=== PATIENT | female | born 2000 | race Caucasian/White ===

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

== ENCOUNTER → 2020-01-31 18:42 | Outpatient (CLI) | payer OTHER, SELFPAY ==
[2020-01-31 19:35] LABS: Basophils % 0.6 % (0.1-2.0); Eosinophils # 0.2 K/mm3 (0.0-0.4); Eosinophils % 2.5 % (0.1-12.0); Hematocrit 41.9 % (37.0-47.0); Hemoglobin 14.1 g/dL (12.2-16.2); Lymphocytes # 1.7 K/mm3 (0.7-4.5); Lymphocytes % 22.4 % (10-50); Mean Corpuscular HGB Conc 33.6 g/dL (31.8-35.4); Mean Corpuscular Hemoglobin 28.8 pg (27.0-31.2); Mean Corpuscular Volume 85.9 fl (81-99); Mean Platelet Volume 7.4 fl (7.4-10.4); Monocytes # 0.3 K/mm3 (0.1-1.0); Monocytes % 3.8 % (1.7-9.3); Neutrophils # 5.2 K/mm3 (1.8-7.8); Neutrophils % 70.7 % (37.0-80.0); Platelet Count 310 K/mm3 (142-424); Red Blood Count 4.88 M/mm3 (4.20-5.40); Red Cell Distribution Width 14.4 % (11.5-17.5); White Blood Count 7.3 K/mm3 (4.5-13.0)
[2020-01-31 19:42] LABS: Alanine Aminotransferase 10 U/L (12-78); Albumin Level 4.8 g/dl (3.5-5.0); Albumin/Globulin Ratio 1.6 (1.1-1.8); Alkaline Phosphatase 86 U/L (38-126); Anion Gap 16.8 mEq/L (5-15); Aspartate Amino Transferase 23 U/L (14-36); Bilirubin,Total 0.6 mg/dl (0.2-1.3); Blood Urea Nitrogen 9 mg/dl (7-17); Calcium 10.4 mg/dl (8.4-10.2); Carbon Dioxide 28 mmol/L (22.0-30.0); Chloride 102 mmol/L (98-107); Estimated Glomerular Filt Rate 81 ml/min (>60); GFR (African American) 98 ML/MIN (>60); Glucose 96 mg/dl (74-100); Potassium 3.8 mmoL/L (3.5-5.1); Sodium 143 mmol/L (136-145); Total Protein,Serum 7.8 g/dl (6.3-8.2)
[2020-01-31 20:13] LABS: Thyroid Stimulating Hormone 0.27 uIU/mL (0.465-4.68)
[2020-01-31 22:02] LABS: Free T4 (Free Thyroxine) 1.39 ng/dl (0.78-2.19)
== END ==
PROVIDERS: Visit Provider Nurse Practitioner Family
DX: R63.4 Abnormal weight loss (principal)
CPT/HCPCS: 80053; 84439; 84443; 85025

== ENCOUNTER 2020-02-06 19:29 | Emergency (ER) | payer OTHER, SELFPAY ==
[2020-02-06 19:36] VITALS: BP 106/69; PULSE 73; RESP 16; TEMP 36.9; O2SAT 99; BMI 17.4
[2020-02-06 20:04] LABS: Strep Scrn Group A (Rapid) Negative (Negative)
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
[2020-02-06 20:34] VITALS: BP 104/66; PULSE 69; RESP 18; TEMP 36.8; O2SAT 99
== END 2020-02-06 20:34 | disposition home or self-care (01) ==
PROVIDERS: Emergency Medicine; Emergency Provider Emergency Medicine; PCP Nurse Practitioner Family
DX: J02.9 Acute pharyngitis, unspecified (principal)
CPT/HCPCS: 87430; 99282

== ENCOUNTER 2020-03-19 15:09 | Emergency (ER) | payer OTHER, SELFPAY ==
[2020-03-19 15:18] VITALS: BP 103/71; PULSE 109; RESP 18; TEMP 36.6; O2SAT 98; BMI 17.6
[2020-03-19 15:24] LABS: Apearance,Urine Turbid (Clear); Color,Urine Dark Yellow (Yellow); PH,Urine 5.5 (5.0-8.5)
[2020-03-19 15:25] LABS: Bilirubin,Urine Negative (Negative); Blood, Urine 3+ (Negative); Glucose,Urine (UA) Negative (Negative); Ketones,Urine Negative (Negative); Protein,Urine 3+ (Negative); Specific Gravity, Urine >= 1.030 (1.005-1.030); Urobilinogen,Urine 0.2 EU/dl (0.2)
[2020-03-19 15:26] LABS: UTC Leukocyte Esterase,Urine 1+ (Negative); UTC Nitrate,Urine Positive (Negative)
--- NOTE | 2020-03-19 15:41 | HMH.EDUTC ---
[facility] [place] Clinical Impression: UTI (urinary tract infection) Qualifiers: Urinary tract infection type: site unspecified Hematuria presence: with hematuria Qualified Code(s): N39.0 - Urinary tract infection, site not specified; R31.9 - Hematuria, unspecified Disposition: Home, Self-Care Condition on Discharge: Good Instructions: DI for Urinary Tract Infection (UTI), Ciprofloxacin Additional Instructions: *Increase fluids. Water not Soda or Tea *Start antibiotic immediately and be sure to take as ordered for the FULL length of time although you should start to see improvement over the next 48 hours *Pyridium as needed Remember this medication will turn your urine Bryan. This is normal but it will stain what ever it gets on *You should not use Pyridium for more than 48 hours. If so , follow up with your primary physician to review urine culture and ensure that antibiotic is adequate for infection *Be SURE to follow up anytime for new or worsening symptoms with your family doctor. AND in 48 hours for urine culture results with your family doctor, if you do not have a doctor then you may call back to the [facility] for urine culture results and further treatment. We do recommend that you choose and establish care with a Primary Care Physician. AND follow up with them in 10-14 days to repeat UA to ensure infection is resolved and blood no longer present *Be sure to let your PCP know that we sent urine cultures from the [facility] so they can follow up to ensure that you area the on the correct antibiotic Call your doctor office and make appointment for 48 hours (2 days from today) to follow up and get the results of your urine culture and further treatment Make sure to follow up for your urine culture results to make sure that you are on the right antibiotic Follow up with Family Doctor of Dr Sommer for further treatment and evaluation Straight to ER if any life threatening symptoms Prescriptions: Ciprofloxacin HCl [Cipro 500mg Tab] 500 mg PO BID 10 Days #20 tab Transmission Status: Pending to [id number] Phenazopyridine HCl [Pyridium 200mg Tablet] 200 pow PO TID #6 tab Transmission Status: Pending to [id number] Referrals: Kalyan Marquez APRN [Primary Care Provider] - As needed Time of Disposition: 16:46 Medical Decision Making - Uli Inquiry Pt receiving controlled substance: No Uli was queried for this patient: No Vital Signs: 03/19/20 15:18 Temperature 97.9 F Temperature Source Oral Pulse Rate [Radial] 109 H Respiratory Rate 18 Blood Pressure [Right Arm] 103/71 L Blood Pressure Mean [Right Arm] 81 Blood Pressure Source [Right Arm] Automatic Cuff Blood Pressure Position [Right Arm] Sitting 02 Sat by Pulse Oximetry 98 Oxygen Delivery Method Room Air - Lab Data Lab results reviewed: Yes: I reviewed the patient's lab results. Lab Results 03/19/20 15:23: Urine Color Dark yellow, Urine Appearance Turbid, Urine pH 5.5, Ur Specific [place] >= 1.030, Urine Protein 3+, Urine Glucose (UA) Negative, Urine Ketones Negative, Urine Blood 3+, Urine Nitrate Positive A, Urine Bilirubin Negative, Urine Urobilinogen 0.2, Ur Leukocyte Esterase 1+ A 03/19/20 16:00: Serum HCG, Qual Negative Orders (Tests/Meds): ORDERS Category Date Time Status Urine Culture Routine Micro 03/19/20 15:20 Received Medical Decision Narrative: Patient states that she will not take any medications until she has a blood test to see if she is that she does not trust the urine test 1631 still awaiting Beta HCG from lab results [facility] [place] - General Stated complaint: Possible UTI Time Seen by Provider: 03/19/20 15:41 Mode of Arrival: Ambulatory Source of Information: Patient Limitations: No Limitations Description of Symptoms (Recalled from Triage Doc. by RN): POSSIBLE UTI, BURNING WITH URINATIO, FOUL ODOR X 1 WEEK. HEENT Symptoms (Recalled from RN notes): No Resp Symptoms (Recalled from RN notes): No S
[2020-03-19 16:36] LABS: HCG Qualitative, Serum Negative (Negative)
[2020-03-19 17:04] VITALS: BP 103/71; PULSE 109; RESP 18; TEMP 36.6; O2SAT 98
== END 2020-03-19 17:05 | disposition home or self-care (01) ==
PROVIDERS: Emergency Provider Nurse Practitioner; PCP Nurse Practitioner Family
DX: N30.01 Acute cystitis with hematuria (principal); B96.20 Unspecified Escherichia coli [E. coli] as the cause of diseases classified elsewhere
CPT/HCPCS: 81003; 84703; 87086; 87088; 87186; 96372; 99202

== ENCOUNTER 2020-04-25 20:41 | Emergency (ER) | payer OTHER, SELFPAY ==
--- NOTE | 2020-04-25 20:37 | ECG_ITS ---
APPROVED REPORT Exam: Resting ECG HR:66 bpm ECG Measurements Heart Rate 66 AXES HI 128 P 40 QRSd 82 QRS 82 QT 378 T 32 QTc 396 Conclusion Normal sinus rhythm with sinus arrhythmia Normal ECG Electronically signed by : John Del Angel, 04/26/2020 10:15:59
[2020-04-25 20:41] VITALS: BP 116/70; PULSE 86; RESP 17; TEMP 36.9; O2SAT 97; BMI 19.1
[2020-04-25 21:15] LABS: Basophils # 0.1 K/mm3 (0-0.2); Basophils % 1.1 % (0.1-2.0); Eosinophils # 0.1 K/mm3 (0.0-0.4); Eosinophils % 2.8 % (0.1-12.0); Hematocrit 44.5 % (37.0-47.0); Hemoglobin 14.4 g/dL (12.2-16.2); Lymphocytes # 1.3 K/mm3 (0.7-4.5); Lymphocytes % 28.6 % (10-50); Mean Corpuscular HGB Conc 32.4 g/dL (31.8-35.4); Mean Corpuscular Hemoglobin 28.2 pg (27.0-31.2); Mean Platelet Volume 7.9 fl (7.4-10.4); Monocytes # 0.2 K/mm3 (0.1-1.0); Monocytes % 5.3 % (1.7-9.3); Neutrophils # 2.8 K/mm3 (1.8-7.8); Neutrophils % 62.2 % (37.0-80.0); Platelet Count 301 K/mm3 (142-424); Red Blood Count 5.11 M/mm3 (4.20-5.40); Red Cell Distribution Width 13.8 % (11.5-17.5); White Blood Count 4.5 K/mm3 (4.5-13.0)
[2020-04-25 21:22] LABS: Chloride 102 mmol/L (98-107)
[2020-04-25 21:23] LABS: Potassium 3.8 mmoL/L (3.5-5.1); Sodium 140 mmol/L (136-145)
[2020-04-25 21:25] LABS: Alanine Aminotransferase 10 U/L (12-78); Alkaline Phosphatase 101 U/L (38-126); Anion Gap 10.8 mEq/L (5-15); Aspartate Amino Transferase 30 U/L (14-36); Bilirubin,Direct 0.1 mg/dl (0.0-0.4); Bilirubin,Indirect 0.5 mg/dL (0.0-0.9); Bilirubin,Total 0.6 mg/dl (0.2-1.3); Bilirubin,Unconjugated 0.5 mg/dL (0.0-1.1); Blood Urea Nitrogen 12 mg/dl (7-17); Carbon Dioxide 31 mmol/L (22.0-30.0); Creatinine Clearance Estimated 75 mL/min (50-200); Estimated Glomerular Filt Rate 71 ml/min (>60); GFR (African American) 86 ML/MIN (>60); HCG Qualitative, Serum Negative (Negative)
[2020-04-25 21:26] LABS: Albumin Level 4.9 g/dl (3.5-5.0); Calcium 10.1 mg/dl (8.4-10.2); Glucose 89 mg/dl (74-100); Total Protein,Serum 8.4 g/dl (6.3-8.2)
[2020-04-25 21:44] VITALS: BP 120/70; PULSE 89; RESP 16; TEMP 36.8; O2SAT 98
[2020-04-25 21:49] LABS: Troponin I < 0.01 ng/ml (0.00-0.034)
== END 2020-04-25 21:49 | disposition left against medical advice (07) ==
PROVIDERS: Emergency Provider Emergency Medicine; PCP Nurse Practitioner Family
DX: Z53.21 Procedure and treatment not carried out due to patient leaving prior to being seen by health care provider (principal); R07.9 Chest pain, unspecified
CPT/HCPCS: 80048; 80076; 84484; 84703; 85025; 93005; 96365; 99282

== ENCOUNTER → 2020-06-07 15:29 | Outpatient (CLI) | payer OTHER, SELFPAY | PROVIDERS: PCP Nurse Practitioner Family; Visit Provider Nurse Practitioner Family | DX: Z11.52 Encounter for screening for COVID-19 (principal); J02.9 Acute pharyngitis, unspecified | CPT/HCPCS: U0003 ==

== ENCOUNTER → 2020-08-01 17:49 | Outpatient (CLI) | payer OTHER, SELFPAY | PROVIDERS: Visit Provider Nurse Practitioner Family | DX: N39.0 Urinary tract infection, site not specified (principal) | CPT/HCPCS: 87086; 87088; 87186 ==

== ENCOUNTER → 2020-10-14 13:43 | Outpatient (CLI) | payer OTHER, SELFPAY | PROVIDERS: Visit Provider Family Medicine | DX: N39.0 Urinary tract infection, site not specified (principal) | CPT/HCPCS: 87086; 87088; 87186 ==

== ENCOUNTER → 2020-11-20 18:04 | Outpatient (CLI) | payer OTHER, SELFPAY ==
[2020-11-20 19:15] LABS: Basophils % 0.8 % (0.1-2.0); Eosinophils # 0.2 K/mm3 (0.0-0.4); Hematocrit 41.2 % (37.0-47.0); Hemoglobin 13.6 g/dL (12.2-16.2); Lymphocytes # 1.3 K/mm3 (0.7-4.5); Mean Corpuscular Hemoglobin 29.6 pg (27.0-31.2); Mean Corpuscular Volume 89.7 fl (81-99); Mean Platelet Volume 8.3 fl (7.4-10.4); Monocytes # 0.2 K/mm3 (0.1-1.0); Monocytes % 4.5 % (1.7-9.3); Neutrophils # 3.2 K/mm3 (1.8-7.8); Neutrophils % 64.7 % (37.0-80.0); Platelet Count 321 K/mm3 (142-424); Red Cell Distribution Width 13.8 % (11.5-17.5)
[2020-11-20 21:41] LABS: Alanine Aminotransferase 11 U/L (12-78); Albumin Level 4.6 g/dl (3.5-5.0); Albumin/Globulin Ratio 1.6 (1.1-1.8); Alkaline Phosphatase 73 U/L (38-126); Anion Gap 14.9 mEq/L (5-15); Aspartate Amino Transferase 23 U/L (14-36); Bilirubin,Total 0.7 mg/dl (0.2-1.3); Blood Urea Nitrogen 10 mg/dl (7-17); Calcium 9.7 mg/dl (8.4-10.2); Carbon Dioxide 26 mmol/L (22.0-30.0); Chloride 105 mmol/L (98-107); Chol/HDL Ratio 2.2 (1-3.5); Cholesterol 157 mg/dl (140-200); Estimated Glomerular Filt Rate 71 ml/min (>60); GFR (African American) 86 ML/MIN (>60); Globulin 2.8 g/dL (1.3-3.2); Glucose 79 mg/dl (74-100); HDL Cholesterol 72 mg/dl (40-60); Potassium 3.9 mmoL/L (3.5-5.1); Sodium 142 mmol/L (136-145); Total Protein,Serum 7.4 g/dl (6.3-8.2); Triglycerides 62 mg/dl (30-150); VLDL Cholesterol 12 mg/dL (0-40)
[2020-11-20 21:56] LABS: Direct LDL Cholesterol 55.05 mg/dL (100-129)
[2020-11-20 22:01] LABS: T4 (Thyroxine) 9.2 ug/dl (5.53-11.0)
[2020-11-20 22:02] LABS: 25-OH Vitamin D, Total 42.4 ng/mL (30-100)
[2020-11-20 22:04] LABS: HCG,Quantitative < 2 mIU/ml (0-5.42)
[2020-11-20 22:15] LABS: Thyroid Stimulating Hormone 0.32 uIU/mL (0.465-4.68)
== END ==
PROVIDERS: Visit Provider Nurse Practitioner Family
DX: R63.4 Abnormal weight loss (principal); R68.89 Other general symptoms and signs; Z68.1 Body mass index [BMI] 19.9 or less, adult
CPT/HCPCS: 80053; 80061; 82306; 83036; 84436; 84443; 84702; 85025

== ENCOUNTER 2020-12-01 15:43 | Emergency (ER) | payer OTHER, SELFPAY ==
--- NOTE | 2020-12-01 17:03 | CT_ITS ---
PROCEDURE INFORMATION: Exam: CT Neck With Contrast Exam date and time: 12/01/2020 5:03 PM Age: 20 years old Clinical indication: Other: Swelling; Additional info: Peritonsillar abscess TECHNIQUE: Imaging protocol: Computed tomography images of the neck with contrast. Radiation optimization: All CT scans at this facility use at least one of these dose optimization techniques: automated exposure control; mA and/or kV adjustment per patient size (includes targeted exams where dose is matched to clinical indication); or iterative reconstruction. Contrast material: ISOVUE; Contrast volume: 75 ml; Contrast route: IV; COMPARISON: CT CERVICAL SPINE WO CON 10/09/2019 8:50 PM FINDINGS: Nasopharynx: Unremarkable. Oropharynx: Enlarged, heterogeneous palatine tonsils, with the right palatine tonsil demonstrating areas of hypodensity, possibly phlegmon/developing abscess. No peritonsillar abscess. Hypopharynx: Unremarkable. Larynx: Unremarkable. Normal epiglottis. Retropharyngeal space: Unremarkable. Submandibular/Parotid glands: Normal. Glands are normal in size. Thyroid: Normal. No enlarged or calcified nodules. Lymph nodes: Mild enlargement of the jugulodigastric lymph nodes, likely reactive. Trachea: Visualized trachea is unremarkable. Lungs: Unremarkable as visualized. Bones/joints: Unremarkable. No acute fracture. Soft tissues: Unremarkable. No significant soft tissue swelling. IMPRESSION: Enlarged, heterogeneous palatine tonsils, with the right palatine tonsil demonstrating areas of hypodensity, possibly phlegmon/developing abscess. No peritonsillar abscess.
[2020-12-01 17:17] VITALS: BP 99/66; PULSE 110; RESP 18; TEMP 37; O2SAT 98; BMI 14.1
[2020-12-01 17:32] LABS: Urine Pregnancy, HCG Qual. Negative (Negative)
--- NOTE | 2020-12-01 17:35 | PC.NURSE ---
PT REFUSED VITALS MONITORRIBG AT THIS TIME
[2020-12-01 17:45] LABS: Basophils # 0.1 K/mm3 (0-0.2); Basophils % 0.4 % (0.1-2.0); Eosinophils # 0.1 K/mm3 (0.0-0.4); Eosinophils % 1.1 % (0.1-12.0); Hematocrit 36.6 % (37.0-47.0); Hemoglobin 12.8 g/dL (12.2-16.2); Lymphocytes # 1.1 K/mm3 (0.7-4.5); Lymphocytes % 10.1 % (10-50); Mean Corpuscular Hemoglobin 29.7 pg (27.0-31.2); Mean Corpuscular Volume 84.7 fl (81-99); Mean Platelet Volume 7.2 fl (7.4-10.4); Monocytes # 0.3 K/mm3 (0.1-1.0); Monocytes % 2.8 % (1.7-9.3); Neutrophils % 85.5 % (37.0-80.0); Platelet Count 225 K/mm3 (142-424); Red Blood Count 4.32 M/mm3 (4.20-5.40); White Blood Count 10.5 K/mm3 (4.5-13.0)
[2020-12-01 17:51] LABS: Blood Urea Nitrogen 11 mg/dl (7-17); Calcium 9.1 mg/dl (8.4-10.2); Carbon Dioxide 25 mmol/L (22.0-30.0); Chloride 102 mmol/L (98-107); Creatinine Clearance Estimated 71 mL/min (50-200); Estimated Glomerular Filt Rate 91 ml/min (>60); GFR (African American) 111 ML/MIN (>60); Glucose 94 mg/dl (74-100); MANUAL DIFFERENTIAL MANUAL DIFFERENTIAL (MANUAL DIFF); Potassium 3.9 mmoL/L (3.5-5.1)
[2020-12-01 17:56] LABS: C-Reactive Protein 76.1 mg/L (0-4)
[2020-12-01 17:59] LABS: Anion Gap 13.9 mEq/L (5-15); Sodium 137 mmol/L (136-145)
--- NOTE | 2020-12-01 17:59 | HMH.EDGENADL ---
ED Disposition Clinical Impression: Peritonsillar cellulitis Disposition: Home, Self-Care Condition on Discharge: Fair Additional Instructions: Please take medication as prescribed Please drink warm liquids with honey as needed for comfort May take Tylenol and ibuprofen as needed for pain relief If you are unable to tolerate eating or drinking, please return to the ED for further evaluation Prescriptions: Amoxicillin/Potassium Clav [Augmentin 875-125 Tablet] 1 tab PO Q12H 14 Days #28 tab Prescription Printed Referrals: Kalyan Marquez APRN [Primary Care Provider] - - Critical Care Critical Care Time: No Attestation: On 12/01/20, the high probability of a clinically significant, sudden or life threatening deterioration of the following system(s) required my full and direct attention, intervention and personal management. The time I documented below is in addition to time spent performing reported procedures but includes the following listed in this critical care notation. Medical Decision Making - Medical Records Medical records reviewed: Yes: I reviewed the patient's medical records. - Uli Inquiry Pt receiving controlled substance: No Uli was queried for this patient: No Vital Signs: 12/01/20 17:17 Temperature 98.6 F Temperature Source Oral Pulse Rate [Right] 110 H Respiratory Rate 18 Blood Pressure [Right Arm] 99/66 L Blood Pressure Mean [Right Arm] 77 02 Sat by Pulse Oximetry 98 Oxygen Delivery Method Room Air - Lab Data Lab Results 12/01/20 17:15: Urine HCG, Qual Negative 12/01/20 17:33: WBC 10.5, RBC 4.32, Hgb 12.8, Hct 36.6 L, MCV 84.7, MCH 29.7, MCHC 35.0, RDW 14.0, Plt Count 225, MPV 7.2 L, Neut % (Auto) 85.5 H, Lymph % (Auto) 10.1, [place] % (Auto) 2.8, Eos % (Auto) 1.1, Baso % (Auto) 0.4, Neut # (Auto) 9.0 H, Lymph # (Auto) 1.1, [place] # (Auto) 0.3, Eos # (Auto) 0.1, Baso # (Auto) 0.1, Total Counted 100, Neutrophils % (Manual) 81 H, Lymphocytes % (Manual) 17, Monocytes % (Manual) 2, Platelet Estimate Normal, RBC Morphology Normal 12/01/20 17:33: Sodium 137, Potassium 3.9, Chloride 102, Carbon Dioxide 25, Anion Gap 13.9, BUN 11, Creatinine 0.80, Estimated Creat Clear 71, Estimated GFR 91, Est GFR ( Amer) 111, Glucose 94, Calcium 9.1, C-Reactive Protein 76.1 H Result diagrams: 12/01/20 17:33 12/01/20 17:33 Orders (Tests/Meds): ED MEDICATIONS Discontinued Medications Generic Name Dose Route Start Last Admin Trade Name [place]ilo PRN Reason Stop Dose Admin Iopamidol 75 ml 12/01/20 17:53 12/01/20 17:54 Iopamidol-370 (76%);100ml Bottle IV 12/01/20 17:54 75 ml ONCE ONE Administration Ketorolac Tromethamine 30 mg 12/01/20 17:03 12/01/20 17:37 Ketorolac 30mg/Ml Vial IV 12/01/20 17:04 30 mg ONCE ONE Administration Sodium Chloride 10 ml 12/01/20 17:53 12/01/20 17:54 Sodium Chloride 0.9% 10ml Syr (Rad Only) IV 12/01/20 17:54 10 ml ONCE ONE Administration - CT Data CT Scan: Other (Neck soft tissue) Time Received: 17:[address] Reviewed: Yes: I have reviewed the patient's CT results, I have viewed the radiologist's interpretation Findings Narrative: Right tonsillar phlegmon with possible developing abscess, no peritonsillar abscess identified Medical Decision Narrative: On presentation, patient is hemodynamically stable and nontoxic-appearing. Patient presents with sore throat and difficulty swallowing with possibly muffled voice. Differential diagnosis include but not limited to peritonsillar abscess, strep infection, epiglottitis. However, given that patient symptoms have lasted for several days, alone could be epiglottitis. Patient does not have bilateral large tonsil purulent exudates, unlikely to be strep pharyngitis. Patient was given 4 mg IV morphine for pain relief. Labs include CBC, CMP, CRP were obtained along with a CT of the soft tissue of the neck for further evaluation of possible peritonsillar abscess. I reviewed patient's labs d
[2020-12-01 18:00] VITALS: BP 110/71; PULSE 97; RESP 20; TEMP 37; O2SAT 98
[2020-12-01 18:07] LABS: Lymphocytes % 17 % (10-50); Monocytes % 2 % (2-9); Neutrophils % 81 % (42-76); Platelet Estimate Normal; RBC Morphology Normal; Total Cells Counted 100
== END 2020-12-01 18:54 | disposition home or self-care (01) ==
LOC: UTC 16:00 → ER 16:26
PROVIDERS: Emergency Provider Emergency Medicine; PCP Nurse Practitioner Family
DX: J36 Peritonsillar abscess (principal)
CPT/HCPCS: 70491; 80048; 81025; 85007; 85025; 86140; 96374; 99281; 99282; Q9967

== ENCOUNTER → 2021-02-10 11:34 | Outpatient (CLI) | payer OTHER, SELFPAY | PROVIDERS: PCP Nurse Practitioner Family; Visit Provider Nurse Practitioner | DX: Z20.822 Contact with and (suspected) exposure to COVID-19 (principal); U07.1 COVID-19 | CPT/HCPCS: C9803; U0003; U0005 ==

== ENCOUNTER 2021-02-15 22:30 | Emergency (ER) | payer OTHER, SELFPAY ==
[2021-02-15 22:30] VITALS: BP 102/61; PULSE 75; RESP 16; TEMP 36.8; O2SAT 99; BMI 14.3
--- NOTE | 2021-02-15 22:58 | ECG_ITS ---
APPROVED REPORT Exam: Resting ECG HR:73 bpm ECG Measurements Heart Rate 73 AXES TN 146 P 63 QRSd 82 QRS 84 QT 366 T 53 QTc 403 Conclusion Normal sinus rhythm with sinus arrhythmia RSR' or QR pattern in V1 suggests right ventricular conduction delay Borderline ECG Electronically signed by : John Del Angel MD 02/16/2021 20:52:23
[2021-02-15 23:03] LABS: Basophils # 0.1 K/mm3 (0-0.2); Basophils % 2.1 % (0.1-2.0); Eosinophils # 0.1 K/mm3 (0.0-0.4); Eosinophils % 1.9 % (0.1-12.0); Hematocrit 44.3 % (37.0-47.0); Hemoglobin 14.4 g/dL (12.2-16.2); Lymphocytes # 1.8 K/mm3 (0.7-4.5); Lymphocytes % 48.9 % (10-50); Mean Corpuscular HGB Conc 32.5 g/dL (31.8-35.4); Mean Corpuscular Hemoglobin 29.1 pg (27.0-31.2); Mean Corpuscular Volume 89.6 fl (81-99); Mean Platelet Volume 8.1 fl (7.4-10.4); Monocytes # 0.2 K/mm3 (0.1-1.0); Monocytes % 4.6 % (1.7-9.3); Neutrophils # 1.6 K/mm3 (1.8-7.8); Neutrophils % 42.5 % (37.0-80.0); Platelet Count 218 K/mm3 (142-424); Red Blood Count 4.95 M/mm3 (4.20-5.40); Red Cell Distribution Width 13.6 % (11.5-17.5); White Blood Count 3.7 K/mm3 (4.5-13.0)
[2021-02-15 23:05] LABS: Chloride 106 mmol/L (98-107); Potassium 3.7 mmoL/L (3.5-5.1); Sodium 144 mmol/L (136-145); Urine Pregnancy, HCG Qual. Negative (Negative)
[2021-02-15 23:07] LABS: Alanine Aminotransferase 8 U/L (12-78); Aspartate Amino Transferase 25 U/L (14-36); Blood Urea Nitrogen 7 mg/dl (7-17); Creatinine Clearance Estimated 69 mL/min (50-200); Estimated Glomerular Filt Rate 91 ml/min (>60); GFR (African American) 111 ML/MIN (>60)
[2021-02-15 23:08] LABS: Albumin Level 4.2 g/dl (3.5-5.0); Albumin/Globulin Ratio 1.2 (1.1-1.8); Alkaline Phosphatase 73 U/L (38-126); Anion Gap 12.7 mEq/L (5-15); Bilirubin,Total 0.2 mg/dl (0.2-1.3); Carbon Dioxide 29 mmol/L (22.0-30.0); Globulin 3.4 g/dL (1.3-3.2); Glucose 101 mg/dl (74-100); Total Protein,Serum 7.6 g/dl (6.3-8.2)
[2021-02-15 23:13] LABS: C-Reactive Protein 1.4 mg/L (0-4)
[2021-02-15 23:26] LABS: Erythrocyte Sedimentation Rate 13 mm/hr (0-20)
[2021-02-15 23:31] LABS: Procalcitonin 0.056 ng/mL (0.0-2.0)
[2021-02-15 23:32] LABS: Troponin I < 0.01 ng/ml (0.00-0.034)
--- NOTE | 2021-02-15 23:59 | HMH.EDSOB ---
ED Disposition Clinical Impression: COVID-19 Disposition: Home, Self-Care Condition on Discharge: Good Instructions: DI for COVID-19 (Suspected or Confirmed ) Additional Instructions: use meds and see pcp for follow up Prescriptions: predniSONE [Prednisone 20mg Tab] 20 mg PO BID #10 tab Transmission Status: Pending to [id number] Referrals: Kalyan Marquez APRN [Primary Care Provider] - - Critical Care Critical Care Time: No Attestation: On 02/15/21, the high probability of a clinically significant, sudden or life threatening deterioration of the following system(s) required my full and direct attention, intervention and personal management. The time I documented below is in addition to time spent performing reported procedures but includes the following listed in this critical care notation. Medical Decision Making - Medical Records Medical records reviewed: Yes: I reviewed the patient's medical records. - Uli Inquiry Pt receiving controlled substance: No Vital Signs: 02/15/21 22:30 Temperature 98.2 F Temperature Source Oral Pulse Rate [Right] 75 Respiratory Rate 16 Blood Pressure [Right Arm] 102/61 L Blood Pressure Mean [Right Arm] 74 02 Sat by Pulse Oximetry 99 Oxygen Delivery Method Room Air - Lab Data Lab results reviewed: Yes: I reviewed the patient's lab results. Lab Results 02/15/21 22:52: Urine HCG, Qual Negative 02/15/21 22:52: WBC 3.7 L, RBC 4.95, Hgb 14.4, Hct 44.3, MCV 89.6, MCH 29.1, MCHC 32.5, RDW 13.6, Plt Count 218, MPV 8.1, Neut % (Auto) 42.5, Lymph % (Auto) 48.9, [place] % (Auto) 4.6, Eos % (Auto) 1.9, Baso % (Auto) 2.1 H, Neut # (Auto) 1.6 L, Lymph # (Auto) 1.8, [place] # (Auto) 0.2, Eos # (Auto) 0.1, Baso # (Auto) 0.1, ESR 13 02/15/21 22:52: Sodium 144, Potassium 3.7, Chloride 106, Carbon Dioxide 29, Anion Gap 12.7, BUN 7, Creatinine 0.80, Estimated Creat Clear 69, Estimated GFR 91, Est GFR ( Amer) 111, Glucose 101 H, Calcium 9.0, Total Bilirubin 0.2, AST 25, ALT 8 L, Alkaline Phosphatase 73, Troponin I < 0.01, C-Reactive Protein 1.4, Total Protein 7.6, Albumin 4.2, Globulin 3.4 H, Albumin/Globulin Ratio 1.2, Procalcitonin 0.056 02/15/21 22:52: Urine Color Yellow, Urine Appearance Clear, Urine pH 6.0, Ur Specific [place] >= 1.030, Urine Protein Negative, Urine Glucose (UA) Negative, Urine Ketones Negative, Urine Blood Negative, Urine Nitrate Negative, Urine Bilirubin Negative, Urine Urobilinogen 1.0, Ur Leukocyte Esterase Negative, Urine WBC Occasional, Ur Squamous Epith Cells 5-10, Amorphous Sediment Trace, Urine Bacteria Trace, Urine Mucus 4+ 02/15/21 22:52: Urine Opiates Screen Negative, Urine Methadone Screen Negative, Ur Barbituates Screen Negative, Ur Phencyclidine Scrn Negative, Ur Amphetamines Screen Negative, U Benzodiazepines Scrn Negative, Urine Cocaine Screen Negative, U Marijuana (THC) Screen Negative Result diagrams: 02/15/21 22:52 02/15/21 22:52 Orders (Tests/Meds): ED MEDICATIONS Generic Name Dose Route Start Last Admin Trade Name Freq PRN Reason Stop Dose Admin Sodium Chloride 1,000 mls @ 999 mls/hr 02/15/21 23:00 02/15/21 23:32 Sod Chlor 0.9% 1000ml Bag IV 02/16/21 00:00 999 mls/hr .Q1H1M KELLI Administration Discontinued Medications Generic Name Dose Route Start Last Admin Trade Name Freq PRN Reason Stop Dose Admin Dexamethasone Sodium Phosphate 10 mg 02/15/21 22:59 02/15/21 23:32 Dexamethasone 4mg/Ml 5ml Mdv IV 02/15/21 23:00 10 mg ONCE ONE Administration Iopamidol 70 ml 02/16/21 00:45 02/16/21 00:47 Iopamidol-250 (51%) 100ml Bot IV 02/16/21 00:46 70 ml ONCE ONE Administration Ketorolac Tromethamine 30 mg 02/15/21 22:59 02/15/21 23:32 Ketorolac 30mg/Ml Vial IV 02/15/21 23:00 30 mg ONCE ONE Administration Ondansetron HCl 4 mg 02/15/21 22:59 02/15/21 23:32 Ondansetron 4mg/2ml Vial IV 02/15/21 23:00 4 mg ONCE ONE Administration Sodium Chloride 40 ml 02/16/21 00:45 02/16/21
--- NOTE | 2021-02-16 00:20 | CT_ITS ---
PROCEDURE INFORMATION: Exam: CTA Chest With Contrast Exam date and time: 02/16/2021 12:20 AM Age: 20 years old Clinical indication: Shortness of breath; Additional info: SOA covid positive TECHNIQUE: Imaging protocol: Computed tomographic angiography of the chest with contrast. 3D rendering (Not supervised by radiologist): MIP and/or 3D reconstructed images were created by the technologist. Radiation optimization: All CT scans at this facility use at least one of these dose optimization techniques: automated exposure control; mA and/or kV adjustment per patient size (includes targeted exams where dose is matched to clinical indication); or iterative reconstruction. Contrast material: ISOVUE 370; Contrast volume: 70 ml; Contrast route: INTRAVENOUS (IV); COMPARISON: CT ANGIO CHEST 05/12/2019 11:14 PM FINDINGS: Pulmonary arteries: The pulmonary trunk, main, and branch pulmonary arteries contain no filling defects. Aorta: Unremarkable. No aortic aneurysm. No aortic dissection. Lungs: Unremarkable. No consolidation. No masses. Pleural spaces: Unremarkable. No pneumothorax. No pleural effusion. Heart: No cardiomegaly. No pericardial effusion. Heart RV/LV ratio: Within normal limits. Coronary arteries: There is no evidence of significant coronary artery calcifications. Mediastinal space: No evidence of mediastinal or hilar mass. Lymph nodes: Unremarkable. No enlarged lymph nodes. Bones/joints: Unremarkable. No acute fracture. Soft tissues: Unremarkable. IMPRESSION: No acute findings.
--- NOTE | 2021-02-16 00:21 | XR_ITS ---
PROCEDURE INFORMATION: Exam: XR Chest Exam date and time: 02/16/2021 12:21 AM Age: 20 years old Clinical indication: Shortness of breath; Additional info: SOA covid positive TECHNIQUE: Imaging protocol: XR of the chest. Views: 2 views. COMPARISON: CR XR CHEST AP 10/09/2019 9:04 PM FINDINGS: Lungs: Unremarkable. No consolidation. Pleural spaces: Unremarkable. No pleural effusion. No pneumothorax. Heart/Mediastinum: Unremarkable. No cardiomegaly. Bones/joints: Unremarkable. Organs: There are clips identified within the right upper quadrant, compatible with prior cholecystectomy. IMPRESSION: No acute findings.
[2021-02-16 00:31] LABS: Appearance,Urine CLEAR (Clear); Bilirubin,Urine Negative (Negative); Blood, Urine Negative (Negative); Color,Urine YELLOW (Yellow); Glucose,Urine (UA) Negative (Negative); Ketones,Urine Negative (Negative); Leukocyte Esterase,Urine Negative (Negative); Microscopic, Urine URINE MICROSCOPIC (MICROSCOPIC); Nitrate,Urine Negative (Negative); Protein,Urine Negative (Negative); Specific Gravity, Urine >= 1.030 (1.005-1.030)
[2021-02-16 00:41] LABS: Barbiturates Screen,Urine Negative ng/ml (<200)
[2021-02-16 00:42] LABS: Benzodiazepines Screen,Urine Negative ng/ml (<200)
[2021-02-16 00:43] LABS: Amphetamine/Metha Screen,Urine Negative ng/ml (<1000); Cannabinoid Screen,Urine Negative ng/ml (<50)
[2021-02-16 00:44] LABS: Cocaine Screen,Urine Negative ng/ml (<300)
[2021-02-16 00:45] LABS: Amorphous Sediment,Urine Trace /lpf; Bacteria,Urine Trace /lpf; Methadone Screen,Urine Negative ng/ml (<300); Mucus,Urine 4+ /lpf; Opiate Screen,Urine Negative ng/ml (<300); WBC,Urine Occasional #/hpf (0-3)
[2021-02-16 00:46] LABS: Phencyclidine Screen,Urine Negative ng/ml (<25)
[2021-02-16 01:36] VITALS: BP 118/71; PULSE 70; RESP 21; TEMP 36.8; O2SAT 95
== END 2021-02-16 01:45 | disposition home or self-care (01) ==
PROVIDERS: Emergency Provider Emergency Medicine; PCP Nurse Practitioner Family
DX: U07.1 COVID-19 (principal); R06.02 Shortness of breath; F17.210 Nicotine dependence, cigarettes, uncomplicated
CPT/HCPCS: 71046; 71275; 80053; 80305; 81001; 81025; 84145; 84484; 85025; 85651; 86140; 93005; 96365; 96375; 99283; J2405; Q9966

== ENCOUNTER → 2021-03-26 12:19 | Outpatient (CLI) | payer OTHER, SELFPAY ==
[2021-03-26 16:09] LABS: HCG,Quantitative 43014 mIU/ml (0-5.42)
== END ==
PROVIDERS: Visit Provider Obstetrics & Gynecology
DX: Z34.90 Encounter for supervision of normal pregnancy, unspecified, unspecified trimester (principal)
CPT/HCPCS: 36415; 84702

== ENCOUNTER 2021-03-30 20:11 | Emergency (ER) | payer OTHER, SELFPAY ==
[2021-03-30 20:11] VITALS: BP 113/64; PULSE 91; RESP 16; TEMP 36.9; O2SAT 100; BMI 16.5
[2021-03-30 20:38] LABS: Microscopic, Urine URINE MICROSCOPIC (MICROSCOPIC)
--- NOTE | 2021-03-30 20:47 | HMH.EDPREG ---
ED Disposition Clinical Impression: Qualifiers: Weeks of gestation: less than 8 weeks Qualified Code(s): Z3A.01 - Less than 8 weeks gestation of Disposition: Home, Self-Care Condition on Discharge: Good Instructions: DI for -- Discomforts and Remedies Additional Instructions: call ob in am for follow up Referrals: Kalyan Marquez APRN [Primary Care Provider] - Merlyn Mar MD [Staff Physician] - - Critical Care Critical Care Time: No Attestation: On 03/30/21, the high probability of a clinically significant, sudden or life threatening deterioration of the following system(s) required my full and direct attention, intervention and personal management. The time I documented below is in addition to time spent performing reported procedures but includes the following listed in this critical care notation. Medical Decision Making - Medical Records Medical records reviewed: Yes: I reviewed the patient's medical records. - Uli Inquiry Pt receiving controlled substance: No Vital Signs: 03/30/21 20:11 03/30/21 21:00 Temperature 98.5 F Temperature Source Oral Pulse Rate 88 Pulse Rate [Right Radial] 91 H Respiratory Rate 16 16 Blood Pressure 111/62 Blood Pressure [Right Arm] 113/64 Blood Pressure Mean [Right Arm] 80 Blood Pressure Source Automatic Cuff Blood Pressure Source [Right Arm] Automatic Cuff Blood Pressure Position Supine Blood Pressure Position [Right Arm] Sitting 02 Sat by Pulse Oximetry 100 98 Oxygen Delivery Method Room Air Room Air - Lab Data Lab results reviewed: Yes: I reviewed the patient's lab results. Lab Results 03/30/21 20:18: Urine Color Yellow, Urine Appearance Sl cloudy, Urine pH 6.0, Ur Specific [place] >= 1.030, Urine Protein Negative, Urine Glucose (UA) Negative, Urine Ketones Trace, Urine Blood Negative, Urine Nitrate Negative, Urine Bilirubin Negative, Urine Urobilinogen 0.2, Ur Leukocyte Esterase Negative, Ur Squamous Epith Cells 10-20, Urine Bacteria Trace, Urine Mucus Trace 03/30/21 20:18: Urine HCG, Qual Positive 03/30/21 20:38: WBC 6.9, RBC 4.16 L, Hgb 12.1 L, Hct 37.8, MCV 90.8, MCH 29.1, MCHC 32.0, RDW 14.3, Plt Count 290, MPV 7.8, Neut % (Auto) 66.8, Lymph % (Auto) 26.4, [place] % (Auto) 4.3, Eos % (Auto) 1.6, Baso % (Auto) 1.0, Neut # (Auto) 4.6, Lymph # (Auto) 1.8, Dale # (Auto) 0.3, Eos # (Auto) 0.1, Baso # (Auto) 0.1, ESR 24 H 03/30/21 20:38: Sodium 140, Potassium 3.5, Chloride 104, Carbon Dioxide 29, Anion Gap 10.5, BUN 9, Creatinine 0.60, Estimated Creat Clear 106, Estimated GFR 127, Est GFR ( Amer) 154, Glucose 91, Calcium 9.4, Total Bilirubin 0.3, AST 28, ALT 12, Alkaline Phosphatase 53, C-Reactive Protein 1.3, Total Protein 7.2, Albumin 4.2, Globulin 3.0, Albumin/Globulin Ratio 1.4 Result diagrams: 03/30/21 20:38 03/30/21 20:38 Orders (Tests/Meds): ED MEDICATIONS Generic Name Dose Route Start Last Admin Trade Name Freq PRN Reason Stop Dose Admin Lactated Ringer's 1,000 mls @ 999 mls/hr 03/30/21 20:45 Lactated Ringer's 1000 Ml Bag IV 03/30/21 21:45 .Q1H1M [facility] ORDERS Category Date Time Status C-Reactive Protein Stat Lab 03/30/21 20:38 Results Comprehensive Metabolic Panel Stat Lab 03/30/21 20:38 Results HCG,Quantitative Stat Lab 03/30/21 20:38 Results Procalcitonin Stat Lab 03/30/21 20:38 Results US OB transvaginal Stat Ultrasound 03/30/21 20:55 Taken - US Data US Images: Pelvis ED US Reviewed: Yes: I discussed the US results w/the radiologist Findings Narrative: iup Medical Decision Narrative: iup and will ask pt to call ob in am HPI - General Chief complaint: Abdominal Pain Stated complaint: 5 wk preg, stomach pain Time Seen by Provider: 03/30/21 20:48 Mode of Arrival: Ambulatory Source of Information: Patient, Medical Record Limitations: No Limitations Description of Symptoms (Recalled from ER Triage Doc. by RN): Pt reports mid lower abdominal pain
[2021-03-30 20:48] LABS: Appearance,Urine SL CLOUDY (Clear); Bilirubin,Urine Negative (Negative); Blood, Urine Negative (Negative); Color,Urine YELLOW (Yellow); Glucose,Urine (UA) Negative (Negative); Ketones,Urine TRACE (Negative); Leukocyte Esterase,Urine Negative (Negative); Nitrate,Urine Negative (Negative); Protein,Urine Negative (Negative); Specific Gravity, Urine >= 1.030 (1.005-1.030); Urobilinogen,Urine 0.2 EU/dl (0.2)
[2021-03-30 20:50] LABS: Basophils # 0.1 K/mm3 (0-0.2); Eosinophils # 0.1 K/mm3 (0.0-0.4); Eosinophils % 1.6 % (0.1-12.0); Hematocrit 37.8 % (37.0-47.0); Hemoglobin 12.1 g/dL (12.2-16.2); Lymphocytes # 1.8 K/mm3 (0.7-4.5); Lymphocytes % 26.4 % (10-50); Mean Corpuscular Hemoglobin 29.1 pg (27.0-31.2); Mean Corpuscular Volume 90.8 fl (81-99); Mean Platelet Volume 7.8 fl (7.4-10.4); Monocytes # 0.3 K/mm3 (0.1-1.0); Monocytes % 4.3 % (1.7-9.3); Neutrophils # 4.6 K/mm3 (1.8-7.8); Neutrophils % 66.8 % (37.0-80.0); Platelet Count 290 K/mm3 (142-424); Red Blood Count 4.16 M/mm3 (4.20-5.40); Red Cell Distribution Width 14.3 % (11.5-17.5); White Blood Count 6.9 K/mm3 (4.5-13.0)
[2021-03-30 20:52] LABS: Urine Pregnancy, HCG Qual. Positive (Negative)
[2021-03-30 20:53] LABS: Bacteria,Urine Trace /lpf; Mucus,Urine Trace /lpf
--- NOTE | 2021-03-30 20:55 | US_ITS ---
PROCEDURE INFORMATION: Exam: US , Transvaginal Exam date and time: 03/30/2021 8:55 PM Age: 20 years old Clinical indication: complicated by abdominal or pelvic pain; Other: Pelvis pain mid line; Gestational age or lmp: 6 weeks; ; Additional info: Abd pain low pelvis 5-6 weeks TECHNIQUE: Imaging protocol: Real-time transvaginal obstetrical ultrasound of the maternal pelvis with image documentation. Transvaginal imaging was used for better evaluation of the fetus, adnexa, and/or cervix. COMPARISON: CT ABDOMEN PELVIS W CON 06/21/2019 6:11 PM FINDINGS: Gestation: Single live intrauterine gestation. heart rate: heart rate of 146 beats per minute. BIOMETRY: Gestational age (AUA): [place]-rump length of 0.52 cm, correlating with gestational age of 6 weeks 2 days. MATERNAL: Uterus: No subchorionic hemorrhage. Cervix: Closed cervix. Right ovary: Probable 0.9 x 1.4 x 0.9 cm corpus luteal cyst. No adnexal mass. Left ovary: Normal. No adnexal mass. Intraperitoneal space: No significant free fluid. IMPRESSION: Single live intrauterine gestation.
[2021-03-30 21:00] VITALS: BP 111/62; PULSE 88; RESP 16; O2SAT 98
[2021-03-30 21:03] LABS: Alanine Aminotransferase 12 U/L (12-78); Albumin Level 4.2 g/dl (3.5-5.0); Albumin/Globulin Ratio 1.4 (1.1-1.8); Alkaline Phosphatase 53 U/L (38-126); Anion Gap 10.5 mEq/L (5-15); Aspartate Amino Transferase 28 U/L (14-36); Bilirubin,Total 0.3 mg/dl (0.2-1.3); Blood Urea Nitrogen 9 mg/dl (7-17); Calcium 9.4 mg/dl (8.4-10.2); Carbon Dioxide 29 mmol/L (22.0-30.0); Chloride 104 mmol/L (98-107); Creatinine Clearance Estimated 106 mL/min (50-200); Estimated Glomerular Filt Rate 127 ml/min (>60); GFR (African American) 154 ML/MIN (>60); Glucose 91 mg/dl (74-100); Potassium 3.5 mmoL/L (3.5-5.1); Sodium 140 mmol/L (136-145); Total Protein,Serum 7.2 g/dl (6.3-8.2)
[2021-03-30 21:08] LABS: C-Reactive Protein 1.3 mg/L (0-4)
[2021-03-30 21:22] LABS: Erythrocyte Sedimentation Rate 24 mm/hr (0-20); Procalcitonin 0.051 ng/mL (0.0-2.0)
[2021-03-30 21:49] LABS: HCG,Quantitative 100980 mIU/ml (0-5.42)
[2021-03-30 22:04] VITALS: BP 109/54; PULSE 79; RESP 16; TEMP 36.9; O2SAT 99
== END 2021-03-30 22:04 | disposition home or self-care (01) ==
PROVIDERS: Emergency Provider Emergency Medicine; PCP Nurse Practitioner Family
DX: R10.30 Lower abdominal pain, unspecified (principal); Z3A.01 Less than 8 weeks gestation of pregnancy; F17.290 Nicotine dependence, other tobacco product, uncomplicated
CPT/HCPCS: 76817; 80053; 81001; 81025; 84145; 84702; 85025; 85651; 86140; 96365; 99283

== ENCOUNTER 2021-04-01 19:32 | Emergency (ER) | payer OTHER, SELFPAY ==
[2021-04-01 19:33] VITALS: BP 108/55; PULSE 83; RESP 16; TEMP 36.8; O2SAT 100; BMI 16.5
--- NOTE | 2021-04-01 20:08 | HMH.EDNVD ---
ED Disposition Clinical Impression: Qualifiers: Weeks of gestation: less than 8 weeks Qualified Code(s): Z3A.01 - Less than 8 weeks gestation of Disposition: Home, Self-Care Condition on Discharge: Good Instructions: DI for -- Discomforts and Remedies Additional Instructions: see ob for follow up Referrals: Kalyan Marquez APRN [Primary Care Provider] - - Critical Care Critical Care Time: No Attestation: On 04/01/21, the high probability of a clinically significant, sudden or life threatening deterioration of the following system(s) required my full and direct attention, intervention and personal management. The time I documented below is in addition to time spent performing reported procedures but includes the following listed in this critical care notation. Medical Decision Making - Medical Records Medical records reviewed: Yes: I reviewed the patient's medical records. - Uli Inquiry Pt receiving controlled substance: No Vital Signs: 04/01/21 19:33 Temperature 98.3 F Temperature Source Oral Pulse Rate [Right] 83 Respiratory Rate 16 Blood Pressure [Right Arm] 108/55 L Blood Pressure Mean [Right Arm] 72 Blood Pressure Source [Right Arm] Automatic Cuff 02 Sat by Pulse Oximetry 100 Oxygen Delivery Method Room Air - Lab Data Lab results reviewed: Yes: I reviewed the patient's lab results. Lab Results 04/01/21 20:12: WBC 5.1 D, RBC 4.21, Hgb 12.3, Hct 38.3, MCV 91.0, MCH 29.3, MCHC 32.2, RDW 14.4, Plt Count 299, MPV 8.1, Neut % (Auto) 62.2, Lymph % (Auto) 29.3, [place] % (Auto) 5.2, Eos % (Auto) 2.3, Baso % (Auto) 0.9, Neut # (Auto) 3.2, Lymph # (Auto) 1.5, [place] # (Auto) 0.3, Eos # (Auto) 0.1, Baso # (Auto) 0.1, ESR 20 04/01/21 20:12: Sodium 141, Potassium 3.7, Chloride 105, Carbon Dioxide 29, Anion Gap 10.7, BUN 7, Creatinine 0.60, Estimated Creat Clear 106, Estimated GFR 127, Est GFR ( Amer) 154, Glucose 85, Calcium 9.5, Total Bilirubin 0.2, AST 27, ALT 13, Alkaline Phosphatase 50, C-Reactive Protein 1.2, Total Protein 7.1, Albumin 4.3, Globulin 2.8, Albumin/Globulin Ratio 1.5, Amylase 65, Lipase 151, Procalcitonin 0.046, HCG, Quant [id number] Result diagrams: 04/01/21 20:12 04/01/21 20:12 Orders (Tests/Meds): ED MEDICATIONS Generic Name Dose Route Start Last Admin Trade Name Chilo PRN Reason Stop Dose Admin Sodium Chloride 1,000 mls @ 999 mls/hr 04/01/21 20:30 04/01/21 20:25 Sod Chlor 0.9% 1000ml Bag IV 04/01/21 21:30 999 mls/hr .Q1H1M KELLI Administration ORDERS Category Date Time Status US transvaginal Stat Exams 04/01/21 20:26 Ordered Occult Blood,Gastric Fluid Stat Lab 04/01/21 20:04 Ordered UA [Urinalysis and Microscopic] Stat Lab 04/01/21 20:04 Ordered - US Data US Images: Pelvis ED US Reviewed: Yes: I discussed the US results w/the radiologist Preliminary Findings: Normal/NAD (iup) Medical Decision Narrative: stable exam and has appt with ob this week Nausea/Vomiting/Diarrhea HPI - General Chief complaint: Abdominal Pain Stated complaint: abd pain, 6 wks Time Seen by Provider: 04/01/21 20:00 Mode of Arrival: Family Vehicle Source of Information: Patient, Medical Record Limitations: No Limitations Description of Symptoms (Recalled from ER Triage Doc. by RN): Pt c/o R lower abd pain that radiates to her R lower back. Pt is 6 wk preg. She was seen here on 03/30/21 for the same issue and u/s revealed viable pregnacy with a luteal cyst to R ovary. Pt s/w Dr. Aguilera last night d/t the pain and he told her to take tylenol. Pt states the tylenol is not helping. Pt is to see Dr. Mar on 04/04. Pt states she has also been vomting pink stuff . She denies eating or drinking anything red or or similar color in the last 2 days. She denies any vaginal bleeding. - History of Present Illness HPI Narrative: has ongoing lower abd pain and has episode of vomiting but no vag bleeding MD complaint: vomiting Associated Abdo
--- NOTE | 2021-04-01 20:26 | US_ITS ---
PROCEDURE INFORMATION: Exam: US , Transvaginal Exam date and time: 04/01/2021 8:26 PM Age: 20 years old Clinical indication: complicated by abdominal or pelvic pain; Right lower quadrant; First trimester (<14 weeks 0 days); Gestational age or lmp: 6w2d; ; Patient HX: Rlq pain x 2 days; Additional info: 6wk preg, abd pain, known R cyst TECHNIQUE: Imaging protocol: Real-time transvaginal obstetrical ultrasound of the maternal pelvis with image documentation. Transvaginal imaging was used for better evaluation of the fetus, adnexa, and/or cervix. COMPARISON: US OB TRANSVAGINAL 03/30/2021 8:58 PM FINDINGS: Gestation: Single living Intrauterine gestation. heart rate: 114 BPM BIOMETRY: Gestational age (AUA): 6 weeks 2 days +/-1 week. Estimated due date (AUA): 11/23/2021 IMPRESSION: Single living intrauterine gestation 6 weeks 2 days +/-1 week with positive cardiac activity.
[2021-04-01 20:29] LABS: Basophils # 0.1 K/mm3 (0-0.2); Basophils % 0.9 % (0.1-2.0); Eosinophils # 0.1 K/mm3 (0.0-0.4); Eosinophils % 2.3 % (0.1-12.0); Hematocrit 38.3 % (37.0-47.0); Hemoglobin 12.3 g/dL (12.2-16.2); Lymphocytes # 1.5 K/mm3 (0.7-4.5); Lymphocytes % 29.3 % (10-50); Mean Corpuscular HGB Conc 32.2 g/dL (31.8-35.4); Mean Corpuscular Hemoglobin 29.3 pg (27.0-31.2); Mean Platelet Volume 8.1 fl (7.4-10.4); Monocytes # 0.3 K/mm3 (0.1-1.0); Monocytes % 5.2 % (1.7-9.3); Neutrophils # 3.2 K/mm3 (1.8-7.8); Neutrophils % 62.2 % (37.0-80.0); Platelet Count 299 K/mm3 (142-424); Red Blood Count 4.21 M/mm3 (4.20-5.40); Red Cell Distribution Width 14.4 % (11.5-17.5); White Blood Count 5.1 K/mm3 (4.5-13.0)
[2021-04-01 20:35] LABS: Alanine Aminotransferase 13 U/L (12-78); Albumin Level 4.3 g/dl (3.5-5.0); Albumin/Globulin Ratio 1.5 (1.1-1.8); Alkaline Phosphatase 50 U/L (38-126); Amylase 65 U/L (30-110); Anion Gap 10.7 mEq/L (5-15); Aspartate Amino Transferase 27 U/L (14-36); Bilirubin,Total 0.2 mg/dl (0.2-1.3); Blood Urea Nitrogen 7 mg/dl (7-17); Calcium 9.5 mg/dl (8.4-10.2); Carbon Dioxide 29 mmol/L (22.0-30.0); Chloride 105 mmol/L (98-107); Creatinine Clearance Estimated 106 mL/min (50-200); Estimated Glomerular Filt Rate 127 ml/min (>60); GFR (African American) 154 ML/MIN (>60); Globulin 2.8 g/dL (1.3-3.2); Glucose 85 mg/dl (74-100); Lipase 151 U/L (23-300); Potassium 3.7 mmoL/L (3.5-5.1); Sodium 141 mmol/L (136-145); Total Protein,Serum 7.1 g/dl (6.3-8.2)
--- NOTE | 2021-04-01 20:39 | PC.NURSE ---
NOTIFIED RADIOLOGY REGARDING TRANSVAGINAL U/S
[2021-04-01 20:41] LABS: C-Reactive Protein 1.2 mg/L (0-4)
[2021-04-01 20:55] LABS: Procalcitonin 0.046 ng/mL (0.0-2.0)
[2021-04-01 21:23] LABS: Erythrocyte Sedimentation Rate 20 mm/hr (0-20)
[2021-04-01 21:44] VITALS: BP 102/66; PULSE 88; RESP 16; TEMP 36.8; O2SAT 99
== END 2021-04-01 21:45 | disposition home or self-care (01) ==
PROVIDERS: Emergency Provider Emergency Medicine; PCP Nurse Practitioner Family
DX: R10.31 Right lower quadrant pain (principal); Z3A.01 Less than 8 weeks gestation of pregnancy; F17.290 Nicotine dependence, other tobacco product, uncomplicated
CPT/HCPCS: 76817; 80053; 82150; 83690; 84145; 84702; 85025; 85651; 86140; 96365; 99282

== ENCOUNTER → 2021-04-14 16:57 | Outpatient (CLI) | payer OTHER, SELFPAY ==
[2021-04-17 07:01] LABS: Neisseria gonorrhoeae, NAA Negative (Negative)
== END ==
PROVIDERS: Visit Provider Obstetrics & Gynecology
DX: Z34.90 Encounter for supervision of normal pregnancy, unspecified, unspecified trimester (principal)
CPT/HCPCS: 87491; 87591

== ENCOUNTER 2021-04-25 14:16 | Emergency (ER) | payer OTHER, SELFPAY ==
[2021-04-25 14:17] VITALS: BP 108/67; PULSE 112; RESP 16; TEMP 36.9; O2SAT 99; BMI 17.4
[2021-04-25 14:28] VITALS: BP 108/67; RESP 18; O2SAT 100
[2021-04-25 14:53] LABS: Microscopic, Urine URINE MICROSCOPIC (MICROSCOPIC)
[2021-04-25 14:57] LABS: Appearance,Urine SL CLOUDY (Clear); Bilirubin,Urine Negative (Negative); Blood, Urine Negative (Negative); Color,Urine YELLOW (Yellow); Glucose,Urine (UA) Negative (Negative); Ketones,Urine TRACE (Negative); Leukocyte Esterase,Urine TRACE (Negative); Nitrate,Urine Negative (Negative); PH,Urine 7.5 (5.0-8.5); Protein,Urine TRACE (Negative); Specific Gravity, Urine >= 1.030 (1.005-1.030)
--- NOTE | 2021-04-25 15:02 | HMH.EDGENADL ---
ED Disposition Clinical Impression: Vaginal bleeding, Threatened Disposition: Home, Self-Care Condition on Discharge: Good Instructions: DI for Vaginal Bleeding Referrals: Kalyan Marquez APRN [Primary Care Provider] - - Critical Care Critical Care Time: No Attestation: On 04/25/21, the high probability of a clinically significant, sudden or life threatening deterioration of the following system(s) required my full and direct attention, intervention and personal management. The time I documented below is in addition to time spent performing reported procedures but includes the following listed in this critical care notation. Medical Decision Making - Medical Records Medical records reviewed: Yes: I reviewed the patient's medical records. - Uli Inquiry Pt receiving controlled substance: No Vital Signs: 04/25/21 14:17 Temperature 98.4 F Temperature Source Oral Pulse Rate [Right Radial] 112 H Respiratory Rate 16 Blood Pressure [Right Arm] 108/67 L Blood Pressure Mean [Right Arm] 80 Blood Pressure Source [Right Arm] Automatic Cuff Blood Pressure Position [Right Arm] Sitting 02 Sat by Pulse Oximetry 99 Oxygen Delivery Method Room Air - Lab Data Lab Results 04/25/21 14:49: Urine Color Yellow, Urine Appearance Sl cloudy, Urine pH 7.5, Ur Specific [place] >= 1.030, Urine Protein Trace, Urine Glucose (UA) Negative, Urine Ketones Trace, Urine Blood Negative, Urine Nitrate Negative, Urine Bilirubin Negative, Urine Urobilinogen 1.0, Ur Leukocyte Esterase Trace, Urine RBC Occasional, Urine WBC 5-10, Ur Squamous Epith Cells 10-20, Urine Bacteria 1+ 04/25/21 14:49: Urine HCG, Qual Negative 04/25/21 15:00: WBC 5.8, RBC 4.04 L, Hgb 11.9 L, Hct 35.2 L, MCV 87.1, MCH 29.5, MCHC 33.9, RDW 14.4, Plt Count 314, MPV 7.7, Neut % (Auto) 72.0, Lymph % (Auto) 21.4, [place] % (Auto) 4.7, Eos % (Auto) 1.3, Baso % (Auto) 0.5, Neut # (Auto) 4.2, Lymph # (Auto) 1.2, [place] # (Auto) 0.3, Eos # (Auto) 0.1, Baso # (Auto) 0.0 04/25/21 15:00: HCG, Quant [id number] H 04/25/21 15:00: Sodium 138, Potassium 3.6, Chloride 103, Carbon Dioxide 26, Anion Gap 12.6, BUN 15, Creatinine 0.70, Estimated Creat Clear 96, Estimated GFR 107, Est GFR ( Amer) 129, Glucose 81, Calcium 9.7, Total Bilirubin 0.3, AST 31, ALT 10 L, Alkaline Phosphatase 55, Total Protein 7.2, Albumin 4.3, Globulin 2.9, Albumin/Globulin Ratio 1.5 Result diagrams: 04/25/21 15:00 04/25/21 15:00 Orders (Tests/Meds): ED MEDICATIONS Discontinued Medications Generic Name Dose Route Start Last Admin Trade Name Freq PRN Reason Stop Dose Admin Sodium Chloride 1,000 mls @ 999 mls/hr 04/25/21 15:15 04/25/21 15:50 Sod Chlor 0.9% 1000ml Bag IV 04/25/21 16:15 999 mls/hr .Q1H1M KELLI Administration ORDERS Category Date Time Status US OB transvaginal Stat Ultrasound 04/25/21 16:37 Ordered - US Data US Images: Other (pelvis/OB) ED US Reviewed: Yes: I have reviewed the patient's US results, I discussed the US results w/the radiologist Findings Narrative: Normal intrauterine of 10 weeks. Normal heart rate. - Reevaluation(s) Time: 17:14 Reevaluation #1: On reevaluation, patient is feeling much better. She is not having any further pain or bleeding. Ultrasound appears appropriate. Patient's urine hCG was negative for some reason, however her serum quantification is appropriate. The patient has follow-up next week with her ANVILSMITH. She will maintain this appointment. Given strict return precautions. Verbalized understanding. Medical Decision Narrative: 20-year-old female presented to the emergency department with some vaginal bleeding. The patient is currently . I do believe symptoms are consistent with normal bleeding . There is also concern for threatened . Work-up initiated. 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
[2021-04-25 15:12] LABS: Urine Pregnancy, HCG Qual. Negative (Negative)
[2021-04-25 15:14] LABS: Basophils % 0.5 % (0.1-2.0); Eosinophils # 0.1 K/mm3 (0.0-0.4); Eosinophils % 1.3 % (0.1-12.0); Hematocrit 35.2 % (37.0-47.0); Hemoglobin 11.9 g/dL (12.2-16.2); Lymphocytes # 1.2 K/mm3 (0.7-4.5); Lymphocytes % 21.4 % (10-50); Mean Corpuscular HGB Conc 33.9 g/dL (31.8-35.4); Mean Corpuscular Hemoglobin 29.5 pg (27.0-31.2); Mean Corpuscular Volume 87.1 fl (81-99); Mean Platelet Volume 7.7 fl (7.4-10.4); Monocytes # 0.3 K/mm3 (0.1-1.0); Monocytes % 4.7 % (1.7-9.3); Neutrophils # 4.2 K/mm3 (1.8-7.8); Platelet Count 314 K/mm3 (142-424); Red Blood Count 4.04 M/mm3 (4.20-5.40); Red Cell Distribution Width 14.4 % (11.5-17.5); White Blood Count 5.8 K/mm3 (4.5-13.0)
[2021-04-25 15:30] VITALS: BP 104/62; PULSE 92; RESP 16; O2SAT 100
[2021-04-25 15:31] LABS: Chloride 103 mmol/L (98-107); Potassium 3.6 mmoL/L (3.5-5.1); Sodium 138 mmol/L (136-145)
[2021-04-25 15:33] LABS: Blood Urea Nitrogen 15 mg/dl (7-17); Creatinine Clearance Estimated 96 mL/min (50-200); Estimated Glomerular Filt Rate 107 ml/min (>60); GFR (African American) 129 ML/MIN (>60)
[2021-04-25 15:34] LABS: Alanine Aminotransferase 10 U/L (12-78); Albumin Level 4.3 g/dl (3.5-5.0); Albumin/Globulin Ratio 1.5 (1.1-1.8); Alkaline Phosphatase 55 U/L (38-126); Anion Gap 12.6 mEq/L (5-15); Aspartate Amino Transferase 31 U/L (14-36); Bilirubin,Total 0.3 mg/dl (0.2-1.3); Calcium 9.7 mg/dl (8.4-10.2); Carbon Dioxide 26 mmol/L (22.0-30.0); Globulin 2.9 g/dL (1.3-3.2); Glucose 81 mg/dl (74-100); Total Protein,Serum 7.2 g/dl (6.3-8.2)
[2021-04-25 15:35] LABS: Bacteria,Urine 1+ /lpf; RBC,Urine Occasional #/hpf (0-3)
[2021-04-25 16:00] VITALS: BP 102/58; PULSE 82; RESP 16; O2SAT 100
[2021-04-25 16:30] VITALS: BP 109/65; PULSE 82; RESP 16; O2SAT 100
[2021-04-25 16:30] LABS: HCG,Quantitative 212300 mIU/ml (0-5.42)
--- NOTE | 2021-04-25 16:37 | US_ITS ---
PROCEDURE INFORMATION: Exam: US , Transvaginal Exam date and time: 04/25/2021 4:37 PM Age: 20 years old Clinical indication: Lmp or gestational age (in weeks): 9 w 4 d; Antepartum complications; Bleeding; ; Additional info: , bleeding TECHNIQUE: Imaging protocol: Real-time transvaginal obstetrical ultrasound of the maternal pelvis with image documentation. Transvaginal imaging was used for better evaluation of the fetus, adnexa, and/or cervix. COMPARISON: US OB TRANSVAGINAL 04/01/2021 9:01 PM FINDINGS: Gestation: Yolk sac measures 5.9 mm. heart rate: Heart rate is 155 bpm. BIOMETRY: Gestational age (AUA): pole has crown-rump length of 2.93 cm compatible with ultrasound estimated gestational age of 9 weeks and 6 days. MATERNAL: Cervix: Cervix is long and closed. Right ovary measures 3.2 x 2.1 by 0.0 cm having normal color Doppler echoes. Left ovary measures 2.7 x 1.6 x 1.6 cm having normal color Doppler echoes. IMPRESSION: Single live intrauterine with ultrasound estimated age of 9 weeks and 6 days. heart rate is 155 bpm. Cervix is long and closed. Ovaries have a normal ultrasound appearance.
[2021-04-25 17:37] VITALS: BP 114/52; PULSE 82; RESP 16; TEMP 36.9; O2SAT 98
== END 2021-04-25 17:37 | disposition home or self-care (01) ==
PROVIDERS: Emergency Provider Emergency Medicine; PCP Nurse Practitioner Family
DX: O20.0 Threatened abortion (principal); F17.290 Nicotine dependence, other tobacco product, uncomplicated
CPT/HCPCS: 76817; 80053; 81001; 81025; 84702; 85025; 99283

== ENCOUNTER → 2021-05-06 11:38 | Outpatient (CLI) | payer OTHER, SELFPAY ==
[2021-05-06 12:42] LABS: Basophils % 0.2 % (0.1-2.0); Eosinophils # 0.1 K/mm3 (0.0-0.4); Eosinophils % 2.1 % (0.1-12.0); Hematocrit 34.1 % (37.0-47.0); Hemoglobin 11.4 g/dL (12.2-16.2); Lymphocytes # 1.3 K/mm3 (0.7-4.5); Mean Corpuscular HGB Conc 33.5 g/dL (31.8-35.4); Mean Corpuscular Hemoglobin 29.1 pg (27.0-31.2); Mean Corpuscular Volume 86.9 fl (81-99); Mean Platelet Volume 6.7 fl (7.4-10.4); Monocytes # 0.3 K/mm3 (0.1-1.0); Monocytes % 4.1 % (1.7-9.3); Neutrophils # 4.5 K/mm3 (1.8-7.8); Neutrophils % 72.5 % (37.0-80.0); Platelet Count 337 K/mm3 (142-424); Red Blood Count 3.93 M/mm3 (4.20-5.40); Red Cell Distribution Width 13.9 % (11.5-17.5); White Blood Count 6.1 K/mm3 (4.5-13.0)
[2021-05-07 08:16] LABS: Hepatitis B Surface Antigen Negative (Negative); Hepatitis C Antibody 0.1 s/co ratio (0.0-0.9); Rubella Antibodies, IgG 1.42 index (Immune >0.99)
[2021-05-07 10:44] LABS: HIV Screen 4th Generation wRfx Non Reactive (Non Reactive); Rapid Plasma Reagin Ab Titer Non Reactive (NonRea<1:1)
== END ==
PROVIDERS: Visit Provider Obstetrics & Gynecology
DX: Z34.90 Encounter for supervision of normal pregnancy, unspecified, unspecified trimester (principal)
CPT/HCPCS: 36415; 85025; 86592; 86703; 86762; 86850; 87340; 87380; G0432

== ENCOUNTER → 2021-07-07 13:19 | Outpatient (CLI) | payer OTHER, SELFPAY ==
--- NOTE | 2021-07-07 13:45 | US_ITS ---
FINAL REPORT CLINICAL HISTORY: anatomy scan FINDINGS: There is a single live intrauterine gestation. Presentation is cephalic. The cervix is not imaged. Placenta is anterior, high. movement is noted. Heart rate measured at 140 beats per minute. Three-vessel cord with satisfactory umbilical cord insertion. Four-chamber heart is noted. brain and ventricles are unremarkable. Chest and diaphragm are unremarkable. ABDOMEN: Both kidneys are unremarkable. Stomach is unremarkable. SPINE: No anomalies identified. Both arms and legs noted. AMNIOTIC FLUID: Appropriate amount. MEASUREMENTS: ULTRASOUND AGE: 19 weeks 6 days. GESTATION AGE: 20 weeks 2 days. ESTIMATED WEIGHT: 306 g GROWTH PERCENTILE: 16% BPD: 4.7 cm consistent with 20 weeks 2 days. OFD: 6 cm consistent with 20 weeks 3 days. HC: 16.8 cm consistent with 19 weeks 4 days. AC: 14.3 cm consistent with 19 weeks 5 days. FL: 3.1 cm consistent with 19 weeks 5 days. CEREBELLUM: 2 cm consistent with 20 weeks 2 days. HUMERUS: 3.1 cm consistent with 20 weeks 2 days. HC/AC: 1.18 CI: 79% FL/BPD: 66% FL/AC: 22% IMPRESSION: Single living IUP with an ultrasound age of 19 weeks 6 days. No anomalies noted. Reviewed, Interpreted and Dictated by Thomas Witt III, MD Transcribed by Rose Ballard Authenticated by Thomas Witt III, MD on 07/07/2021 04:36:53 PM [facility]
== END ==
PROVIDERS: Visit Provider Obstetrics & Gynecology
DX: Z34.90 Encounter for supervision of normal pregnancy, unspecified, unspecified trimester (principal)
CPT/HCPCS: 76805

== ENCOUNTER 2021-07-25 13:55 | Outpatient (CLI) | payer OTHER, SELFPAY ==
[2021-07-25 14:05] VITALS: BMI 18.4
[2021-07-25 14:09] VITALS: BMI 18.4
[2021-07-25 14:13] LABS: Microscopic, Urine URINE MICROSCOPIC (MICROSCOPIC)
[2021-07-25 14:15] VITALS: BP 111/70; PULSE 91; RESP 18; TEMP 36.7; O2SAT 100
[2021-07-25 14:16] LABS: Appearance,Urine CLEAR (Clear); Bilirubin,Urine Negative (Negative); Blood, Urine Negative (Negative); Color,Urine YELLOW (Yellow); Glucose,Urine (UA) Negative (Negative); Ketones,Urine Negative (Negative); Leukocyte Esterase,Urine 1+ (Negative); Nitrate,Urine Negative (Negative); PH,Urine 7.5 (5.0-8.5); Protein,Urine Negative (Negative); Specific Gravity, Urine 1.015 (1.005-1.030); Urobilinogen,Urine 0.2 EU/dl (0.2)
[2021-07-25 14:26] LABS: RBC,Urine Occasional #/hpf (0-3); Squamous Epithelial Cell,Urine Occasional #/hpf (0-5)
[2021-07-25 14:27] LABS: Bacteria,Urine Trace /lpf
[2021-07-25 14:28] LABS: Barbiturates Screen,Urine Negative ng/ml (<200); Benzodiazepines Screen,Urine Negative ng/ml (<200)
[2021-07-25 14:29] LABS: Amphetamine/Metha Screen,Urine Negative ng/ml (<1000)
[2021-07-25 14:30] LABS: Cannabinoid Screen,Urine Negative ng/ml (<50); Cocaine Screen,Urine Negative ng/ml (<300)
[2021-07-25 14:31] LABS: Methadone Screen,Urine Negative ng/ml (<300); Opiate Screen,Urine Negative ng/ml (<300)
[2021-07-25 14:32] LABS: Phencyclidine Screen,Urine Negative ng/ml (<25)
== END 2021-07-25 15:32 | disposition home or self-care (01) ==
LOC: OBOUT 13:57 → OB 14:00
PROVIDERS: PCP Emergency Medicine; Visit Provider Obstetrics & Gynecology
DX: O26.892 Other specified pregnancy related conditions, second trimester (principal); Z3A.22 22 weeks gestation of pregnancy
CPT/HCPCS: 80305; 81001; 87086; G0463

== ENCOUNTER 2021-09-12 08:04 | Outpatient (CLI) | payer OTHER, SELFPAY ==
[2021-09-12 09:12] LABS: Glucose,Fasting 88 mg/dl (74-100)
[2021-09-12 10:58] LABS: Glucose 1 Hour 105 mg/dL (74-100)
[2021-09-12 11:27] LABS: Basophils # 0.1 K/mm3 (0-0.2); Basophils % 1.5 % (0.1-2.0); Eosinophils # 0.2 K/mm3 (0.0-0.4); Eosinophils % 2.2 % (0.1-12.0); Hematocrit 27.6 % (37.0-47.0); Hemoglobin 8.9 g/dL (12.2-16.2); Lymphocytes # 1.6 K/mm3 (0.7-4.5); Mean Corpuscular HGB Conc 32.1 g/dL (31.8-35.4); Mean Corpuscular Hemoglobin 26.6 pg (27.0-31.2); Mean Corpuscular Volume 82.7 fl (81-99); Mean Platelet Volume 8.4 fl (7.4-10.4); Monocytes # 0.3 K/mm3 (0.1-1.0); Monocytes % 4.5 % (1.7-9.3); Neutrophils % 69.9 % (37.0-80.0); Platelet Count 411 K/mm3 (142-424); Red Blood Count 3.33 M/mm3 (4.20-5.40); Red Cell Distribution Width 14.4 % (11.5-17.5); White Blood Count 7.2 K/mm3 (4.5-13.0)
== END 2021-09-12 10:50 | disposition home or self-care (01) ==
LOC: LAB 08:04 → INF 10:33
PROVIDERS: Visit Provider Obstetrics & Gynecology
DX: Z34.90 Encounter for supervision of normal pregnancy, unspecified, unspecified trimester (principal)
CPT/HCPCS: 36415; 82951; 85025; 96372; J2790

== ENCOUNTER 2021-09-19 12:51 | Outpatient (CLI) | payer OTHER, SELFPAY ==
[2021-09-19 13:30] VITALS: BP 100/63; PULSE 102; RESP 20
[2021-09-19 14:00] VITALS: BP 98/70; PULSE 98; RESP 20; TEMP 36.9; O2SAT 95
== END 2021-09-19 14:00 | disposition home or self-care (01) ==
LOC: INF 12:52
PROVIDERS: Visit Provider Obstetrics & Gynecology
DX: D64.9 Anemia, unspecified (principal)
CPT/HCPCS: 96365; J1439

== ENCOUNTER 2021-09-24 18:49 | Outpatient (CLI) | payer OTHER, SELFPAY ==
[2021-09-24 19:05] VITALS: BMI 21.8
[2021-09-24 19:33] VITALS: BP 128/75; PULSE 103; RESP 18; TEMP 36.8; O2SAT 98; BMI 21.8
[2021-09-24 19:42] LABS: Microscopic, Urine URINE MICROSCOPIC (MICROSCOPIC)
[2021-09-24 19:49] LABS: Appearance,Urine SL CLOUDY (Clear); Bilirubin,Urine Negative (Negative); Blood, Urine Negative (Negative); Color,Urine YELLOW (Yellow); Glucose,Urine (UA) Negative (Negative); Ketones,Urine Negative (Negative); Leukocyte Esterase,Urine TRACE (Negative); Nitrate,Urine Negative (Negative); PH,Urine 6.5 (5.0-8.5); Protein,Urine TRACE (Negative); Specific Gravity, Urine 1.025 (1.005-1.030); Urobilinogen,Urine 0.2 EU/dl (0.2)
[2021-09-24 19:57] LABS: Fetal Membrane Rupture (Rapid) Negative (Negative)
[2021-09-24 20:00] LABS: Barbiturates Screen,Urine Negative ng/ml (<200); Benzodiazepines Screen,Urine Negative ng/ml (<200)
[2021-09-24 20:01] LABS: Amphetamine/Metha Screen,Urine Negative ng/ml (<1000)
[2021-09-24 20:02] LABS: Cannabinoid Screen,Urine Negative ng/ml (<50); Cocaine Screen,Urine Negative ng/ml (<300)
[2021-09-24 20:03] LABS: Methadone Screen,Urine Negative ng/ml (<300); Opiate Screen,Urine Negative ng/ml (<300)
[2021-09-24 20:04] LABS: Phencyclidine Screen,Urine Negative ng/ml (<25)
[2021-09-24 20:10] LABS: Bacteria,Urine 1+ /lpf
== END 2021-09-24 20:15 | disposition home or self-care (01) ==
LOC: OBOUT 18:53 → OB 18:54
PROVIDERS: PCP Obstetrics & Gynecology; Visit Provider Obstetrics & Gynecology
DX: O26.893 Other specified pregnancy related conditions, third trimester (principal); Z3A.31 31 weeks gestation of pregnancy
CPT/HCPCS: 59025; 80305; 81001; 84112; G0463

== ENCOUNTER 2021-09-26 14:15 | Outpatient (CLI) | payer OTHER, SELFPAY ==
[2021-09-26 14:48] VITALS: BP 108/64; PULSE 94; RESP 16; O2SAT 99
[2021-09-26 15:23] VITALS: BP 111/65; PULSE 86; O2SAT 99
== END 2021-09-26 15:23 | disposition home or self-care (01) ==
LOC: INF 14:16
PROVIDERS: Visit Provider Obstetrics & Gynecology
DX: D64.9 Anemia, unspecified (principal)
CPT/HCPCS: 96365; J1439

== ENCOUNTER 2021-10-10 12:51 | Outpatient (CLI) | payer OTHER, SELFPAY ==
--- NOTE | 2021-10-10 12:57 | US_ITS ---
FINAL REPORT CLINICAL HISTORY: Growth AND BRANDON; abdomen circumference is 30 w 1 d, pt is 33 w 5 d, intrauterine growth restriction; brandon is 5 cm; pt returning to OB Dr. Mar today FINDINGS: There is a single live intrauterine gestation. Presentation is cephalic. Placenta is anterior and grade 2. Cardiac activity is confirmed at 153 bpm. AMNIOTIC FLUID: Relatively low at 5 cm. MEASUREMENTS: ULTRASOUND AGE: 32 weeks 0 days. GESTATION AGE: 33 weeks 5 days. ESTIMATED WEIGHT: 1733 g GROWTH PERCENTILE: 3% BPD: 8.2 cm consistent with 32 weeks 6 days. OFD: 10.4 cm consistent with 32 weeks 3 days. HC: 29.3 cm consistent with 32 weeks 3 days. AC: 25.8 cm consistent with 30 weeks 0 days. FL: 6.3 cm consistent with 32 weeks 5 days. HC/AC: 1.14 CI: 79% FL/BPD: 77% FL/AC: 24% IMPRESSION: Single living IUP with an ultrasound age of 32 weeks 0 days. Abdominal circumference is low relative to the ultrasound age worrisome for intrauterine growth restriction. Low BRANDON of 5 cm. Reviewed, Interpreted and Dictated by Thomas Witt III, MD Transcribed by Rahat Brown Authenticated by Thomas Witt III, MD on 10/10/2021 01:47:55 PM [facility]
[2021-10-10 14:20] VITALS: BMI 23.2
[2021-10-10 14:55] VITALS: BP 112/73; PULSE 80; RESP 18; TEMP 36.7; O2SAT 99; BMI 23.2
[2021-10-10 14:57] LABS: Microscopic, Urine URINE MICROSCOPIC (MICROSCOPIC)
[2021-10-10 15:04] LABS: Appearance,Urine CLEAR (Clear); Bilirubin,Urine Negative (Negative); Blood, Urine Negative (Negative); Color,Urine YELLOW (Yellow); Glucose,Urine (UA) Negative (Negative); Ketones,Urine Negative (Negative); Leukocyte Esterase,Urine 1+ (Negative); Nitrate,Urine Negative (Negative); PH,Urine 5.5 (5.0-8.5); Protein,Urine Negative (Negative); Urobilinogen,Urine 0.2 EU/dl (0.2)
[2021-10-10 15:09] LABS: Fetal Membrane Rupture (Rapid) Positive (Negative)
[2021-10-10 15:14] LABS: Basophils # 0.1 K/mm3 (0-0.2); Eosinophils # 0.1 K/mm3 (0.0-0.4); Eosinophils % 1.2 % (0.1-12.0); Hematocrit 34.8 % (37.0-47.0); Hemoglobin 11.2 g/dL (12.2-16.2); Lymphocytes # 1.2 K/mm3 (0.7-4.5); Lymphocytes % 15.1 % (10-50); Mean Corpuscular HGB Conc 32.1 g/dL (31.8-35.4); Mean Corpuscular Hemoglobin 29.2 pg (27.0-31.2); Monocytes # 0.3 K/mm3 (0.1-1.0); Monocytes % 3.7 % (1.7-9.3); Neutrophils # 6.2 K/mm3 (1.8-7.8); Neutrophils % 79.1 % (37.0-80.0); Platelet Count 348 K/mm3 (142-424); Red Blood Count 3.82 M/mm3 (4.20-5.40); Red Cell Distribution Width 24.4 % (11.5-17.5); White Blood Count 7.8 K/mm3 (4.5-13.0)
[2021-10-10 15:17] LABS: Amphetamine/Metha Screen,Urine Negative ng/ml (<1000)
[2021-10-10 15:18] LABS: Barbiturates Screen,Urine Negative ng/ml (<200); Benzodiazepines Screen,Urine Negative ng/ml (<200); RBC,Urine Occasional #/hpf (0-3); WBC,Urine 20-50 #/hpf (0-3)
[2021-10-10 15:19] LABS: Bacteria,Urine 3+ /lpf; Cannabinoid Screen,Urine Negative ng/ml (<50); Squamous Epithelial Cell,Urine 20-50 #/hpf (0-5)
[2021-10-10 15:20] LABS: Cocaine Screen,Urine Negative ng/ml (<300); Methadone Screen,Urine Negative ng/ml (<300)
[2021-10-10 15:21] LABS: Opiate Screen,Urine Negative ng/ml (<300); Phencyclidine Screen,Urine Negative ng/ml (<25)
--- NOTE | 2021-10-10 15:27 | HMH.HPDC ---
General - General Admission date:: 10/10/21 Discharge date: 10/10/21 *Admission Date: 10/10/21 *Chief complaint: IUGR, oligohydramnios *History of present illness: 20 yo @ 33 5/7 weeks Outpatient ultrasound scheduled today because measuring small for dates EFW measurement 1733gm (3%) AC measuring 30 1/7 Grade 2 placenta BRANDON 5cm She was sent over to office from radiology to be informed of results During outpatient appointment, she noted leakage of fluid 2 nights ago Previous assessment for possible LOF was negative 2 weeks ago, so she did not call physician with LOF on 10/08/21 With this information, she was sent from office to L&D for monitoring and evaluation Amnisure positive NST category 1 TOCO negative care [facility] A negative, Antibody negative, Rubella immune, HCV negative, RPR NR, HIV NR, HBsAg negative, GC/CT negative, UDS negative No anomalies noted on 20 week ultrasound, 3VC, anterior placenta CF carrier screen positive, but she declined to have FOB tested Aneuploidy screen could not exclude XO or XXX and consultation with MFM was scheduled, but she did not show up for appointment Rhogam administration 09/12/21 Hgb 8.9 at 28 weeks and she was treated with IV Injectafer Hgb today 11.2 + tobacco abuse 1 PPD [facility] History I have reviewed the patient's past medical history: Yes Medical History: Denies:: Cancer, Diabetes Mellitus Type 1, Diabetes Mellitus Type 2, MRSA *Have you ever received a pneumonia vaccine?: No *Have you received a flu vaccine this season?: No Other Medical History: Reports: Anemia Other Surgeries: Yes: Cholecystectomy, Other. No: Amputation: No Fractures: No - *Social History Smoking Status: Current every day smoker Tobacco Type: e-cigarettes # Packs/Day (cigarettes): 1 Alcohol Intake: never Alcohol Intake Frequency:: other Substance Use Type: marijuana, former substance user *Occupational Status:: unemployed Housing: house Household Members: family *Travel in the last 8 weeks: None Family Hx:: Thyroid Disorder, Cancer Para: 0 Review of Systems - Review of Systems Review of systems:: pertinent systems reviewed and negative unless documented below - Constitutional Denies chills, Denies fever(s) - *Gastrointestinal Denies abdominal pain - *Genitourinary Reports other (+LOF), Denies abnormal vaginal bleeding Exam Vital signs and Labs for Last 24 Hours: Temp Pulse Resp BP Pulse Ox 98.0 F 80 18 112/73 99 10/10/21 14:55 10/10/21 14:55 10/10/21 14:55 10/10/21 14:55 10/10/21 14:55 Laboratory Results - last 24 hr 10/10/21 14:22: Urine Color Yellow, Urine Appearance Clear, Urine pH 5.5, Ur Specific [place] 1.020, Urine Protein Negative, Urine Glucose (UA) Negative, Urine Ketones Negative, Urine Blood Negative, Urine Nitrate Negative, Urine Bilirubin Negative, Urine Urobilinogen 0.2, Ur Leukocyte Esterase 1+ A, Urine RBC Occasional, Urine WBC 20-50, Ur Squamous Epith Cells 20-50, Urine Bacteria 3+ 10/10/21 14:22: Ur Barbituates Screen Negative, Ur Amphetamines Screen Negative, U Benzodiazepines Scrn Negative, U Marijuana (THC) Screen Negative 10/10/21 14:41: WBC 7.8, RBC 3.82 L, Hgb 11.2 L, Hct 34.8 L, MCV 91.0, MCH 29.2, MCHC 32.1, RDW 24.4 H, Plt Count 348, MPV 8.0, Neut % (Auto) 79.1, Lymph % (Auto) 15.1, [place]ner % (Auto) 3.7, Eos % (Auto) 1.2, Baso % (Auto) 1.0, Neut # (Auto) 6.2, Lymph # (Auto) 1.2, Bonner # (Auto) 0.3, Eos # (Auto) 0.1, Baso # (Auto) 0.1 10/10/21 14:50: Membrane Rupture Positive A I & O for Last 24 hours: Intake & Output 10/08/21 10/09/21 10/10/21 10/11/21 11:59 11:59 11:59 11:59 Weight 144 lb - Constitutional no acute distress - *Routine HEENT Exam Head: Present: normocephalic Eye: Present: PERRL. Absent: conjunctival icterus ENT: Present: mucous membranes moist - *Routine Neck Exam Present: supple. Absent: lymphadenopathy - *Routine Respiratory Exam Present: CTA bilaterally - *Routine
== END 2021-10-10 17:24 | disposition short-term general hospital (02) ==
LOC: RAD 14:09 → OB 14:10
PROVIDERS: Visit Provider Obstetrics & Gynecology
DX: O36.5990 Maternal care for other known or suspected poor fetal growth, unspecified trimester, not applicable or unspecified (principal)
CPT/HCPCS: 59025; 76816; 80305; 81001; 84112; 85025; 87086; 96365; 96372; G0463

== ENCOUNTER 2021-10-17 13:29 | Emergency (ER) | payer OTHER, SELFPAY ==
[2021-10-17 13:40] VITALS: BP 110/71; PULSE 91; RESP 21; TEMP 36.9; O2SAT 97; BMI 20.7
[2021-10-17 13:56] LABS: UTC Influenza A Antigen Negative (Negative); UTC Influenza B Antigen Negative (Negative)
--- NOTE | 2021-10-17 14:08 | HMH.EDUTC ---
[facility] [place] Disposition Clinical Impression: Sore throat (viral) Disposition: Home, Self-Care Condition on Discharge: Good Instructions: Sore Throat, DI for Fever (Symptom) -- Adult Additional Instructions: *Monitor Temp, Over the counter Motrin or Tylenol as directed/as needed Tylenol every 4 hours and Motrin every 6 hours (as long as your family doctor has told you that you can take it) for fever or pain. and straight to ER if unable to lower temp less than 101.0 after medication given *Warm salt water gargles may help to soothe the throat *Throat Lozenges *Warm fluids like tea with honey may help to soothe the throat *Sleep elevated *Humidifier/Vaporizer Your throat swab was sent for culture. Those results are typically sent to your primary care. Be sure to follow up in 2-3 days with your family doctor/primary care physician if no improvement so they can review those result and treat if necessary. If you don?t have a primary care doctor, I recommend you get one but in the mean time, you will have to return to a walk in clinic Follow up IMMEDIATELY for new or worsening symptoms or no Noticeable improvement over the next 48-72 hours. 911 for difficulty breathing or swallowing You were tested for today for Upper Respiratory Panel with COVID19 your test result should be back in the next 24-48 hours, you results should be available on the [facility] My Health Portal Referrals: Provider,Referral, [Primary Care Provider] - As needed Time of Disposition: 14:30 Medical Decision Making - Uli Inquiry Pt receiving controlled substance: No Uli was queried for this patient: No Vital Signs: 10/17/21 13:40 Temperature 98.5 F Temperature Source Oral Pulse Rate [Right Brachial] 91 H Respiratory Rate 21 Blood Pressure [Right Arm] 110/71 Blood Pressure Mean [Right Arm] 84 Blood Pressure Source [Right Arm] Automatic Cuff Blood Pressure Position [Right Arm] Sitting 02 Sat by Pulse Oximetry 97 Oxygen Delivery Method Room Air - Lab Data Lab results reviewed: Yes: I reviewed the patient's lab results. Lab Results 10/17/21 13:39: Influenza Type A Ag Negative, Influenza Type B Ag Negative 10/17/21 13:40: Group A Strep Rapid Negative Orders (Tests/Meds): ORDERS Category Date Time Status Strep Screen Confirmation Stat Micro 10/17/21 13:40 Received [facility] [place] HPI - General Stated complaint: sore/swollen throat Time Seen by Provider: 10/17/21 14:09 Mode of Arrival: Ambulatory Source of Information: Patient Limitations: No Limitations Description of Symptoms (Recalled from Triage Doc. by RN): PATIENT C/O SORE THROAT AND FEVER X 2 DAYS HEENT Symptoms (Recalled from RN notes): Yes Resp Symptoms (Recalled from RN notes): No Skin Symptoms (Recalled from RN notes): No MS Symptoms (Recalled from RN notes): No Functional Status (Recalled from RN notes): WNL - History of Present Illness Provider Complaint: Patient states that she has been having sore throat with fever for several days States that she was tested earlier today for COVID and it was negative States that today her throat was still hurting and she was not feeling well so she wanted to come get checked before seeing her in the NICU - Related Data Allergies Allergy/AdvReac Type Severity Reaction Status Date / Time ketchup Allergy Unknown Verified 10/10/21 13:53 - Worker's Comp Is this a Worker's Comp case?: No [facility] History - Hepatitis A Screen Attestation statement:: This patient has been screened for Hepatitis A risk factors. I have reviewed the patient's past medical history: Yes Medical History: Denies:: Cancer, Diabetes Mellitus Type 1, Diabetes Mellitus Type 2, MRSA Other Medical History: Reports: Anemia Other Surgeries: Yes: No Previous Surgery, Cholecystectomy, Other. No: Amputation: No Fractures: No Comment: BONNY FARAH---2018. wisdom teeth - Social History Smoking Status: Current every day smoker Tobacco Type: e-ciga
[2021-10-17 14:27] LABS: Strep Scrn Group A (Rapid) Negative (Negative)
[2021-10-17 14:36] VITALS: BP 110/71; PULSE 91; RESP 21; TEMP 36.9; O2SAT 97
[2021-10-17 14:46] LABS: Adenovirus,PCR Not Detected (NotDetected); Bordetella Pertussis Not Detected (NotDetected); Chlamydophila Pneumoniae, PCR Not Detected (NotDetected); Coronavirus 229E Not Detected (NotDetected); Coronavirus NL63 Not Detected (NotDetected); Coronavirus OC43 Not Detected (NotDetected); Coronovirus HKU1,PCR Not Detected (NotDetected); Human Metapneumovirus Not Detected (NotDetected); Influenza A, PCR Not Detected (NotDetected); Influenza AH1, 2009 Not Detected (NotDetected); Influenza AH1, PCR Not Detected (NotDetected); Influenza AH3,PCR Not Detected (NotDetected); Influenza B, PCR Not Detected (NotDetected); Mycoplasma Pneumoniae, PCR Not Detected (NotDetected); Parainfluenza 1, PCR Not Detected (NotDetected); Parainfluenza 2, PCR Not Detected (NotDetected); Parainfluenza 3, PCR Not Detected (NotDetected); Parainfluenza 4, PCR Not Detected (NotDetected); Respiratory Syncytial Virus Not Detected (NotDetected); Rhinovirus/Enterovirus Not Detected (NotDetected)
== END 2021-10-17 14:39 | disposition home or self-care (01) ==
PROVIDERS: Emergency Provider Nurse Practitioner
DX: J02.9 Acute pharyngitis, unspecified (principal); R50.9 Fever, unspecified; B34.9 Viral infection, unspecified
CPT/HCPCS: 87430; 87486; 87581; 87632; 87798; 87804; 99212; C9803; G0463; U0003; U0005

== ENCOUNTER 2022-05-25 00:41 | Emergency (ER) | payer SELFPAY ==
[2022-05-25 00:43] VITALS: BP 106/78; PULSE 72; RESP 16; TEMP 36.6; O2SAT 96; BMI 16.4
--- NOTE | 2022-05-25 01:13 | HMH.EDEYEP ---
Discharge Plan Disposition Patient Disposition: Home, Self-Care Chief Complaint: Eye Problems Prescriptions Prescriptions: No Action ibuprofen 600 mg tablet 600 mg PO Q8H PRN acetaminophen [Tylenol] 325 mg tablet 325 mg PO QID PRN omeprazole 20 mg capsule,delayed release(DR/EC) 20 mg PO Label Comments: TAKE 1 CAPSULE BY MOUTH DAILY sertraline 50 mg tablet 50 mg PO DAILY Qty: 30 2RF Clinical Impressions Clinical Impression: Bacterial conjunctivitis Instructions Patient Instructions: DI for Conjunctivitis Discharge ED Provider: Milad Marion Eye Problem HPI General Chief complaint: Eye Problems Stated complaint: Eyes burning,itching and lost vision on left eye Time Seen by Provider: 05/25/22 01:13 Mode of Arrival: Ambulatory Source of Information: Patient and Medical Record Limitations: No Limitations Description of Symptoms (Recalled from ER Triage Doc. by RN): pt states she woke up yesterday morning and both eyes was draining and painful pt c/o lt eye vision is blurryq History of Present Illness HPI Narrative: awoke with both eyes itchy and had eye d/c and has progressed today with blurry vision lt eye - no eye drops and no contacts - wears glasses chief complaint: eye redness and vision change Onset (ago): day(s) Onset description: gradual Duration: intermittent Location: left eye Eye Symptoms: itching, discharge, blurry vision and photophobia Place: home Severity: moderate Treatments Prior to Arrival: none Related Data Home Medications Medication Instructions Recorded Confirmed acetaminophen 325 mg tablet 325 mg PO QID PRN 10/24/21 01/06/22 (Tylenol) ibuprofen 600 mg tablet 600 mg PO Q8H PRN 10/24/21 01/06/22 omeprazole 20 mg capsule,delayed 20 mg PO 12/01/21 01/06/22 release Previous Rx's Medication Instructions Recorded sertraline 50 mg tablet 50 mg PO DAILY #30 tabs 12/01/21 Allergies Allergy/AdvReac Type Severity Reaction Status Date / Time ketchup Allergy Unknown Verified 01/06/22 14:59 [facility] Disclaimer: The information contained in this section may have been updated after the patient was seen, as this information can be updated by other users. Social History Smoking Status: Unknown if ever smoked alcohol intake: never substance use type: former substance user and marijuana current occupational status: other Travel in the last 8 weeks: None household members: family housing: house current occupational exposures/hazards: Yes ROS Obtained: Yes All systems reviewed & no additional complaints except as documented Physical Exam General General appearance: alert Head Head exam: normocephalic Eye Eye exam: Present PERRL, EOMI, conjunctival redness and other (fundi- grossly clear ); Absent scleral icterus or discharge ENT ENT exam: Present normal oropharynx Neck Neck exam: Present trachea midline Respiratory Respiratory exam: Absent respiratory distress Cardiovascular Cardiovascular exam: Present regular rate Abdominal Exam Abdominal exam: Present soft Extremities Exam Extremities exam: Present full ROM Neurological Exam Neurological exam: Present alert, oriented X3 and CN II-XII intact Psychiatric Psychiatric exam: Present normal affect Skin Skin exam: Absent rash Medical Decision Making Medical Records Medical records reviewed: Yes I reviewed the patient's medical records. Uli Inquiry Pt receiving controlled substance: No Vital Signs: 05/25/22 00:43 Temperature 97.9 F Temperature Source Oral Pulse Rate [Right] 72 Respiratory Rate 16 Blood Pressure [Right Arm] 106/78 L Blood Pressure Mean [Right Arm] 87 02 Sat by Pulse Oximetry 96 Lab Data Lab results reviewed: Yes I reviewed the patient's lab results. Medical Decision Narrative: has conjunctivitis and will treat with gent and see pcp and opth Procedures Eye Exam/FB Removal Location: eye (L) Fluorescein Stick(s) used:
[2022-05-25 01:44] VITALS: BP 103/78; PULSE 75; RESP 16; TEMP 36.6; O2SAT 96
== END 2022-05-25 01:46 | disposition home or self-care (01) ==
PROVIDERS: Emergency Provider Emergency Medicine
DX: H57.89 Other specified disorders of eye and adnexa (principal); H10.33 Unspecified acute conjunctivitis, bilateral
CPT/HCPCS: 99283; 99284

== ENCOUNTER 2022-05-28 00:06 | Emergency (ER) | payer SELFPAY ==
--- NOTE | 2022-05-28 00:35 | PC.NURSE ---
Dr. Marion at
[2022-05-28 00:47] VITALS: BP 115/76; PULSE 109; RESP 18; TEMP 36.6; O2SAT 96; BMI 18.1
--- NOTE | 2022-05-28 00:52 | XR_ITS ---
PROCEDURE INFORMATION: Exam: XR Left Foot Exam date and time: 05/28/2022 12:12 AM Age: 21 years old Clinical indication: Patient HX: PT states she stubbed her left toes 2 days ago. C/O 3rd left digit pain TECHNIQUE: Imaging protocol: Radiologic exam of the Left foot. Views: 3 or more views. COMPARISON: No relevant prior studies available. FINDINGS: Bones/joints: No acute fracture or malalignment. Lisfranc joint appears normal in these non-weightbearing radiographs. Soft tissues: Unremarkable. IMPRESSION: No evidence of acute osseous abnormality in the left foot. Left 3rd toe is normal.
[2022-05-28 01:56] VITALS: BP 112/72; PULSE 88; RESP 18; TEMP 36.6; O2SAT 99
--- NOTE | 2022-05-28 01:58 | HMH.EDLOEX ---
Discharge Plan Disposition Patient Disposition: Home, Self-Care Condition: Good Chief Complaint: Extremity Injury, Lower Prescriptions Prescriptions: No Action ibuprofen 600 mg tablet 600 mg PO Q8H PRN acetaminophen [Tylenol] 325 mg tablet 325 mg PO QID PRN omeprazole 20 mg capsule,delayed release(DR/EC) 20 mg PO Label Comments: TAKE 1 CAPSULE BY MOUTH DAILY sertraline 50 mg tablet 50 mg PO DAILY Qty: 30 2RF Referrals Follow up/Referrals: Provider,Referral, MD [Primary Care Provider] - See instructions Clinical Impressions Clinical Impression: Injury of toe on left foot Instructions Patient Instructions: DI for Toe Sprain Discharge ED Provider: Milad Marion Lower Extremity Injury HPI General Chief Complaint: Extremity Injury, Lower Stated Complaint: AO 05/27/22 2300 Injury 3-4 toes left foot Time Seen by Provider: 05/28/22 01:58 Mode of Arrival: Ambulatory Source of Information: Patient and Medical Record Limitations: No Limitations Description of Symptoms (Recalled from ER Triage Doc. by RN): Pt states that two nights ago (Wednesday) she was throwing a stray cat outside when she stubbed her 3rd and 4th toe on her left foot. Patient has bruising and pain. History of Present Illness HPI Narrative: acute injury to lt foot a couple of nights ago complaint: foot injury Onset (ago): day(s) Injury: Left: toes Type of Injury: blunt Place: home Severity: moderate Context: direct blow Associated symptoms: swelling and ambulatory Other symptoms: none Related Data Home Medications Medication Instructions Recorded Confirmed acetaminophen 325 mg tablet 325 mg PO QID PRN 10/24/21 01/06/22 (Tylenol) ibuprofen 600 mg tablet 600 mg PO Q8H PRN 10/24/21 01/06/22 omeprazole 20 mg capsule,delayed 20 mg PO 12/01/21 01/06/22 release Previous Rx's Medication Instructions Recorded sertraline 50 mg tablet 50 mg PO DAILY #30 tabs 12/01/21 Allergies Allergy/AdvReac Type Severity Reaction Status Date / Time ketchup Allergy Unknown Verified 01/06/22 14:59 [facility] Disclaimer: The information contained in this section may have been updated after the patient was seen, as this information can be updated by other users. Social History Smoking Status: Never smoker alcohol intake: never substance use type: former substance user and marijuana current occupational status: other Travel in the last 8 weeks: None household members: family housing: house current occupational exposures/hazards: Yes ROS Obtained: Yes All systems reviewed & no additional complaints except as documented Physical Exam General General appearance: alert Head Head exam: normocephalic Eye Eye exam: Present PERRL and EOMI ENT ENT exam: Present mucous membranes moist Neck Neck exam: Present trachea midline Respiratory Respiratory exam: Absent respiratory distress Cardiovascular Cardiovascular exam: Present regular rate Extremities Exam Extremities exam: Present joint swelling and other (tenderness lt 3/4 th toe with ecchymosis) Neurological Exam Neurological exam: Present alert, oriented X3 and CN II-XII intact Psychiatric Psychiatric exam: Present normal affect Skin Skin exam: Absent rash Medical Decision Making Medical Records Medical records reviewed: Yes I reviewed the patient's medical records. Uli Inquiry Pt receiving controlled substance: No Vital Signs: 05/28/22 00:47 05/28/22 01:56 Temperature 98 F 98 F Temperature Source Oral Oral Pulse Rate 88 Pulse Rate [Apical] 109 H Respiratory Rate 18 18 Blood Pressure 112/72 Blood Pressure [Right Arm] 115/76 Blood Pressure Mean [Right Arm] 89 Blood Pressure Source Automatic Cuff Blood Pressure Source [Right Arm] Automatic Cuff Blood Pressure Position Sitting Blood Pressure Position [Right Arm] Sitting 02 Sat by Pulse Oximetry 96 Oxygen Delivery Method Room Air Room Air Lab Jj
== END 2022-05-28 02:04 | disposition home or self-care (01) ==
PROVIDERS: Emergency Provider Emergency Medicine
DX: S99.922A Unspecified injury of left foot, initial encounter (principal); W22.8XXA Striking against or struck by other objects, initial encounter
CPT/HCPCS: 73630; 99283; 99284

== ENCOUNTER 2022-06-02 20:39 | Emergency (ER) | payer SELFPAY ==
[2022-06-02 20:49] VITALS: BP 140/70; PULSE 90; RESP 18; TEMP 37.2; O2SAT 98; BMI 17.1
[2022-06-02 21:00] VITALS: BP 112/72; PULSE 88; RESP 16; O2SAT 97
--- NOTE | 2022-06-02 21:49 | HMH.EDDENT ---
Discharge Plan Disposition Patient Disposition: Home, Self-Care Prescriptions Prescriptions: New clindamycin HCl 300 mg capsule 300 mg PO Q8H Qty: 30 0RF No Action ibuprofen 600 mg tablet 600 mg PO Q8H PRN acetaminophen [Tylenol] 325 mg tablet 325 mg PO QID PRN omeprazole 20 mg capsule,delayed release(DR/EC) 20 mg PO Label Comments: TAKE 1 CAPSULE BY MOUTH DAILY sertraline 50 mg tablet 50 mg PO DAILY Qty: 30 2RF Referrals Follow up/Referrals: Provider,Referral, [Primary Care Provider] - See instructions Clinical Impressions Clinical Impression: Gingivitis Instructions Patient Instructions: DI for Gingivitis Discharge ED Provider: Milad Marion Dental HPI General Chief complaint: Dental/Oral Stated complaint: BOTTOM LIP SWOLLEN NO ACCIDENT Time Seen by Provider: 06/02/22 21:49 Mode of Arrival: Ambulatory Source of Information: Patient and Medical Record Limitations: No Limitations Description of Symptoms (Recalled from ER Triage Doc. by RN): Patient states she woke up yesterday and her bottom lip was swollen and red. Claims there is a hole in her bottom lip and it is draining. C/O gum swelling since yesterday morning. Denies any injury. History of Present Illness HPI Narrative: over the last few days has swollen lower lip and gingival swelling Onset (ago): day(s) Duration: intermittent Severity: moderate Associated symptoms: gum swelling Treatment prior to arrival: none Related Data Home Medications Medication Instructions Recorded Confirmed acetaminophen 325 mg tablet 325 mg PO QID PRN 10/24/21 01/06/22 (Tylenol) ibuprofen 600 mg tablet 600 mg PO Q8H PRN 10/24/21 01/06/22 omeprazole 20 mg capsule,delayed 20 mg PO 12/01/21 01/06/22 release Previous Rx's Medication Instructions Recorded sertraline 50 mg tablet 50 mg PO DAILY #30 tabs 12/01/21 clindamycin HCl 300 mg capsule 300 mg PO Q8H #30 caps 06/02/22 Allergies Allergy/AdvReac Type Severity Reaction Status Date / Time ketchup Allergy Unknown Verified 01/06/22 14:59 [facility] Disclaimer: The information contained in this section may have been updated after the patient was seen, as this information can be updated by other users. Social History Smoking Status: Current every day smoker tobacco type: e-cigarettes alcohol intake: never substance use type: former substance user and marijuana current occupational status: other Travel in the last 8 weeks: None household members: family housing: house current occupational exposures/hazards: Yes ROS Obtained: Yes All systems reviewed & no additional complaints except as documented Physical Exam General General appearance: alert Head Head exam: normocephalic Eye Eye exam: Present PERRL and EOMI Expanded ENT Exam Mouth exam: Present lip swelling Teeth exam: Present gingival swelling Throat exam: Absent tonsillar erythema or muffled voice Neck Neck exam: Present full ROM Respiratory Respiratory exam: Absent respiratory distress Cardiovascular Cardiovascular exam: Present regular rate Abdominal Exam Abdominal exam: Present soft Extremities Exam Extremities exam: Present full ROM Neurological Exam Neurological exam: Present alert, oriented X3 and CN II-XII intact; Absent motor sensory deficit Psychiatric Psychiatric exam: Present normal affect Skin Skin exam: Absent rash Medical Decision Making Medical Records Medical records reviewed: Yes I reviewed the patient's medical records. Uli Inquiry Pt receiving controlled substance: No Vital Signs: 06/02/22 20:49 06/02/22 21:00 Temperature 98.9 F Temperature Source Oral Pulse Rate 88 Pulse Rate [Apical] 90 Respiratory Rate 18 16 Blood Pressure 112/72 Blood Pressure [Right Arm] 140/70 Blood Pressure Mean 81 Blood Pressure Mean [Right Arm] 93 Blood Pressure Source [Right Arm] Automatic Cuff Blood Pressure Position [Right Arm] Sitting
[2022-06-02 21:51] VITALS: BP 98/68; PULSE 78; RESP 16; TEMP 36.8; O2SAT 98
== END 2022-06-02 22:00 | disposition home or self-care (01) ==
PROVIDERS: Emergency Provider Emergency Medicine
DX: K05.01 Acute gingivitis, non-plaque induced (principal); F17.210 Nicotine dependence, cigarettes, uncomplicated
CPT/HCPCS: 99283; 99284

== ENCOUNTER 2022-07-02 19:51 | Emergency (ER) | payer SELFPAY ==
[2022-07-02 19:52] VITALS: BP 119/73; PULSE 110; RESP 16; TEMP 36.9; O2SAT 99; BMI 17.9
--- NOTE | 2022-07-02 20:03 | CT_ITS ---
PROCEDURE INFORMATION: Exam: CT Abdomen And Pelvis With Contrast Exam date and time: 07/02/2022 8:52 PM Age: 21 years old Clinical indication: Abdominal pain; Localized; Right lower quadrant (rlq); Prior surgery; Surgery date: 6+ months; Surgery type: Choleycystectomy 2017; Additional info: Rlq pain TECHNIQUE: Imaging protocol: Computed tomography of the abdomen and pelvis with contrast. Radiation optimization: All CT scans at this facility use at least one of these dose optimization techniques: automated exposure control; mA and/or kV adjustment per patient size (includes targeted exams where dose is matched to clinical indication); or iterative reconstruction. Contrast material: ISOVUE; Contrast volume: 75 ml; Contrast route: IV; Other protocol: This patient has received 0 known CTs and 0 known cardiac nuclear medicine studies in the 12 months prior to the current study. COMPARISON: CT ABDOMEN PELVIS W CON 06/21/2019 6:11 PM FINDINGS: Liver: Normal. No mass. Gallbladder and bile ducts: Cholecystectomy. Pancreas: Normal. No ductal dilation. Spleen: Normal. No splenomegaly. Adrenal glands: Normal. No mass. Kidneys and ureters: Normal. No hydronephrosis. Stomach and bowel: Considerable volume of stool seen within the colon. Appendix: No evidence of appendicitis. Intraperitoneal space: Unremarkable. No free air. No significant fluid collection. Vasculature: Unremarkable. No abdominal aortic aneurysm. Lymph nodes: Unremarkable. No enlarged lymph nodes. Urinary bladder: Unremarkable as visualized. Reproductive: Unremarkable as visualized. Bones/joints: Unremarkable. No acute fracture. Soft tissues: Unremarkable. IMPRESSION: Constipation.
[2022-07-02 20:07] LABS: Microscopic, Urine URINE MICROSCOPIC (MICROSCOPIC)
[2022-07-02 20:10] LABS: Appearance,Urine CLEAR (Clear); Blood, Urine Negative (Negative); Color,Urine YELLOW (Yellow); Glucose,Urine (UA) Negative (Negative); Ketones,Urine TRACE (Negative); Leukocyte Esterase,Urine Negative (Negative); Nitrate,Urine Negative (Negative); Protein,Urine TRACE (Negative); Specific Gravity, Urine >= 1.030 (1.005-1.030)
[2022-07-02 20:11] LABS: Bilirubin,Urine 1+ (Negative)
[2022-07-02 20:16] LABS: Basophils # 0.1 K/mm3 (0-0.2); Basophils % 1.2 % (0.1-2.0); Eosinophils # 0.1 K/mm3 (0.0-0.4); Eosinophils % 1.9 % (0.1-12.0); Hematocrit 42.9 % (37.0-47.0); Hemoglobin 14.1 g/dL (12.2-16.2); Lymphocytes % 15.4 % (10-50); Mean Corpuscular Hemoglobin 29.7 pg (27.0-31.2); Mean Platelet Volume 7.3 fl (7.4-10.4); Monocytes # 0.3 K/mm3 (0.1-1.0); Monocytes % 4.3 % (1.7-9.3); Neutrophils # 4.9 K/mm3 (1.8-7.8); Neutrophils % 77.1 % (37.0-80.0); Platelet Count 310 K/mm3 (142-424); Red Blood Count 4.77 M/mm3 (4.20-5.40); Red Cell Distribution Width 13.3 % (11.5-17.5); White Blood Count 6.3 K/mm3 (4.8-10.8)
[2022-07-02 20:19] LABS: Urine Pregnancy, HCG Qual. Negative (Negative)
[2022-07-02 20:22] LABS: Alanine Aminotransferase 13 U/L (12-78); Albumin Level 4.9 g/dl (3.5-5.0); Albumin/Globulin Ratio 1.5 (1.1-1.8); Alkaline Phosphatase 73 U/L (38-126); Amylase 61 U/L (30-110); Anion Gap 8.4 mEq/L (5-15); Aspartate Amino Transferase 22 U/L (14-36); Bilirubin,Total 0.5 mg/dl (0.2-1.3); Blood Urea Nitrogen 12 mg/dl (7-17); Calcium 9.2 mg/dl (8.4-10.2); Carbon Dioxide 33 mmol/L (22.0-30.0); Chloride 105 mmol/L (98-107); Creatinine Clearance Estimated 63 mL/min (50-200); Estimated Glomerular Filt Rate 63 ml/min (>60); GFR (African American) 76 ML/MIN (>60); Globulin 3.2 g/dL (1.3-3.2); Glucose 92 mg/dl (74-100); Lipase 128 U/L (23-300); Potassium 3.4 mmoL/L (3.5-5.1); Sodium 143 mmol/L (136-145); Total Protein,Serum 8.1 g/dl (6.3-8.2)
[2022-07-02 20:31] VITALS: BP 108/83; PULSE 104; RESP 20; O2SAT 99
[2022-07-02 22:35] LABS: Bacteria,Urine 1+ /lpf
--- NOTE | 2022-07-02 22:49 | PC.NURSE ---
Dr. Marion at to speak with pt
--- NOTE | 2022-07-02 22:53 | HMH.EDABDPAI ---
Discharge Plan Disposition Patient Disposition: Home, Self-Care Chief Complaint: Abdominal Pain Prescriptions Prescriptions: No Action ibuprofen 600 mg tablet 600 mg PO Q8H PRN acetaminophen [Tylenol] 325 mg tablet 325 mg PO QID PRN omeprazole 20 mg capsule,delayed release(DR/EC) 20 mg PO Label Comments: TAKE 1 CAPSULE BY MOUTH DAILY sertraline 50 mg tablet 50 mg PO DAILY Qty: 30 2RF clindamycin HCl 300 mg capsule 300 mg PO Q8H Qty: 30 0RF Referrals Follow up/Referrals: Provider,Referral, MD [Primary Care Provider] - See instructions Clinical Impressions Clinical Impression: Abdominal pain Instructions Patient Instructions: DI for Acute Abdominal Pain Discharge ED Provider: Sanam (ED)Milad Abdominal Pain HPI General Chief Complaint: Abdominal Pain Stated Complaint: right side pain Time Seen by Provider: 07/02/22 22:53 Mode of Arrival: Ambulatory Source of Information: Patient and Medical Record Limitations: No Limitations Description of Symptoms (Recalled from ER Triage Doc. by RN): pt c/o RLQ pain x 1 week. pt denies n/v/d History of Present Illness HPI narrative: progressive lower abd pain with worse today - no hematuria, no vag d/c - no urinary sx - last menses about 10 days ago complaint: abdominal pain Onset (ago): day(s) Consistency: intermittent Location: RLQ Severity: moderate Quality: sharp Associated symptoms: denies other symptoms Related Data Home Medications Medication Instructions Recorded Confirmed acetaminophen 325 mg tablet 325 mg PO QID PRN 10/24/21 01/06/22 (Tylenol) ibuprofen 600 mg tablet 600 mg PO Q8H PRN 10/24/21 01/06/22 omeprazole 20 mg capsule,delayed 20 mg PO 12/01/21 01/06/22 release Previous Rx's Medication Instructions Recorded sertraline 50 mg tablet 50 mg PO DAILY #30 tabs 12/01/21 clindamycin HCl 300 mg capsule 300 mg PO Q8H #30 caps 06/02/22 Allergies Allergy/AdvReac Type Severity Reaction Status Date / Time ketchup Allergy Unknown Verified 01/06/22 14:59 [facility] Disclaimer: The information contained in this section may have been updated after the patient was seen, as this information can be updated by other users. Social History Smoking Status: Current every day smoker tobacco type: e-cigarettes alcohol intake: never substance use type: former substance user and marijuana current occupational status: other Travel in the last 8 weeks: None household members: family housing: house current occupational exposures/hazards: Yes ROS Obtained: Yes All systems reviewed & no additional complaints except as documented Physical Exam General General appearance: alert Head Head exam: normocephalic Eye Eye exam: Present PERRL and EOMI ENT ENT exam: Present mucous membranes moist Neck Neck exam: Present trachea midline Respiratory Respiratory exam: Absent respiratory distress Cardiovascular Cardiovascular exam: Present regular rate Abdominal Exam Abdominal exam: Present soft and tenderness; Absent guarding Abdominal tenderness: Present RLQ and mild Extremities Exam Extremities exam: Present full ROM Neurological Exam Neurological exam: Present alert, oriented X3 and CN II-XII intact Psychiatric Psychiatric exam: Present normal affect Skin Skin exam: Absent rash Medical Decision Making Medical Records Medical records reviewed: Yes I reviewed the patient's medical records. Uli Inquiry Pt receiving controlled substance: No Vital Signs: 07/02/22 19:52 07/02/22 20:31 Temperature 98.4 F Temperature Source Oral Pulse Rate 104 H Pulse Rate [Right] 110 H Respiratory Rate 16 20 Blood Pressure 108/83 L Blood Pressure [Right Arm] 119/73 Blood Pressure Mean 85 Blood Pressure Mean [Right Arm] 88 02 Sat by Pulse Oximetry 99 99 Lab Data Lab results reviewed: Yes I reviewed the patient's lab results. Lab Results 07/02/22 19:58: Urine Color Yellow,
[2022-07-02 23:07] VITALS: BP 121/64; PULSE 90; RESP 20; TEMP 36.9; O2SAT 99
== END 2022-07-02 23:16 | disposition home or self-care (01) ==
PROVIDERS: Emergency Provider Emergency Medicine
DX: R10.31 Right lower quadrant pain (principal); F17.210 Nicotine dependence, cigarettes, uncomplicated
CPT/HCPCS: 74177; 80053; 81001; 81025; 82150; 83690; 85025; 96361; 96374; 99285; Q9967

== ENCOUNTER 2022-08-03 21:19 | Emergency (ER) | payer SELFPAY ==
[2022-08-03 21:20] VITALS: BP 110/72; PULSE 78; RESP 16; TEMP 36.8; O2SAT 99; BMI 17.9
--- NOTE | 2022-08-03 21:46 | PC.NURSE ---
Rounded on patient, no needs voiced at this time.
--- NOTE | 2022-08-03 21:50 | HMH.EDEAR ---
Discharge Plan Disposition Patient Disposition: Home, Self-Care Prescriptions Prescriptions: New prednisone [prednisone] 20 mg tablet 20 mg PO DAILY Qty: 7 0RF Referrals Follow up/Referrals: Provider,Referral, MD [Primary Care Provider] - See instructions Clinical Impressions Clinical Impression: Acute serous otitis media Instructions Patient Instructions: DI for Ear Pain-Adult Discharge ED Provider: Sanam REYNOLDS)Miald Ear HPI General Chief complaint: Ear Stated complaint: Ear popping/earache Time Seen by Provider: 08/03/22 21:50 Mode of Arrival: Ambulatory Source of Information: Patient and Medical Record Limitations: No Limitations Description of Symptoms (Recalled from ER Triage Doc. by RN): 21 F presents with bilateral ear pain and popping since . Denies fever, chills, or loss of hearing. History of Present Illness HPI Narrative: bilat ear pain and popping over the last few days Complaint: ear pain Location: bilateral Duration: intermittent Severity: moderate Discharge from ear: no Treatment prior to arrival: none Related Data Previous Rx's Medication Instructions Recorded prednisone 20 mg tablet 20 mg PO DAILY #7 tabs 08/03/22 Allergies Allergy/AdvReac Type Severity Reaction Status Date / Time ketchup Allergy Unknown Verified 01/06/22 14:59 [facility] Disclaimer: The information contained in this section may have been updated after the patient was seen, as this information can be updated by other users. Social History Smoking Status: Current every day smoker tobacco type: e-cigarettes alcohol intake: never substance use type: former substance user and marijuana current occupational status: other Travel in the last 8 weeks: None household members: family housing: house current occupational exposures/hazards: Yes ROS Obtained: Yes All systems reviewed & no additional complaints except as documented Physical Exam General General appearance: alert Head Head exam: normocephalic Eye Eye exam: Present PERRL and EOMI ENT ENT exam: Present mucous membranes moist Expanded ENT Exam TM/Canal exam: Bilateral TM: effusion Throat exam: Present normal inspection Neck Neck exam: Present trachea midline; Absent lymphadenopathy Respiratory Respiratory exam: Absent respiratory distress Cardiovascular Cardiovascular exam: Present regular rate Abdominal Exam Abdominal exam: Present soft Extremities Exam Extremities exam: Present full ROM Neurological Exam Neurological exam: Present alert, oriented X3 and CN II-XII intact; Absent motor sensory deficit Psychiatric Psychiatric exam: Present normal affect Skin Skin exam: Absent rash Medical Decision Making Medical Records Medical records reviewed: Yes I reviewed the patient's medical records. Uli Inquiry Pt receiving controlled substance: No Vital Signs: 08/03/22 21:20 Temperature 98.2 F Temperature Source Oral Pulse Rate [Left] 78 Respiratory Rate 16 Blood Pressure [Right Arm] 110/72 Blood Pressure Mean [Right Arm] 84 Blood Pressure Source [Right Arm] Automatic Cuff Blood Pressure Position [Right Arm] Sitting 02 Sat by Pulse Oximetry 99 Oxygen Delivery Method Room Air Lab Data Lab results reviewed: Yes I reviewed the patient's lab results. Critical Care Time Critical Care Time Critical Care Time: No Attestation: On 08/03/22, the high probability of a clinically significant, sudden or life threatening deterioration of the following system(s) required my full and direct attention, intervention and personal management. The time I documented below is in addition to time spent performing reported procedures but includes the following listed in this critical care notation.
[2022-08-03 22:24] VITALS: BP 111/72; PULSE 79; RESP 17; TEMP 36.8; O2SAT 97
== END 2022-08-03 22:26 | disposition home or self-care (01) ==
PROVIDERS: Emergency Provider Emergency Medicine
DX: H65.03 Acute serous otitis media, bilateral (principal)
CPT/HCPCS: 99283; 99284

== ENCOUNTER 2022-08-04 16:00 | Emergency (ER) | payer SELFPAY ==
[2022-08-04 16:03] VITALS: BP 111/68; PULSE 79; RESP 17; TEMP 36.8; O2SAT 98; BMI 19.1
--- NOTE | 2022-08-04 16:41 | PC.NURSE ---
BISI GALVAN at
--- NOTE | 2022-08-04 16:57 | HMH.EDGENADL ---
Discharge Plan Disposition Patient Disposition: Home, Self-Care Condition: Good Prescriptions Prescriptions: New ondansetron HCl 4 mg tablet 4 mg PO Q8H 4 Days Qty: 12 0RF Referrals Follow up/Referrals: Provider,Referral, MD [Primary Care Provider] - See instructions Activity Restrictions/Add. Instructions Additional Instructions/Restrictions: Be sure to stay hydrated. Zofran as prescribed for nausea and vomiting every 6-8 hours. Take Tylenol 1000 mg every 6 hours (4 times daily) and ibuprofen 400 mg every 6 hours (4 times daily) as needed with food and water to prevent GI upset and kidney damage. Clinical Impressions Clinical Impression: Nausea vomiting and diarrhea Discharge ED Provider: Demond Acosta General Adult HPI General Chief complaint: Ear Stated complaint: Vomiting body ache Time Seen by Provider: 08/04/22 16:19 Mode of Arrival: Ambulatory Source of Information: Patient Limitations: No Limitations Description of Symptoms (Recalled from ER Triage Doc. by RN): 21 F presents back to the ED after being seen here last PM for bilateral ear pain. She was prescribed oral steroids and given a Tylenol #[address] Marion. Patient states she has nausea and vomiting r/t to taking the Tylenol #3. She reports continued ear pain with this new n/v. Denies fever, chills, loss of hearing. History of Present Illness HPI narrative: This is a 21-year-old female with no relevant medical history presenting with vomiting, diarrhea, abdominal pain. Patient states that her symptoms started the evening of 08/03. Since that time, she has been unable to tolerate almost any p.o. intake. Vomiting is nonbloody nonbilious, diarrhea is nonbloody. Patient states there is no chance she is at this time. Denies dysuria, hematuria, flank pain, fevers, chills, chest pain, shortness of breath. She has multiple sick contacts in the house and just about everybody she knows has similar symptoms. Related Data Previous Rx's Medication Instructions Recorded ondansetron HCl 4 mg tablet 4 mg PO Q8H 4 days #12 tabs 08/04/22 Allergies Allergy/AdvReac Type Severity Reaction Status Date / Time ketchup Allergy Unknown Verified 01/06/22 14:59 [facility] Disclaimer: The information contained in this section may have been updated after the patient was seen, as this information can be updated by other users. Social History Smoking Status: Current every day smoker tobacco type: e-cigarettes alcohol intake: never substance use type: former substance user and marijuana current occupational status: other Travel in the last 8 weeks: None household members: family housing: house current occupational exposures/hazards: Yes ROS Obtained: Yes All systems reviewed & no additional complaints except as documented Physical Exam General General appearance: alert and in no apparent distress Head Head exam: atraumatic, normocephalic and normal inspection Eye Eye exam: Present normal appearance, PERRL and EOMI ENT ENT exam: Present normal exam, normal oropharynx, mucous membranes moist, TM's normal bilaterally and normal external ear exam Neck Neck exam: Present normal inspection, full ROM and trachea midline; Absent meningismus or lymphadenopathy Chest Chest inspection: Present normal inspection and symmetric chest wall rise; Absent tenderness Respiratory Respiratory exam: Present normal lung sounds bilaterally; Absent respiratory distress Cardiovascular Cardiovascular exam: Present regular rate and normal rhythm; Absent JVD Abdominal Exam Abdominal exam: Present soft and normal bowel sounds; Absent distention, tenderness or guarding Extremities Exam Extremities exam: Present normal inspection, full ROM and normal capillary refill; Absent calf tenderness Back Exam Back exam: Present normal inspection; Absent tenderness Neurological Exam Neurological exam: Present alert and oriented X3 Psychiatric Psychiatr
--- NOTE | 2022-08-04 17:08 | PC.NURSE ---
pt to restroom without complications
[2022-08-04 17:19] LABS: Chloride 99 mmol/L (98-107)
[2022-08-04 17:20] LABS: Potassium 3.4 mmoL/L (3.5-5.1); Sodium 140 mmol/L (136-145)
[2022-08-04 17:20] LABS: Appearance,Urine SL CLOUDY (Clear); Blood, Urine Negative (Negative); Color,Urine YELLOW (Yellow); Glucose,Urine (UA) Negative (Negative); Ketones,Urine 1+ (Negative); Leukocyte Esterase,Urine TRACE (Negative); Microscopic, Urine URINE MICROSCOPIC (MICROSCOPIC); Nitrate,Urine Negative (Negative); Protein,Urine 1+ (Negative); Specific Gravity, Urine >= 1.030 (1.005-1.030); Urobilinogen,Urine 0.2 EU/dl (0.2)
[2022-08-04 17:23] LABS: Anion Gap 13.4 mEq/L (5-15); Blood Urea Nitrogen 17 mg/dl (7-17); Calcium 9.2 mg/dl (8.4-10.2); Carbon Dioxide 31 mmol/L (22.0-30.0); Creatinine Clearance Estimated 69 mL/min (50-200); Estimated Glomerular Filt Rate 70 ml/min (>60); GFR (African American) 85 ML/MIN (>60); Glucose 81 mg/dl (74-100)
[2022-08-04 17:23] LABS: Urine Pregnancy, HCG Qual. Negative (Negative)
[2022-08-04 17:33] LABS: Bilirubin,Urine 2+ (Negative)
[2022-08-04 17:37] LABS: Bacteria,Urine Trace /lpf; WBC,Urine Occasional #/hpf (0-3)
[2022-08-04 17:48] VITALS: BP 119/73; PULSE 81; RESP 17; TEMP 36.8; O2SAT 97
== END 2022-08-04 17:49 | disposition home or self-care (01) ==
PROVIDERS: Emergency Provider Emergency Medicine
DX: R11.2 Nausea with vomiting, unspecified (principal); R19.7 Diarrhea, unspecified; F17.290 Nicotine dependence, other tobacco product, uncomplicated
CPT/HCPCS: 80048; 81001; 81025; 96361; 96374; 99284; J2405

== ENCOUNTER 2022-09-09 20:49 | Emergency (ER) | payer SELFPAY ==
[2022-09-09 21:05] VITALS: BP 119/69; PULSE 90; RESP 16; TEMP 37.2; O2SAT 100; BMI 18.2
[2022-09-09 21:22] VITALS: BMI 17.1
[2022-09-09 21:28] LABS: Microscopic, Urine URINE MICROSCOPIC (MICROSCOPIC)
[2022-09-09 21:45] LABS: Appearance,Urine CLOUDY (Clear); Bilirubin,Urine Negative (Negative); Blood, Urine 3+ (Negative); Color,Urine RED (Yellow); Glucose,Urine (UA) Negative (Negative); Ketones,Urine TRACE (Negative); Leukocyte Esterase,Urine TRACE (Negative); Nitrate,Urine POSITIVE (Negative); PH,Urine 7.5 (5.0-8.5); Protein,Urine 2+ (Negative)
[2022-09-09 21:51] LABS: Urine Pregnancy, HCG Qual. Negative (Negative)
[2022-09-09 22:03] LABS: Bacteria,Urine 2+ /lpf; RBC,Urine TNTC #/hpf (0-3)
--- NOTE | 2022-09-09 22:42 | HMH.EDUROGF ---
Discharge Plan Disposition Patient Disposition: Home, Self-Care Chief Complaint: Vaginal Bleeding Prescriptions Prescriptions: No Action ondansetron HCl 4 mg tablet 4 mg PO Q8H 4 Days Qty: 12 0RF Referrals Follow up/Referrals: Provider,Referral, MD [Primary Care Provider] - See instructions Clinical Impressions Clinical Impression: Vaginal bleeding Instructions Patient Instructions: DI for Vaginal Bleeding Discharge ED Provider: Sanam (ED)Milad Female Urogenital HPI General Chief complaint: Vaginal Bleeding Stated complaint: Possible Miscarrage Time Seen by Provider: 09/09/22 22:46 Mode of Arrival: Family Vehicle Source of Information: Patient, Parent(s) and Medical Record Limitations: No Limitations Description of Symptoms (Recalled from ER Triage Doc. by RN): Pt reports vaginal bleeding and passing large clots and she believes she is having a miscarriage. States she took an at home test 3 days ago and had a faint positive line. Pt does not use control d/t I don't have insurance and am waiting to get it . Pt is Rh negative. LMP 08/17 - 08/21. History of Present Illness HPI Narrative: pt with heavy vag bleeding which started tonight and pt concerned about miscarriage - MD Complaint: vaginal bleeding Onset (ago): hour(s) Severity: moderate Vaginal discharge: blood clots Sexual activity: yes : Unknown Associated symptoms: denies other symptoms Related Data Previous Rx's Medication Instructions Recorded ondansetron HCl 4 mg tablet 4 mg PO Q8H 4 days #12 tabs 08/04/22 Allergies Allergy/AdvReac Type Severity Reaction Status Date / Time ketchup Allergy Unknown Verified 01/06/22 14:59 [facility] Disclaimer: The information contained in this section may have been updated after the patient was seen, as this information can be updated by other users. Social History Smoking Status: Never smoker alcohol intake: never substance use type: former substance user and marijuana current occupational status: other Travel in the last 8 weeks: None household members: family housing: house current occupational exposures/hazards: Yes ROS Obtained: Yes All systems reviewed & no additional complaints except as documented Physical Exam General General appearance: alert Head Head exam: normocephalic Eye Eye exam: Present PERRL and EOMI ENT ENT exam: Present mucous membranes moist Neck Neck exam: Present trachea midline Respiratory Respiratory exam: Absent respiratory distress Cardiovascular Cardiovascular exam: Present regular rate Abdominal Exam Abdominal exam: Present soft Extremities Exam Extremities exam: Present full ROM Neurological Exam Neurological exam: Present alert, oriented X3 and CN II-XII intact; Absent motor sensory deficit Psychiatric Psychiatric exam: Present normal affect Skin Skin exam: Absent rash Medical Decision Making Medical Records Medical records reviewed: Yes I reviewed the patient's medical records. Uli Inquiry Pt receiving controlled substance: No Vital Signs: 09/09/22 21:05 Temperature 98.9 F Temperature Source Oral Pulse Rate [Right] 90 Respiratory Rate 16 Blood Pressure [Right Arm] 119/69 Blood Pressure Mean [Right Arm] 85 Blood Pressure Source [Right Arm] Automatic Cuff 02 Sat by Pulse Oximetry 100 Oxygen Delivery Method Room Air Lab Data Lab results reviewed: Yes I reviewed the patient's lab results. Lab Results 09/09/22 21:10: Urine Color Red, Urine Appearance Cloudy, Urine pH 7.5, Ur Specific Anton 1.020, Urine Protein 2+, Urine Glucose (UA) Negative, Urine Ketones Trace, Urine Blood 3+, Urine Nitrate Positive, Urine Bilirubin Negative, Urine Urobilinogen 1.0, Ur Leukocyte Esterase Trace, Urine RBC Tntc, Urine WBC 3-5, Urine Bacteria 2+ 09/09/22 21:10: Urine HCG, Qual Negative Orders (Tests/Meds): ORDERS Category Date Time Status Urinalysis and Microscopic Stat Lab
[2022-09-09 22:47] VITALS: BP 120/78; PULSE 78; RESP 17; TEMP 36.7; O2SAT 97
== END 2022-09-09 22:58 | disposition home or self-care (01) ==
PROVIDERS: Emergency Provider Emergency Medicine
DX: N93.9 Abnormal uterine and vaginal bleeding, unspecified (principal)
CPT/HCPCS: 81001; 81025; 87086; 99283; 99284

== ENCOUNTER 2022-10-01 09:35 | Emergency (ER) | payer SELFPAY ==
[2022-10-01 09:43] VITALS: BP 99/59; PULSE 85; RESP 14; TEMP 37.2; O2SAT 100; BMI 17.1
--- NOTE | 2022-10-01 09:47 | EXP.UTC ---
Discharge Plan Disposition Patient Disposition: Home, Self-Care Condition: Good Prescriptions Prescriptions: New ondansetron 4 mg Tablet,Disintegrating 4 mg PO Q8H PRN (Reason: Nausea) Qty: 12 0RF No Action ondansetron HCl 4 mg tablet 4 mg PO Q8H 4 Days Qty: 12 0RF Referrals Follow up/Referrals: Provider,Referral, MD [Primary Care Provider] - See instructions Activity Restrictions/Add. Instructions Additional Instructions/Restrictions: Drink plenty of fluids. Take tylenol or ibuprofen for pain or fever. Take the medications as directed. Follow up with your regular doctor. GO TO THE ER FOR ANY WORSENING SYMPTOMS Clinical Impressions Clinical Impression: Gastroenteritis Stand Alone Forms Stand Alone Forms: Work/School Release Instructions Patient Instructions: DI for Viral Gastroenteritis -- Adult Discharge ED Provider: Neel Hernandez [facility] General Stated complaint: Vomiting diarrhea Time Seen by Provider: 10/01/22 09:47 History of Present Illness Provider Complaint: She states that since yesterday she has had n/v/d. She denies abdominal pain. Related Data Previous Rx's Medication Instructions Recorded ondansetron HCl 4 mg tablet 4 mg PO Q8H 4 days #12 tabs 08/04/22 ondansetron 4 mg disintegrating 4 mg PO Q8H PRN Nausea #12 tabs 10/01/22 tablet Allergies Allergy/AdvReac Type Severity Reaction Status Date / Time ketchup Allergy Unknown Verified 01/06/22 14:59 [facility] Disclaimer: The information contained in this section may have been updated after the patient was seen, as this information can be updated by other users. Social History Smoking Status: Never smoker alcohol intake: never substance use type: former substance user and marijuana current occupational status: other Travel in the last 8 weeks: None household members: family housing: house current occupational exposures/hazards: Yes ROS Obtained: Yes All systems reviewed & no additional complaints except as documented Constitutional Constitutional: Denies chills, Denies fever(s) and Reports poor appetite ENT Ears, Nose, Mouth, and Throat: Denies dizziness and Denies sore throat Cardiovascular Cardiovascular: Denies dyspnea Respiratory Respiratory: Denies chest congestion, Denies cough and Denies dyspnea Genitourinary Female Genitourinary: Denies difficulty voiding, Denies dysuria, Denies hematuria, Denies urinary frequency, Denies urinary incontinence, Denies urinary hesitancy and Denies urinary urgency Musculoskeletal Musculoskeletal: Denies arthralgias Integumentary/Breasts Skin/Breast: Denies rash Neurologic Neurologic: Denies dizziness Physical Exam General General appearance: alert and in no apparent distress Head Head exam: atraumatic and normocephalic Eye Eye exam: Present normal appearance, PERRL and EOMI ENT ENT exam: Present normal exam, normal oropharynx, mucous membranes moist, TM's normal bilaterally and normal external ear exam Neck Neck exam: Present normal inspection, full ROM and trachea midline; Absent tenderness, meningismus or lymphadenopathy Chest Chest inspection: Present normal inspection and symmetric chest wall rise; Absent tenderness, rash or abscess Respiratory Respiratory exam: Present normal lung sounds bilaterally; Absent respiratory distress, wheezes or stridor Cardiovascular Cardiovascular exam: Present regular rate and normal rhythm; Absent irregular rhythm, systolic murmur, diastolic murmur or JVD Abdominal Exam Abdominal exam: Present soft and hyperactive bowel sounds; Absent distention, tenderness, guarding, rebound, rigidity, psoas sign, obturator sign, heel tap sign, Luong's sign, Rovsing's sign or tenderness at McBurney's Point Extremities Exam Extremities exam: Present normal inspection and full ROM; Absent tenderness Back Exam Back exam: Present normal inspection and full ROM; Absent te
[2022-10-01 10:22] VITALS: BP 99/59; PULSE 85; RESP 14; TEMP 37.2
== END 2022-10-01 10:24 | disposition home or self-care (01) ==
PROVIDERS: Emergency Provider Nurse Practitioner Family
DX: K52.9 Noninfective gastroenteritis and colitis, unspecified (principal); R11.2 Nausea with vomiting, unspecified
CPT/HCPCS: 99212; 99214; G0463

== ENCOUNTER 2022-10-30 16:49 | Emergency (ER) | payer SELFPAY ==
--- NOTE | 2022-10-30 16:49 | ECG_ITS ---
APPROVED REPORT Exam: Resting ECG HR:87 bpm ECG Measurements Heart Rate 87 AXES NM 137 P 68 QRSd 84 QRS 91 QT 342 T 5 QTc 386 Conclusion SINUS RHYTHM WITH SINUS ARRHYTHMIA BORDERLINE RIGHT AXIS DEVIATION [QRS AXIS > 90] NONSPECIFIC T-WAVE ABNORMALITY BORDERLINE ECG UNCONFIRMED REPORT Electronically signed by : John Del Angel MD 10/31/2022 10:38:57
[2022-10-30 16:51] VITALS: BP 122/59; PULSE 84; RESP 16; TEMP 36.9; O2SAT 100; BMI 18.3
--- NOTE | 2022-10-30 17:10 | HMH.EDCP ---
Discharge Plan Disposition Patient Disposition: Home, Self-Care Chief Complaint: Chest Pain Prescriptions Prescriptions: No Action ondansetron HCl 4 mg tablet 4 mg PO Q8H 4 Days Qty: 12 0RF ondansetron 4 mg Tablet,Disintegrating 4 mg PO Q8H PRN (Reason: Nausea) Qty: 12 0RF Referrals Follow up/Referrals: Provider,Referral, MD [Primary Care Provider] - See instructions Activity Restrictions/Add. Instructions Additional Instructions/Restrictions: Please follow-up with your primary care doctor in about 3 to 4 days if you do not feel any better. I think your chest pain may have to do with gastroesophageal reflux disease. You may want to try some Tums for that. Your work-up today in the emergency department did not reveal any life-threatening or dangerous conditions. Return to the emergency department immediately if you feel worse in any way. Clinical Impressions Clinical Impression: Atypical chest pain Instructions Patient Instructions: DI for Atypical Chest Pain Discharge ED Provider: Yvan Barragan Chest Pain HPI General Chief Complaint: Chest Pain Stated Complaint: chest pain Time Seen by Provider: 10/30/22 17:08 Mode of Arrival: Ambulatory Source of Information: Patient Limitations: No Limitations Description of Symptoms (Recalled from ER Triage Doc. by RN): pt to the ED with sore throat, cough and congestion x 2 days and chest pain on inhalation History of Present Illness HPI narrative: The patient presents to the emergency department complaining of sore throat and hemoptysis. She then took an [id number] migraine medication and developed chest pain. She denies taking any prescription medications. She is allergic to catch up. She denies having had a fever. She denies nausea vomiting or diarrhea. She does not smoke but she vapes. Related Data Previous Rx's Medication Instructions Recorded ondansetron HCl 4 mg tablet 4 mg PO Q8H 4 days #12 tabs 08/04/22 ondansetron 4 mg disintegrating 4 mg PO Q8H PRN Nausea #12 tabs 10/01/22 tablet Allergies Allergy/AdvReac Type Severity Reaction Status Date / Time ketchup Allergy Unknown Verified 01/06/22 14:59 [facility] Disclaimer: The information contained in this section may have been updated after the patient was seen, as this information can be updated by other users. Social History Smoking Status: Never smoker alcohol intake: never substance use type: former substance user and marijuana current occupational status: other Travel in the last 8 weeks: None household members: family housing: house current occupational exposures/hazards: Yes ROS Obtained: Yes All systems reviewed & no additional complaints except as documented Physical Exam General General appearance: alert and in no apparent distress Head Head exam: atraumatic Eye Eye exam: Present normal appearance ENT ENT exam: Present normal exam and normal oropharynx (No erythema. no exudates.) Neck Neck exam: Present normal inspection and full ROM; Absent tenderness or meningismus Chest Chest inspection: Present normal inspection and symmetric chest wall rise; Absent tenderness Respiratory Respiratory exam: Present normal lung sounds bilaterally; Absent respiratory distress or accessory muscle use Cardiovascular Cardiovascular exam: Present regular rate, normal rhythm and normal heart sounds Abdominal Exam Abdominal exam: Present soft and normal bowel sounds; Absent distention, tenderness, heel tap sign, Luong's sign, Rovsing's sign, tenderness at McBurney's Point or mass Extremities Exam Extremities exam: Present normal inspection and full ROM; Absent calf tenderness Back Exam Back exam: Present normal inspection; Absent CVA tenderness (R) or CVA tenderness (L) Neurological Exam Neurological exam: Present alert and oriented X3 Psychiatric Psychiatric exam: Present normal affect and normal mood Skin Skin
[2022-10-30 17:15] LABS: Basophils % 0.2 % (0.1-2.0); Eosinophils # 0.3 K/mm3 (0.0-0.4); Eosinophils % 4.9 % (0.1-12.0); Hematocrit 38.5 % (37.0-47.0); Hemoglobin 12.6 g/dL (12.2-16.2); Lymphocytes # 1.6 K/mm3 (0.7-4.5); Lymphocytes % 22.7 % (10-50); Mean Corpuscular HGB Conc 32.8 g/dL (31.8-35.4); Mean Corpuscular Hemoglobin 29.2 pg (27.0-31.2); Mean Corpuscular Volume 89.2 fl (81-99); Mean Platelet Volume 7.5 fl (7.4-10.4); Monocytes # 0.3 K/mm3 (0.1-1.0); Monocytes % 4.1 % (1.7-9.3); Neutrophils # 4.8 K/mm3 (1.8-7.8); Neutrophils % 68.1 % (37.0-80.0); Platelet Count 299 K/mm3 (142-424); Red Blood Count 4.31 M/mm3 (4.20-5.40); Red Cell Distribution Width 13.5 % (11.5-17.5); White Blood Count 7.1 K/mm3 (4.8-10.8)
[2022-10-30 17:18] LABS: Chloride 103 mmol/L (98-107); Potassium 3.4 mmoL/L (3.5-5.1); Sodium 140 mmol/L (136-145)
[2022-10-30 17:20] LABS: Alanine Aminotransferase 14 U/L (12-78); Aspartate Amino Transferase 22 U/L (14-36); Blood Urea Nitrogen 9 mg/dl (7-17); Creatinine Clearance Estimated 87 mL/min (50-200); Estimated Glomerular Filt Rate 90 ml/min (>60); GFR (African American) 109 ML/MIN (>60); Lipase 149 U/L (23-300)
[2022-10-30 17:21] LABS: Albumin Level 4.1 g/dl (3.5-5.0); Albumin/Globulin Ratio 1.4 (1.1-1.8); Alkaline Phosphatase 68 U/L (38-126); Anion Gap 9.4 mEq/L (5-15); Bilirubin,Total 0.3 mg/dl (0.2-1.3); Calcium 9.3 mg/dl (8.4-10.2); Carbon Dioxide 31 mmol/L (22.0-30.0); Globulin 2.9 g/dL (1.3-3.2); Glucose 76 mg/dl (74-100)
[2022-10-30 17:25] LABS: HCG Qualitative, Serum Negative (Negative)
[2022-10-30 17:30] VITALS: BP 99/56; PULSE 78; O2SAT 100
[2022-10-30 17:30] LABS: Coronavirus 19, PCR Not Detected (NotDetected); Influenza A, PCR Not Detected (NotDetected); Influenza B, PCR Not Detected (NotDetected)
[2022-10-30 17:40] LABS: Strep Scrn Group A (Rapid) Negative (Negative)
[2022-10-30 18:00] VITALS: BP 101/57; PULSE 72; O2SAT 100
--- NOTE | 2022-10-30 18:27 | PC.NURSE ---
er at bedside
[2022-10-30 18:31] VITALS: BP 93/59; PULSE 85; RESP 16; TEMP 37; O2SAT 99
== END 2022-10-30 18:36 | disposition home or self-care (01) ==
PROVIDERS: Emergency Provider Emergency Medicine
DX: R07.1 Chest pain on breathing (principal); J02.9 Acute pharyngitis, unspecified; R05.9 Cough, unspecified
CPT/HCPCS: 80053; 83690; 84703; 85025; 87430; 87636; 93005; 99285; C9803; U0003; U0005

== ENCOUNTER 2022-11-11 12:37 | Emergency (ER) | payer SELFPAY ==
[2022-11-11 12:37] VITALS: BP 101/68; PULSE 90; RESP 18; TEMP 36.4; O2SAT 98; BMI 16.1
--- NOTE | 2022-11-11 12:52 | EXP.UTC ---
Discharge Plan Disposition Patient Disposition: Home, Self-Care Condition: Good Prescriptions Prescriptions: New methylprednisolone 4 mg Tablets,Dose Pack 4 mg PO DIRECTED Qty: 21 0RF No Action ondansetron HCl 4 mg tablet 4 mg PO Q8H 4 Days Qty: 12 0RF ondansetron 4 mg Tablet,Disintegrating 4 mg PO Q8H PRN (Reason: Nausea) Qty: 12 0RF Referrals Follow up/Referrals: Provider,Referral, MD [Primary Care Provider] - See instructions Activity Restrictions/Add. Instructions Additional Instructions/Restrictions: Take tylenol or ibuprofen for pain or fever. Take the medications as directed. Follow up with your regular doctor. GO TO THE ER FOR ANY WORSENING SYMPTOMS Clinical Impressions Clinical Impression: Contact dermatitis Instructions Patient Instructions: DI for Contact Dermatitis, Methylprednisolone Discharge ED Provider: Neel Hernandez [facility] General Stated complaint: Possible poison ambreen rash genital area Mode of Arrival: Ambulatory Source of Information: Patient Limitations: No Limitations Time Seen by Provider: 11/11/22 12:52 HEENT Symptoms (Recalled from RN notes): No Resp Symptoms (Recalled from RN notes): No Skin Symptoms (Recalled from RN notes): No MS Symptoms (Recalled from RN notes): No Functional Status (Recalled from RN notes): wnl History of Present Illness Provider Complaint: Patient reports itching in her genital area to her rectum. States it itches and then albarran. Denies any painful urination. Related Data Previous Rx's Medication Instructions Recorded ondansetron HCl 4 mg tablet 4 mg PO Q8H 4 days #12 tabs 08/04/22 ondansetron 4 mg disintegrating 4 mg PO Q8H PRN Nausea #12 tabs 10/01/22 tablet methylprednisolone 4 mg tablets in 4 mg PO DIRECTED #21 tabs 11/11/22 a dose pack Allergies Allergy/AdvReac Type Severity Reaction Status Date / Time ketchup Allergy Unknown Verified 01/06/22 14:59 Worker's Comp Is this a Worker's Comp case?: No [facility] Disclaimer: The information contained in this section may have been updated after the patient was seen, as this information can be updated by other users. Social History Smoking Status: Never smoker alcohol intake: never substance use type: former substance user and marijuana current occupational status: other Travel in the last 8 weeks: None household members: family housing: house current occupational exposures/hazards: Yes ROS Obtained: Yes All systems reviewed & no additional complaints except as documented Constitutional Constitutional: Denies chills and Denies fever(s) Eyes Eyes: Denies eye discharge ENT Ears, Nose, Mouth, and Throat: Denies dizziness, Denies otalgia and Denies sore throat Cardiovascular Cardiovascular: Denies chest pain Respiratory Respiratory: Denies shortness of breath, Denies chest congestion, Denies cough, Denies stridor and Denies wheezing Gastrointestinal Gastrointestingal: Denies nausea or vomiting Musculoskeletal Musculoskeletal: Reports system reviewed and no additional complaints, except as documented and Denies arthralgias Integumentary/Breasts Skin/Breast: Reports as per HPI and Reports rash Neurologic Neurologic: Denies dizziness and Denies paresthesias Allergic/Immunologic Allergic/Immunologic: Denies wheezing Physical Exam General General appearance: alert and in no apparent distress Head Head exam: atraumatic, normocephalic and normal inspection Eye Eye exam: Present normal appearance, PERRL and EOMI ENT ENT exam: Present normal exam, normal oropharynx, mucous membranes moist, TM's normal bilaterally and normal external ear exam Neck Neck exam: Present normal inspection, full ROM and trachea midline; Absent meningismus or lymphadenopathy Chest Chest inspection: Present normal inspection and symmetric chest wall rise; Absent tenderness Respiratory Respiratory exam: Present
[2022-11-11 13:08] LABS: Apearance,Urine Cloudy (Clear); Bilirubin,Urine Negative (Negative); Blood, Urine 2+ (Negative); Color,Urine Amber (Yellow); Glucose,Urine (UA) Negative (Negative); Ketones,Urine Negative (Negative); Protein,Urine 3+ (Negative); Urobilinogen,Urine 0.2 EU/dl (0.2)
[2022-11-11 13:09] LABS: UTC Leukocyte Esterase,Urine Trace (Negative); UTC Nitrate,Urine Negative (Negative)
[2022-11-11 13:29] VITALS: BP 101/68; PULSE 90; RESP 18; TEMP 36.4; O2SAT 98
[2022-11-13 20:04] LABS: Neisseria gonorrhoeae, NAA Negative (Negative)
== END 2022-11-11 13:30 | disposition home or self-care (01) ==
PROVIDERS: Emergency Provider Nurse Practitioner Family
DX: L25.9 Unspecified contact dermatitis, unspecified cause (principal)
CPT/HCPCS: 81003; 87086; 87491; 87591; 99212; 99214; G0463

== ENCOUNTER → 2022-11-27 14:38 | Outpatient (CLI) | payer OTHER, SELFPAY ==
[2022-11-27 16:08] LABS: HCG,Quantitative 13 mIU/ml (0-5.42)
== END ==
PROVIDERS: Visit Provider Obstetrics & Gynecology
DX: Z32.01 Encounter for pregnancy test, result positive (principal)
CPT/HCPCS: 36415; 84702

== ENCOUNTER → 2022-12-04 14:31 | Outpatient (CLI) | payer OTHER, SELFPAY ==
[2022-12-04 15:13] LABS: Basophils % 0.4 % (0.1-2.0); Eosinophils # 0.2 K/mm3 (0.0-0.4); Eosinophils % 3.3 % (0.1-12.0); Hematocrit 39.2 % (37.0-47.0); Hemoglobin 12.9 g/dL (12.2-16.2); Lymphocytes # 1.6 K/mm3 (0.7-4.5); Lymphocytes % 24.9 % (10-50); Mean Corpuscular Hemoglobin 29.4 pg (27.0-31.2); Mean Corpuscular Volume 89.1 fl (81-99); Mean Platelet Volume 7.4 fl (7.4-10.4); Monocytes # 0.3 K/mm3 (0.1-1.0); Monocytes % 4.1 % (1.7-9.3); Neutrophils # 4.3 K/mm3 (1.8-7.8); Neutrophils % 67.3 % (37.0-80.0); Platelet Count 281 K/mm3 (142-424); Red Cell Distribution Width 13.5 % (11.5-17.5); White Blood Count 6.4 K/mm3 (4.8-10.8)
[2022-12-04 16:48] LABS: HCG,Quantitative 868 mIU/ml (0-5.42)
== END ==
PROVIDERS: Visit Provider Obstetrics & Gynecology
DX: Z34.91 Encounter for supervision of normal pregnancy, unspecified, first trimester (principal); Z3A.08 8 weeks gestation of pregnancy
CPT/HCPCS: 36415; 84702; 85025

== ENCOUNTER 2022-12-08 15:08 | Emergency (ER) | payer OTHER, SELFPAY ==
[2022-12-08 15:09] VITALS: BP 102/65; PULSE 84; RESP 16; TEMP 36.7; O2SAT 99; BMI 16.2
[2022-12-08 16:00] VITALS: BP 99/64; PULSE 64; RESP 18; O2SAT 100
--- NOTE | 2022-12-08 16:13 | PC.NURSE ---
PT REPORTS SHE IS CURRENTLY GETTING TREATED FOR UTI DIAGNOSED ON THE 7TH OF THIS MONTH AND A STD. STATES SHE IS ON DAY 4 OF TREATMENT FOR STD. ER AWARE.
--- NOTE | 2022-12-08 16:16 | PC.NURSE ---
Dr. Ching at [facility] for pt eval
[2022-12-08 16:23] VITALS: PULSE 86; O2SAT 100
--- NOTE | 2022-12-08 16:26 | US_ITS ---
PROCEDURE INFORMATION: Exam: US , Transvaginal and US Duplex Artery and Vein, Ovaries, Complete Exam date and time: 12/08/2022 4:52 PM Age: 22 years old Clinical indication: Pain; Gestational age or lmp: 3 weeks 5 days; ; Additional info: location, current sti. Pending hcg LABS AND CLINICAL REPORTS: Last menstrual period start date: 11/12/2022 Gestational age (Established): 3 w 5 d Estimated due date (Established): 08/19/2023 TECHNIQUE: Imaging protocol: Real-time transvaginal obstetrical ultrasound of the maternal pelvis and a first trimester with image documentation. Transvaginal imaging was used for better evaluation of the fetus, adnexa, and/or cervix. Real-time duplex ultrasound scan of the arterial and venous flow of the ovaries with B-mode, color Doppler flow and spectral waveform analysis, Complete Duplex. Duplex exam was performed to evaluate for torsion and other vascular conditions. Total images: 170 COMPARISON: US OB FOLLOW UP 10/10/2021 1:08 PM FINDINGS: GESTATION: Gestation: Gestational sac is noted within the uterus without definite pole at this time. BIOMETRY: Gestational age (AUA): 5 w 1 d Estimated due date (AUA): 08/09/2023 Mean sac diameter: 0.8 cm. MATERNAL: Right ovary/adnexa: Right ovary measures 3.9 cm x 2.1 cm x 1.3 cm. Right ovarian volume is 5.8 mL. Left ovary/adnexa: Left ovary measures 2.5 cm x 2.2 cm x 2 cm. Left ovarian volume is 5.7 mL. Intraperitoneal space: Free fluid is noted within the cul-de-sac. IMPRESSION: 1. Gestational sac is noted within the uterus without definite pole at this time. Differential considerations would include early , however other etiologies cannot be excluded. Short-term follow-up is recommended. 2. Average gestational age (AUA) 5 weeks 1 day. 3. Free fluid is noted within the cul-de-sac.
--- NOTE | 2022-12-08 16:27 | PC.NURSE ---
RADIOLOGY AWARE OF ULTRASOUND. STATED THEY WILL CALL THEM IN. ER MD AWARE.
--- NOTE | 2022-12-08 16:28 | HMH.EDGENADL ---
Discharge Plan Disposition Patient Disposition: Admitted Condition: Good Clinical Impressions Clinical Impression: Pelvic pain, Discharge ED Provider: Arsh Ching General Adult HPI General Chief complaint: Abdominal Pain Stated complaint: abd pain, Time Seen by Provider: 12/08/22 16:04 Mode of Arrival: Ambulatory Source of Information: Patient Limitations: No Limitations Description of Symptoms (Recalled from ER Triage Doc. by RN): 22 F, , unknown gestation comes in after speaking to her TECHNICAL SOLUTIONS ENGINEER- Dr. Mar for c/o lower abdominal cramping that started this AM. Patient reports intermittent spotting, otherwise no complaints. Denies dysuria, fever, chills.. History of Present Illness HPI narrative: Patient is a 22-year-old female with past medical history of recent , no established location, recent reported urinary tract infection and STI treated with Macrobid and metronidazole who presents to the emergency department for evaluation of vaginal pain. History is obtained by patient at bedside. She states her last menstrual period was November 10. She reportedly followed up on November 27 where quantitative hCG was positive. No ultrasound was performed and she was diagnosed with a urinary tract infection that turned into an STD and was treated with the above medications. Patient's been compliant with her medications however over the last 24 to 48 hours she has had worsening pelvic cramping, intermittent spotting. She has had persistent white discharge throughout the course. Denies dysuria. Denies high abdominal pain. Patient has had vomiting since prior to the symptoms. Denies cough, fever. No other acute complaints at this time. Per chart review vaginal culture was obtained but exam was consistent with trichomonas on the seventh and she was discharged with metronidazole. Culture remarkable for trichomonas vaginalis, atopobium vaginalis, Gardnerella vaginalis, megasphaera type one greater than 100,000 units. Related Data Home Medications Medication Instructions Recorded Confirmed nitrofurantoin 100 mg PO BID uti 12/08/22 12/08/22 monohydrate/macrocrystals 100 mg capsule (Macrobid) Allergies Allergy/AdvReac Type Severity Reaction Status Date / Time ketchup Allergy Unknown Verified 11/27/22 13:44 [facility] Disclaimer: The information contained in this section may have been updated after the patient was seen, as this information can be updated by other users. Medical History History of anemia Surgical History S/P cholecystectomy Family History Thyroid disorder Mother Social History Smoking Status: Current every day smoker tobacco type: e-cigarettes alcohol intake: never substance use type: former substance user and marijuana current occupational status: other Travel in the last 8 weeks: None household members: family housing: house current occupational exposures/hazards: Yes ROS Obtained: Yes Systems reviewed as appropriate & no additional complaints except as documented Physical Exam General General appearance: alert and in no apparent distress Head Head exam: atraumatic and normocephalic Eye Eye exam: Present PERRL and EOMI ENT ENT exam: Present mucous membranes moist Neck Neck exam: Present normal inspection Chest Chest inspection: Present normal inspection and symmetric chest wall rise Respiratory Respiratory exam: Present normal lung sounds bilaterally; Absent respiratory distress Cardiovascular Cardiovascular exam: Present regular rate and normal rhythm Abdominal Exam Abdominal exam: Present soft; Absent tenderness Extremities Exam Extremities exam: Present normal inspection Neurological Exam Neurological exam: Present alert and oriented X3
[2022-12-08 16:30] VITALS: BP 102/58; PULSE 62; RESP 18; O2SAT 100
[2022-12-08 16:55] LABS: Microscopic, Urine URINE MICROSCOPIC (MICROSCOPIC)
[2022-12-08 16:59] LABS: Basophils % 0.7 % (0.1-2.0); Eosinophils # 0.2 K/mm3 (0.0-0.4); Eosinophils % 2.8 % (0.1-12.0); Hematocrit 41.6 % (37.0-47.0); Hemoglobin 13.6 g/dL (12.2-16.2); Lymphocytes # 1.8 K/mm3 (0.7-4.5); Lymphocytes % 33.9 % (10-50); Mean Corpuscular HGB Conc 32.8 g/dL (31.8-35.4); Mean Corpuscular Hemoglobin 29.4 pg (27.0-31.2); Mean Corpuscular Volume 89.7 fl (81-99); Mean Platelet Volume 7.5 fl (7.4-10.4); Monocytes # 0.3 K/mm3 (0.1-1.0); Monocytes % 4.8 % (1.7-9.3); Neutrophils # 3.1 K/mm3 (1.8-7.8); Neutrophils % 57.8 % (37.0-80.0); Platelet Count 317 K/mm3 (142-424); Red Blood Count 4.64 M/mm3 (4.20-5.40); Red Cell Distribution Width 13.6 % (11.5-17.5); White Blood Count 5.4 K/mm3 (4.8-10.8)
[2022-12-08 17:05] LABS: Appearance,Urine CLEAR (Clear); Bilirubin,Urine Negative (Negative); Blood, Urine Negative (Negative); Color,Urine YELLOW (Yellow); Glucose,Urine (UA) Negative (Negative); Ketones,Urine Negative (Negative); Leukocyte Esterase,Urine 1+ (Negative); Nitrate,Urine Negative (Negative); Protein,Urine Negative (Negative); Specific Gravity, Urine 1.015 (1.005-1.030); Urobilinogen,Urine 0.2 EU/dl (0.2)
[2022-12-08 17:06] LABS: Chloride 104 mmol/L (98-107); Potassium 3.6 mmoL/L (3.5-5.1); Sodium 139 mmol/L (136-145)
[2022-12-08 17:08] LABS: Blood Urea Nitrogen 7 mg/dl (7-17); Creatinine Clearance Estimated 88 mL/min (50-200); Estimated Glomerular Filt Rate 105 ml/min (>60); GFR (African American) 127 ML/MIN (>60)
[2022-12-08 17:09] LABS: Alanine Aminotransferase 12 U/L (12-78); Albumin Level 4.3 g/dl (3.5-5.0); Albumin/Globulin Ratio 1.3 (1.1-1.8); Alkaline Phosphatase 77 U/L (38-126); Anion Gap 10.6 mEq/L (5-15); Aspartate Amino Transferase 22 U/L (14-36); Bilirubin,Total 0.5 mg/dl (0.2-1.3); Calcium 8.9 mg/dl (8.4-10.2); Carbon Dioxide 28 mmol/L (22.0-30.0); Globulin 3.4 g/dL (1.3-3.2); Glucose 81 mg/dl (74-100); HCG Qualitative, Serum Positive (Negative); Total Protein,Serum 7.7 g/dl (6.3-8.2)
--- NOTE | 2022-12-08 17:12 | PC.NURSE ---
PT RETURNED FROM ULTRASOUND.
[2022-12-08 17:18] LABS: Bacteria,Urine Trace /lpf; WBC,Urine Occasional #/hpf (0-3)
--- NOTE | 2022-12-08 17:23 | PC.NURSE ---
aware of US, will contact [email or web address] after finishing call with for another pt, for further information of US
--- NOTE | 2022-12-08 17:24 | PC.NURSE ---
speaking with Melani narayanan
--- NOTE | 2022-12-08 17:29 | PC.NURSE ---
DR AJAY BAKER, ACCEPTED PT FOR ADMISSION
--- NOTE | 2022-12-08 17:32 | PC.NURSE ---
TECHNOLOGY AND ENGINEERING TEACHER NOTIFIED OF ADMISSION
[2022-12-08 17:41] LABS: Coronavirus 19, PCR Not Detected (NotDetected); Influenza A, PCR Not Detected (NotDetected); Influenza B, PCR Not Detected (NotDetected)
--- NOTE | 2022-12-08 17:56 | PC.NURSE ---
Called report to Samantha GODINEZ.
[2022-12-08 17:57] VITALS: BP 102/58; PULSE 62; RESP 18; TEMP 36.7; O2SAT 100
[2022-12-08 18:18] VITALS: O2SAT 99
[2022-12-08 18:19] LABS: HCG,Quantitative 6207 mIU/ml (0-5.42)
--- NOTE | 2022-12-08 18:38 | PC.NURSE ---
0615: PT ARRIVED TO RM [id number]. PT ASSESSED AND INQUIRED ABOUT POC. PT STATES SHE NO LONGER HAS ANY PAIN. MD CALLED AT THIS TIME. DR MOSS STATES HE WILL REVIEW PT'S ULTRASOUND AND CALL BACK. 06:22: DR MOSS CALLED BACK TO UNIT AND STATED IF PT CAN FOLLOW UP IN HIS OFFICE TOMORROW SHE MAY BE DISCHARGED HOME. HE WILL COME IN AT 7PM AND SPEAK WITH PT. V/U.
--- NOTE | 2022-12-08 19:00 | PC.NURSE ---
IV REMOVED AT THIS TIME PER PT REQUEST. IV CATHETER REMOVED INTACT WITHOUT S.SX OF INFECTION OR INFILTRATION NOTED.
--- NOTE | 2022-12-08 19:16 | PC.NURSE ---
report recieved from iraida brooks
--- NOTE | 2022-12-08 19:16 | PC.NURSE ---
REPORT GIVEN TO JEFF GODINEZ
--- NOTE | 2022-12-08 19:25 | PC.NURSE ---
HERE TO SEE PT,ORDERS TO DISCHARGE PT TO HOME
--- NOTE | 2022-12-08 19:29 | EXP.HPDC ---
General Admission date:: 12/08/22 Discharge date: 12/08/22 *Admission Date: 12/08/22 *Chief complaint: She had sudden onset of lower abdominal pain this morning. *History of present illness: She had sudden onset of stabbing abdominal pain earlier this morning. She came into the ER because it was not getting any better. An ultrasound in the ER showed that she had an intrauterine . There was a trace amount of fluid in the cul-de-sac and on the right ovary there appeared to be a small hemorrhagic cyst. Blood work was normal. [facility] Disclaimer: The information contained in this section may have been updated after the patient was seen, as this information can be updated by other users. Medical History History of anemia Surgical History S/P cholecystectomy Family History Thyroid disorder Mother Social History Smoking Status: Current every day smoker tobacco type: e-cigarettes alcohol intake: never substance use type: former substance user and marijuana current occupational status: other Travel in the last 8 weeks: None household members: family housing: house current occupational exposures/hazards: Yes Review of Systems Review of Systems Review of systems:: pertinent systems reviewed and negative unless documented below Exam Data for Last 24 hours Vital signs and Labs for Last 24 Hours: Temp Pulse Resp BP Pulse Ox O2 Del Method 98.1 F 62 18 102/58 L 99 Room Air 12/08/22 17:57 12/08/22 17:57 12/08/22 17:57 12/08/22 17:57 12/08/22 18:18 12/08/22 18:18 Laboratory Results - last 24 hr 12/08/22 16:10: Urine Color Yellow, Urine Appearance Clear, Urine pH 6.0, Ur Specific [place] 1.015, Urine Protein Negative, Urine Glucose (UA) Negative, Urine Ketones Negative, Urine Blood Negative, Urine Nitrate Negative, Urine Bilirubin Negative, Urine Urobilinogen 0.2, Ur Leukocyte Esterase 1+ A, Urine RBC None, Urine WBC Occasional, Ur Squamous Epith Cells 10-20, Urine Bacteria Trace 12/08/22 16:55: WBC 5.4, RBC 4.64, Hgb 13.6, Hct 41.6, MCV 89.7, MCH 29.4, MCHC 32.8, RDW 13.6, Plt Count 317, MPV 7.5, Neut % (Auto) 57.8, Lymph % (Auto) 33.9, [place] % (Auto) 4.8, Eos % (Auto) 2.8, Baso % (Auto) 0.7, Neut # (Auto) 3.1, Lymph # (Auto) 1.8, [place] # (Auto) 0.3, Eos # (Auto) 0.2, Baso # (Auto) 0.0, Sodium 139, Potassium 3.6, Chloride 104, Carbon Dioxide 28, Anion Gap 10.6, BUN 7, Creatinine 0.70, Estimated Creat Clear 88, Estimated GFR 105, Est GFR ( Amer) 127, Glucose 81, Calcium 8.9, Total Bilirubin 0.5, AST 22, ALT 12, Alkaline Phosphatase 77, Total Protein 7.7, Albumin 4.3, Globulin 3.4 H, Albumin/Globulin Ratio 1.3, Serum HCG, Qual Positive, HCG, Quant 6207 H 12/08/22 17:33: SARS-CoV-2 (PCR) Not detected, Influenza A Untype (PCR) Not detected, Influenza Type B (PCR) Not detected I & O for Last 24 hours: Intake & Output 12/06/22 12/07/22 12/08/22 12/09/22 11:59 11:59 11:59 11:59 Weight 98 lb Constitutional Constitutional: no acute distress *Routine HEENT Exam Head: Present normocephalic Eye: Present EOMI and PERRL ENT: Present mucous membranes moist *Routine Neck Exam Neck: Present supple; Absent lymphadenopathy *Routine Respiratory Exam Respiratory: Present CTA bilaterally *Routine Cardiovascular Exam Cardiovascular: Present RRR *Routine Abdominal Exam Abdominal: Present soft and normoactive bowel sounds; Absent tenderness *Routine Rectal Exam Rectal:: deferred *Routine Genitalia Exam Genitalia:: deferred *Routine Extremities Exam Extremities: Absent cyanosis, clubbing or edema *Routine Skin Exam Skin: Present warm; Absent rash *Routine Neurological Exam Neurological: Present alert and oriented X3 Meds Home Medications and Allergies Home Medications Medication Instru
== END 2022-12-08 18:00 | disposition home or self-care (01) ==
LOC: ER 15:14 → OB 19:16
PROVIDERS: Emergency Provider Emergency Medicine; Visit Provider Nurse Practitioner Obstetrics & Gynecology
DX: R10.31 Right lower quadrant pain (principal); Z32.01 Encounter for pregnancy test, result positive; O34.81 Maternal care for other abnormalities of pelvic organs, first trimester; N83.201 Unspecified ovarian cyst, right side; Z3A.01 Less than 8 weeks gestation of pregnancy
CPT/HCPCS: 76817; 80053; 81001; 84702; 84703; 85025; 87086; 87636; 99284; G0378

== ENCOUNTER → 2022-12-17 12:48 | Outpatient (CLI) | payer OTHER, SELFPAY | PROVIDERS: PCP Nurse Practitioner Obstetrics & Gynecology; Visit Provider Nurse Practitioner Obstetrics & Gynecology | DX: Z34.90 Encounter for supervision of normal pregnancy, unspecified, unspecified trimester (principal) | CPT/HCPCS: 76801 ==

== ENCOUNTER → 2022-12-21 12:23 | Outpatient (CLI) | payer OTHER, SELFPAY ==
--- NOTE | 2022-12-21 12:29 | US_ITS ---
PROCEDURE: US OB TRANSVAGINAL CLINICAL INDICATION: Early dating ultrasound. COMPARISON: No exams were available for comparison FINDINGS: Transvaginal sonographic images of the pelvis were obtained. From her last menstrual period she is 5weeks 4days. An intrauterine gestational sac is present with a pole with a crown-rump length of 0.82cm correlating to gestational age of 7weeks 2days heart tones are present with an FHR of 118bpm. Yolk sac is noted. The yolk sac measures 4.6mm. The right ovary is seen and appears normal. It measures 1.4 cm x 3.6 cm x 1.7 cm. The left ovary is seen and appears normal. It measures 2.1 cm x 1.1 cm x 1.3 cm. There is no fluid in the cul-de-sac. IMPRESSION: 1. Viable fetus within the uterine cavity. 2. The dates are off by approximately 2 weeks. 3. Due date will be 08/07/2023. Dictated by: Sebastian Deshpande MD 12/21/2022 14:35 Sebastian Deshpande MD in OV 12/21/2022 14:35
== END ==
PROVIDERS: PCP Nurse Practitioner Obstetrics & Gynecology; Visit Provider Nurse Practitioner Obstetrics & Gynecology
DX: Z34.91 Encounter for supervision of normal pregnancy, unspecified, first trimester (principal); Z3A.01 Less than 8 weeks gestation of pregnancy
CPT/HCPCS: 76817

== ENCOUNTER 2022-12-24 15:15 | Emergency (ER) | payer OTHER, SELFPAY ==
--- NOTE | 2022-12-24 15:15 | ECG_ITS ---
APPROVED REPORT Exam: Resting ECG HR:95 bpm ECG Measurements Heart Rate 95 AXES VA 124 P 67 QRSd 89 QRS 88 QT 311 T -9 QTc 364 Conclusion SINUS RHYTHM NONSPECIFIC ST & T-WAVE ABNORMALITY ABNORMAL ECG UNCONFIRMED REPORT Electronically signed by : John Del Angel MD 12/25/2022 17:44:24
[2022-12-24 15:21] VITALS: BP 122/71; PULSE 112; RESP 16; TEMP 36.6; O2SAT 100; BMI 16.5
[2022-12-24 15:26] VITALS: PULSE 112
--- NOTE | 2022-12-24 15:27 | PC.NURSE ---
venipuncture obtain and labs sent.
--- NOTE | 2022-12-24 15:33 | HMH.EDGENADL ---
Discharge Plan Disposition Patient Disposition: Home, Self-Care Condition: Good Chief Complaint: Chest Pain Prescriptions Prescriptions: No Action Classic 28 mg iron- 800 mcg tablet 1 tab PO DAILY oxycodone 5 mg tablet 5 mg PO Q6H PRN (Reason: pain) Qty: 14 0RF promethazine 12.5 mg tablet 12.5 mg PO Q6H PRN (Reason: nausea and vomiting) Qty: 20 2RF nitrofurantoin monohyd/m-cryst [Macrobid] 100 mg capsule 100 mg PO BID Rx Instructions: must administer with a meal/food Referrals Follow up/Referrals: Provider,Referral, MD [Primary Care Provider] - See instructions Clinical Impressions Clinical Impression: Dehydration during Instructions Patient Instructions: DI for Atypical Chest Pain Discharge ED Provider: Nader Lynn General Adult HPI General Chief complaint: Chest Pain Stated complaint: chest pain Time Seen by Provider: 12/24/22 15:26 Mode of Arrival: Ambulatory Source of Information: Patient Limitations: No Limitations Description of Symptoms (Recalled from ER Triage Doc. by RN): pt presents to ED c/o chest pain that started yesterday. pt denies pain radiating. pt states pain is in the center of her chest. pt states she is currently 7 weeks and does have morning sickness. pt states she was prescribed Promethazine yesterday but hasn't taken medication yet. History of Present Illness HPI narrative: Patient has a PMHx significant for approximately 8 weeks gestational age who presents to the ED with complaints of chest pain. Patient notes that since last night, she has been feeling lightheaded and dizzy. Patient notes that she checked her blood pressure last night and noted that her systolic blood pressure was in the 90s. Since this morning, patient notes that she has been having a pain in her chest, which she describes as a chest tightness. Patient continues to experience lightheadedness and dizziness. Patient notes that as she is in her first trimester, she is experiencing severe morning sickness with nausea and vomiting daily. Patient denies any shortness of breath or syncope. No vaginal bleeding or discharge. No abdominal pain. Related Data Home Medications Medication Instructions Recorded Confirmed nitrofurantoin 100 mg PO BID uti 12/08/22 12/09/22 monohydrate/macrocrystals 100 mg capsule (Macrobid) vits no.126-ferrous fum 1 tab PO DAILY 12/09/22 12/09/22 28 mg iron-folic acid 800 mcg tablet (Classic ) Previous Rx's Medication Instructions Recorded oxycodone 5 mg tablet 5 mg PO Q6H PRN pain #14 tabs 12/09/22 promethazine 12.5 mg tablet 12.5 mg PO Q6H PRN nausea and 12/23/22 vomiting #20 tabs Allergies Allergy/AdvReac Type Severity Reaction Status Date / Time ketchup Allergy Unknown Verified 12/09/22 13:52 [facility] Disclaimer: The information contained in this section may have been updated after the patient was seen, as this information can be updated by other users. Medical History History of anemia Surgical History S/P cholecystectomy Family History Mother Thyroid disorder Social History Smoking Status: Current every day smoker tobacco type: e-cigarettes alcohol intake: never substance use type: former substance user and marijuana current occupational status: other Travel in the last 8 weeks: None household members: family housing: house current occupational exposures/hazards: Yes ROS Obtained: Yes All systems reviewed & no additional complaints except as documented Cardiovascular Cardiovascular: Reports chest pain Gastrointestinal Gastrointestingal: Reports as per HPI Physical Exam General General appearance: alert and in no apparent distre
[2022-12-24 15:34] LABS: Microscopic, Urine URINE MICROSCOPIC (MICROSCOPIC)
[2022-12-24 15:36] LABS: Basophils % 0.3 % (0.1-2.0); Eosinophils # 0.1 K/mm3 (0.0-0.4); Eosinophils % 1.9 % (0.1-12.0); Hemoglobin 13.8 g/dL (12.2-16.2); Lymphocytes # 1.3 K/mm3 (0.7-4.5); Lymphocytes % 18.2 % (10-50); Mean Corpuscular HGB Conc 32.8 g/dL (31.8-35.4); Mean Corpuscular Hemoglobin 29.3 pg (27.0-31.2); Mean Corpuscular Volume 89.2 fl (81-99); Mean Platelet Volume 7.5 fl (7.4-10.4); Monocytes # 0.3 K/mm3 (0.1-1.0); Monocytes % 3.9 % (1.7-9.3); Neutrophils # 5.4 K/mm3 (1.8-7.8); Neutrophils % 75.7 % (37.0-80.0); Platelet Count 306 K/mm3 (142-424); Red Blood Count 4.71 M/mm3 (4.20-5.40); Red Cell Distribution Width 13.3 % (11.5-17.5); White Blood Count 7.1 K/mm3 (4.8-10.8)
--- NOTE | 2022-12-24 15:40 | PC.NURSE ---
Patient moved to room 10. Assumed pt care. Warm blanket provided. Pt placed on monitor. No further complaints. Call light within reach.
[2022-12-24 15:41] LABS: Appearance,Urine CLEAR (Clear); Blood, Urine Negative (Negative); Color,Urine YELLOW (Yellow); Glucose,Urine (UA) 2+ (Negative); Ketones,Urine 1+ (Negative); Leukocyte Esterase,Urine TRACE (Negative); Nitrate,Urine Negative (Negative); Protein,Urine TRACE (Negative); Specific Gravity, Urine >= 1.030 (1.005-1.030); Urobilinogen,Urine 0.2 EU/dl (0.2)
[2022-12-24 15:43] LABS: Anion Gap 11.4 mEq/L (5-15); Blood Urea Nitrogen 14 mg/dl (7-17); Calcium 9.5 mg/dl (8.4-10.2); Carbon Dioxide 26 mmol/L (22.0-30.0); Chloride 104 mmol/L (98-107); Creatinine Clearance Estimated 89 mL/min (50-200); Estimated Glomerular Filt Rate 105 ml/min (>60); GFR (African American) 127 ML/MIN (>60); Glucose 184 mg/dl (74-100); Potassium 3.4 mmoL/L (3.5-5.1); Sodium 138 mmol/L (136-145)
[2022-12-24 15:44] LABS: Bilirubin,Urine 1+ (Negative)
[2022-12-24 15:56] LABS: Troponin I < 0.01 ng/ml (0.00-0.034)
[2022-12-24 16:21] LABS: Bacteria,Urine Trace /lpf; RBC,Urine Occasional #/hpf (0-3)
[2022-12-24 16:37] VITALS: BP 116/71; PULSE 81; O2SAT 100
--- NOTE | 2022-12-24 16:39 | PC.NURSE ---
rounded on pt, pt given crackers per her request. call button in reach
[2022-12-24 16:49] LABS: HCG,Quantitative 223030 mIU/ml (0-5.42)
[2022-12-24 17:00] VITALS: BP 110/64; PULSE 80; O2SAT 100
[2022-12-24 17:22] VITALS: BP 110/64; PULSE 80; RESP 16; TEMP 36.6; O2SAT 100
== END 2022-12-24 17:22 | disposition home or self-care (01) ==
PROVIDERS: Emergency Provider Emergency Medicine
DX: O99.281 Endocrine, nutritional and metabolic diseases complicating pregnancy, first trimester (principal); O99.411 Diseases of the circulatory system complicating pregnancy, first trimester; E86.0 Dehydration; R07.9 Chest pain, unspecified; Z3A.01 Less than 8 weeks gestation of pregnancy; F17.290 Nicotine dependence, other tobacco product, uncomplicated; O99.331 Smoking (tobacco) complicating pregnancy, first trimester
CPT/HCPCS: 80048; 81001; 84484; 84702; 85025; 85378; 93005; 96360; 99285

== ENCOUNTER 2023-01-02 11:51 | Emergency (ER) | payer OTHER, SELFPAY ==
[2023-01-02 11:52] VITALS: BP 111/67; PULSE 89; RESP 17; TEMP 36.6; O2SAT 99; BMI 16.2
[2023-01-02 12:07] LABS: Microscopic, Urine URINE MICROSCOPIC (MICROSCOPIC)
[2023-01-02 12:08] LABS: Appearance,Urine CLEAR (Clear); Bilirubin,Urine Negative (Negative); Blood, Urine Negative (Negative); Color,Urine YELLOW (Yellow); Glucose,Urine (UA) Negative (Negative); Ketones,Urine Negative (Negative); Leukocyte Esterase,Urine TRACE (Negative); Nitrate,Urine Negative (Negative); PH,Urine 6.5 (5.0-8.5); Protein,Urine Negative (Negative); Specific Gravity, Urine 1.015 (1.005-1.030); Urobilinogen,Urine 0.2 EU/dl (0.2)
[2023-01-02 12:25] LABS: POC Glucose,Bedside 113 (70-110)
[2023-01-02 12:29] LABS: WBC,Urine Occasional #/hpf (0-3)
[2023-01-02 12:30] VITALS: BP 105/66; PULSE 93; O2SAT 100
[2023-01-02 12:30] LABS: Bacteria,Urine Trace /lpf
--- NOTE | 2023-01-02 12:35 | ECG_ITS ---
APPROVED REPORT Exam: Resting ECG HR:86 bpm ECG Measurements Heart Rate 86 AXES ME 145 P 54 QRSd 85 QRS 84 QT 331 T 32 QTc 375 Conclusion SINUS RHYTHM WITH SINUS ARRHYTHMIA POSSIBLE RIGHT VENTRICULAR CONDUCTION DELAY [RSR (QR) IN V1/V2] BORDERLINE ECG UNCONFIRMED REPORT Electronically signed by : John Del Angel MD 01/04/2023 14:06:32
--- NOTE | 2023-01-02 12:48 | HMH.EDGENADL ---
Discharge Plan Disposition Patient Disposition: Home, Self-Care Condition: Good Prescriptions Prescriptions: No Action Classic 28 mg iron- 800 mcg tablet 1 tab PO DAILY oxycodone 5 mg tablet 5 mg PO Q6H PRN (Reason: pain) Qty: 14 0RF promethazine 12.5 mg tablet 12.5 mg PO Q6H PRN (Reason: nausea and vomiting) Qty: 20 2RF nitrofurantoin monohyd/m-cryst [Macrobid] 100 mg capsule 100 mg PO BID Rx Instructions: must administer with a meal/food Referrals Follow up/Referrals: Provider,Referral, MD [Primary Care Provider] - See instructions Activity Restrictions/Add. Instructions Additional Instructions/Restrictions: Recommend that you continue to stay hydrated and eat regularly. Recommend that you follow up with your primary care provider or return to the Emergency Department should your symptoms worsen/persist or you develop any new concerning symptoms. As we discussed, recommend that you follow-up with your LOCKER ATTENDANT as scheduled on the . Clinical Impressions Clinical Impression: Light-headedness Syncope Qualifiers: Syncope type: vasovagal syncope Qualified Code(s): R55 - Syncope and collapse Instructions Patient Instructions: DI for Syncope in Adults (Fainting), DI for Syncope in Children (Fainting) Discharge ED Provider: Maxwell Grimm I General Adult HPI General Chief complaint: Syncope Stated complaint: dizzy, lower stomach pain Time Seen by Provider: 01/02/23 11:59 Mode of Arrival: Ambulatory Source of Information: Patient Limitations: No Limitations Description of Symptoms (Recalled from ER Triage Doc. by RN): PT REPORTS PASSING OUT AT WORK AROUND 1130. STATES SHE WAS PREPARING FOOD AT WORK, UNKNOWN LOC. DID NOT STRIKE HEAD, DENIES PAIN. PT REPORTS [id number] GESTATION History of Present Illness HPI narrative: Patient is a 22-year-old female, currently at 7 or 8 weeks gestation, who is presenting to the emergency department after an episode of syncope. History was conducted with the patient at bedside. Patient reports that she was at work this morning, had just returned to work when she started to feel lightheaded and dizzy while she was cutting some vegetables. Patient states that she then fell to the ground, believes that she passed out. Patient denies any current lightheadedness, dizziness. She believes that she curled up into her knees whenever she fell, believes that her knee hit her abdomen. She is reporting some pain along the lower aspect of her abdomen. She denies contractions, vaginal bleeding, dysuria, urinary urgency and frequency. She reports that she is otherwise been eating and drinking well. Denies any fever. Related Data Home Medications Medication Instructions Recorded Confirmed nitrofurantoin 100 mg PO BID uti 12/08/22 12/09/22 monohydrate/macrocrystals 100 mg capsule (Macrobid) vits no.126-ferrous fum 1 tab PO DAILY 12/09/22 12/09/22 28 mg iron-folic acid 800 mcg tablet (Classic ) Previous Rx's Medication Instructions Recorded oxycodone 5 mg tablet 5 mg PO Q6H PRN pain #14 tabs 12/09/22 promethazine 12.5 mg tablet 12.5 mg PO Q6H PRN nausea and 12/23/22 vomiting #20 tabs Allergies Allergy/AdvReac Type Severity Reaction Status Date / Time ketchup Allergy Unknown Verified 12/09/22 13:52 [facility] Disclaimer: The information contained in this section may have been updated after the patient was seen, as this information can be updated by other users. Medical History History of anemia Surgical History S/P cholecystectomy Family History Mother Thyroid disorder Social History Smoking Status: Current every day smoker tobacco type: e-cigarettes alcohol intake: never substance use ty
[2023-01-02 13:00] VITALS: BP 110/63; PULSE 102; O2SAT 100
[2023-01-02 13:15] VITALS: BP 110/63; PULSE 107; RESP 17; TEMP 36.6; O2SAT 100
== END 2023-01-02 13:15 | disposition home or self-care (01) ==
PROVIDERS: Emergency Provider Emergency Medicine
DX: O26.891 Other specified pregnancy related conditions, first trimester (principal); O99.331 Smoking (tobacco) complicating pregnancy, first trimester; R55 Syncope and collapse; R10.30 Lower abdominal pain, unspecified; F17.290 Nicotine dependence, other tobacco product, uncomplicated; Z3A.01 Less than 8 weeks gestation of pregnancy
CPT/HCPCS: 81001; 82962; 93005; 99284

== ENCOUNTER 2023-01-13 13:05 | Emergency (ER) | payer OTHER, SELFPAY ==
[2023-01-13] VITALS (9 sets, daily range): BP systolic 109–124; BP diastolic 63–73; PULSE 68–98; RESP 16–18; TEMP 36.6; O2SAT 96–100; BMI 16.2
[2023-01-13 13:20] LABS: Microscopic, Urine URINE MICROSCOPIC (MICROSCOPIC)
[2023-01-13 13:31] LABS: Appearance,Urine CLEAR (Clear); Bilirubin,Urine Negative (Negative); Blood, Urine Negative (Negative); Color,Urine YELLOW (Yellow); Glucose,Urine (UA) Negative (Negative); Ketones,Urine Negative (Negative); Leukocyte Esterase,Urine 1+ (Negative); Nitrate,Urine Negative (Negative); Protein,Urine Negative (Negative); Urobilinogen,Urine 0.2 EU/dl (0.2)
--- NOTE | 2023-01-13 14:32 | HMH.EDGENADL ---
Discharge Plan Disposition Patient Disposition: Home, Self-Care Condition: Good Prescriptions Prescriptions: No Action Classic 28 mg iron- 800 mcg tablet 1 tab PO DAILY oxycodone 5 mg tablet 5 mg PO Q6H PRN (Reason: pain) Qty: 14 0RF promethazine 12.5 mg tablet 12.5 mg PO Q6H PRN (Reason: nausea and vomiting) Qty: 20 2RF nitrofurantoin monohyd/m-cryst [Macrobid] 100 mg capsule 100 mg PO BID Rx Instructions: must administer with a meal/food Referrals Follow up/Referrals: Provider,Referral, MD [Primary Care Provider] - See instructions Activity Restrictions/Add. Instructions Additional Instructions/Restrictions: Go to your ultrasound appointment tomorrow as scheduled. Asked them to perform a quantitative hCG again. Follow-up with your OB and with your primary care physician in the next 2 days. Return to the emergency department with new or worsening symptoms. Clinical Impressions Clinical Impression: Pelvic pain in female, Vaginal bleeding during Discharge ED Provider: Arsh Ching General Adult HPI General Chief complaint: Vaginal Bleeding Stated complaint: 8 weeks , bleeding, cramping Time Seen by Provider: 01/13/23 14:12 Mode of Arrival: Ambulatory Source of Information: Patient Limitations: No Limitations Description of Symptoms (Recalled from ER Triage Doc. by RN): c/o bright red bleeding when she wiped this morning at 11:45 when she woke up. Pt states that it was only enough on the toilet paper not on any clothing. Some lower abdomen pain and states she talked to the office of her OBGYN around 12:05 and told her if cramping increased to come to the ER, which she states it did. First appt tomorrow History of Present Illness HPI narrative: Lives otherwise healthy 22-year-old female presents to the emergency department with vaginal spotting. She believes she is approximately 8 weeks with last menstrual period in mid October. Patient states she has been evaluated in the emergency department previously for lower abdominal cramping like she is having today and knows she has an intrauterine . She states in the past she has required RhoGAM with her last . Patient states she called her OB who instructed her to present to the emergency department Related Data Home Medications Medication Instructions Recorded Confirmed nitrofurantoin 100 mg PO BID uti 12/08/22 12/09/22 monohydrate/macrocrystals 100 mg capsule (Macrobid) vits no.126-ferrous fum 1 tab PO DAILY 12/09/22 12/09/22 28 mg iron-folic acid 800 mcg tablet (Classic ) Previous Rx's Medication Instructions Recorded oxycodone 5 mg tablet 5 mg PO Q6H PRN pain #14 tabs 12/09/22 promethazine 12.5 mg tablet 12.5 mg PO Q6H PRN nausea and 12/23/22 vomiting #20 tabs Allergies Allergy/AdvReac Type Severity Reaction Status Date / Time ketchup Allergy Unknown Verified 12/09/22 13:52 [facility] Disclaimer: The information contained in this section may have been updated after the patient was seen, as this information can be updated by other users. Medical History History of anemia Surgical History S/P cholecystectomy Family History Mother Thyroid disorder Social History Smoking Status: Former smoker alcohol intake: never substance use type: former substance user and marijuana current occupational status: other Travel in the last 8 weeks: None household members: family housing: house current occupational exposures/hazards: Yes ROS Obtained: Yes All systems reviewed & no additional complaints except as documented Constitutional Constitutional: Denies chills, Denies fever(s), Denies headache(s) and Denies wea
--- NOTE | 2023-01-13 14:42 | PC.NURSE ---
nothing needed at this time,call light at bs
[2023-01-13 15:02] LABS: Basophils % 0.4 % (0.1-2.0); Eosinophils # 0.2 K/mm3 (0.0-0.4); Eosinophils % 2.8 % (0.1-12.0); Hematocrit 39.6 % (37.0-47.0); Hemoglobin 13.2 g/dL (12.2-16.2); Lymphocytes # 1.5 K/mm3 (0.7-4.5); Mean Corpuscular HGB Conc 33.4 g/dL (31.8-35.4); Mean Corpuscular Hemoglobin 30.1 pg (27.0-31.2); Mean Platelet Volume 7.1 fl (7.4-10.4); Monocytes # 0.2 K/mm3 (0.1-1.0); Monocytes % 2.9 % (1.7-9.3); Neutrophils # 4.7 K/mm3 (1.8-7.8); Neutrophils % 70.8 % (37.0-80.0); Platelet Count 313 K/mm3 (142-424); Red Cell Distribution Width 13.1 % (11.5-17.5); White Blood Count 6.6 K/mm3 (4.8-10.8)
[2023-01-13 15:24] LABS: Anion Gap 13.3 mEq/L (5-15); Blood Urea Nitrogen 8 mg/dl (7-17); Calcium 9.3 mg/dl (8.4-10.2); Carbon Dioxide 26 mmol/L (22.0-30.0); Chloride 102 mmol/L (98-107); Creatinine Clearance Estimated 103 mL/min (50-200); Estimated Glomerular Filt Rate 125 ml/min (>60); GFR (African American) 151 ML/MIN (>60); Glucose 91 mg/dl (74-100); Potassium 3.3 mmoL/L (3.5-5.1); Sodium 138 mmol/L (136-145)
== END 2023-01-13 17:26 | disposition home or self-care (01) ==
PROVIDERS: Emergency Medicine; Emergency Provider Emergency Medicine
DX: O26.891 Other specified pregnancy related conditions, first trimester (principal); O20.9 Hemorrhage in early pregnancy, unspecified; Z3A.08 8 weeks gestation of pregnancy; R10.2 Pelvic and perineal pain; Z87.891 Personal history of nicotine dependence
CPT/HCPCS: 80048; 81001; 84702; 85025; 87086; 96372; 99284; J2790

== ENCOUNTER → 2023-01-14 14:40 | Outpatient (CLI) | payer OTHER, SELFPAY ==
[2023-01-14 15:34] LABS: Basophils % 0.4 % (0.1-2.0); Eosinophils # 0.2 K/mm3 (0.0-0.4); Eosinophils % 1.9 % (0.1-12.0); Hematocrit 38.9 % (37.0-47.0); Hemoglobin 13.1 g/dL (12.2-16.2); Lymphocytes # 1.7 K/mm3 (0.7-4.5); Lymphocytes % 18.9 % (10-50); Mean Corpuscular HGB Conc 33.6 g/dL (31.8-35.4); Mean Corpuscular Hemoglobin 30.1 pg (27.0-31.2); Mean Corpuscular Volume 89.6 fl (81-99); Mean Platelet Volume 7.6 fl (7.4-10.4); Monocytes # 0.3 K/mm3 (0.1-1.0); Monocytes % 2.8 % (1.7-9.3); Neutrophils # 6.8 K/mm3 (1.8-7.8); Neutrophils % 76.1 % (37.0-80.0); Platelet Count 304 K/mm3 (142-424); Red Blood Count 4.34 M/mm3 (4.20-5.40)
[2023-01-16 11:30] LABS: Rapid Plasma Reagin Ab Titer Non Reactive (NonRea<1:1)
[2023-01-17 11:26] LABS: HIV Screen 4th Generation wRfx Non Reactive
[2023-01-17 11:27] LABS: Hepatitis B Surface Antigen Negative; Hepatitis C Antibody Non Reactive
[2023-01-17 11:28] LABS: Rubella Antibodies, IgG 1.26
== END ==
PROVIDERS: Visit Provider Obstetrics & Gynecology
DX: Z34.91 Encounter for supervision of normal pregnancy, unspecified, first trimester (principal); Z3A.10 10 weeks gestation of pregnancy
CPT/HCPCS: 36415; 85025; 86593; 86703; 86762; 86850; 86870; 87086; 87340; 87380; G0432

== ENCOUNTER 2023-01-25 20:27 | Emergency (ER) | payer OTHER, SELFPAY ==
[2023-01-25 20:28] VITALS: BP 116/62; PULSE 84; RESP 18; TEMP 36.5; O2SAT 100; BMI 17.5
[2023-01-25 20:38] VITALS: BMI 16.9
[2023-01-25 20:45] LABS: Basophils % 0.2 % (0.1-2.0); Eosinophils # 0.2 K/mm3 (0.0-0.4); Eosinophils % 2.3 % (0.1-12.0); Hematocrit 39.2 % (37.0-47.0); Hemoglobin 13.1 g/dL (12.2-16.2); Lymphocytes # 2.2 K/mm3 (0.7-4.5); Lymphocytes % 30.1 % (10-50); Mean Corpuscular HGB Conc 33.5 g/dL (31.8-35.4); Mean Corpuscular Hemoglobin 30.3 pg (27.0-31.2); Mean Corpuscular Volume 90.4 fl (81-99); Mean Platelet Volume 8.3 fl (7.4-10.4); Monocytes # 0.3 K/mm3 (0.1-1.0); Monocytes % 4.3 % (1.7-9.3); Neutrophils # 4.6 K/mm3 (1.8-7.8); Platelet Count 317 K/mm3 (142-424); Red Blood Count 4.33 M/mm3 (4.20-5.40); Red Cell Distribution Width 13.2 % (11.5-17.5); White Blood Count 7.4 K/mm3 (4.8-10.8)
[2023-01-25 20:49] LABS: Chloride 106 mmol/L (98-107); Potassium 3.2 mmoL/L (3.5-5.1); Sodium 140 mmol/L (136-145)
[2023-01-25 20:52] LABS: Alanine Aminotransferase 13 U/L (12-78); Albumin Level 3.8 g/dl (3.5-5.0); Albumin/Globulin Ratio 1.2 (1.1-1.8); Alkaline Phosphatase 55 U/L (38-126); Anion Gap 11.2 mEq/L (5-15); Aspartate Amino Transferase 21 U/L (14-36); Bilirubin,Total 0.2 mg/dl (0.2-1.3); Blood Urea Nitrogen 7 mg/dl (7-17); Carbon Dioxide 26 mmol/L (22.0-30.0); Creatinine Clearance Estimated 107 mL/min (50-200); Estimated Glomerular Filt Rate 125 ml/min (>60); GFR (African American) 151 ML/MIN (>60); Globulin 3.3 g/dL (1.3-3.2); Total Protein,Serum 7.1 g/dl (6.3-8.2)
[2023-01-25 20:53] LABS: Calcium 9.4 mg/dl (8.4-10.2); Glucose 95 mg/dl (74-100)
[2023-01-25 21:21] LABS: Microscopic, Urine URINE MICROSCOPIC (MICROSCOPIC)
[2023-01-25 21:41] LABS: Appearance,Urine Clear (Clear); Bilirubin,Urine Negative (Negative); Blood, Urine Negative (Negative); Color,Urine Yellow (Yellow); Glucose,Urine (UA) Negative (Negative); Ketones,Urine Negative (Negative); Leukocyte Esterase,Urine Negative (Negative); Nitrate,Urine Negative (Negative); Protein,Urine Trace (Negative); RBC,Urine Occasional #/hpf (0-3); Specific Gravity, Urine >= 1.030 (1.005-1.030); WBC,Urine Occasional #/hpf (0-3)
[2023-01-25 21:42] LABS: Bacteria,Urine Trace /lpf; Mucus,Urine Trace /lpf
[2023-01-25 22:53] VITALS: BP 121/68; PULSE 87; RESP 18; TEMP 36.5; O2SAT 100
--- NOTE | 2023-01-26 00:01 | HMH.EDGENADL ---
Discharge Plan Disposition Patient Disposition: Home, Self-Care Prescriptions Prescriptions: No Action Classic 28 mg iron- 800 mcg tablet 1 tab PO DAILY promethazine 12.5 mg tablet 12.5 mg PO Q6H PRN (Reason: nausea and vomiting) Qty: 20 2RF Referrals Follow up/Referrals: Provider,Referral, MD [Primary Care Provider] - See instructions Activity Restrictions/Add. Instructions Additional Instructions/Restrictions: Return to the emergency department new, changing, worsening symptoms. Please follow-up with your instructor adjunct surgical technician this week. You may take Tylenol for pain. Clinical Impressions Clinical Impression: Abdominal cramping affecting Instructions Patient Instructions: DI for Abdominal Pain -- Early Discharge ED Provider: Severo Munroe General Adult HPI General Chief complaint: Recheck/Abnormal Lab/Rx Stated complaint: 12 weeks , cramping, Time Seen by Provider: 01/25/23 20:44 Mode of Arrival: Ambulatory Source of Information: Patient Limitations: No Limitations Description of Symptoms (Recalled from ER Triage Doc. by RN): pt reports to be 12 wk 2d and that she had a gush of clear water like fluid come out of her today followed by period cramp like pains the pt states she has had a previous that she was leaking amniotic fluid and had to deliver at 33 weeks History of Present Illness HPI narrative: Patient is a 22-year-old female who is 12 weeks 2 days presenting to the emergency department with abdominal cramping. Patient reports that she had a gush of clear fluid that was about a capful in quantity. Patient is also bilateral abdominal cramping today. Patient was seen 1 week ago for vaginal bleeding and received RhoGAM. Patient denies new vaginal discharge, vaginal bleeding, chest pain, difficulty breathing, difficulty or pain with urination. Related Data Home Medications Medication Instructions Recorded Confirmed vits no.126-ferrous fum 1 tab PO DAILY 12/09/22 01/19/23 28 mg iron-folic acid 800 mcg tablet (Classic ) Previous Rx's Medication Instructions Recorded promethazine 12.5 mg tablet 12.5 mg PO Q6H PRN nausea and 12/23/22 vomiting #20 tabs Allergies Allergy/AdvReac Type Severity Reaction Status Date / Time ketchup Allergy Unknown Verified 01/19/23 16:58 [facility] Disclaimer: The information contained in this section may have been updated after the patient was seen, as this information can be updated by other users. Medical History Acute serous otitis media Atypical chest pain Bacterial conjunctivitis Contact dermatitis COVID-19 Current vaping on some days Cystic fibrosis carrier, antepartum Gastroenteritis Gingivitis History of anemia History of delivery, currently History of trichomonal vaginitis Injury of toe on left foot Low body mass index (BMI) Nausea vomiting and diarrhea Rh negative state in antepartum period Vaginal bleeding Surgical History S/P cholecystectomy [place] teeth removed Family History Mother Thyroid disorder Social History Smoking Status: Light tobacco smoker tobacco type: e-cigarettes alcohol intake: never substance use type: former substance user and marijuana current occupational status: other Travel in the last 8 weeks: None household members: family housing: house current occupational exposures/hazards: Yes ROS Obtained: Yes All systems reviewed & no additional complaints except as documented Physical Exam General General appearance: alert and in no apparent distress Head Head exam: atraumatic, normocephalic and normal inspection Eye Eye exam: Present normal appearance, PERRL and EOMI ENT ENT
== END 2023-01-25 22:54 | disposition home or self-care (01) ==
PROVIDERS: Emergency Provider Emergency Medicine
DX: O26.891 Other specified pregnancy related conditions, first trimester (principal); O99.331 Smoking (tobacco) complicating pregnancy, first trimester; R10.9 Unspecified abdominal pain; F17.290 Nicotine dependence, other tobacco product, uncomplicated; Z3A.12 12 weeks gestation of pregnancy
CPT/HCPCS: 80053; 81001; 84702; 85025; 99285

== ENCOUNTER 2023-02-07 18:13 | Emergency (ER) | payer OTHER, SELFPAY ==
[2023-02-07 18:22] VITALS: BP 103/59; PULSE 99; RESP 20; TEMP 36.7; O2SAT 98; BMI 16.1
--- NOTE | 2023-02-07 18:27 | ECG_ITS ---
APPROVED REPORT Exam: Resting ECG HR:84 bpm ECG Measurements Heart Rate 84 AXES AR 136 P 50 QRSd 85 QRS 95 QT 336 T 48 QTc 377 Conclusion SINUS RHYTHM BORDERLINE RIGHT AXIS DEVIATION [QRS AXIS > 90] POSSIBLE RIGHT VENTRICULAR CONDUCTION DELAY [RSR (QR) IN V1/V2] BORDERLINE ECG UNCONFIRMED REPORT Electronically signed by : John Del Angel MD 02/08/2023 20:19:20
[2023-02-07 18:33] LABS: Microscopic, Urine URINE MICROSCOPIC (MICROSCOPIC)
[2023-02-07 18:34] LABS: Appearance,Urine CLEAR (Clear); Blood, Urine Negative (Negative); Color,Urine YELLOW (Yellow); Glucose,Urine (UA) Negative (Negative); Ketones,Urine Negative (Negative); Leukocyte Esterase,Urine Negative (Negative); Nitrate,Urine Negative (Negative); PH,Urine 6.5 (5.0-8.5); Protein,Urine TRACE (Negative); Specific Gravity, Urine >= 1.030 (1.005-1.030)
[2023-02-07 18:37] LABS: Bilirubin,Urine 1+ (Negative)
[2023-02-07 18:46] LABS: Bacteria,Urine 2+ /lpf; Mucus,Urine 1+ /lpf; WBC,Urine 20-50 #/hpf (0-3)
--- NOTE | 2023-02-07 19:05 | HMH.EDGENADL ---
Discharge Plan Disposition Patient Disposition: Home, Self-Care Prescriptions Prescriptions: New cephalexin 500 mg capsule 500 mg PO QID 5 Days Qty: 20 0RF No Action Classic 28 mg iron- 800 mcg tablet 1 tab PO DAILY promethazine 12.5 mg tablet 12.5 mg PO Q6H PRN (Reason: nausea and vomiting) Qty: 20 2RF Referrals Follow up/Referrals: Provider,Referral, MD [Primary Care Provider] - See instructions Activity Restrictions/Add. Instructions Additional Instructions/Restrictions: You had a normal single living intrauterine consistent with dates and asymptomatic bacteriuria in the setting of please take your antibiotics follow-up with your DONOR RELATIONS OFFICER doctor return to the emergency department any worsening discomfort. Clinical Impressions Clinical Impression: Pelvic pain in female, Second trimester , Intrauterine , Asymptomatic bacteriuria during Discharge ED Provider: Denice Mar General Adult HPI General Chief complaint: Dizziness Stated complaint: weak dizzy 14 wks pregnandecreased movemment Time Seen by Provider: 02/07/23 18:54 Mode of Arrival: Ambulatory Source of Information: Patient Limitations: No Limitations Description of Symptoms (Recalled from ER Triage Doc. by RN): pt to ed c/o dizziness, lower abd cramping and decreased movement. pt reports being approx 14w . pt denies any vaginal bleeding. History of Present Illness HPI narrative: Patient is a 22-year-old female G3, at 14 weeks gestational age presenting today for concern for her 's wellbeing. She states that she has not felt the baby moving and she had a little bit of mild discomfort in the suprapubic and right adnexal region was not significant but enough to bring her to the emergency department to evaluate. 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 She denies any bleeding no significant contractions no loss of fluid no vaginal bleeding discharge no urinary burning frequency urgency. Related Data Home Medications Medication Instructions Recorded Confirmed vits no.126-ferrous fum 1 tab PO DAILY 12/09/22 01/27/23 28 mg iron-folic acid 800 mcg tablet (Classic ) Previous Rx's Medication Instructions Recorded promethazine 12.5 mg tablet 12.5 mg PO Q6H PRN nausea and 12/23/22 vomiting #20 tabs cephalexin 500 mg capsule 500 mg PO QID 5 days #20 caps 02/07/23 Allergies Allergy/AdvReac Type Severity Reaction Status Date / Time ketchup Allergy Unknown Verified 01/27/23 13:20 [facility] Disclaimer: The information contained in this section may have been updated after the patient was seen, as this information can be updated by other users. Medical History Acute serous otitis media Atypical chest pain Bacterial conjunctivitis Contact dermatitis COVID-19 Current vaping on some days Cystic fibrosis carrier, antepartum Declined testing of FOB Gastroenteritis Gingivitis History of anemia History of delivery, currently vaginal delivery at 33 weeks History of trichomonal vaginitis Injury of toe on left foot Low body mass index (BMI) BMI 17 @ 18 wks Nausea vomiting and diarrhea Rh negative state in antepartum period Vaginal bleeding Surgical History S/P cholecystectomy [place] teeth removed Family History Mother Thyroid disorder Social History Smoking Status: Never smoker alcohol intake: never substance use type: former substance user and marijuana current occupational status: other Travel in the last 8 weeks: None household members: family housing: house current occupational exposures/hazards: Yes ROS Obtained: Y
[2023-02-07 19:11] VITALS: BP 110/60; PULSE 84; RESP 17; TEMP 36.7; O2SAT 99
== END 2023-02-07 19:11 | disposition home or self-care (01) ==
PROVIDERS: Emergency Provider Student in an Organized Health Care Education/Training Program
DX: O26.892 Other specified pregnancy related conditions, second trimester (principal); O23.42 Unspecified infection of urinary tract in pregnancy, second trimester; R10.2 Pelvic and perineal pain; Z3A.14 14 weeks gestation of pregnancy; R42 Dizziness and giddiness
CPT/HCPCS: 81001; 87086; 93005; 99284

== ENCOUNTER 2023-02-12 14:18 | Emergency (ER) | payer OTHER, SELFPAY ==
[2023-02-12 14:30] VITALS: BP 112/59; PULSE 106; RESP 19; TEMP 36.7; O2SAT 97; BMI 17.3
--- NOTE | 2023-02-12 14:34 | EXP.UTC ---
Discharge Plan Disposition Patient Disposition: Home, Self-Care Condition: Good Prescriptions Prescriptions: New Robitussin Cough-Chest Jon DM 5-100 mg/5 mL liquid 10 ml PO Q8H PRN (Reason: cough) Qty: 120 0RF Afrin (oxymetazoline) 0.05 % mist 2 spray intranasal BID 3 Days Qty: 15 0RF No Action Classic 28 mg iron- 800 mcg tablet 1 tab PO DAILY promethazine 12.5 mg tablet 12.5 mg PO Q6H PRN (Reason: nausea and vomiting) Qty: 20 2RF Referrals Follow up/Referrals: Provider,Referral, MD [Primary Care Provider] - See instructions Clinical Impressions Clinical Impression: Upper respiratory infection, Instructions Patient Instructions: DI for Viral Upper Respiratory Infection -- Adult Discharge ED Provider[place] Felicita [place] [facility] [place] Stated complaint: cough and sore throat 15 weeks preg Time Seen by Provider: 02/12/23 14:39 History of Present Illness Provider Complaint: Patient has had cough and congestion X 6 days. Coughing so hard she vomits. Losing her voice. Low grade fever. Has drainage. 15 weeks . Onset (ago): day(s) (6) Relieving factors: none Exacerbating factors: none Associated symptoms: denies other symptoms Treatments prior to arrival: none Related Data Home Medications Medication Instructions Recorded Confirmed vits no.126-ferrous fum 1 tab PO DAILY 12/09/22 02/11/23 28 mg iron-folic acid 800 mcg tablet (Classic ) Previous Rx's Medication Instructions Recorded promethazine 12.5 mg tablet 12.5 mg PO Q6H PRN nausea and 12/23/22 vomiting #20 tabs dextromethorphan-guaifenesin 5 10 ml PO Q8H PRN cough #120 mL 02/12/23 mg-100 mg/5 mL oral liquid (Robitussin Cough-Chest Congestion DM) oxymetazoline 0.05 % nasal mist 2 spray intranasal BID 3 days #15 02/12/23 (Afrin (oxymetazoline)) mL Allergies Allergy/AdvReac Type Severity Reaction Status Date / Time ketchup Allergy Unknown Verified 02/11/23 15:01 [facility] Disclaimer: The information contained in this section may have been updated after the patient was seen, as this information can be updated by other users. Medical History (Updated 02/12/23 @ 14:43 by JAY Villalobos) Acute serous otitis media Atypical chest pain Bacterial conjunctivitis Contact dermatitis COVID-19 Current vaping on some days Cystic fibrosis carrier, antepartum Gastroenteritis Gingivitis History of anemia History of delivery, currently History of trichomonal vaginitis Injury of toe on left foot Low body mass index (BMI) Nausea vomiting and diarrhea Rh negative state in antepartum period Tobacco use affecting , antepartum Vaginal bleeding Surgical History S/P cholecystectomy [place] teeth removed Family History Mother Thyroid disorder Social History Smoking Status: Never smoker alcohol intake: never substance use type: former substance user and marijuana current occupational status: other Travel in the last 8 weeks: None household members: family housing: house current occupational exposures/hazards: Yes ROS Obtained: Yes All systems reviewed & no additional complaints except as documented ENT Ears, Nose, Mouth, and Throat: Reports nasal congestion, Reports nasal discharge and Reports sore throat Respiratory Respiratory: Reports cough Physical Exam General General appearance: alert and in no apparent distress Head Head exam: atraumatic, normocephalic and normal inspection Eye Eye exam: Present normal appearance, PERRL and EOMI ENT ENT exam: Present normal exam, normal oropharynx, mucous membranes moist, TM's normal bilaterally and normal external ear exam Expanded ENT Exam Throat exam: Present other (PND) Neck Neck exam: Pre
[2023-02-12 14:51] VITALS: BP 112/59; PULSE 106; RESP 19; TEMP 36.7; O2SAT 97
[2023-02-12 14:52] LABS: UTC Strep Screen (Rapid) Negative (Negative)
== END 2023-02-12 14:56 | disposition home or self-care (01) ==
PROVIDERS: Emergency Provider Physician Assistant
DX: O26.891 Other specified pregnancy related conditions, first trimester (principal); J06.9 Acute upper respiratory infection, unspecified; Z3A.15 15 weeks gestation of pregnancy
CPT/HCPCS: 87880; 99212; 99214; G0463

== ENCOUNTER 2023-02-17 12:08 | Emergency (ER) | payer OTHER, SELFPAY ==
[2023-02-17 12:09] VITALS: BP 99/47; PULSE 76; RESP 16; TEMP 36.7; O2SAT 100; BMI 16.1
--- NOTE | 2023-02-17 12:23 | PC.NURSE ---
OZZIET 146 PER PADMA GODINEZ
--- NOTE | 2023-02-17 12:58 | HMH.EDGENADL ---
Discharge Plan Disposition Patient Disposition: Home, Self-Care Chief Complaint: OB/Uterine Contractions Prescriptions Prescriptions: No Action Classic 28 mg iron- 800 mcg tablet 1 tab PO DAILY promethazine 12.5 mg tablet 12.5 mg PO Q6H PRN (Reason: nausea and vomiting) Qty: 20 2RF Robitussin Cough-Chest Jon DM 5-100 mg/5 mL liquid 10 ml PO Q8H PRN (Reason: cough) Qty: 120 0RF Afrin (oxymetazoline) 0.05 % mist 2 spray intranasal BID 3 Days Qty: 15 0RF Referrals Follow up/Referrals: Provider,Referral, MD [Primary Care Provider] - See instructions Activity Restrictions/Add. Instructions Additional Instructions/Restrictions: Call your family doctor to establish care for this visit to the emergency department and schedule follow-up within 48 hours to ensure improvement. If you have any worsening of your condition or any other concerning signs or symptoms, return to the emergency department or your primary care doctor for further evaluation. Clinical Impressions Clinical Impression: Qualifiers: Weeks of gestation: 15 weeks Qualified Code(s): Z3A.15 - 15 weeks gestation of Discharge ED Provider: Demond Acosta General Adult HPI General Chief complaint: OB/Uterine Contractions Stated complaint: 15 weeks preg, can't find heart beat, not moving Time Seen by Provider: 02/17/23 12:11 Mode of Arrival: Ambulatory Source of Information: Patient Limitations: No Limitations Description of Symptoms (Recalled from ER Triage Doc. by RN): Pt reports is 15w 4d , reports has not felt baby move in 7 days, hasn't been able to find baby's heart beat since 02/10/23. Pt reports listens to heartbeat at home every couple of days. Pt reports next OB appt is Feb 23 is at with anatomy scan, pt reports is high risk at r/t pre-term delivery with previous child. History of Present Illness HPI narrative: 22-year-old female G2, P1 15 weeks presenting with concern for decreased movement. Patient has not felt baby move for about a week. Called OB, OB recommended she come to the ER since she cannot find heart tones on home Doppler. No vaginal discharge or bleeding, abdominal pain, dysuria, hematuria, fevers or chills, or any other concerns. Related Data Home Medications Medication Instructions Recorded Confirmed vits no.126-ferrous fum 1 tab PO DAILY 12/09/22 02/11/23 28 mg iron-folic acid 800 mcg tablet (Classic ) Previous Rx's Medication Instructions Recorded promethazine 12.5 mg tablet 12.5 mg PO Q6H PRN nausea and 12/23/22 vomiting #20 tabs dextromethorphan-guaifenesin 5 10 ml PO Q8H PRN cough #120 mL 02/12/23 mg-100 mg/5 mL oral liquid (Robitussin Cough-Chest Congestion DM) oxymetazoline 0.05 % nasal mist 2 spray intranasal BID 3 days #15 02/12/23 (Afrin (oxymetazoline)) mL Allergies Allergy/AdvReac Type Severity Reaction Status Date / Time ketchup Allergy Unknown Verified 02/11/23 15:01 [facility] Disclaimer: The information contained in this section may have been updated after the patient was seen, as this information can be updated by other users. Medical History (Updated 02/17/23 @ 13:01 by Demond Acosta MD) Acute serous otitis media Atypical chest pain Bacterial conjunctivitis Contact dermatitis COVID-19 Current vaping on some days Cystic fibrosis carrier, antepartum Gastroenteritis Gingivitis History of anemia History of delivery, currently History of trichomonal vaginitis Injury of toe on left foot Low body mass index (BMI) Nausea vomiting and diarrhea Rh negative state in antepartum period Tobacco use affecting , antepartum Vaginal bleeding Surgical History S/P cholecystectomy [place] teeth removed Family History Mother Thyroid disorder Social Histo
[2023-02-17 13:04] VITALS: BP 104/59; PULSE 71; RESP 16; TEMP 36.7; O2SAT 100
== END 2023-02-17 13:04 | disposition home or self-care (01) ==
PROVIDERS: Emergency Provider Emergency Medicine
DX: O36.8120 Decreased fetal movements, second trimester, not applicable or unspecified (principal); O99.332 Smoking (tobacco) complicating pregnancy, second trimester; F17.290 Nicotine dependence, other tobacco product, uncomplicated; Z3A.15 15 weeks gestation of pregnancy
CPT/HCPCS: 99284

== ENCOUNTER 2023-04-30 21:12 | Outpatient (CLI) | payer OTHER, SELFPAY ==
[2023-04-30 21:19] VITALS: BMI 17.6
[2023-04-30 21:44] VITALS: BP 105/68; PULSE 86; RESP 17; TEMP 36.9; O2SAT 99; BMI 20.9
[2023-04-30 21:50] LABS: Fetal Membrane Rupture (Rapid) Negative (Negative)
[2023-04-30 22:10] LABS: Microscopic, Urine URINE MICROSCOPIC (MICROSCOPIC)
[2023-04-30 22:12] LABS: Appearance,Urine CLEAR (Clear); Bilirubin,Urine Negative (Negative); Blood, Urine Negative (Negative); Color,Urine YELLOW (Yellow); Glucose,Urine (UA) Negative (Negative); Ketones,Urine Negative (Negative); Leukocyte Esterase,Urine TRACE (Negative); Nitrate,Urine Negative (Negative); Protein,Urine Negative (Negative); Specific Gravity, Urine 1.025 (1.005-1.030); Urobilinogen,Urine 0.2 EU/dl (0.2)
[2023-04-30 22:24] LABS: Amphetamine/Metha Screen,Urine Negative ng/ml (<1000)
[2023-04-30 22:25] LABS: Barbiturates Screen,Urine Negative ng/ml (<200)
[2023-04-30 22:26] LABS: Benzodiazepines Screen,Urine Negative ng/ml (<200); Cannabinoid Screen,Urine Negative ng/ml (<50)
[2023-04-30 22:27] LABS: Cocaine Screen,Urine Negative ng/ml (<300)
[2023-04-30 22:28] LABS: Methadone Screen,Urine Negative ng/ml (<300); Opiate Screen,Urine Negative ng/ml (<300)
[2023-04-30 22:29] LABS: Phencyclidine Screen,Urine Negative ng/ml (<25)
[2023-04-30 22:44] LABS: Bacteria,Urine Trace /lpf; RBC,Urine Occasional #/hpf (0-3); WBC,Urine Occasional #/hpf (0-3)
== END 2023-04-30 23:44 | disposition home or self-care (01) ==
LOC: OBOUT 21:14 → OB 21:16
PROVIDERS: Visit Provider Obstetrics & Gynecology
DX: O26.892 Other specified pregnancy related conditions, second trimester (principal); Z3A.25 25 weeks gestation of pregnancy
CPT/HCPCS: 80305; 81001; 84112; 96365; G0463

== ENCOUNTER → 2023-05-05 13:17 | Outpatient (CLI) | payer OTHER, SELFPAY ==
[2023-05-05 10:52] LABS: Fetal Membrane Rupture (Rapid) Negative (Negative)
== END ==
PROVIDERS: PCP Obstetrics & Gynecology; Visit Provider Obstetrics & Gynecology
DX: Z34.92 Encounter for supervision of normal pregnancy, unspecified, second trimester (principal); Z3A.26 26 weeks gestation of pregnancy
CPT/HCPCS: 84112

== ENCOUNTER 2023-05-18 22:27 | Observation (INO) | payer OTHER, SELFPAY ==
[2023-05-18 20:43] VITALS: BMI 21.4
[2023-05-18 21:10] LABS: Microscopic, Urine URINE MICROSCOPIC (MICROSCOPIC)
[2023-05-18 21:11] VITALS: BP 109/70; PULSE 111; RESP 18; TEMP 36.9; O2SAT 96; BMI 21.5
[2023-05-18 21:19] LABS: Appearance,Urine CLEAR (Clear); Bilirubin,Urine Negative (Negative); Blood, Urine Negative (Negative); Color,Urine YELLOW (Yellow); Glucose,Urine (UA) Negative (Negative); Ketones,Urine Negative (Negative); Leukocyte Esterase,Urine TRACE (Negative); Nitrate,Urine Negative (Negative); PH,Urine 6.5 (5.0-8.5); Protein,Urine Negative (Negative); Specific Gravity, Urine >= 1.030 (1.005-1.030); Urobilinogen,Urine 0.2 EU/dl (0.2)
[2023-05-18 21:30] LABS: Amorphous Sediment,Urine 1+ /lpf; Bacteria,Urine Trace /lpf
[2023-05-18 21:38] LABS: Amphetamine/Metha Screen,Urine Negative ng/ml (<1000); Barbiturates Screen,Urine Negative ng/ml (<200); Benzodiazepines Screen,Urine Negative ng/ml (<200); Cannabinoid Screen,Urine Negative ng/ml (<50); Cocaine Screen,Urine Negative ng/ml (<300); Methadone Screen,Urine Negative ng/ml (<300); Opiate Screen,Urine Negative ng/ml (<300); Phencyclidine Screen,Urine Negative ng/ml (<25)
[2023-05-18 21:50] LABS: Fetal Membrane Rupture (Rapid) Negative (Negative)
[2023-05-18 22:01] LABS: Fetal Fibronectin (Rapid) Positive (Negative)
[2023-05-18] MEDS: BETAMETHASONE ACET/PHOS 6MG/ML 5ML MDV 12 MG IM (22:34)
[2023-05-18] MEDS: LACTATED RINGERS 1000ML 1,000 ML 999 ML IV (22:37)
[2023-05-19] MEDS: LACTATED RINGERS 1000ML 1,000 ML 75 ML IV ×2 (00:06→14:17)
[2023-05-19] MEDS: ACETAMINOPHEN 1,000 MG/100 ML ML 400 MG IV (06:28)
--- NOTE | 2023-05-19 07:00 | US_ITS ---
PROCEDURE: US OB TRANSVAGINAL CLINICAL INDICATION: 28 08/28, cervical dialation, vaginal pressure. COMPARISON: US US OB TRANSVAGINAL from 12/21/2022 FINDINGS: Limited transabdominal and transvaginal sonographic images of the pelvis were obtained. The following parameters are obtained: From her established due date she is 28 weeks 4 days Viable fetus in the cephalic presentation . The cervix measures 1.7-1.8 Cm heart tones are seen. Rate is not recorded. Amniotic fluid appears normal but is not measured. No obvious anomalies evident. four chamber heart appears normal. IMPRESSION: 1. Viable fetus in the cephalic presentation. The fluid appears to be normal. 2. Cervix is foreshortened and measures 1.7-1.8cm in length. No funneling seen. Dictated by: Sebastian Deshpande MD 05/19/2023 14:38 Sebastian Deshpande MD in OV 05/19/2023 14:38
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
--- NOTE | 2023-05-19 07:56 | HMH.PHAINT1 ---
Pharmacy Intervention Comments: MEDICATION RECONCILIATION COMPLETED ON PATIENT USING EXTERNAL FILL HISTORY FROM PHARMACY. -MEENA TRIVEDI, CHAVOD
[2023-05-19] MEDS: NIFEdipine 10MG CAPSULE 10 MG PO ×2 (10:31→15:53)
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
--- NOTE | 2023-05-19 15:52 | P.DS_ITS ---
General Admission date:: 05/18/23 Discharge date: 05/19/23 HPI HPI HPI: Kelin Peterson is a 22-year-old at 28 weeks and 4 days gestation who presented to labor and delivery with complaints of LOF. amnisure was negative, however FFN was positive. She c/o of slight vaginal pressure. denies any regular painful contractions or vaginal bleeding. endorses good movement. A+, antibody positive: Anti-D, rubella immune, hepatitis B negative, hepatitis C negative, RPR negative, HIV negative Hospital Course Hospital Course Hospital Course: On the evening of admission she received a dose of Celestone 12 mg IM. She received IV fluids. She was started on nifedipine 10 mg every 6 this morning and she says she still continued to have contractions. An ultrasound this morning showed the fetus in the cephalic presentation with normal fluid. The cervix however measured between 1.7 and 1.8 cm in length. This was performed transvaginally. The patient is quite anxious and would like to be transferred to . She has delivered there in the past at 33 weeks. She was induced at 33 weeks for spontaneous rupture of membranes that occurred at 28 weeks. I spoken to Dr. Garrido at high risk of stature weeks at and she will accept her in transfer. Patient will be transferred by ambulance but she is stable. heart tones are present. Exam Data for Last 24 hours Vital signs and Labs for Last 24 Hours: Temp Pulse Resp BP Pulse Ox O2 Del Method 98.4 F 111 H 18 109/70 L 96 Room Air 05/18/23 21:11 05/18/23 21:11 05/18/23 21:11 05/18/23 21:11 05/18/23 21:11 05/18/23 21:11 Laboratory Results - last 24 hr 05/18/23 20:45: Urine Color Yellow, Urine Appearance Clear, Urine pH 6.5, Ur Specific [place] >= 1.030, Urine Protein Negative, Urine Glucose (UA) Negative, Urine Ketones Negative, Urine Blood Negative, Urine Nitrate Negative, Urine Bilirubin Negative, Urine Urobilinogen 0.2, Ur Leukocyte Esterase Trace, Urine RBC None, Urine WBC 5-10, Ur Squamous Epith Cells 5-10, Amorphous Sediment 1+, Urine Bacteria Trace, Urine Opiates Screen Negative, Urine Methadone Screen Negative, Ur Barbituates Screen Negative, Ur Phencyclidine Scrn Negative, Ur Amphetamines Screen Negative, U Benzodiazepines Scrn Negative, Urine Cocaine Screen Negative, U Marijuana (THC) Screen Negative 05/18/23 20:57: Membrane Rupture Negative, Fibronectin Positive A I & O for Last 24 hours: Intake & Output 05/17/23 05/18/23 05/19/23 05/20/23 11:59 11:59 11:59 11:59 Weight 129 lb 6.341 oz Constitutional Constitutional: no acute distress *Routine HEENT Exam Head: Present normocephalic *Routine Respiratory Exam Respiratory: Present normal respiratory effort Results Data Completed and Pending Labs on day of discharge: Labs from last 24 hours 05/18/23 05/18/23 20:57 20:45 Urine Color Yellow Urine Appearance Clear Urine pH 6.5 Ur Specific [place] >= 1.030 Urine Protein Negative Urine Glucose (UA) Negative Urine Ketones Negative Urine Blood Negative Urine Nitrate Negative Urine Bilirubin Negative Urine Urobilinogen 0.2 Ur Leukocyte Esterase Trace Urine RBC None Urine WBC 5-10 Ur Squamous Epith Cells 5-10 Amorphous Sediment 1+ Urine Bacteria Trace Membrane Rupture Negative Urine Opiates Screen Negative Urine Methadone Screen Negative Ur Barbituates Screen Negative Ur Phencyclidine Scrn Negative Ur Amphetamines Screen Negative U Benzodiazepines Scrn Negative Urine Cocaine Screen Negative U Marijuana (THC) Screen Negative Fibronectin Positive A DS: Diagnosis Discharge Diagnosis (1) Cystic fibrosis carrier, antepartum: Status: Acute Code(s): O09.899 - Supervision of other high risk pregnancies, unspecified trimester; Z14.1 - Cystic fibrosis carrier Problem details: Declined testing of FOB (2) : Status: Acute Code(s): Z34.90 - Encounter for supervision of normal , unspecified, unspecified trimester Qualifiers: Weeks of gestation: 15 weeks Qualified Code(s): Z3A.15 - 15 weeks gestation of (3) Tobacco use affecting , antepartum: Status: Acute Code(s): O99.330 - Smoking (tobacco) complicating , unspecified trimester (4) Asymptomatic bacteriuria during : Status: Acute Code(s): O99.891 - Other specified diseases and conditions complicating ; R82.71 - Bacteriuria (5) Rh negative state in antepartum period: Status: Acute Code(s): O26.899 - Other specified related conditions, unspecified trimester; Z67.91 - Unspecified blood type, Rh negative (6) Current vaping on some days: Status: Acute Code(s): Z72.89 - Other problems related to lifestyle (7) History of trichomonal vaginitis: Status: Acute Code(s): Z86.19 - Personal history of other infectious and parasitic diseases (8) History of delivery, currently : Status: Acute Code(s): O09.899 - Supervision of other high risk pregnancies, unspecified trimester Problem details: vaginal delivery at 33 weeks (9) labor in third trimester without delivery: Status: Acute Code(s): O60.03 - labor without delivery, third trimester Meds Home Medications and Allergies Home Medications Medication Instructions Recorded Confirmed Type vits no.126-ferrous fum 1 tab PO DAILY Supplement 12/09/22 05/19/23 History 28 mg iron-folic acid 800 mcg tablet (Classic ) promethazine 12.5 mg tablet 12.5 mg PO Q6HP PRN nausea and 05/19/23 05/19/23 History vomiting New Prescriptions to Start Prescriptions: Allergies Allergy/AdvReac Type Severity Reaction Status Date / Time ketchup Allergy Unknown Verified 05/05/23 09:11 Discharge Plan Disposition Patient Disposition: Xfer Short-Term Hosp Discharge Order Discharge Orders: Discharge Order (Routine); Ordered 05/19/23 Ordered By: Sebastian Deshpande Follow up Plan Prescriptions/Medication Reconciliation: Continued Classic 28 mg iron- 800 mcg tablet 1 tab PO DAILY promethazine 12.5 mg tablet 12.5 mg PO Q6HP PRN (Reason: nausea and vomiting) Problem Reconciliation Problems Reviewed?: Yes Patient Discharge Instructions ACTIVITY: Bed rest DIET: continue same diet Providers Primary Care Provider: Provider,Referral Admit Provider: Joanie Sorensen Attending Provider: Joanie Sorensen
== END 2023-05-19 17:36 | disposition short-term general hospital (02) ==
LOC: OBOUT 22:28 → OB 22:28
PROVIDERS: Admitting Provider Obstetrics & Gynecology; Visit Provider Obstetrics & Gynecology
DX: O60.03 Preterm labor without delivery, third trimester (principal); Z3A.33 33 weeks gestation of pregnancy; O99.333 Smoking (tobacco) complicating pregnancy, third trimester; F17.290 Nicotine dependence, other tobacco product, uncomplicated
CPT/HCPCS: 59025; 76817; 80307; 81001; 82731; 84112; G0378; J0131

== ENCOUNTER → 2023-05-19 23:14 | Outpatient (CLI) | payer OTHER, SELFPAY | LOC: LAB.DROPOF 23:14 | PROVIDERS: PCP Obstetrics & Gynecology; Visit Provider Obstetrics & Gynecology | DX: Z34.93 Encounter for supervision of normal pregnancy, unspecified, third trimester (principal); Z3A.28 28 weeks gestation of pregnancy | CPT/HCPCS: 86403 ==

== ENCOUNTER 2023-05-27 03:55 | Observation (INO) | payer OTHER, SELFPAY ==
[2023-05-27 02:47] VITALS: BMI 21.6
[2023-05-27 02:56] LABS: Microscopic, Urine URINE MICROSCOPIC (MICROSCOPIC)
[2023-05-27 02:57] LABS: Fetal Membrane Rupture (Rapid) Positive (Negative)
[2023-05-27 02:57] LABS: Appearance,Urine CLEAR (Clear); Bilirubin,Urine Negative (Negative); Blood, Urine Negative (Negative); Color,Urine YELLOW (Yellow); Glucose,Urine (UA) Negative (Negative); Ketones,Urine Negative (Negative); Leukocyte Esterase,Urine Negative (Negative); Nitrate,Urine Negative (Negative); Protein,Urine Negative (Negative); Urobilinogen,Urine 0.2 EU/dl (0.2)
[2023-05-27 03:00] VITALS: BP 116/67; PULSE 110; RESP 17; TEMP 36.6; O2SAT 96; BMI 21.6
[2023-05-27 03:12] LABS: Amorphous Sediment,Urine Trace /lpf; Bacteria,Urine Trace /lpf; WBC,Urine Occasional #/hpf (0-3)
[2023-05-27 03:14] LABS: Amphetamine/Metha Screen,Urine Negative ng/ml (<1000); Barbiturates Screen,Urine Negative ng/ml (<200); Benzodiazepines Screen,Urine Negative ng/ml (<200); Cannabinoid Screen,Urine Negative ng/ml (<50); Cocaine Screen,Urine Negative ng/ml (<300); Opiate Screen,Urine Negative ng/ml (<300); Phencyclidine Screen,Urine Negative ng/ml (<25)
[2023-05-27 03:17] LABS: Methadone Screen,Urine Negative ng/ml (<300)
--- NOTE | 2023-05-27 03:37 | EXP.DC.SUM ---
General Admission date:: May 27, 2023 Discharge date: 05/27/23 HPI HPI HPI: She is a 22-year-old 3 para 1 aborta 1 at 29 weeks gestational age. She has had history of labor and delivery at 33 weeks. She came into labor and delivery feeling pressure and leaking fluid. She really did not feel a lot of leakage but her AmniSure is positive. She has been admitted at the [facility] last week for about 4 days for labor. She has received steroids. Her AmniSure is positive here today. We have started her on magnesium sulfate 4 g bolus 2 g of Ancef as well as 500 mg of azithromycin. She will be transferred by ambulance to for further care. Hospital Course Hospital Course Hospital Course: She has received IV magnesium sulfate 4 g bolus and will get 2 g an hour. She received a course of steroids last week when she was at the [facility]. We have given her 2 g of Ancef as well as 500 mg of p.o. azithromycin. Her AmniSure here was positive. Recent ultrasound showed that the fetus was in the cephalic presentation and the cervical length was 1.7 cm. I spoke with Dr. Sharath Perez at [facility] and he will accept her in transfer. She will be transferred by ambulance to . She is not rosario and she is stable for transfer. Exam Data for Last 24 hours Vital signs and Labs for Last 24 Hours: Temp Pulse Resp BP Pulse Ox O2 Del Method 97.8 F 110 H 17 116/67 96 Room Air 05/27/23 03:00 05/27/23 03:00 05/27/23 03:00 05/27/23 03:00 05/27/23 03:00 05/27/23 03:00 Laboratory Results - last 24 hr 05/27/23 02:28: Urine Color Yellow, Urine Appearance Clear, Urine pH 7.0, Ur Specific [place] 1.020, Urine Protein Negative, Urine Glucose (UA) Negative, Urine Ketones Negative, Urine Blood Negative, Urine Nitrate Negative, Urine Bilirubin Negative, Urine Urobilinogen 0.2, Ur Leukocyte Esterase Negative, Urine RBC None, Urine WBC Occasional, Ur Squamous Epith Cells 3-5, Amorphous Sediment Trace, Urine Bacteria Trace, Urine Opiates Screen Negative, Urine Methadone Screen Negative, Ur Barbituates Screen Negative, Ur Phencyclidine Scrn Negative, Ur Amphetamines Screen Negative, U Benzodiazepines Scrn Negative, Urine Cocaine Screen Negative, U Marijuana (THC) Screen Negative 05/27/23 02:30: Membrane Rupture Positive A I & O for Last 24 hours: Intake & Output 05/24/23 05/25/23 05/26/23 05/27/23 11:59 11:59 11:59 11:59 Weight 130 lb Constitutional Constitutional: no acute distress *Routine HEENT Exam Head: Present normocephalic *Routine Neck Exam Neck: Present supple and full ROM *Routine Respiratory Exam Respiratory: Present normal respiratory effort; Absent accessory muscle use Results Data Completed and Pending Labs on day of discharge: Labs from last 24 hours 05/27/23 05/27/23 02:30 02:28 Urine Color Yellow Urine Appearance Clear Urine pH 7.0 Ur Specific [place] 1.020 Urine Protein Negative Urine Glucose (UA) Negative Urine Ketones Negative Urine Blood Negative Urine Nitrate Negative Urine Bilirubin Negative Urine Urobilinogen 0.2 Ur Leukocyte Esterase Negative Urine RBC None Urine WBC Occasional Ur Squamous Epith Cells 3-5 Amorphous Sediment Trace Urine Bacteria Trace Membrane Rupture Positive A Urine Opiates Screen Negative Urine Methadone Screen Negative Ur Barbituates Screen Negative Ur Phencyclidine Scrn Negative Ur Amphetamines Screen Negative U Benzodiazepines Scrn Negative Urine Cocaine Screen Negative U Marijuana (THC) Screen Negative DS: Diagnosis Discharge Diagnosis (1) labor in third trimester without delivery: Status: Acute Code(s): O60.03 - labor without delivery, third trimester (2) Cystic fibrosis carrier, antepartum: Status: Acute Code(s): O09.899 - Supervision of other high risk pregnancies, unspecified trimester; Z14.1 - Cystic fibrosis carrier Problem details: Declined testing of FOB (3) Tobacco use affecting , antepartum: Status: Acute Code(s): O99.330 - Smoking (tobacco) complicating , unspecified trimester (4) SPROM (prolonged spontaneous rupture of membranes): Status: Acute Code(s): O42.90 - Premature rupture of membranes, unspecified as to length of time between rupture and onset of labor, unspecified weeks of gestation Meds Home Medications and Allergies Home Medications Medication Instructions Recorded Confirmed Type vits no.126-ferrous fum 1 tab PO DAILY Supplement 12/09/22 05/19/23 History 28 mg iron-folic acid 800 mcg tablet (Classic ) promethazine 12.5 mg tablet 12.5 mg PO Q6HP PRN nausea and 05/19/23 05/19/23 History vomiting New Prescriptions to Start Prescriptions: Allergies Allergy/AdvReac Type Severity Reaction Status Date / Time ketchup Allergy Unknown Verified 05/05/23 09:11 Discharge Plan Disposition Patient Disposition: Xfer Short-Term Hosp Follow up Plan Prescriptions/Medication Reconciliation: Continued Classic 28 mg iron- 800 mcg tablet 1 tab PO DAILY promethazine 12.5 mg tablet 12.5 mg PO Q6HP PRN (Reason: nausea and vomiting) Providers Primary Care Provider: Provider,Referral Attending Provider: Sebastian Deshpande
[2023-05-27] MEDS: MAGNESIUM SULFATE IN WATER 4 GM/50 ML PIGGYBACK IV (03:40)
[2023-05-27] MEDS: AZITHROMYCIN 250MG TABLET 500 MG PO (03:40)
[2023-05-27 03:41] LABS: Basophils # 0.1 K/mm3 (0-0.2); Basophils % 0.7 % (0.1-2.0); Eosinophils # 0.1 K/mm3 (0.0-0.4); Eosinophils % 0.9 % (0.1-12.0); Hematocrit 37.8 % (37.0-47.0); Hemoglobin 13.1 g/dL (12.2-16.2); Lymphocytes # 2.8 K/mm3 (0.7-4.5); Lymphocytes % 24.8 % (10-50); Mean Corpuscular HGB Conc 34.6 g/dL (31.8-35.4); Mean Corpuscular Volume 92.5 fl (81-99); Monocytes # 0.7 K/mm3 (0.1-1.0); Monocytes % 5.8 % (1.7-9.3); Neutrophils # 7.7 K/mm3 (1.8-7.8); Neutrophils % 67.7 % (37.0-80.0); Platelet Count 352 K/mm3 (142-424); Red Blood Count 4.08 M/mm3 (4.20-5.40); Red Cell Distribution Width 13.5 % (11.5-17.5); White Blood Count 11.4 K/mm3 (4.8-10.8)
[2023-05-27] MEDS: CEFAZOLIN SODIUM 2 GM in 0.9 % SODIUM CHLORIDE 100 ML IV (03:43)
[2023-05-27 03:44] LABS: Chloride 106 mmol/L (98-107); Potassium 4.1 mmoL/L (3.5-5.1); Sodium 133 mmol/L (136-145)
[2023-05-27 03:47] LABS: Alanine Aminotransferase 15 U/L (12-78); Albumin Level 3.4 g/dl (3.5-5.0); Alkaline Phosphatase 88 U/L (38-126); Anion Gap 10.1 mEq/L (5-15); Aspartate Amino Transferase 31 U/L (14-36); Bilirubin,Total 0.5 mg/dl (0.2-1.3); Blood Urea Nitrogen 15 mg/dl (7-17); Carbon Dioxide 21 mmol/L (22.0-30.0); Creatinine Clearance Estimated 164 mL/min (50-200); Estimated Glomerular Filt Rate 154 ml/min (>60); GFR (African American) 187 ML/MIN (>60); Globulin 3.3 g/dL (1.3-3.2); Total Protein,Serum 6.7 g/dl (6.3-8.2)
[2023-05-27 03:48] LABS: Calcium 8.8 mg/dl (8.4-10.2); Glucose 97 mg/dl (74-100)
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
--- NOTE | 2023-05-27 03:59 | PC.NURSE ---
Laboratory Tests 05/27/23 05/27/23 05/27/23 02:28 02:30 03:30 WBC 11.4 H RBC 4.08 L Hgb 13.1 Hct 37.8 MCV 92.5 MCH 32.0 H MCHC 34.6 RDW 13.5 Plt Count 352 MPV 8.0 Neut % (Auto) 67.7 Lymph % (Auto) 24.8 [place] % (Auto) 5.8 Eos % (Auto) 0.9 Baso % (Auto) 0.7 Neut # (Auto) 7.7 Lymph # (Auto) 2.8 [place] # (Auto) 0.7 Eos # (Auto) 0.1 Baso # (Auto) 0.1 Sodium 133 L Potassium 4.1 Chloride 106 Carbon Dioxide 21 L Anion Gap 10.1 BUN 15 Creatinine 0.50 L Estimated Creat Clear 164 Estimated GFR 154 Est GFR ( Amer) 187 Glucose 97 Calcium 8.8 Total Bilirubin 0.5 AST 31 ALT 15 Alkaline Phosphatase 88 Total Protein 6.7 Albumin 3.4 L Globulin 3.3 H Albumin/Globulin Ratio 1.0 L Urine Color Yellow Urine Appearance Clear Urine pH 7.0 Ur Specific [place] 1.020 Urine Protein Negative Urine Glucose (UA) Negative Urine Ketones Negative Urine Blood Negative Urine Nitrate Negative Urine Bilirubin Negative Urine Urobilinogen 0.2 Ur Leukocyte Esterase Negative Urine RBC None Urine WBC Occasional Ur Squamous Epith Cells 3-5 Amorphous Sediment Trace Urine Bacteria Trace Membrane Rupture Positive A Urine Opiates Screen Negative Urine Methadone Screen Negative Ur Barbituates Screen Negative Ur Phencyclidine Scrn Negative Ur Amphetamines Screen Negative U Benzodiazepines Scrn Negative Urine Cocaine Screen Negative U Marijuana (THC) Screen Negative
[2023-05-27] MEDS: MAGNESIUM SULFATE IN WATER 20 GM/500 ML IV.SOLN IV (04:01)
== END 2023-05-27 05:04 | disposition short-term general hospital (02) | DRG 833 ==
LOC: OBOUT 03:56 → OB 03:57
PROVIDERS: Admitting Provider Nurse Practitioner Obstetrics & Gynecology; Visit Provider Nurse Practitioner Obstetrics & Gynecology
DX: O60.03 Preterm labor without delivery, third trimester (principal); Z3A.33 33 weeks gestation of pregnancy; O99.333 Smoking (tobacco) complicating pregnancy, third trimester
CPT/HCPCS: 59025; 80053; 80307; 81001; 84112; 85025; 96365; G0378; J0690

== ENCOUNTER 2023-06-03 09:44 | Outpatient (CLI) | payer OTHER, SELFPAY ==
[2023-06-03 10:27] LABS: Basophils # 0.1 K/mm3 (0-0.2); Basophils % 0.8 % (0.1-2.0); Eosinophils # 0.2 K/mm3 (0.0-0.4); Eosinophils % 1.5 % (0.1-12.0); Hematocrit 37.4 % (37.0-47.0); Hemoglobin 12.9 g/dL (12.2-16.2); Lymphocytes # 2.3 K/mm3 (0.7-4.5); Lymphocytes % 23.3 % (10-50); Mean Corpuscular HGB Conc 34.6 g/dL (31.8-35.4); Mean Corpuscular Hemoglobin 32.2 pg (27.0-31.2); Mean Platelet Volume 8.1 fl (7.4-10.4); Monocytes # 0.4 K/mm3 (0.1-1.0); Monocytes % 4.4 % (1.7-9.3); Platelet Count 331 K/mm3 (142-424); Red Blood Count 4.02 M/mm3 (4.20-5.40); Red Cell Distribution Width 13.5 % (11.5-17.5)
[2023-06-03 10:43] LABS: Glucose,Fasting 88 mg/dl (74-100)
[2023-06-03 12:00] VITALS: BP 120/64; PULSE 93; RESP 20; TEMP 36.9; O2SAT 98
[2023-06-03] MEDS: RHO(D) IMMUNE GLOBULIN 1,500 UNIT SYRINGE 1500 UNIT IM (12:00)
[2023-06-03 12:16] LABS: Glucose 1 Hour 77 mg/dL (74-100)
== END 2023-06-03 12:22 | disposition home or self-care (01) ==
LOC: LAB 09:45 → INF 11:55
PROVIDERS: Visit Provider Obstetrics & Gynecology
DX: Z34.93 Encounter for supervision of normal pregnancy, unspecified, third trimester (principal); Z3A.30 30 weeks gestation of pregnancy
CPT/HCPCS: 36415; 82951; 85025; 96372; J2790

== ENCOUNTER 2023-06-12 16:47 | Outpatient (CLI) | payer OTHER, SELFPAY ==
[2023-06-12 17:31] VITALS: BMI 22.6
[2023-06-12 17:32] VITALS: BP 106/65; PULSE 94; RESP 18; TEMP 36.9; O2SAT 98
[2023-06-12 17:34] LABS: Microscopic, Urine URINE MICROSCOPIC (MICROSCOPIC)
[2023-06-12 17:37] VITALS: BMI 22.6
[2023-06-12 17:39] LABS: Appearance,Urine CLEAR (Clear); Bilirubin,Urine Negative (Negative); Blood, Urine Negative (Negative); Color,Urine YELLOW (Yellow); Glucose,Urine (UA) Negative (Negative); Ketones,Urine Negative (Negative); Leukocyte Esterase,Urine Negative (Negative); Nitrate,Urine Negative (Negative); Protein,Urine Negative (Negative); Specific Gravity, Urine 1.025 (1.005-1.030); Urobilinogen,Urine 0.2 EU/dl (0.2)
[2023-06-12 17:42] LABS: Fetal Membrane Rupture (Rapid) Negative (Negative)
[2023-06-12 17:52] LABS: Barbiturates Screen,Urine Negative ng/ml (<200); Benzodiazepines Screen,Urine Negative ng/ml (<200)
[2023-06-12 17:53] LABS: Amphetamine/Metha Screen,Urine Negative ng/ml (<1000); Cannabinoid Screen,Urine Negative ng/ml (<50)
[2023-06-12 17:54] LABS: Cocaine Screen,Urine Negative ng/ml (<300)
[2023-06-12 17:55] LABS: Methadone Screen,Urine Negative ng/ml (<300)
[2023-06-12 17:56] LABS: Opiate Screen,Urine Negative ng/ml (<300)
[2023-06-12 17:57] LABS: Phencyclidine Screen,Urine Negative ng/ml (<25)
[2023-06-12 18:06] LABS: Fetal Fibronectin (Rapid) Positive (Negative)
[2023-06-12 18:10] LABS: Squamous Epithelial Cell,Urine Occasional #/hpf (0-5)
== END 2023-06-12 19:35 | disposition home or self-care (01) ==
LOC: OBOUT 16:49 → OB 16:49
PROVIDERS: Visit Provider Obstetrics & Gynecology
DX: O26.893 Other specified pregnancy related conditions, third trimester (principal); Z3A.32 32 weeks gestation of pregnancy; R10.2 Pelvic and perineal pain
CPT/HCPCS: 59025; 80307; 81001; 82731; 84112; 96365; G0463

== ENCOUNTER 2023-06-14 13:55 | Outpatient (CLI) | payer OTHER, SELFPAY ==
--- NOTE | 2023-06-14 13:56 | US_ITS ---
PROCEDURE: US OB BIOPHYSICAL PROFILE CLINICAL INDICATION: sga COMPARISON: US US OB TRANSVAGINAL from 05/19/2023 FINDINGS: Transabdominal sonographic images of the uterus were obtained. From her established due date she is 32weeks 2days. The following parameters are obtained: Viable Fetus in the cephalic presentation with and anterior placenta grade 2. Average ultrasound age is 31weeks 6days Estimated weight 1,719g Cervix measures 1.71 cm Measurements: heart Rate = 163bpm BPD = 33weeks 2days HC = 32weeks 2days AC = 31weeks 0 days FL = 30weeks 6days HC/AC is 1.09 FL/BPD is 0.72 FL/AC is 0.22 13 percentile Amniotic fluid index: 8.36cm, MVP 5.27 cm Qualitative AFV:2 Breathing movements: 2 Gross Body Movements: 2 Tone: 2 Biophysical profile score: 8 Doppler evaluation of the umbilical artery: SD ratio: 2.45 Resistive index: 0.59 No obvious anomalies evident.Kidneys, four-chamber heart, bladder, stomach, diaphragm, three-vessel cord appear normal. IMPRESSION: 1. Viable fetus in cephalic presentation with an anterior placenta grade 2. 2. The fluid is within normal limits with an amniotic fluid index of 8.36 cm, MVP 5.27 cm. 3. Biophysical profile is 8/8 with good breathing movement and movement seen. 4. There has been good interval growth the AC 1 week behind. 5. There does not appear to be any change in the cervical length and remains at 1.7 cm. Dictated by: Sebastian Deshpande MD 06/14/2023 19:25 Sebastian Deshpande MD in OV 06/14/2023 19:25
== END 2023-06-14 23:59 ==
LOC: RAD 13:56
PROVIDERS: PCP Obstetrics & Gynecology; Visit Provider Obstetrics & Gynecology
DX: O36.5930 Maternal care for other known or suspected poor fetal growth, third trimester, not applicable or unspecified (principal); Z3A.32 32 weeks gestation of pregnancy
CPT/HCPCS: 76816; 76819; 76820

== ENCOUNTER 2023-06-22 02:15 | Outpatient (CLI) | payer OTHER, SELFPAY ==
[2023-06-22 02:28] VITALS: BMI 22.6
[2023-06-22 02:43] LABS: Microscopic, Urine URINE MICROSCOPIC (MICROSCOPIC)
[2023-06-22 02:44] LABS: Bilirubin,Urine Negative (Negative); Blood, Urine Negative (Negative); Color,Urine YELLOW (Yellow); Glucose,Urine (UA) Negative (Negative); Ketones,Urine Negative (Negative); Leukocyte Esterase,Urine 2+ (Negative); Nitrate,Urine Negative (Negative); PH,Urine 6.5 (5.0-8.5); Protein,Urine Negative (Negative); Specific Gravity, Urine 1.025 (1.005-1.030); Urobilinogen,Urine 0.2 EU/dl (0.2)
[2023-06-22 02:52] VITALS: BP 105/67; PULSE 92; RESP 19; TEMP 36.6; O2SAT 100; BMI 22.6
[2023-06-22 02:53] LABS: Appearance,Urine Slightly Cloudy (Clear)
[2023-06-22 02:55] LABS: Bacteria,Urine 2+ /lpf; Fetal Membrane Rupture (Rapid) Negative (Negative)
[2023-06-22 02:57] LABS: Amphetamine/Metha Screen,Urine Negative ng/ml (<1000); Benzodiazepines Screen,Urine Negative ng/ml (<200)
[2023-06-22 02:58] LABS: Barbiturates Screen,Urine Negative ng/ml (<200)
[2023-06-22 02:59] LABS: Cannabinoid Screen,Urine Negative ng/ml (<50); Cocaine Screen,Urine Negative ng/ml (<300)
[2023-06-22 03:00] LABS: Methadone Screen,Urine Negative ng/ml (<300); Opiate Screen,Urine Negative ng/ml (<300)
[2023-06-22 03:01] LABS: Phencyclidine Screen,Urine Negative ng/ml (<25)
== END 2023-06-22 03:16 | disposition home or self-care (01) ==
LOC: OBOUT 02:16 → OB 02:20
PROVIDERS: PCP Obstetrics & Gynecology; Visit Provider Nurse Practitioner Obstetrics & Gynecology
DX: O26.893 Other specified pregnancy related conditions, third trimester (principal); Z3A.33 33 weeks gestation of pregnancy
CPT/HCPCS: 59025; 80307; 81001; 84112; 87086; G0463

== ENCOUNTER 2023-06-29 18:39 | Outpatient (CLI) | payer OTHER, SELFPAY ==
[2023-06-29 18:53] VITALS: BMI 22.6
[2023-06-29 18:59] LABS: Microscopic, Urine URINE MICROSCOPIC (MICROSCOPIC)
[2023-06-29] MEDS: TERBUTALINE SULFATE 1MG/ML VIAL 0.25 MG SQ (19:11)
[2023-06-29 19:12] LABS: Appearance,Urine SL CLOUDY (Clear); Bilirubin,Urine Negative (Negative); Blood, Urine Negative (Negative); Color,Urine YELLOW (Yellow); Glucose,Urine (UA) Negative (Negative); Ketones,Urine Negative (Negative); Leukocyte Esterase,Urine 1+ (Negative); Nitrate,Urine Negative (Negative); Protein,Urine TRACE (Negative); Specific Gravity, Urine 1.025 (1.005-1.030); Urobilinogen,Urine 0.2 EU/dl (0.2)
[2023-06-29] MEDS: LACTATED RINGERS 1000ML 1,000 ML 999 ML IV (19:17)
[2023-06-29 19:24] VITALS: BP 118/72; PULSE 98; RESP 17; TEMP 36.6; O2SAT 97; BMI 22.6
[2023-06-29 19:24] LABS: Barbiturates Screen,Urine Negative ng/ml (<200)
[2023-06-29 19:25] LABS: Amphetamine/Metha Screen,Urine Negative ng/ml (<1000); Benzodiazepines Screen,Urine Negative ng/ml (<200)
[2023-06-29 19:26] LABS: Methadone Screen,Urine Negative ng/ml (<300)
[2023-06-29 19:27] LABS: Cannabinoid Screen,Urine Negative ng/ml (<50); Cocaine Screen,Urine Negative ng/ml (<300)
[2023-06-29 19:28] LABS: Opiate Screen,Urine Negative ng/ml (<300); Phencyclidine Screen,Urine Negative ng/ml (<25)
--- NOTE | 2023-06-29 19:36 | EXP.DC.SUM ---
Exam Data for Last 24 hours Vital signs and Labs for Last 24 Hours: Temp Pulse Resp BP Pulse Ox O2 Del Method 98 F 98 H 17 118/72 97 Room Air 06/29/23 19:24 06/29/23 19:24 06/29/23 19:24 06/29/23 19:24 06/29/23 19:24 06/29/23 19:24 Laboratory Results - last 24 hr 06/29/23 18:57: Urine Color Yellow, Urine Appearance Sl cloudy, Urine pH 7.0, Ur Specific [place] 1.025, Urine Protein Trace, Urine Glucose (UA) Negative, Urine Ketones Negative, Urine Blood Negative, Urine Nitrate Negative, Urine Bilirubin Negative, Urine Urobilinogen 0.2, Ur Leukocyte Esterase 1+ A, Urine Opiates Screen Negative, Urine Methadone Screen Negative, Ur Barbituates Screen Negative, Ur Phencyclidine Scrn Negative, Ur Amphetamines Screen Negative, U Benzodiazepines Scrn Negative, Urine Cocaine Screen Negative, U Marijuana (THC) Screen Negative I & O for Last 24 hours: Intake & Output 06/27/23 06/28/23 06/29/23 06/30/23 11:59 11:59 11:59 11:59 Weight 136 lb 0.015 oz Results Data Completed and Pending Labs on day of discharge: Labs from last 24 hours 06/29/23 18:57 Urine Color Yellow Urine Appearance Sl cloudy Urine pH 7.0 Ur Specific [place] 1.025 Urine Protein Trace Urine Glucose (UA) Negative Urine Ketones Negative Urine Blood Negative Urine Nitrate Negative Urine Bilirubin Negative Urine Urobilinogen 0.2 Ur Leukocyte Esterase 1+ A Urine Opiates Screen Negative Urine Methadone Screen Negative Ur Barbituates Screen Negative Ur Phencyclidine Scrn Negative Ur Amphetamines Screen Negative U Benzodiazepines Scrn Negative Urine Cocaine Screen Negative U Marijuana (THC) Screen Negative Meds Home Medications and Allergies Home Medications Medication Instructions Recorded Confirmed Type vits no.126-ferrous fum 1 tab PO DAILY Supplement 12/09/22 06/17/23 History 28 mg iron-folic acid 800 mcg tablet (Classic ) nitrofurantoin 100 mg PO Q12H 5 days #10 caps 06/22/23 Rx monohydrate/macrocrystals 100 mg capsule (Macrobid) New Prescriptions to Start Prescriptions: Allergies Allergy/AdvReac Type Severity Reaction Status Date / Time ketchup Allergy Unknown Verified 06/17/23 15:27 Discharge Plan Disposition Patient Disposition: Home, Self-Care Patient Discharge Instructions Stand Alone Forms: Transfer Record Providers Primary Care Provider: Provider,Referral Attending Provider: Sebastian Deshpande
--- NOTE | 2023-06-29 19:38 | EXP.ACUTE.PN ---
Subjective *Date: 06/29/23 *Time: 19:38 Interval history: She is a 22-year-old 3 para 1 aborta 1 who is 35 weeks 4 days gestational age. She has had a previous delivery at 33 weeks. She came in this evening thinking she was having contractions and says she has been having contractions for about 5 days. She said they were every 5 minutes. On arrival here she was found to be 4 cm dilated, 80% effaced and Station -1. She had a small amount of bloody show as well. Since she has this early we will plan to send her down to . She has received steroids at 29 weeks. She will receive 2 g of ampicillin now for group B strep prophylaxis. Nonstress test is reactive and contractions are every 2 to 5 minutes. She has received IV fluids as well as a single dose of Brethine. Medical Exam Vital signs and Labs for Last 24 Hours: Vital Signs Temp Pulse Resp BP Pulse Ox O2 Del Method 06/29/23 19:24 98 F 98 H 17 118/72 97 Room Air Intake and Output 06/29/23 06/29/23 06/29/23 03:59 11:59 19:59 Other: Weight 136 lb 0.015 oz Patient Weight 06/30/23 11:59 Weight 136 lb 0.015 oz Laboratory Results - last 24 hr 06/29/23 18:57: Urine Color Yellow, Urine Appearance Sl cloudy, Urine pH 7.0, Ur Specific [place] 1.025, Urine Protein Trace, Urine Glucose (UA) Negative, Urine Ketones Negative, Urine Blood Negative, Urine Nitrate Negative, Urine Bilirubin Negative, Urine Urobilinogen 0.2, Ur Leukocyte Esterase 1+ A, Urine Opiates Screen Negative, Urine Methadone Screen Negative, Ur Barbituates Screen Negative, Ur Phencyclidine Scrn Negative, Ur Amphetamines Screen Negative, U Benzodiazepines Scrn Negative, Urine Cocaine Screen Negative, U Marijuana (THC) Screen Negative I & O for Labs for Last 24 Hours: Intake & Output 06/27/23 06/28/23 06/29/23 06/30/23 11:59 11:59 11:59 11:59 Weight 136 lb 0.015 oz Head: Present atraumatic Neck: Present normal inspection Respiratory: Present normal respiratory effort; Absent accessory muscle use Cardiac: Present Reg Rate and Rhythm GI: Present soft; Absent distention or tenderness Rectal (female): Present deferred (female): Present deferred Skin: Present intact Assessment and Plan *Assessment and plan (1) labor in third trimester without delivery: Status: Acute Category: Medical Code(s): O60.03 - labor without delivery, third trimester (2) Cystic fibrosis carrier, antepartum: Problem Comment: Declined testing of FOB Status: Acute Category: Medical Code(s): O09.899 - Supervision of other high risk pregnancies, unspecified trimester; Z14.1 - Cystic fibrosis carrier (3) Tobacco use affecting , antepartum: Status: Acute Category: Medical Code(s): O99.330 - Smoking (tobacco) complicating , unspecified trimester (4) Rh negative state in antepartum period: Status: Acute Category: Medical Code(s): O26.899 - Other specified related conditions, unspecified trimester; Z67.91 - Unspecified blood type, Rh negative (5) Current vaping on some days: Status: Acute Category: Social Hx Code(s): Z72.89 - Other problems related to lifestyle (6) History of delivery, currently : Problem Comment: vaginal delivery at 33 weeks Status: Acute Category: Medical Code(s): O09.899 - Supervision of other high risk pregnancies, unspecified trimester (7) Short cervix during in third trimester: Status: Acute Category: Medical Code(s): O26.873 - Cervical shortening, third trimester Plan I spoke to Dr. Arelis Matthews at [facility] and they will accept her in transfer. She has received steroids and she will receive 2 g of ampicillin prior to discharge from here. She is receiving IV fluids and has had 1 dose of Brethine. She will be transferred by ambulance. Her condition on discharge is stable for transfer.
--- NOTE | 2023-06-29 19:49 | PC.NURSE ---
Active Medications Generic Name Dose Route Start Last Admin Trade Name Freq PRN Reason Stop Dose Admin Lactated Ringer's 1,000 mls @ 999 mls/hr 06/29/23 19:45 06/29/23 19:17 Lactated Ringer's 1000 Ml Bag IV 06/29/23 20:45 999 mls/hr .Q1H1M ONE Administration Ampicillin Sodium 2 gm/ Sodium 100 mls @ 200 mls/hr 06/29/23 19:45 Chloride IV 07/09/23 19:44 Q8H KELLI
[2023-06-29] MEDS: AMPICILLIN SODIUM 2 GM in 0.9 % SODIUM CHLORIDE 100 ML IV (19:50)
--- NOTE | 2023-06-29 19:50 | PC.NURSE ---
Active Medications Generic Name Dose Route Start Last Admin Trade Name Freq PRN Reason Stop Dose Admin Lactated Ringer's 1,000 mls @ 999 mls/hr 06/29/23 19:45 06/29/23 19:17 Lactated Ringer's 1000 Ml Bag IV 06/29/23 20:45 999 mls/hr .Q1H1M ONE Administration Ampicillin Sodium 2 gm/ Sodium 100 mls @ 200 mls/hr 06/29/23 19:45 06/29/23 19:50 Chloride IV 07/09/23 19:44 200 mls/hr Q8H KELLI Administration
[2023-06-29 20:42] LABS: Bacteria,Urine Trace /lpf
== END 2023-06-29 20:30 | disposition home or self-care (01) ==
LOC: OBOUT 18:41 → OB 18:42
PROVIDERS: Visit Provider Nurse Practitioner Obstetrics & Gynecology
DX: O60.03 Preterm labor without delivery, third trimester (principal); O09.893 Supervision of other high risk pregnancies, third trimester; O99.333 Smoking (tobacco) complicating pregnancy, third trimester; O26.893 Other specified pregnancy related conditions, third trimester; Z67.91 Unspecified blood type, Rh negative; Z72.89 Other problems related to lifestyle; O26.873 Cervical shortening, third trimester; Z3A.34 34 weeks gestation of pregnancy; Z14.1 Cystic fibrosis carrier
CPT/HCPCS: 59025; 80307; 81001; 87086; 96365; 96372; J0290

== ENCOUNTER 2023-07-27 16:40 | Emergency (ER) | payer OTHER, SELFPAY ==
[2023-07-27 17:00] VITALS: BP 95/62; PULSE 108; RESP 18; TEMP 36.6; O2SAT 99; BMI 20.3
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
[2023-07-27 17:25] LABS: UTC Influenza A Antigen Negative (Negative); UTC Influenza B Antigen Negative (Negative); UTC Strep Screen (Rapid) Negative (Negative)
[2023-07-27 17:43] VITALS: BP 95/62; PULSE 108; RESP 18; TEMP 36.6; O2SAT 99
[2023-07-27 17:51] LABS: Adenovirus,PCR Not Detected (NotDetected); Coronavirus 229E Not Detected (NotDetected); Coronavirus NL63 Not Detected (NotDetected); Coronavirus OC43 Not Detected (NotDetected); Coronovirus HKU1,PCR Not Detected (NotDetected); Human Metapneumovirus Not Detected (NotDetected); Influenza A, PCR Not Detected (NotDetected); Influenza AH1, 2009 Not Detected (NotDetected); Influenza AH1, PCR Not Detected (NotDetected); Influenza AH3,PCR Not Detected (NotDetected); Influenza B, PCR Not Detected (NotDetected); Parainfluenza 1, PCR Not Detected (NotDetected); Parainfluenza 2, PCR Not Detected (NotDetected); Parainfluenza 3, PCR Not Detected (NotDetected); Parainfluenza 4, PCR Not Detected (NotDetected); Respiratory Syncytial Virus Not Detected (NotDetected); Rhinovirus/Enterovirus Not Detected (NotDetected)
[2023-07-27 19:53] LABS: Coronavirus 19, PCR Detected (NotDetected)
== END 2023-07-27 17:43 | disposition home or self-care (01) ==
PROVIDERS: Emergency Provider Nurse Practitioner Family
DX: U07.1 COVID-19 (principal); R51.9 Headache, unspecified; R07.0 Pain in throat; R05.9 Cough, unspecified; R50.9 Fever, unspecified; F17.290 Nicotine dependence, other tobacco product, uncomplicated
CPT/HCPCS: 87632; 87635; 87804; 87880; 99212; 99214; G0463

== ENCOUNTER 2023-10-02 16:34 | Emergency (ER) | payer OTHER, SELFPAY ==
[2023-10-02 17:05] VITALS: BP 105/56; PULSE 82; RESP 19; TEMP 36.9; O2SAT 100; BMI 19.8
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
[2023-10-02 17:45] VITALS: BP 105/56; PULSE 82; RESP 19; TEMP 36.9; O2SAT 100
== END 2023-10-02 17:47 | disposition home or self-care (01) ==
PROVIDERS: Emergency Provider Nurse Practitioner
DX: N93.9 Abnormal uterine and vaginal bleeding, unspecified (principal)
CPT/HCPCS: 99212; 99213; G0463

== ENCOUNTER 2023-10-18 22:31 | Emergency (ER) | payer OTHER, SELFPAY ==
[2023-10-18 22:32] VITALS: BP 106/67; PULSE 70; RESP 20; TEMP 36.9; O2SAT 99; BMI 21.1
--- NOTE | 2023-10-18 22:40 | XR_ITS ---
PROCEDURE INFORMATION: Exam: XR Right Hand Exam date and time: 10/18/2023 10:45 PM Age: 22 years old Clinical indication: Injury or trauma; Other: Pain after fall; Additional info: Pain fall TECHNIQUE: Imaging protocol: Radiologic exam of the right hand. Views: 3 or more views. COMPARISON: CR ELBOWCMRT XR elbow RT min 3V 08/11/2018 9:35 PM FINDINGS: Bones/joints: No acute fracture, dislocation or osseous destructive process. Soft tissues: No acute finding or radiopaque foreign body. IMPRESSION: No acute findings.
--- NOTE | 2023-10-18 22:40 | XR_ITS ---
PROCEDURE INFORMATION: Exam: XR Right Forearm Exam date and time: 10/18/2023 10:49 PM Age: 22 years old Clinical indication: Injury or trauma; Other: Pain after fall; Additional info: Pain fall TECHNIQUE: Imaging protocol: Radiologic exam of the right forearm. Views: 2 views. COMPARISON: CR XR WRIST RT MIN 3V 10/18/2023 10:47 PM FINDINGS: Bones/joints: No acute fracture, dislocation or osseous destructive process. Soft tissues: No acute finding or radiopaque foreign body. IMPRESSION: No acute findings.
--- NOTE | 2023-10-18 22:40 | XR_ITS ---
PROCEDURE INFORMATION: Exam: XR Right Wrist Exam date and time: 10/18/2023 10:47 PM Age: 22 years old Clinical indication: Injury or trauma; Other: Pain after fall; Additional info: Pain fall TECHNIQUE: Imaging protocol: Radiologic exam of the right wrist. Views: 3 or more views. COMPARISON: CR XR HAND RT MIN 3V 10/18/2023 10:45 PM FINDINGS: Bones/joints: No acute fracture, dislocation or osseous destructive process. Soft tissues: No acute finding or radiopaque foreign body. IMPRESSION: No acute findings.
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
[2023-10-18] MEDS: ACETAMINOPHEN 325MG TAB 650 MG PO (23:24)
[2023-10-18] MEDS: IBUPROFEN 600 MG TABLET PO (23:24)
[2023-10-18 23:29] VITALS: BP 118/78; PULSE 60; RESP 20; TEMP 36.7; O2SAT 98
== END 2023-10-18 23:30 | disposition home or self-care (01) ==
PROVIDERS: Emergency Provider Student in an Organized Health Care Education/Training Program
DX: M25.531 Pain in right wrist (principal); S63.501A Unspecified sprain of right wrist, initial encounter; R20.2 Paresthesia of skin; X58.XXXA Exposure to other specified factors, initial encounter
CPT/HCPCS: 73090; 73110; 73130; 99283

== ENCOUNTER 2024-01-03 19:55 | Emergency (ER) | payer OTHER, SELFPAY ==
--- NOTE | 2024-01-03 19:53 | ECG_ITS ---
APPROVED REPORT Exam: Resting ECG HR:70 bpm ECG Measurements Heart Rate 70 AXES AK 141 P 62 QRSd 86 QRS 76 QT 355 T 35 QTc 376 Conclusion SINUS RHYTHM POSSIBLE RIGHT VENTRICULAR CONDUCTION DELAY [RSR (QR) IN V1/V2] NONSPECIFIC T-WAVE ABNORMALITY BORDERLINE ECG Electronically signed by : DIANNA ENGEL, 01/04/2024 00:31:05
[2024-01-03 19:56] VITALS: BP 113/53; PULSE 88; RESP 18; TEMP 37.1; O2SAT 99; BMI 21.1
--- NOTE | 2024-01-03 20:00 | XR_ITS ---
PROCEDURE INFORMATION: Exam: XR Chest Exam date and time: 01/03/2024 8:58 PM Age: 23 years old Clinical indication: Pain; Chest pressure; Additional info: Chest pain TECHNIQUE: Imaging protocol: Radiologic exam of the chest. Views: 2 views. COMPARISON: CT ANGIO CHEST PE PROTOCOL 02/16/2021 12:33 AM FINDINGS: Lungs: Unremarkable. No consolidation. Pleural spaces: Unremarkable. No pleural effusion. No pneumothorax. Heart/Mediastinum: Unremarkable. No cardiomegaly. Bones/joints: Unremarkable. IMPRESSION: No acute findings.
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
[2024-01-03] MEDS: BELLADONNA ALKALOIDS 60 ML ML PO (20:12)
[2024-01-03] MEDS: ACETAMINOPHEN 500MG TAB 1000 MG PO (20:12)
--- NOTE | 2024-01-03 20:17 | HMH.ITSTN ---
requested preg test
[2024-01-03 20:24] LABS: Basophils # 0.1 K/mm3 (0-0.2); Eosinophils # 0.2 K/mm3 (0.0-0.4); Eosinophils % 2.9 % (0.1-12.0); Hematocrit 38.9 % (37.0-47.0); Hemoglobin 13.5 g/dL (12.2-16.2); Lymphocytes # 2.1 K/mm3 (0.7-4.5); Lymphocytes % 30.2 % (10-50); Mean Corpuscular HGB Conc 34.8 g/dL (31.8-35.4); Mean Corpuscular Volume 92.2 fl (81-99); Mean Platelet Volume 7.5 fl (7.4-10.4); Monocytes # 0.3 K/mm3 (0.1-1.0); Monocytes % 4.1 % (1.7-9.3); Neutrophils # 4.2 K/mm3 (1.8-7.8); Neutrophils % 61.8 % (37.0-80.0); Platelet Count 310 K/mm3 (142-424); Red Blood Count 4.22 M/mm3 (4.20-5.40); Red Cell Distribution Width 13.9 % (11.5-17.5); White Blood Count 6.8 K/mm3 (4.8-10.8)
[2024-01-03 20:41] LABS: Alanine Aminotransferase 13 U/L (12-78); Albumin Level 4.4 g/dl (3.5-5.0); Albumin/Globulin Ratio 1.3 (1.1-1.8); Alkaline Phosphatase 66 U/L (38-126); Anion Gap 10.5 mEq/L (5-15); Aspartate Amino Transferase 26 U/L (14-36); Bilirubin,Total 0.5 mg/dl (0.2-1.3); Blood Urea Nitrogen 10 mg/dl (7-17); Calcium 9.7 mg/dl (8.4-10.2); Carbon Dioxide 28 mmol/L (22.0-30.0); Chloride 107 mmol/L (98-107); Creatinine Clearance Estimated 88 mL/min (50-200); Estimated Glomerular Filt Rate 78 ml/min (>60); GFR (African American) 94 ML/MIN (>60); Globulin 3.4 g/dL (1.3-3.2); Glucose 79 mg/dl (74-100); Potassium 3.5 mmoL/L (3.5-5.1); Sodium 142 mmol/L (136-145); Total Protein,Serum 7.8 g/dl (6.3-8.2)
[2024-01-03 20:51] LABS: HCG Qualitative, Serum Negative (Negative)
--- NOTE | 2024-01-03 21:03 | CT_ITS ---
PROCEDURE INFORMATION: Exam: CTA Chest With Contrast Exam date and time: 01/03/2024 9:16 PM Age: 23 years old Clinical indication: Pain; Chest pressure; Additional info: Cp, elevated d dimer TECHNIQUE: Imaging protocol: Computed tomographic angiography of the chest with contrast. Exam focused on the arteries. 3D rendering (Not supervised by radiologist): MIP and/or 3D reconstructed images were created by the technologist. Radiation optimization: All CT scans at this facility use at least one of these dose optimization techniques: automated exposure control; mA and/or kV adjustment per patient size (includes targeted exams where dose is matched to clinical indication); or iterative reconstruction. Contrast material: ISOVUE; Contrast volume: 70 ml; Contrast route: INTRAVENOUS (IV); COMPARISON: CT ANGIO CHEST PE PROTOCOL 02/16/2021 12:33 AM FINDINGS: Pulmonary arteries: No CT evidence for pulmonary embolism. Great vessels off aortic arch: The mediastinal structures including the esophagus, trachea, great vessels, and heart show no evidence of injury or acute pathologic processes. Aorta: Unremarkable. No aortic aneurysm. No aortic dissection. Thymus: Residual thymic tissue noted. Lungs: The lungs are clear. Pleural spaces: Unremarkable. No pneumothorax. No pleural effusion. Heart: See Great vessels off aortic arch finding. Lymph nodes: Unremarkable. No enlarged lymph nodes. Bones/joints: Unremarkable. No acute fracture. Soft tissues: Unremarkable. IMPRESSION: 1. No CT evidence for pulmonary embolism. 2. The lungs are clear. 3. Residual thymic tissue noted.
[2024-01-03 21:04] LABS: Troponin I < 0.01 ng/ml (0.00-0.034)
[2024-01-03] MEDS: 0.9 % SODIUM CHLORIDE 50 ML VIAL IV (21:18)
[2024-01-03] MEDS: IOPAMIDOL-370 (76%);100ML BOTTLE 70 ML IV (21:18)
[2024-01-03] MEDS: SODIUM CHLORIDE 0.9% 10ML SYR (RAD ONLY) 10 ML IV (21:18)
[2024-01-03 23:22] VITALS: BP 117/61; PULSE 69; RESP 18; TEMP 37.1; O2SAT 97
== END 2024-01-03 23:31 | disposition home or self-care (01) ==
PROVIDERS: Emergency Provider Emergency Medicine
DX: R07.9 Chest pain, unspecified (principal); Q89.2 Congenital malformations of other endocrine glands; F17.290 Nicotine dependence, other tobacco product, uncomplicated
CPT/HCPCS: 71046; 71275; 80053; 84484; 84703; 85025; 85378; 93005; 99285; Q9967

== ENCOUNTER 2024-01-21 10:58 | Outpatient (CLI) | payer OTHER, SELFPAY ==
[2024-01-21 11:42] LABS: Basophils # 0.1 K/mm3 (0-0.2); Basophils % 0.9 % (0.1-2.0); Eosinophils # 0.1 K/mm3 (0.0-0.4); Eosinophils % 2.2 % (0.1-12.0); Hematocrit 44.5 % (37.0-47.0); Hemoglobin 14.4 g/dL (12.2-16.2); Lymphocytes # 1.6 K/mm3 (0.7-4.5); Lymphocytes % 28.9 % (10-50); Mean Corpuscular HGB Conc 32.3 g/dL (31.8-35.4); Mean Corpuscular Hemoglobin 29.6 pg (27.0-31.2); Mean Corpuscular Volume 91.6 fl (81-99); Monocytes # 0.2 K/mm3 (0.1-1.0); Monocytes % 3.8 % (1.7-9.3); Neutrophils # 3.6 K/mm3 (1.8-7.8); Neutrophils % 64.1 % (37.0-80.0); Platelet Count 349 K/mm3 (142-424); Red Blood Count 4.86 M/mm3 (4.20-5.40); Red Cell Distribution Width 13.8 % (11.5-17.5); White Blood Count 5.6 K/mm3 (4.8-10.8)
[2024-01-21 12:20] LABS: Albumin Level 4.8 g/dl (3.5-5.0); Chloride 107 mmol/L (98-107); Sodium 141 mmol/L (136-145)
[2024-01-21 12:21] LABS: Potassium 4.1 mmoL/L (3.5-5.1)
[2024-01-21 12:23] LABS: Alanine Aminotransferase 8 U/L (12-78); Albumin/Globulin Ratio 1.5 (1.1-1.8); Alkaline Phosphatase 71 U/L (38-126); Anion Gap 12.1 mEq/L (5-15); Aspartate Amino Transferase 22 U/L (14-36); Bilirubin,Total 0.5 mg/dl (0.2-1.3); Blood Urea Nitrogen 14 mg/dl (7-17); Carbon Dioxide 26 mmol/L (22.0-30.0); Estimated Glomerular Filt Rate 69 ml/min (>60); GFR (African American) 83 ML/MIN (>60); Globulin 3.1 g/dL (1.3-3.2); Total Protein,Serum 7.9 g/dl (6.3-8.2)
[2024-01-21 12:24] LABS: Calcium 9.8 mg/dl (8.4-10.2); Glucose 83 mg/dl (74-100)
[2024-01-21 12:50] LABS: HCG,Quantitative < 2 mIU/ml (0-5.42)
== END 2024-01-21 23:59 | disposition home or self-care (01) ==
LOC: LAB 10:58
PROVIDERS: Visit Provider Obstetrics & Gynecology
DX: Z30.2 Encounter for sterilization (principal)
CPT/HCPCS: 36415; 80053; 84702; 85025

== ENCOUNTER 2024-01-28 07:07 | Day surgery (SDC) | payer OTHER, SELFPAY ==
[2024-01-27 11:33] VITALS: BMI 20.2
[2024-01-28] VITALS (10 sets, daily range): BP systolic 105–126; BP diastolic 55–93; PULSE 75–103; RESP 14–18; TEMP 36.2–36.6; O2SAT 98–100; BMI 20.2
[2024-01-28 07:32] LABS: Urine Pregnancy, HCG Qual. Negative (Negative)
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
--- NOTE | 2024-01-28 09:41 | EXP.ANES.I ---
[facility] Anesthesia Record Part I Anesthesia Record I Intake, IV Amount: 900 Hydration: Adequate Estimated blood loss (mL): 5 Urine output (mL): 0 Blood Products used (#): none Blood Pressure: 125/93 SaO2: 99 Pulse Rate: 103 Airway Patency: Patent Respiratory Rate: 14 Temperature: 97.8 F Patient is:: Drowsy and Stable
--- NOTE | 2024-01-28 09:59 | EXP.OP.NOTE ---
Date of procedure: 01/28/24 Pre-op Diagnosis:: 1. Desires permanent sterilization 2. Acute pelvic pain Post-op Diagnosis:: 1. Desires permanent sterilization 2. Acute pelvic pain 3. Unicornuate uterus Procedure performed:: 1. Laparoscopy, right salpingectomy 2. Diagnostic hysteroscopy, dilation and curettage Surgeon:: Kathy Jiménez DO Performance Engineer(s):: N/a NECK BAND SETTER:: Neel Matthews Anesthesia: GETA Estimated blood loss (mL): 5 Clinical Note:: Ms Kelin Peterson is a 23 yo P2012 who presents to [facility] for scheduled surgery. She is complete with childbearing and desires permanent sterilization. She is using Depo Provera currently for AUB and contraception. She is not having periods but admits to cramping/pelvic pain around the time of her periods. History of x 2. Operative findings:: 1. On bimanual exam, uterus normal size deviated to the right. No adnexal masses. Cervix appears grossly normal 2. On laparoscopic exam liver, stomach and bowel grossly normal. Gallbladder surgically absent. Uterus noted to be unicornuate with right fallopian tube. Grossly normal appearing bilateral ovaries. 3. On hysteroscopic exam, unicornuate uterus. Right tubal ostia easily visualized. Scant normal appearing endometrial tissue Operative note:: Risks, benefits and alternatives were discussed with the patient. Risks include but are not limited to bleeding, infection, damage to adjacent structures and VTE. Patient voiced understanding and agreed to proceed with surgery. She was wheeled back to the operating room and placed under general anesthesia without difficulty. She was placed in the dorsal lithotomy position and prepped and draped in normal sterile fashion. A straight catheter was used to drain the bladder. A bimanual exam was performed. A weighted Auvard was placed in the vaginal vault. A single tooth tenaculum was placed on the anterior lip of the cervix. Braden manipulator was inserted into the cervical canal and attached to the tenaculum. Weighted Auvard was removed from the vagina. Attention was then drawn to the abdomen. A 1.5 cm infraumbilical incision was made. Veress needle was tested and inserted intraabdominally without difficulty. Opening pressure of 3 mm Hg. Abdomen was then insulflated to 15 mm Hg. Trocar was inserted through infraumbilical incision and laparoscope was inserted. Abdomen was viewed in its entirety. See findings above. Pictures were taken. Left lower quadrant was transilluminated. 5 mm incision was made and 5 mm disposable blunt trocar was inserted into the abdomen under direct laparoscopic visualization. Trocar was removed and sleeve was left in place. Right lower quadrant was transilluminated. A 5 mm incision was made and a 5mm disposable trocar was inserted into the abdomen under direct laparoscopic visualization. Obturator was removed and sleeve was left in place. Fimbriated end of right fallopian tube was grasped. Ligasure was used to transect the right mesosalpinx and fallopian tube at uterine cornua, leaving right ovary in situ. Right fallopian tubes will be sent to pathology for review. Hemostasis was noted. Left lower quadrant trocar was removed under direct laparoscopic visualization. Right lower quadrant trocar was removed under direct laparoscopic visualization. Pneumoperitoneum was released into the atmosphere. Infraumbilical trocar was removed under direct laparoscopic visualization to ensure no herniation of bowel or omentum. Skin incisions were closed with 3-0 Vicryl. Dermabond was applied over closed skin incisions. Braden manipulator removed from the cervix. Single tooth tenaculum remained on anterior lip of cervix. Uterus sounded to 8. Sequential Eddie dilators were used to dilate the cervical os. Hysteroscope was tested inserted through the cervix without difficulty. Endometrial cavity was evaluated. See findings above. Pictures were taken. Hysteroscope was removed. A medium size sharp curette was inserted through the cervi
--- NOTE | 2024-01-28 10:48 | EXP.ANES.II ---
[facility] Anesthesia Record Part II Anesthesia Record Part II Discharge Time: 09:59 Destination: Surgical Day Care (OP Surgery) PACU nurse assessment reviewed?: Yes Patient Condition:: Good Anesthesia Complications:: None Swallowing reflex intact?: Yes Airway Patency: Patent Cyanosis?: No Blood Pressure: 108/68 SaO2: 100 Respiratory Rate: 18 Pulse Rate: 76 Temperature: 97.8 F Mental Status: Alert & Oriented Pain level:: 10 Nausea and/or vomitting:: None Intake, IV Amount: 0 Hydration: Adequate
== END 2024-01-28 10:42 | disposition home or self-care (01) ==
PROVIDERS: Visit Provider Obstetrics & Gynecology
PROC: (CPT 58661; principal; 2024-01-28 08:30)
DX: Z30.2 Encounter for sterilization (principal); R10.2 Pelvic and perineal pain; Q51.4 Unicornate uterus
CPT/HCPCS: 58661; 58558; 81025; J3490; J1100; J1170; J1885; J2175; J2405; J3010; J7120

== ENCOUNTER 2024-01-30 13:39 | Emergency (ER) | payer OTHER, SELFPAY ==
--- NOTE | 2024-01-30 13:34 | ECG_ITS ---
APPROVED REPORT Exam: Resting ECG HR:73 bpm ECG Measurements Heart Rate 73 AXES WV 136 P 52 QRSd 85 QRS 81 QT 348 T 18 QTc 374 Conclusion Sinus rhythm Nondiagnostic T wave abnormalities not guest experience representative of anatomical lesion Electronically signed by : CHRISTIANO PAL, 01/30/2024 20:11:33
[2024-01-30 13:40] VITALS: BP 108/62; PULSE 83; RESP 18; TEMP 37.1; O2SAT 98; BMI 20.2
--- NOTE | 2024-01-30 14:10 | PC.NURSE ---
CHING CROWDER AT BEDSIDE
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
--- NOTE | 2024-01-30 14:49 | PC.NURSE ---
PT CALLED OUT, RN AT BEDSIDE. REQUEST TO LEAVE. STATES I WANNA GO HOME AND TAKE A SHOWER AND SEE IF I FEEL BETTER INFORMED OF PLAN OF CARE AND MEDICATIONS HAVE BEEN ORDERED. PT REQUEST TO GET MEDS AND LEAVE. INFORMED PT THAT SHE WILL NEED TO STAY AT LEAST 15 MINUTES AFTER INJECTION. PT REQUESTS TO LEAVE WITHOUT FURTHER TREATMENT
[2024-01-30 14:53] VITALS: BP 110/61; PULSE 70; RESP 18; TEMP 36.7; O2SAT 98
== END 2024-01-30 14:56 | disposition left against medical advice (07) ==
PROVIDERS: Emergency Provider Emergency Medicine
DX: R10.13 Epigastric pain (principal); G89.18 Other acute postprocedural pain; Z98.51 Tubal ligation status
CPT/HCPCS: 93005; 99283

== ENCOUNTER 2024-03-29 16:13 | Emergency (ER) | payer OTHER, SELFPAY ==
[2024-03-29 17:08] VITALS: BP 97/67; PULSE 83; RESP 18; TEMP 36.6; O2SAT 98; BMI 21.6
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
[2024-03-29 17:34] VITALS: BP 97/67; PULSE 83; RESP 18; TEMP 36.6
== END 2024-03-29 17:35 | disposition home or self-care (01) ==
PROVIDERS: Emergency Provider Nurse Practitioner Family
DX: J01.80 Other acute sinusitis (principal)
CPT/HCPCS: 99213; G0381

== ENCOUNTER 2024-06-06 12:42 | Outpatient (CLI) | payer OTHER, SELFPAY ==
--- NOTE | 2024-06-06 12:45 | US_ITS ---
PROCEDURE: US TRANSVAGINAL CLINICAL INDICATION: COMPARISON: CT [id number] CT ABD PELVIS W/ CONTRAST from 03/13/[address] ABDOMEN PELVIS W CON from 06/21/[address] ABDOMEN PELVIS W CON from 07/02/2022 US US OB BIOPHYSICAL PROFILE from 06/14/2023 FINDINGS: Transvaginal sonographic images of the pelvis were obtained. UTERUS: 5.7 cm x 2.7 cmx 2.7 cm anteverted with a combined endometrial thickness of 4.1mm. LEFT OVARY: 1.8x1.9x1.6 RIGHT OVARY: 1.7 cmx 1.8 cmx2.6 cm with a volume of 4.1ml. There are multiple small follicles within the ovary. Both ovaries are seen and appear normal. Doppler flow to both ovaries are seen. There is no fluid in the cul-de-sac. IMPRESSION: 1. Anteverted, small uterus normal in shape. Unusually small uterus given the patient's obstetrical history. This could represent a unicornuate uterus. MRI might be better able to differentiate this anatomy if deemed clinically relevant. The endometrium is thin. 2. Both ovaries are seen and appear normal. The right ovary has a polycystic appearance. 3. No fluid in the cul-de-sac. Dictated by: Sebastian Deshpande MD 06/06/2024 14:49 Sebastian Deshpande MD in OV 06/06/2024 14:49
== END 2024-06-06 23:59 | disposition home or self-care (01) ==
LOC: RAD 12:42
PROVIDERS: Visit Provider Obstetrics & Gynecology
DX: R10.2 Pelvic and perineal pain (principal)
CPT/HCPCS: 76830

== ENCOUNTER 2024-07-07 23:15 | Emergency (ER) | payer OTHER, SELFPAY ==
[2024-07-07 23:18] VITALS: BP 123/83; PULSE 90; RESP 20; TEMP 36.8; O2SAT 100; BMI 22.6
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
[2024-07-07 23:48] LABS: Microscopic, Urine URINE MICROSCOPIC (MICROSCOPIC)
[2024-07-07 23:49] LABS: Appearance,Urine CLEAR (Clear); Bilirubin,Urine Negative (Negative); Blood, Urine Negative (Negative); Color,Urine YELLOW (Yellow); Glucose,Urine (UA) Negative (Negative); Ketones,Urine Negative (Negative); Leukocyte Esterase,Urine 1+ (Negative); Nitrate,Urine Negative (Negative); Protein,Urine Negative (Negative); Specific Gravity, Urine >= 1.030 (1.005-1.030); Urobilinogen,Urine 0.2 EU/dl (0.2)
[2024-07-08 00:01] LABS: Bacteria,Urine Trace /lpf
[2024-07-08 00:17] LABS: Red Blood Count 4.75 M/mm3 (4.20-5.40)
[2024-07-08 00:18] LABS: Hematocrit 41.5 % (37.0-47.0); Hemoglobin 13.6 g/dL (12.2-16.2); Lymphocytes % 25.9 % (10-50); Mean Corpuscular HGB Conc 32.8 g/dL (31.8-35.4); Mean Corpuscular Hemoglobin 28.6 pg (27.0-31.2); Mean Corpuscular Volume 87.4 fl (81-99); Mean Platelet Volume 10.7 fl (7.4-10.4); Monocytes % 3.8 % (1.7-9.3); Neutrophils % 65.9 % (37.0-80.0); Platelet Count 99 K/mm3 (142-424); Red Cell Distribution Width 13.3 % (11.5-17.5)
[2024-07-08 00:19] LABS: Basophils # 0.1 K/mm3 (0-0.2); Eosinophils # 0.2 K/mm3 (0.0-0.4); Lymphocytes # 1.3 K/mm3 (0.7-4.5); Monocytes # 0.2 K/mm3 (0.1-1.0); Neutrophils # 3.3 K/mm3 (1.8-7.8)
[2024-07-08 00:23] LABS: Alanine Aminotransferase 16 U/L (12-78); Albumin Level 5.4 g/dl (3.5-5.0); Albumin/Globulin Ratio 1.6 (1.1-1.8); Alkaline Phosphatase 69 U/L (38-126); Anion Gap 18.1 mEq/L (5-15); Aspartate Amino Transferase 56 U/L (14-36); Bilirubin,Total 1.2 mg/dl (0.2-1.3); Blood Urea Nitrogen 14 mg/dl (7-17); Calcium 9.5 mg/dl (8.4-10.2); Carbon Dioxide 23 mmol/L (22.0-30.0); Chloride 103 mmol/L (98-107); Creatinine Clearance Estimated 107 mL/min (50-200); Estimated Glomerular Filt Rate 89 ml/min (>60); GFR (African American) 108 ML/MIN (>60); Globulin 3.4 g/dL (1.3-3.2); Glucose 82 mg/dl (74-100); Potassium 4.1 mmoL/L (3.5-5.1); Sodium 140 mmol/L (136-145); Total Protein,Serum 8.8 g/dl (6.3-8.2)
[2024-07-08 00:40] LABS: HCG,Quantitative < 2 mIU/ml (0-5.42)
--- NOTE | 2024-07-08 00:45 | CT_ITS ---
PROCEDURE INFORMATION: Exam: CT Abdomen And Pelvis With Contrast Exam date and time: 07/08/2024 1:04 AM Age: 23 years old Clinical indication: Abdominal pain; Localized; Left lower quadrant (llq); Additional info: Low abd pain, llq palpable mass TECHNIQUE: Imaging protocol: Computed tomography of the abdomen and pelvis with contrast. Radiation optimization: All CT scans at this facility use at least one of these dose optimization techniques: automated exposure control; mA and/or kV adjustment per patient size (includes targeted exams where dose is matched to clinical indication); or iterative reconstruction. Contrast material: ISOVUE; Contrast volume: 75 ml; Contrast route: IV; COMPARISON: CT ABDOMEN PELVIS W CON 07/02/2022 8:52 PM FINDINGS: Lungs: No acute finding. Liver: Normal. No mass. Gallbladder and biliary ducts: The gallbladder is absent. There is no biliary ductal dilation. Pancreas: Normal. No ductal dilation. Spleen: Normal. No splenomegaly. Adrenal glands: Normal. No mass. Kidneys and ureters: Normal. No hydronephrosis. Stomach and bowel: Unremarkable. No obstruction. No mucosal thickening. Significant fecal content throughout the colon. Appendix: No evidence of appendicitis. Intraperitoneal space: Unremarkable. No free air. No significant fluid collection. Vasculature: Unremarkable. No abdominal aortic aneurysm. Lymph nodes: Unremarkable. No enlarged lymph nodes. Urinary bladder: Unremarkable as visualized. Reproductive: Unremarkable as visualized. Bones/joints: Unremarkable. No acute fracture. Soft tissues: Unremarkable. IMPRESSION: There is no acute process evident within the abdomen and pelvis. Significant fecal content is present throughout the colon.
[2024-07-08] MEDS: KETOROLAC 30MG/ML VIAL 15 MG IV (01:05)
[2024-07-08] MEDS: LACTATED RINGERS 1000ML 1,000 ML 999 ML IV (01:05)
[2024-07-08] MEDS: ONDANSETRON 4MG/2ML VIAL 4 MG IV (01:05)
[2024-07-08] MEDS: SODIUM CHLORIDE 0.9% 10ML SYR (RAD ONLY) 10 ML IV (01:11)
[2024-07-08] MEDS: IOPAMIDOL-370 (76%);100ML BOTTLE 75 ML IV (01:11)
--- NOTE | 2024-07-08 01:51 | PC.NURSE ---
water given for PO challenege. Pt reports slight decrease in pain.
--- NOTE | 2024-07-08 01:52 | PC.NURSE ---
provider at the bedside
[2024-07-08 02:18] VITALS: BP 123/83; PULSE 90; RESP 18; TEMP 36.8; O2SAT 99
== END 2024-07-08 02:27 | disposition home or self-care (01) ==
PROVIDERS: Emergency Provider Emergency Medicine
DX: K56.1 Intussusception (principal); R10.32 Left lower quadrant pain
CPT/HCPCS: 36415; 74177; 80053; 81001; 84702; 85025; 86900; 86901; 87086; 96361; 96374; 96375; 99285; J1885; J2405; J7120; Q9967

== ENCOUNTER 2024-07-09 20:00 | Emergency (ER) | payer OTHER, SELFPAY ==
[2024-07-09 20:00] VITALS: BP 132/71; PULSE 86; RESP 16; TEMP 36.8; O2SAT 100; BMI 22.6
--- NOTE | 2024-07-09 20:01 | ECG_ITS ---
APPROVED REPORT Exam: Resting ECG HR:72 bpm ECG Measurements Heart Rate 72 AXES VA 137 P 31 QRSd 93 QRS 81 QT 368 T 21 QTc 392 Conclusion SINUS RHYTHM WITH SINUS ARRHYTHMIA NORMAL ECG UNCONFIRMED REPORT Electronically signed by : GABRIELLE LAMBERT, 07/14/2024 00:02:37
[2024-07-09 20:14] VITALS: BP 104/61; PULSE 66; RESP 14; O2SAT 100
--- NOTE | 2024-07-09 20:27 | XR_ITS ---
PROCEDURE INFORMATION: Exam: XR Chest Exam date and time: 07/09/2024 8:42 PM Age: 23 years old Clinical indication: Other: Substernal pain TECHNIQUE: Imaging protocol: Radiologic exam of the chest. Views: 2 views. COMPARISON: CT ANGIO CHEST PE PROTOCOL 01/03/2024 9:16 PM FINDINGS: Lungs: No consolidation. Pleural spaces: No pleural effusion. No pneumothorax. Heart/Mediastinum: No cardiomegaly. Bones/joints: No acute findings. IMPRESSION: No acute findings.
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
[2024-07-09 20:32] LABS: Coronavirus 19, PCR Not Detected (NotDetected); Influenza A, PCR Not Detected (NotDetected); Influenza B, PCR Not Detected (NotDetected)
[2024-07-09] MEDS: BELLADONNA ALKALOIDS 60 ML ML PO (20:36)
[2024-07-09] MEDS: KETOROLAC 30MG/ML VIAL 30 MG IV (20:36)
[2024-07-09] MEDS: ACETAMINOPHEN 500MG TAB 1000 MG PO (20:36)
[2024-07-09 20:37] LABS: Basophils % 0.5 % (0.1-2.0); Eosinophils # 0.1 K/mm3 (0.0-0.4); Eosinophils % 2.2 % (0.1-12.0); Hematocrit 39.6 % (37.0-47.0); Hemoglobin 13.1 g/dL (12.2-16.2); Lymphocytes % 16.6 % (10-50); Mean Corpuscular HGB Conc 33.1 g/dL (31.8-35.4); Mean Corpuscular Hemoglobin 28.9 pg (27.0-31.2); Mean Corpuscular Volume 87.2 fl (81-99); Mean Platelet Volume 10.1 fl (7.4-10.4); Monocytes # 0.3 K/mm3 (0.1-1.0); Monocytes % 4.7 % (1.7-9.3); Neutrophils # 4.6 K/mm3 (1.8-7.8); Neutrophils % 75.8 % (37.0-80.0); Platelet Count 176 K/mm3 (142-424); Red Blood Count 4.54 M/mm3 (4.20-5.40); Red Cell Distribution Width 13.2 % (11.5-17.5)
[2024-07-09 20:50] LABS: HCG Qualitative, Serum Negative (Negative)
[2024-07-09 21:30] LABS: Alanine Aminotransferase 19 U/L (12-78); Albumin/Globulin Ratio 1.7 (1.1-1.8); Alkaline Phosphatase 70 U/L (38-126); Anion Gap 17.4 mEq/L (5-15); Aspartate Amino Transferase 30 U/L (14-36); Bilirubin,Total 0.4 mg/dl (0.2-1.3); Blood Urea Nitrogen 12 mg/dl (7-17); Calcium 9.3 mg/dl (8.4-10.2); Carbon Dioxide 24 mmol/L (22.0-30.0); Chloride 103 mmol/L (98-107); Creatinine Clearance Estimated 107 mL/min (50-200); Estimated Glomerular Filt Rate 89 ml/min (>60); GFR (African American) 108 ML/MIN (>60); Globulin 2.9 g/dL (1.3-3.2); Glucose 75 mg/dl (74-100); Potassium 3.4 mmoL/L (3.5-5.1); Sodium 141 mmol/L (136-145); Total Protein,Serum 7.9 g/dl (6.3-8.2)
[2024-07-09 21:34] LABS: D-Dimer 0.58 ug/mL (0.0-0.5)
[2024-07-09 21:36] LABS: Lipase 257 U/L (23-300)
[2024-07-09 22:11] LABS: Troponin I < 0.01 ng/ml (0.00-0.034)
[2024-07-09 23:10] LABS: Troponin I < 0.01 ng/ml (0.00-0.034)
[2024-07-09 23:22] VITALS: BP 114/66; PULSE 84; RESP 16; TEMP 37; O2SAT 99
== END 2024-07-09 23:23 | disposition home or self-care (01) ==
PROVIDERS: Emergency Provider Emergency Medicine
DX: R07.9 Chest pain, unspecified (principal); R42 Dizziness and giddiness; R55 Syncope and collapse; F17.290 Nicotine dependence, other tobacco product, uncomplicated; Z20.822 Contact with and (suspected) exposure to COVID-19
CPT/HCPCS: 71046; 80053; 83690; 84484; 84703; 85025; 85378; 87636; 93005; 96374; 99284; J1885

== ENCOUNTER 2024-08-02 15:00 | Outpatient (CLI) | payer OTHER, SELFPAY ==
[2024-08-02 20:19] LABS: Potassium 3.6 mmoL/L (3.5-5.1)
[2024-08-02 22:21] LABS: Hepatitis C Ab Qual. W/ RFX NEGATIVE (Negative)
== END 2024-08-02 23:59 | disposition home or self-care (01) ==
LOC: LAB.DROPOF 08-03 11:13
PROVIDERS: PCP Internal Medicine; Visit Provider Internal Medicine
DX: Z00.00 Encounter for general adult medical examination without abnormal findings (principal)
CPT/HCPCS: 83036; 84132; 86803

== ENCOUNTER 2024-08-15 15:15 | Outpatient (CLI) | payer OTHER, SELFPAY ==
[2024-08-15 15:52] LABS: Basophils % 0.5 % (0.1-2.0); Eosinophils # 0.1 K/mm3 (0.0-0.4); Eosinophils % 2.2 % (0.1-12.0); Hematocrit 43.3 % (37.0-47.0); Hemoglobin 14.5 g/dL (12.2-16.2); Lymphocytes # 0.6 K/mm3 (0.7-4.5); Lymphocytes % 16.1 % (10-50); Mean Corpuscular HGB Conc 33.5 g/dL (31.8-35.4); Mean Corpuscular Hemoglobin 28.8 pg (27.0-31.2); Mean Corpuscular Volume 86.1 fl (81-99); Mean Platelet Volume 8.2 fl (7.4-10.4); Monocytes # 0.2 K/mm3 (0.1-1.0); Monocytes % 5.4 % (1.7-9.3); Neutrophils # 2.8 K/mm3 (1.8-7.8); Neutrophils % 75.5 % (37.0-80.0); Platelet Count 299 K/mm3 (142-424); Red Blood Count 5.03 M/mm3 (4.20-5.40); Red Cell Distribution Width 12.9 % (11.5-17.5); White Blood Count 3.7 K/mm3 (4.8-10.8)
[2024-08-15 16:15] LABS: Albumin Level 5.3 g/dl (3.5-5.0); Chloride 104 mmol/L (98-107); Potassium 3.7 mmoL/L (3.5-5.1); Sodium 139 mmol/L (136-145)
[2024-08-15 16:17] LABS: Bilirubin,Unconjugated 0.7 mg/dL (0.0-1.1); Blood Urea Nitrogen 12 mg/dl (7-17); Estimated Glomerular Filt Rate 78 ml/min (>60); GFR (African American) 94 ML/MIN (>60)
[2024-08-15 16:18] LABS: Alanine Aminotransferase 12 U/L (12-78); Alkaline Phosphatase 91 U/L (38-126); Anion Gap 12.7 mEq/L (5-15); Aspartate Amino Transferase 26 U/L (14-36); Bilirubin,Direct 0.2 mg/dl (0.0-0.4); Bilirubin,Indirect 0.7 mg/dL (0.0-0.9); Bilirubin,Total 0.9 mg/dl (0.2-1.3); Calcium 9.8 mg/dl (8.4-10.2); Carbon Dioxide 26 mmol/L (22.0-30.0); Chol/HDL Ratio 2.1 (1-3.5); Cholesterol 143 mg/dl (140-200); Glucose 71 mg/dl (74-100); HDL Cholesterol 68 mg/dl (40-60); Total Protein,Serum 8.2 g/dl (6.3-8.2); Triglycerides 61 mg/dl (30-150); VLDL Cholesterol 12 mg/dL (0-40)
[2024-08-15 16:30] LABS: Direct LDL Cholesterol 48.43 mg/dL (100-129)
[2024-08-15 16:33] LABS: Free T4 (Free Thyroxine) 1.35 ng/dl (0.78-2.19)
[2024-08-15 16:49] LABS: Thyroid Stimulating Hormone 0.38 uIU/mL (0.465-4.68)
== END 2024-08-15 23:59 | disposition home or self-care (01) ==
PROVIDERS: PCP Internal Medicine; Visit Provider Nurse Practitioner
DX: R00.2 Palpitations (principal); I42.8 Other cardiomyopathies; I10 Essential (primary) hypertension; E16.2 Hypoglycemia, unspecified; E87.6 Hypokalemia
CPT/HCPCS: 36415; 80048; 80061; 80076; 84439; 84443; 85025; 93270

== ENCOUNTER 2024-09-12 17:38 | Emergency (ER) | payer OTHER, SELFPAY ==
--- NOTE | 2024-09-12 17:39 | ECG_ITS ---
APPROVED REPORT Exam: Resting ECG HR:87 bpm ECG Measurements Heart Rate 87 AXES FL 139 P 62 QRSd 90 QRS 85 QT 337 T 36 QTc 381 Conclusion SINUS RHYTHM NONSPECIFIC T-WAVE ABNORMALITY BORDERLINE ECG Electronically signed by : JANET AMBROSIO, 09/12/2024 22:20:07
[2024-09-12 17:42] VITALS: BP 108/70; PULSE 95; RESP 22; O2SAT 100
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
[2024-09-12 17:47] VITALS: BP 108/70; PULSE 100; RESP 16; TEMP 36.8; O2SAT 99; BMI 19.3
[2024-09-12 18:00] VITALS: BP 103/64; PULSE 79; RESP 20; O2SAT 99
[2024-09-12 18:03] VITALS: PULSE 90
[2024-09-12 18:04] LABS: Basophils % 0.9 % (0.1-2.0); Eosinophils # 0.1 Kmm3 (0.0-0.4); Hematocrit 39.3 % (37.0-47.0); Hemoglobin 13.2 g/dL (12.2-16.2); Lymphocytes % 22.6 % (10-50); Mean Corpuscular HGB Conc 33.6 g/dL (31.8-35.4); Mean Corpuscular Hemoglobin 28.8 pg (27.0-31.2); Mean Corpuscular Volume 85.8 fl (81-99); Mean Platelet Volume 8.4 fl (7.4-10.4); Monocytes # 0.3 K/mm3 (0.1-1.0); Monocytes % 5.7 % (1.7-9.3); Neutrophils % 68.6 % (37.0-80.0); Nucleated Red Blood Cells # 0 10^3/uL; Nucleated Red Blood Cells % 0 %; Platelet Count 278 K/mm3 (142-424); Red Blood Count 4.58 M/mm3 (4.20-5.40); Red Cell Distribution Width 12.7 % (11.5-17.5); Red Cell Distribution Width-SD 39.8 fL; White Blood Count 4.4 K/mm3 (4.8-10.8)
[2024-09-12] MEDS: ONDANSETRON 4MG/2ML VIAL 4 MG IV (18:07)
[2024-09-12] MEDS: ACETAMINOPHEN 1,000MG/100ML VIAL 1000 MG IV (18:07)
[2024-09-12 18:19] VITALS: BP 97/58; PULSE 67; RESP 20; O2SAT 100
[2024-09-12 18:33] LABS: Microscopic, Urine URINE MICROSCOPIC (MICROSCOPIC)
[2024-09-12 18:36] LABS: Appearance,Urine CLEAR (Clear); Bilirubin,Urine Negative (Negative); Blood, Urine Negative (Negative); Glucose,Urine (UA) Negative (Negative); Ketones,Urine Negative (Negative); Leukocyte Esterase,Urine TRACE (Negative); Nitrate,Urine Negative (Negative); Protein,Urine Negative (Negative); Specific Gravity, Urine >= 1.030 (1.005-1.030); Urobilinogen,Urine 0.2 EU/dl (0.2)
[2024-09-12 18:40] LABS: HCG Qualitative, Serum Negative (Negative)
[2024-09-12 18:40] LABS: Urine Pregnancy, HCG Qual. Negative (Negative)
[2024-09-12 18:45] LABS: Triiodothryronine (T3) Uptake 35 % (23.5-40.5)
[2024-09-12 18:46] LABS: Free Thyroxine Index 3.2 ug/dL (5.93-13.13); T4 (Thyroxine) 9.1 ug/dl (5.53-11.0)
[2024-09-12 18:47] LABS: Alanine Aminotransferase 11 U/L (12-78); Albumin Level 4.9 g/dl (3.5-5.0); Albumin/Globulin Ratio 1.4 (1.1-1.8); Alkaline Phosphatase 70 U/L (38-126); Anion Gap 13.2 mEq/L (5-15); Aspartate Amino Transferase 26 U/L (14-36); Bilirubin,Total 0.7 mg/dl (0.2-1.3); Blood Urea Nitrogen 10 mg/dl (7-17); Calcium 9.8 mg/dl (8.4-10.2); Carbon Dioxide 25 mmol/L (22.0-30.0); Chloride 107 mmol/L (98-107); Creatinine Clearance Estimated 73 mL/min (50-200); Estimated Glomerular Filt Rate 69 ml/min (>60); GFR (African American) 83 ML/MIN (>60); Globulin 3.6 g/dL (1.3-3.2); Glucose 78 mg/dl (74-100); Potassium 3.2 mmoL/L (3.5-5.1); Sodium 142 mmol/L (136-145); Total Protein,Serum 8.5 g/dl (6.3-8.2)
[2024-09-12 18:51] LABS: D-Dimer 0.81 ug/mL (0.0-0.5)
[2024-09-12 18:59] LABS: NT Pro Brain Natriuretic Pep. 65.8 pg/mL (0-125); Thyroid Stimulating Hormone 0.15 uIU/mL (0.465-4.68); Troponin I < 0.01 ng/ml (0.00-0.034)
[2024-09-12 19:00] LABS: Color,Urine Dark Yellow (Yellow)
[2024-09-12 19:16] LABS: Bacteria,Urine 1+ /lpf; Mucus,Urine 1+ /lpf
--- NOTE | 2024-09-12 19:17 | PC.NURSE ---
Report received from Chloé GODINEZ Skin pale warm and dry Resp full and easy Speech clear and appropriate. IV site without redness or edema Pt given food with appropval. Pt pain free at this time
[2024-09-12 19:28] VITALS: BP 97/58; PULSE 70; RESP 16; TEMP 36.6
[2024-09-14 11:03] LABS: HIV Combo NEGATIVE (Negative)
== END 2024-09-12 19:33 | disposition home or self-care (01) ==
PROVIDERS: Physician Assistant; Emergency Provider Emergency Medicine
DX: R07.89 Other chest pain (principal); E87.6 Hypokalemia; R55 Syncope and collapse; Z11.4 Encounter for screening for human immunodeficiency virus [HIV]
CPT/HCPCS: 80053; 81001; 81025; 83735; 83880; 84436; 84443; 84479; 84484; 84703; 85025; 85378; 87389; 93005; 96374; 96375; 99291; J0131; J2405

== ENCOUNTER 2024-09-19 13:44 | Outpatient (CLI) | payer OTHER, SELFPAY ==
--- NOTE | 2024-09-19 13:45 | US_ITS ---
PROCEDURE: US TRANSVAGINAL CLINICAL INDICATION: Pelvic pain, amenorrhea COMPARISON: US US OB TRANSVAGINAL from 03/30/2021 US US OB TRANSVAGINAL from 04/01/2021 US US OB TRANSVAGINAL from 04/25/[address] ABDOMEN PELVIS W CON from 07/02/2022 US US TRANSVAGINAL from 06/06/[address] ABDOMEN PELVIS W CON from 07/08/2024 FINDINGS: Transvaginal and transabdominal sonographic images of the pelvis were obtained. UTERUS: 6.3cm x 2.8 cm x 2.4cm anteverted and unicornuate with a combined endometrial thickness of 3.1mm. The endometrium appears trilaminar. There appears to be some pelvic congestion on the left side of the uterus. There are enlarged varicose veins. LEFT OVARY: [id number] with a volume of 4.5ml. The left ovary could only be seen transabdominally. RIGHT OVARY: 2cmx [id number] with a volume of 3.2ml. There are multiple peripheral follicles giving the ovary a polycystic appearance. Both ovaries are seen and appear normal. Doppler flow to both ovaries are seen. There is no fluid in the cul-de-sac. IMPRESSION: 1. Anteverted, small Uni- cornuate uterus. The endometrium is thin measuring 3.1 mm and appears trilaminar. 2. There appears to be pelvic congestion on the left side of the uterus with varicosities seen. 3. The right ovary is seen and appears normal with multiple small peripheral follicles giving the ovary a polycystic appearance. 4. The left ovary could only be seen transabdominally and appears normal. 5. No fluid in the cul-de-sac. Dictated by: Sebastian Deshpande MD 09/19/2024 15:29 Sebastian Deshpande MD in OV 09/19/2024 15:29
== END 2024-09-19 23:59 | disposition home or self-care (01) ==
LOC: RAD 13:45
PROVIDERS: Visit Provider Obstetrics & Gynecology
DX: R10.2 Pelvic and perineal pain (principal)
CPT/HCPCS: 76830

== ENCOUNTER 2024-09-26 07:52 | Outpatient (CLI) | payer OTHER, SELFPAY ==
--- NOTE | 2024-09-26 | CA_ITS ---
APPROVED REPORT Exam: Exercise Treadmill Technologist: Smiley Garcia Ht: 5 ft 5 in Wt: 113 lbs BSA: 1.55 m2 HR: 62 bpm BP: 95/53 mmHg Rhythm: NSR Stress Test Details Test: Exercise stress testing was performed using a Nick protocol. HR Resting HR: 62 bpm Max Heart Rate (APMHR): 197 bpm Max HR Achieved: 173 bpm Target HR (85% APMHR): 167 bpm % of APMHR: 88 Recovery HR: 95 bpm HR response to stress: Normal HR response to stress BP Resting BP: 95.0/53.0 mmHg Max BP: 135.0/75.0 mmHg Recovery BP: 123.0/71.0 mmHg BP response to stress: Normal blood pressure response to stress. ECG Resting ECG: Sinus rhythm Stress EC.[address] depression Clinical Exercise duration: 7:00 min Exercise capacity: 8.6 METs Stress ECG Conclusion Symptoms: Chest tightness, leg fatigue Arrhythmias/Ectopy: None ST-T Changes:0.[address] depression Conclusion: Average exercise capacity. No evidence of ischemia on ECG at peak stress. Myoview images are reported separately. Electronically signed by : Nicki Jordan MD 09/26/2024 12:17:19
--- NOTE | 2024-09-26 | CA_ITS ---
APPROVED REPORT EXAM: Comprehensive 2D, Doppler, and color-flow Echocardiogram Railroad Car Repairman: Darcy Mcgill RT(R) Ht: 5 ft 5 in Wt: 116lbs BSA: 1.57 BP: 117/72 mmHg Indications: HTN, CP, smoker, fatigue, SOB, tachycardia 2D Dimensions EF AP4 50.00 % GL Strain -12.2 % M-Mode Dimensions RVDd 1.37 cm (0.9-2.6) LVDd 3.73 cm (3.5-5.7) LVDs 2.79 cm (3.5-5.7) IVSd 0.56 cm (0.6-1.1) PWd 0.56 cm (0.6-1.1) EF (Teich) 50.60% FS 25.20% EDV (Teich) 59.30 mL ESV (Teich) 29.30 mL LV Diastology E Decel Time 297 (160-240 msec) E/A Ratio 1.88 Mitral Valve MV A Velocity 44.0 (40-130 cm/s) E/A Ratio 1.88 Tricuspid Valve TR P. Velocity 195.00 cm/s RAP Estimate 10.00 mmHg RVSP 25.20 mmHg Left Ventricle The left ventricle is normal size. The left ventricular systolic function is normal. The left ventricular ejection fraction is within the normal range. There is normal left ventricular wall thickness. There is normal LV segmental wall motion. The left ventricular diastolic function is normal. LVEF is 60%. Right Ventricle The right ventricle is normal size. The right ventricular systolic function is normal. Atria The left atrium size is normal. The right atrium size is normal. There is no Doppler evidence of interatrial shunt. Aortic Valve The aortic valve opens well. There is no aortic valvular stenosis. No aortic regurgitation is present. Mitral Valve The mitral valve is normal in structure. No evidence of mitral valve stenosis. Trace mitral regurgitation. Tricuspid Valve Tricuspid valve is grossly normal in structure and function. Mild tricuspid regurgitation. RVSP is 20-25 mmHg. Pulmonic Valve The pulmonary valve is normal in structure. Mild pulmonic regurgitation. Great Vessels The aortic root is normal in size. IVC is normal in size and collapses >50% with inspiration. Pericardium There is no pericardial effusion. Other Information Study Quality: Adequate Conclusion Normal biventricular systolic function. Mild TR, mild PI. Electronically signed by : Nicki Jordan MD 09/26/2024 13:10:45
--- NOTE | 2024-09-26 08:11 | NM_ITS ---
APPROVED REPORT Exam: Nuclear Stress Test Indication: Chest pain, SOB, Palpitations, HTN, DM, Tobacco use, Family history Patient Location: Outpatient Stress Tech: Smiley Garcia [place] Tech:Silvia Morales, ARRT, RT (R)(N) Ht: 5 ft 5 in Wt: 110 lbs Bra Size: B HR: 63 bpm BP: 95/53 mmHg BSA: 1.53 m2 TID: 1.09 BMI: 18.3 History: Chest pain, SOB, Palpitations, HTN, DM, Tobacco use, Family history Procedure: Patient exercised on Nick protocol 7:00 minutes and sec, resting heart rate 63 bpm, resting blood pressure 95/53 mmHg, with exercise maximum heart rate achived was 173 bpm which is 87 % of the maximum predicted heart rate and blood pressure was 135/75 mmHg. Test was stopped due to SOB. Patient denied any complaint of chest pain. Patient has average exercise capacity, achieved 8.6 METs of workload on treadmill, the blood pressure response to exercise was normal. Cardiac Stress and Resting SPECT Images: Cardiac Stress and Resting SPECT images were obtained using technetium 99m Myoview 30.9 mCi stress and 10.39 mCi at rest. Resting and stress imaging in supine and prone positions demonstrate no evidence of fixed or reversible perfusion defects. Gated imaging demonstrates normal global and regional LV systolic function. LVEF is calculated at 52%. Conclusion: No evidence of fixed or reversible perfusion defects. Gated imaging demonstrates normal global and regional LV systolic function. LVEF is calculated at 52%. Electronically signed by : Nicki Jordan MD 09/26/2024 12:15:21
[2024-09-26] MEDS: SODIUM CHLORIDE 0.9% 10ML SYR (RAD ONLY) 10 ML IV ×2 (10:09)
[2024-09-26] MEDS: ISOTOPE MYOVIEW (PER STUDY) 1 DOSE IV (10:09)
== END 2024-09-26 23:59 | disposition home or self-care (01) ==
LOC: RAD 07:53
PROVIDERS: PCP Obstetrics & Gynecology Gynecologic Oncology; Visit Provider Nurse Practitioner
DX: I42.8 Other cardiomyopathies (principal); R06.02 Shortness of breath; E16.2 Hypoglycemia, unspecified; E87.6 Hypokalemia
CPT/HCPCS: 78452; 93017; 93018; 93306; A9502

== ENCOUNTER 2024-10-23 09:38 | Outpatient (CLI) | payer OTHER, SELFPAY ==
[2024-10-23 11:11] LABS: Albumin Level 4.4 g/dl (3.5-5.0); Chloride 108 mmol/L (98-107); Potassium 3.7 mmoL/L (3.5-5.1); Sodium 141 mmol/L (136-145)
[2024-10-23 11:14] LABS: Alanine Aminotransferase 7 U/L (12-78); Albumin/Globulin Ratio 1.6 (1.1-1.8); Alkaline Phosphatase 73 U/L (38-126); Anion Gap 11.7 mEq/L (5-15); Aspartate Amino Transferase 18 U/L (14-36); Bilirubin,Total 0.5 mg/dl (0.2-1.3); Blood Urea Nitrogen 11 mg/dl (7-17); Calcium 9.6 mg/dl (8.4-10.2); Carbon Dioxide 25 mmol/L (22.0-30.0); Estimated Glomerular Filt Rate 78 ml/min (>60); GFR (African American) 94 ML/MIN (>60); Globulin 2.8 g/dL (1.3-3.2); Glucose 103 mg/dl (74-100); Total Protein,Serum 7.2 g/dl (6.3-8.2)
[2024-10-23 11:35] LABS: HCG,Quantitative < 2 mIU/ml (0-5.42)
[2024-10-24 08:13] LABS: Progesterone 0.2 ng/mL (.)
== END 2024-10-23 23:59 | disposition home or self-care (01) ==
LOC: LAB 09:39
PROVIDERS: PCP Family Medicine; Visit Provider Obstetrics & Gynecology
DX: Z32.01 Encounter for pregnancy test, result positive (principal)
CPT/HCPCS: 36415; 80053; 84144; 84702

== ENCOUNTER 2024-11-01 18:57 | Emergency (ER) | payer OTHER, SELFPAY ==
--- OUTSIDE RECORDS SUMMARY | 2024-11-01 19:08 | XMS_ITS | Clinical Summary ---
Author Organization Healthcare Address [address] [place] [address] Care Team Providers Care Manager Business Banking Name Role Phone Pcp, No Primary Care Provider Unavailabl e Allergies No known active allergies Medications famotidine (Pepcid) 20 MG tablet Take 1 tablet (20 mg) by mouth 2 (two) times a day. 90 tablet 3 05/27/2023 Active acetaminophen (Tylenol) 500 MG tablet Take 2 tablets (1,000 mg) by mouth every 8 (eight) hours if needed for pain. Active MV-Min-Fe Fum-FA-DHA ( 1 PO) Take 1 tablet by mouth 1 (one) time each day. Active Active Problems Problem Noted Date Diagnosed Date labor without delivery, third trimester 06/30/2023 History of delivery, currently 06/30/2023 Third trimester 06/29/2023 premature rupture of membranes (PPROM) with unknown onset of labor 05/27/2023 28 weeks gestation of 05/19/2023 Resolved Problems Problem Noted Date Diagnosed Date Resolved Date premature rupture of membranes (PPROM) with unknown onset of labor 10/10/202109/22 Immunizations Immunization Administration Dates Next Due Rho (D) Immune Globulin 05/20/2023(Defer red: - reviewed pt records with dr hill, patient receieved dose at 26.4 weeks gestation, to discontinue order) Social History Tobacco Use Types Packs/Day Years Used Date Smoking Tobacco: Former Smokeless Tobacco: Current Tobacco Cessation:Ready to Q uit: Not Asked; Counseling Given: Not Answered Comments:Vape Alcohol Use Standard Drinks/Week Comments Never 0 (1 standard drink = 0.6 oz pur e alcohol) Humiliation, Afraid, Rape, and Kick questionnair e Answer Date Recorded Within the last year, have y ou been afraid of your partner or ex-partner? Patient declined 07/01/2023 Within the last year, have y ou been humiliated or emotionally abused in other ways by your partner or ex-partner? Patient declined 07/01/2023 Within the last year, have y ou been kicked, hit, slapped, or otherwise physically hurt by your partner or ex-partner? Patient declined 07/01/2023 Within the last year, have y ou been raped or forced to have any kind of sexual activity by your partner or ex-partner? Patient declined 07/01/2023 Hunger Vital Sign Answer Date Recorded Within the past 12 months, y ou worried that your food would run out before you got the money to buy more. Never true 07/01/19 24 Within the past 12 months, t he food you bought just didn't last and you didn't have money to get more. Never true 07/01/2023 PRAPARE - Transportation Answer Date Re corded In the past 12 months, has l ack of transportation kept you from medical appointments or from getting medications? No 12/2023 In the past 12 months, has l ack of transportation kept you from meetings, work, or from getting things needed for daily living? No 07/01/2023 Housing Stability Vital Sign Answer Jj e Recorded In the last 12 months, was t here a time when you were not able to pay the mortgage or rent on time? No 07/01/2023 Number of Places Lived in the Last Year Not on f ile 07/01/2023 In the last 12 months, was t here a time when you did not have a steady place to sleep or slept in a senior living (including now)? No 07/01/2023 CAGE ASSESSMENT Answer Date Recorded Cage unable to access Not on file 06/29/2023 Cage max number of drinks Not on file 2023 Cage Beverages a week Not on file 06/29/2023 Have you ever felt you should CUT down on your d rinking? 0 06/29/2023 Have you been ANNOYED by people criticizing your drinking? 0 06/29/2023 Have you felt GUILTY about your drinking? 0 06/29/2023 Have you had a drink first t jayjya in the morning (EYE-TIN POT OPERATOR) to steady your nerves or to get rid of a hangover? 0 06/29/2023 CAGE Questionnaire Score 0 024 Utilities Answer Date Recorded In the past 12 months has th e electric, gas, oil, or water company threatened to shut off services in your home? No 07/01/2023 Comments No Sex and Gender Information Value Date Recorded Sex Assigned at Not on file Legal Sex Female 7:44 PM EDT Gender Identity Not on file Sexual Orientation Not on file Last Filed Vital Signs Vital Sign Reading Time Taken Comments Blood Pressure 108/73 07/03/2023 7:55 AM EST Pulse 90 07/03/2023 7:55 AM EST Temperature 36.7 C (98 F) 07/03/2023 7:55 AM EST Respiratory Rate 17 07/03/2023 7:55 AM EST Oxygen Saturation 97% 07/03/2023 7:55 AM EST Inhaled Oxygen Concentration - - Weight 65.3 kg (144 lb) 10/10/2021 6:53 PM EDT Height 167.6 cm (5' 6 ) 10/10/2021 6:53 PM EDT Body Mass Index 23.24 10/10/2021 6:53 PM EDT Plan of Treatment Health Maintenance Due Date Last Done Comments [facility]-Depression Screening 2000 [facility]-Infant/Child/Adol SDOH Screenings 2000 HPV Vaccines (3 - 3-dose series) 03/23/2018 12/29/2017, 08/04/2017 [facility]- SDOH Screenings 2018 [facility]-Adult SDOH Screenings 2018 [facility]-Pap Smear 2021 [facility]-DTaP,Tdap,and Td Vaccines (7 - Td or Tdap) 11/08/2022 11/08/2012, 12/26/2004, 10/16/2003, Additional history exists [id number] Vaccine (2 - season) 2024 03/18/2021 [facility]-Influenza Vaccine (Season Ended) 2025 04/23/2008, 03/22/2008 [facility]-Zoster Vaccines (1 of 2) 2050 11/08/2012, 08/30/2002 [facility]-Pneumococcal Vaccine: Pediatrics (0 to 5 Years) and At-Risk Patients (6 to 49 Years) Aged Out 04/13/2001, 02/07/2001 No longer eligibl e based on patient's age to complete this topic [facility]-HIB Vaccines Completed 08/30/2002, , 02/07/2001 [facility]-Hepatitis B Vaccines Completed 003, 02/07/2001, 2000 [facility]-IPV Vaccines Completed 12/26/2004, 01/2003, 04/13/2001, Additional history exists [facility]-Varicella Vaccines Completed 11/08/2012, 2002 [facility]-Hepatitis A Vaccines Completed 07/13/2018, 12/2017 [facility]-HIV Screening Completed 05/06/2021 [facility]-Hepatitis C Screening Completed 05/06/2021 [facility]-Rotavirus Vaccines Aged Out No lo nger eligible based on patient's age to complete this topic Procedures Procedure Name Priority Date/Time Associated Diagnosis Comments HEPATITIS C ANTIBODY W/REFLEX TO HCV QUANT PCR Routine 05/06/2021 HIV 1/2 ANTIBODY/ANTIGEN SCREEN WITH REFLEX TO HIV I/II DIFFERENTIATION Routine 05/06/2021 from Last 3 Months or Most Recently Relevant to Health Maintenance Results * HIV 1 & 2 Antibody/Antigen Screen (05/06/2021) External HIV 1/2 Ab/Ag Negative Blood Venous blood specimen / Unknown us Historical Provider LAB BLOOD ORDERABLES Letha l Result * Hepatitis C Antibody (05/06/2021) External Hepatitis C Antibody (HCV Ab) Negative Blood Venous blood specimen / Unknown Historical Provider LAB BLOOD ORDERABLES Letha l Result from Last 3 Months or Most Recently Relevant to Health Maintenance Insurance [employer] [facility] MEDICAID Advance Directives * Full Code (Latest Code Status on File) Date Activated Date Inactivated Comments 06/29/2023 9:46 PM 07/03/2023 7:44 PM Question Answer Comments Patient has decision-making capacity? Yes * Full Code Date Activated Date Inactivated Comments 05/27/2023 6:15 AM 05/27/2023 7:42 PM Question Answer Comments Patient has decision-making capacity? Yes * Full Code Date Activated Date Inactivated Comments 05/19/2023 7:34 PM 05/22/2023 5:50 PM Question Answer Comments Patient has decision-making capacity? Yes * Full Code Date Activated Date Inactivated Comments 10/10/2021 6:45 PM 10/14/2021 4:00 PM Question Answer Comments Patient has decision-making capacity? Yes Care Teams Manager Business Banking Relationship Specialty Start Date End Date Pcp, [place] [address] [place] [address] PCP - General Family Medicine 10/12/20
--- OUTSIDE RECORDS SUMMARY | 2024-11-01 19:08 | XMS_ITS | Encounter Summary ---
Author Organization Healthcare Address [address] [id number] Care Team Providers Care Fur Sewer Name Role Phone Pcp, No Primary Care Provider Unavailabl e Encounter Details Date Type Department Care Team (Late st Contact Info) Description 11/29/2020 [facility] [address] [place] [address] Kalyan Marquez, INFORMATION SYSTEMS MANAGER [address] [place] [address] Abnormal TSH (Primary Dx) Social History Tobacco Use Types Packs/Day Years Used Date Smoking Tobacco: Never Assessed Comments Unknown Sex and Gender Information Value Date Recorded Sex Assigned at Not on file Legal Sex Female 7:44 PM EDT Gender Identity Not on file Sexual Orientation Not on file documented as of this encounter Plan of Treatment Not on file documented as of this encounter Visit Diagnoses Diagnosis Abnormal TSH- Primary documented in this encounter Care Teams Fur Sewer Relationship Specialty Start Date End Date Pcp, No [address] [place] [address] PCP - General Family Medicine 10/12/20 documented as of this encounter
--- OUTSIDE RECORDS SUMMARY | 2024-11-01 19:08 | XMS_ITS | Referral Summary ---
Author Organization [facility] Address [address] [place] [address] Phone Care Team Providers Care Industrial Chemistry Teacher Name Role Phone Pcp, Pending Only Primary Care Provider [phone] Social History Tobacco Use Types Packs/Day Years Used Date Smoking Tobacco: Never Assessed Food Insecurities Answer Date Recorded Worried about running out of food Not on file 06/15/2023 Food Bought Not on file 06/15/2023 Housing/Utilities Answer Date Recorded Worried about losing home Not on file 2023 Stayed outside house Not on file 06/15/2023 Unable to get utilities Not on file 06/15/19 24 Interpersonal Safety Answer Date Record ed Feel physically or emotionally unsafe where curr ently live Not on file 06/15/2023 Harm by anyone Not on file 06/15/2023 Emotionally Harmed Not on file 06/15/2023 Transportation Answer Date Recorded Worried about transportation Not on file Utilities Answer Date Recorded Worried about losing home Not on file 2023 Stayed outside house Not on file 09/27/2023 Unable to get utilities Not on file 09/27/19 24 Comments Unknown Sex and Gender Information Value Date Recorded Sex Assigned at Not on file Legal Sex Female 1:54 PM EST Gender Identity Not on file Sexual Orientation Not on file Plan of Treatment Not on file Care Teams Industrial Chemistry Teacher Relationship Specialty Start Date End Date [facility], [facility] [place] [phone] PCP - General Internal Medicine 04/02/23
--- OUTSIDE RECORDS SUMMARY | 2024-11-01 19:08 | XMS_ITS | Clinical Summary ---
Author Organization [facility] Address [address] [place] [address] Care Team Providers Care Cue Worker Name Role Phone Unknown, Attending Provider Primary Care Provide r Unavailable Source Comments This information has been disclosed to you from confidential records protectedfrom disclosure by state law. You shall make no further disclosure of thisinformation without the specific, written, and informed release of theindividual to whom it pertains, or as otherwise permitted by law. A generalauthorization for the release of medical or other information is not sufficientfor the purposes of therelease of HIV test results or diagnoses. [id number] Allergies No known active allergies Active Problems Problem Noted Date Diagnosed Date History of delivery 03/26/2023 Overview (03/26/2023): PPROM with at 33 wks Social History Tobacco Use Types Packs/Day Years Used Date Smoking Tobacco: Never Assessed Tobacco Cessation:Counseling Given: Not Answered Comments Unknown Sex and Gender Information Value Date Recorded Sex Assigned at Not on file Legal Sex Female 1:43 PM EDT Gender Identity Not on file Sexual Orientation Not on file Last Filed Vital Signs Vital Sign Reading Time Taken Comments Blood Pressure 99/59 03/26/2023 5:18 PM EDT Pulse 86 03/26/2023 5:18 PM EDT Temperature 36.7 C (98.1 F) 03/26/2023 5:18 PM EDT Respiratory Rate 16 03/26/2023 5:18 PM EDT Oxygen Saturation 100% 03/26/2023 5:18 PM EDT Inhaled Oxygen Concentration 100% 03/26/2023 5 :18 PM EDT Weight - - Height - - Body Mass Index - - Plan of Treatment Health Maintenance Due Date Last Done Comments Hepatitis C Screening ([facility]) 2000 Immunization: HPV (3 - 3-dose series) 03/23/2018 12/29/2017, 08/04/2017 Alcohol Misuse Screening 2018 Depression Screening 2018 HIV Screening 2018 Cervical Cancer Screening/Pap Smear (MyChart) 2021 Immunization: DTaP/Tdap/Td (7 - Td or Tdap) 11/08/2022 11/08/2012, 12/26/2004, 10/16/2003, Additional history exists Immunization: COVID-19 ( season) 2024 03/18/2021 Immunization: Influenza (MyChart) (Season Ended) 2025 04/23/2008, 03/22/2008 Immunization: Pneumococcal Aged Out 04/13/2001, No longer eligible based on patient's age to complete this topic Immunization: Hepatitis B Completed 2002, 02/07/2001, 2000 Immunization: Meningococcal ACWY Completed 08/04/2017, 11/08/2012 Insurance [employer] [facility] Care Teams Cue Worker Relationship Specialty Start Date End Date Unknown, Attending Provider PCP - General 03/26/23
--- OUTSIDE RECORDS SUMMARY | 2024-11-01 19:08 | XMS_ITS | Clinical Summary ---
Author Organization [facility] Address [facility] [address] [place] [address] Phone Care Team Providers Care Ground Operations Crew Member Name Role Phone Pcp, Pending Only MD Primary Care Provider [phone] Social History Tobacco Use Types Packs/Day Years [...] Orientation Not on file Plan of Treatment Health Maintenance Due Date Last Done Comments HPV (3 - 3-dose series) 03/23/2018 12/30/19 18, 08/04/2017 Pap Screening 2021 DTap,Tdap,and Td (2 - Td or Tdap) 11/08/2022 11/08/2012 Influenza Vaccine (Season Ended) 2025 04/23/2008, 03/22/2008 RSV Vaccine (60+ or ) (1 - 1-dose 75+ series) 10/27/2075 Pneumococcal 0-49 Aged Out 04/13/2001, 02/07/2001 No longer eligible based on patient's age to complete this topic Meningococcal conjugate palak nt 4 (MCV4) Aged Out 08/04/2017, 11/08/2012 No longer eligible based on patient's age to complete this topic Meningococcal B (MenB) Aged Out No lo nger eligible based on patient's age to complete this topic RSV Immunization (<20 months) Aged Out No longer eligible based on patient's age to complete this topic Care Teams Ground Operations Crew Member Relationship Specialty Start Date End Date Pcp, Pending Only, [place], [place] [phone] PCP - General Internal Medicine 04/02/23
[2024-11-01 19:09] VITALS: BP 118/77; PULSE 117; O2SAT 99
--- NOTE | 2024-11-01 19:11 | US_ITS ---
PROCEDURE INFORMATION: Exam: US Pelvis, Transvaginal, Non-Obstetric Exam date and time: 11/01/2024 7:32 PM Age: 24 years old Clinical indication: Pelvic pain; Additional info: Ovarian torsion TECHNIQUE: Imaging protocol: Real-time transvaginal pelvic (non-obstetric) ultrasound with image documentation. Transvaginal imaging was used for better evaluation of the endometrium, adnexa, and/or cervix. COMPARISON: US TRANSVAGINAL 09/19/2024 2:02 PM FINDINGS: Uterus: Uterus is unremarkable and measures 6.6 x 2.2 cm. Endometrial stripe is unremarkable measures 0.4 cm. Trace fluid collection in endometrial cavity. Right ovary/adnexa: Measures 2.4 x 1.6 x 1.8 cm. No mass. Normal ovarian blood flow on color Doppler. Left ovary/adnexa: Measures 2.4 x 1.5 x 1.4 cm. No mass. Normal ovarian blood flow on color Doppler. Intraperitoneal space: No free fluid. IMPRESSION: Trace fluid collection in endometrial cavity, likely reflecting blood product. Otherwise, unremarkable study.
--- NOTE | 2024-11-01 19:11 | CT_ITS ---
PROCEDURE INFORMATION: Exam: CT Abdomen And Pelvis With Contrast Exam date and time: 11/01/2024 7:35 PM Age: 24 years old Clinical indication: Abdominal pain; Additional info: Low pelvic pain TECHNIQUE: Imaging protocol: Computed tomography of the abdomen and pelvis with contrast. Radiation optimization: All CT scans at this facility use at least one of these dose optimization techniques: automated exposure control; mA and/or kV adjustment per patient size (includes targeted exams where dose is matched to clinical indication); or iterative reconstruction. Contrast material: ISOVUE; Contrast volume: 75 ml; Contrast route: IV; COMPARISON: CT ABDOMEN PELVIS W CON 07/08/2024 1:04 AM FINDINGS: Liver: Probable tiny cyst in right hepatic dome. No mass. Gallbladder and biliary ducts: Surgically absent gallbladder without biliary ductal dilatation or choledocholithiasis. Pancreas: Normal. No ductal dilation. Spleen: Normal. No splenomegaly. Adrenal glands: Normal. No mass. Kidneys and ureters: No nephroureterolithiasis. No hydronephrosis. Stomach and bowel: Subtle mucosal enhancement in nonobstructive fluid-filled loops of small bowel in pelvis. Moderately large colonic stool burden. Appendix: No evidence of appendicitis. Intraperitoneal space: Unremarkable. No free air. No significant fluid collection. Vasculature: Unremarkable. No abdominal aortic aneurysm. Lymph nodes: Unremarkable. No enlarged lymph nodes. Urinary bladder: Unremarkable as visualized. Reproductive: Unremarkable as visualized. Bones/joints: Unremarkable. No acute fracture. Soft tissues: Unremarkable. IMPRESSION: 1. Nonobstructive fluid-filled small bowel with mild mucosal enhancement. Correlate for symptoms of low-grade viral enteritis. 2. Colonic stool burden.
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
[2024-11-01 19:16] VITALS: BP 118/77; PULSE 109; RESP 16; TEMP 37.4; O2SAT 99
[2024-11-01 19:18] LABS: Microscopic, Urine URINE MICROSCOPIC (MICROSCOPIC)
[2024-11-01 19:25] LABS: Appearance,Urine SL CLOUDY (Clear); Bilirubin,Urine Negative (Negative); Blood, Urine Negative (Negative); Color,Urine YELLOW (Yellow); Glucose,Urine (UA) Negative (Negative); Ketones,Urine Negative (Negative); Leukocyte Esterase,Urine Negative (Negative); Nitrate,Urine Negative (Negative); PH,Urine 6.5 (5.0-8.5); Protein,Urine Negative (Negative)
[2024-11-01 19:30] VITALS: BP 109/68; PULSE 90; O2SAT 100
[2024-11-01] MEDS: 0.9 % SODIUM CHLORIDE 1000ML 1,000 ML 999 ML IV (19:33)
[2024-11-01] MEDS: ONDANSETRON 4MG/2ML VIAL 4 MG IV (19:33)
[2024-11-01] MEDS: KETOROLAC 30MG/ML VIAL 30 MG IV (19:33)
[2024-11-01] MEDS: SODIUM CHLORIDE 0.9% 10ML SYR (RAD ONLY) 10 ML IV (19:34)
[2024-11-01] MEDS: IOPAMIDOL-370 (76%);100ML BOTTLE 75 ML IV (19:35)
[2024-11-01 19:41] LABS: Basophils % 0.3 % (0.1-2.0); Eosinophils # 0.1 Kmm3 (0.0-0.4); Eosinophils % 1.1 % (0.1-12.0); Hematocrit 39.4 % (37.0-47.0); Hemoglobin 13.2 g/dL (12.2-16.2); Immature Granulocytes # 0.02 10^3uL; Immature Granulocytes % 0.3 %; Lymphocytes # 0.4 K/mm3 (0.7-4.5); Mean Corpuscular HGB Conc 33.5 g/dL (31.8-35.4); Mean Corpuscular Volume 86.6 fl (81-99); Mean Platelet Volume 8.3 fl (7.4-10.4); Monocytes # 0.2 K/mm3 (0.1-1.0); Monocytes % 2.1 % (1.7-9.3); Neutrophils # 6.6 K/mm3 (1.8-7.8); Neutrophils % 91.2 % (37.0-80.0); Nucleated Red Blood Cells # 0 10^3/uL; Nucleated Red Blood Cells % 0 %; Platelet Count 291 K/mm3 (142-424); Red Blood Count 4.55 M/mm3 (4.20-5.40); Red Cell Distribution Width 12.7 % (11.5-17.5); Red Cell Distribution Width-SD 39.9 fL; White Blood Count 7.3 K/mm3 (4.8-10.8)
[2024-11-01 19:45] LABS: Lipase 155 U/L (23-300); Magnesium 1.7 mg/dl (1.6-2.3)
[2024-11-01 19:46] LABS: Alanine Aminotransferase 8 U/L (12-78); Albumin Level 4.7 g/dl (3.5-5.0); Albumin/Globulin Ratio 1.4 (1.1-1.8); Alkaline Phosphatase 76 U/L (38-126); Anion Gap 12.6 mEq/L (5-15); Aspartate Amino Transferase 24 U/L (14-36); Bilirubin,Total 0.7 mg/dl (0.2-1.3); Blood Urea Nitrogen 14 mg/dl (7-17); Calcium 10.6 mg/dl (8.4-10.2); Carbon Dioxide 25 mmol/L (22.0-30.0); Chloride 107 mmol/L (98-107); Creatinine Clearance Estimated 83 mL/min (50-200); Estimated Glomerular Filt Rate 77 ml/min (>60); GFR (African American) 93 ML/MIN (>60); Globulin 3.4 g/dL (1.3-3.2); Glucose 99 mg/dl (74-100); Potassium 3.6 mmoL/L (3.5-5.1); Sodium 141 mmol/L (136-145); Total Protein,Serum 8.1 g/dl (6.3-8.2)
[2024-11-01 19:49] LABS: Activated Partial Thrombo Time 25.6 seconds (22.8-30.6)
[2024-11-01 19:54] LABS: MANUAL DIFFERENTIAL MANUAL DIFFERENTIAL (MANUAL DIFF)
[2024-11-01 19:59] LABS: INR 1.07 (0.9-1.1); Prothrombin Time 11.8 seconds (10.1-12.5)
[2024-11-01 20:03] VITALS: BP 116/66; PULSE 105; O2SAT 98
[2024-11-01 20:03] LABS: Squamous Epithelial Cell,Urine 20-50 #/hpf (0-5)
[2024-11-01 20:04] LABS: Amorphous Sediment,Urine 2+ /lpf; Bacteria,Urine 4+ /lpf; Mucus,Urine 2+ /lpf
[2024-11-01 20:30] VITALS: BP 105/56; O2SAT 100
[2024-11-01 20:53] LABS: Lymphocytes % 4 % (10-50); Monocytes % 1 % (2-9); Neutrophils % 94 % (42-76); Platelet Estimate Normal; RBC Morphology Normal; Total Cells Counted 100
[2024-11-01 21:02] VITALS: BP 105/56; PULSE 84; RESP 14; TEMP 37.4; O2SAT 100
--- NOTE | 2024-11-04 09:07 | PC.NURSE ---
Urine culture results reviewed by Dr. Reese. No new orders received.
== END 2024-11-01 21:03 | disposition home or self-care (01) ==
PROVIDERS: Nurse Practitioner; Emergency Provider Emergency Medicine; PCP Family Medicine
DX: R10.2 Pelvic and perineal pain (principal); K52.9 Noninfective gastroenteritis and colitis, unspecified; K59.00 Constipation, unspecified
CPT/HCPCS: 74177; 76830; 80053; 81001; 83690; 83735; 85007; 85025; 85027; 85610; 85730; 87086; 96361; 96374; 96375; 99285; J1885; J2405; J7030; Q9967

== ENCOUNTER 2024-12-02 09:41 | Emergency (ER) | payer OTHER, SELFPAY ==
--- NOTE | 2024-12-02 09:37 | ECG_ITS ---
APPROVED REPORT Exam: Resting ECG HR:66 bpm ECG Measurements Heart Rate 66 AXES VT 166 P 23 QRSd 91 QRS 85 QT 381 T 37 QTc 395 Conclusion SINUS RHYTHM POSSIBLE RIGHT VENTRICULAR CONDUCTION DELAY [RSR (QR) IN V1/V2] No STEMI Electronically signed by : DIANNA ENGEL, 12/02/2024 17:12:35
[2024-12-02 09:42] VITALS: BP 106/66; PULSE 80; RESP 20; TEMP 36.9; O2SAT 99; BMI 18.4
--- OUTSIDE RECORDS SUMMARY | 2024-12-02 09:46 | XMS_ITS | Clinical Summary ---
Author Organization [facility] Address [address] [place] [id number] Care Team Providers Care Icu Clerk Name Role Phone Unknown, Attending Provider Primary [...] therelease of HIV test results or diagnoses. [id number] Allergies No known active allergies Active [...] Date Last Done Comments Hepatitis C Screening (TouchBistrohart) 2000 Immunization: HPV (3 - 3-dose series) 03/23/2018 12/29/2017, 08/04/2017 Alcohol Misuse Screening 2018 Depression Screening 2018 HIV Screening 2018 Cervical Cancer Screening/Pap Smear (MyChart) 2021 Immunization: DTaP/Tdap/Td (7 - Td or Tdap) 11/08/2022 11/08/2012, 12/26/2004, 10/16/2003, Additional history exists Immunization: COVID-19 ( season) 2024 03/18/2021 Immunization: Influenza (MyChart) (#1) 2025 04/23/2008, 03/22/2008 Immunization: Pneumococcal Aged Out 04/13/2001, No longer eligible based on patient's age to complete this topic Immunization: Hepatitis B Completed 2002, 02/07/2001, 2000 Immunization: Meningococcal ACWY Completed 08/04/2017, 11/08/2012 Insurance [employer] BETTER [facility] Care Teams Icu Clerk Relationship Specialty Start Date End Date Unknown, Attending Provider PCP - General 03/26/23
--- OUTSIDE RECORDS SUMMARY | 2024-12-02 09:46 | XMS_ITS | Encounter Summary ---
Author Organization [facility] Address [address] [id number] Care Team Providers Care Pediatric Geneticist Name Role Phone Pcp, No Primary Care Provider Unavailabl e Encounter Details Date Type Department Care Team (Late st Contact Info) Description 11/29/2020 Community Orders [facility] [address] [place] [address] Kalyan Marquez, DIGITAL CAMPAIGN MANAGER [address] [place] [address] Abnormal TSH (Primary Dx) Social [...] Primary documented in this encounter Care Teams Pediatric Geneticist Relationship Specialty Start Date End Date Pcp, No [address] [place] [address] PCP - General Family Medicine 10/12/20 documented as of this encounter
--- OUTSIDE RECORDS SUMMARY | 2024-12-02 09:46 | XMS_ITS | Clinical Summary ---
Author Organization [facility] Address [address] [place] [address] Care Team Providers Care Microbiological Lab Technician Name Role Phone Pcp, No Primary Care [...] place to sleep or slept in a custodial (including now)? No 07/01/2023 CAGE ASSESSMENT Answer [...] Have you had a drink first t jayjay in the morning (EYE-TANK WAGON OPERATOR) to steady your nerves or to [...] 11/08/2022 11/08/2012, 12/26/2004, 10/16/2003, Additional history exists [id number] Vaccine (2 - season) 2024 03/18/2021 [facility]-Influenza Vaccine (#1) 2025 04/23/2008, [facility]Y-Zoster Vaccines (1 of 2) 2050 11/08/2012, [...] Recently Relevant to Health Maintenance Insurance [employer] [facility] MEDICAID Advance Directives * Full Code [...] Patient has decision-making capacity? Yes Care Teams Microbiological Lab Technician Relationship Specialty Start Date End Date Pcp, [place] [address] [place] [address] PCP - General Family Medicine 10/12/20
--- OUTSIDE RECORDS SUMMARY | 2024-12-02 09:46 | XMS_ITS | Clinical Summary ---
Author Organization [facility] Address [facility] [address] [place] [address] Phone Care Team Providers Care Potash Flaker Name Role Phone Pcp, Pending Only MD Primary Care Provider [phone] Social History Tobacco Use Types Packs/Day Years [...] age to complete this topic Care Teams Potash Flaker Relationship Specialty Start Date End Date Pcp, Pending Only, [place], [place] [id number] PCP - General Internal Medicine 04/02/23
--- OUTSIDE RECORDS SUMMARY | 2024-12-02 09:46 | XMS_ITS | Referral Summary ---
Author Organization [facility] Address [address] [place] [address] Phone Care Team Providers Care Concrete Technician Name Role Phone Pcp, Pending Only Primary Care Provider [phone] Social History Tobacco Use Types Packs/Day Years [...] of Treatment Not on file Care Teams Concrete Technician Relationship Specialty Start Date End Date Pcp, Pending Only, [facility] [place] [phone] PCP - General Internal Medicine 04/02/23
[2024-12-02 09:48] VITALS: PULSE 82; RESP 14; O2SAT 99
[2024-12-02 09:49] VITALS: PULSE 80
--- NOTE | 2024-12-02 09:51 | XR_ITS ---
PROCEDURE INFORMATION: Exam: XR Chest Exam date and time: 12/02/2024 10:01 AM Age: 24 years old Clinical indication: Pain; Other: Cp; Additional info: Chest pain TECHNIQUE: Imaging protocol: Radiologic exam of the chest. Views: 2 views. COMPARISON: CR XR CHEST 2V 07/09/2024 8:42 PM FINDINGS: Lungs: Unremarkable. No consolidation. Pleural spaces: Unremarkable. No pleural effusion. No pneumothorax. Heart/Mediastinum: Unremarkable. No cardiomegaly. Bones/joints: Unremarkable. IMPRESSION: No acute findings.
[2024-12-02 09:57] LABS: Hematocrit 37.5 % (37.0-47.0); Hemoglobin 12.8 g/dL (12.2-16.2); Immature Granulocytes % 0.2 %; Mean Corpuscular HGB Conc 34.1 g/dL (31.8-35.4); Mean Corpuscular Hemoglobin 29.5 pg (27.0-31.2); Mean Corpuscular Volume 86.4 fl (81-99); Nucleated Red Blood Cells % 0 %; Platelet Count 253 K/mm3 (142-424); Red Blood Count 4.34 M/mm3 (4.20-5.40); Red Cell Distribution Width-SD 40.7 fL; White Blood Count 4.2 K/mm3 (4.8-10.8)
[2024-12-02 10:00] VITALS: BP 103/62; PULSE 65; RESP 19; O2SAT 99
[2024-12-02 10:01] LABS: Alanine Aminotransferase 8 U/L (12-78); Albumin Level 4.9 g/dl (3.5-5.0); Albumin/Globulin Ratio 1.5 (1.1-1.8); Alkaline Phosphatase 66 U/L (38-126); Anion Gap 17.6 mEq/L (5-15); Aspartate Amino Transferase 21 U/L (14-36); Bilirubin,Total 0.6 mg/dl (0.2-1.3); Blood Urea Nitrogen 10 mg/dl (7-17); Calcium 10.0 mg/dl (8.4-10.2); Carbon Dioxide 26 mmol/L (22.0-30.0); Chloride 102 mmol/L (98-107); Creatinine Clearance Estimated 69 mL/min (50-200); Creatinine,Serum 1.00 mg/dl (0.52-1.04); Estimated Glomerular Filt Rate 68 ml/min (>60); GFR (African American) 82 ML/MIN (>60); Globulin 3.2 g/dL (1.3-3.2); Glucose 84 mg/dl (74-100); HCG Qualitative, Serum Negative (Negative); Lipase 231 U/L (23-300); Potassium 3.6 mmoL/L (3.5-5.1); Sodium 142 mmol/L (136-145); Total Protein,Serum 8.1 g/dl (6.3-8.2)
[2024-12-02] MEDS: ACETAMINOPHEN 1,000MG/100ML VIAL 1000 MG IV (10:02)
[2024-12-02] MEDS: LACTATED RINGERS 1000ML 1,000 ML 999 ML IV (10:02)
[2024-12-02] MEDS: METOCLOPRAMIDE HCL 10MG/2ML VIAL 5 MG IVP (10:03)
[2024-12-02] MEDS: KETOROLAC 30MG/ML VIAL 15 MG IV (10:03)
[2024-12-02 10:07] LABS: D-Dimer 0.54 ug/mL (0.0-0.5)
--- NOTE | 2024-12-02 10:18 | PC.NURSE ---
Dr. Daly notified patient refused GI Cocktail.
[2024-12-02 10:20] LABS: T4 (Thyroxine) 10.6 ug/dl (5.53-11.0)
[2024-12-02 10:23] LABS: Troponin I < 0.01 ng/ml (0.00-0.034)
[2024-12-02 10:30] VITALS: BP 101/60; PULSE 54; RESP 20; O2SAT 99
[2024-12-02 10:34] LABS: Thyroid Stimulating Hormone 0.32 uIU/mL (0.465-4.68)
[2024-12-02 10:49] VITALS: BP 102/74; PULSE 87; RESP 19; TEMP 37.1; O2SAT 98
[2024-12-02 10:50] LABS: Hepatitis C Ab Qual. W/ RFX NEGATIVE (Negative)
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
== END 2024-12-02 10:51 | disposition home or self-care (01) ==
PROVIDERS: Emergency Provider Emergency Medicine
DX: R07.9 Chest pain, unspecified (principal); R94.6 Abnormal results of thyroid function studies; F17.290 Nicotine dependence, other tobacco product, uncomplicated; I10 Essential (primary) hypertension; R00.0 Tachycardia, unspecified
CPT/HCPCS: 71046; 80053; 83690; 84436; 84443; 84484; 84703; 85025; 85378; 86803; 87389; 93005; 96361; 96374; 96375; 99285; J0131; J1885; J2765; J7120

== ENCOUNTER 2024-12-06 14:28 | Emergency (ER) | payer OTHER, SELFPAY ==
--- OUTSIDE RECORDS SUMMARY | 2024-12-06 14:33 | XMS_ITS | Clinical Summary ---
Author Organization [facility] Address [place] [address] [place] [address] Phone Care Team Providers Care Professor Of Mathematics Name Role Phone Pcp, Pending Only MD Primary Care Provider [phone] Social History Tobacco Use Types Packs/Day Years [...] age to complete this topic Care Teams Professor Of Mathematics Relationship Specialty Start Date End Date Pcp, Pending Only, [place], [place] [phone] PCP - General Internal Medicine 04/02/23
--- OUTSIDE RECORDS SUMMARY | 2024-12-06 14:33 | XMS_ITS | Clinical Summary ---
Author Organization Healthcare Address [address] [place] [address] Care Team Providers Care Pole Tester Name Role Phone Pcp, No Primary Care [...] place to sleep or slept in a care home (including now)? No 07/01/2023 CAGE ASSESSMENT Answer [...] drink first t jayjay in the morning (EYE-DIRECTOR OF REIMBURSEMENT) to steady your nerves or to get [...] 11/08/2022 11/08/2012, 12/26/2004, 10/16/2003, Additional history exists [id number] Vaccine (2 - season) 2024 03/18/2021 UKY-Influenza [...] Recently Relevant to Health Maintenance Insurance [employer] [facility] MEDICAID Advance Directives * Full Code (Latest [...] Patient has decision-making capacity? Yes Care Teams Pole Tester Relationship Specialty Start Date End Date Pcp, [place] [address] [place] [address] PCP - General Family Medicine 10/12/20
--- OUTSIDE RECORDS SUMMARY | 2024-12-06 14:33 | XMS_ITS | Clinical Summary ---
Author Organization [facility] Address [address] [place] [id number] Care Team Providers Care Door Slinger Name Role Phone Unknown, Attending Provider Primary [...] therelease of HIV test results or diagnoses. [id number] Allergies No known active allergies Active [...] Date Last Done Comments Hepatitis C Screening ([employer]) 2000 Immunization: HPV (3 - 3-dose series) [...] 11/08/2012 Insurance [employer]ET[employer] [facility] BETTER [facility] Care Teams Door Slinger Relationship Specialty Start Date End Date Unknown, Attending Provider PCP - General 03/26/23
--- OUTSIDE RECORDS SUMMARY | 2024-12-06 14:33 | XMS_ITS | Encounter Summary ---
Author Organization Healthcare Address [address] [id number] Care Team Providers Care Office Worker Name Role Phone Pcp, No Primary Care Provider Unavailabl e Encounter Details Date Type Department Care Team (Late st Contact Info) Description 11/29/2020 Community Orders [facility] [address] [place] [address] Kalyan Marquez, DISTRICT REPRESENTATIVE [address] [place] [address] Abnormal TSH (Primary Dx) Social [...] Primary documented in this encounter Care Teams Office Worker Relationship Specialty Start Date End Date Pcp, No [address] [place] [address] PCP - General Family Medicine 10/12/20 documented as of this encounter
--- OUTSIDE RECORDS SUMMARY | 2024-12-06 14:33 | XMS_ITS | Referral Summary ---
Author Organization [facility] Address [address] [place] [address] Phone Care Team Providers Care Terrestrial Ecologist Name Role Phone Pcp, Pending Only Primary Care Provider [phone] Social History Tobacco Use Types Packs/Day Years [...] of Treatment Not on file Care Teams Terrestrial Ecologist Relationship Specialty Start Date End Date Pcp, Pending Only, [facility] [place] [phone] PCP - General Internal Medicine 04/02/23
[2024-12-06 14:39] VITALS: BP 98/60; PULSE 83; RESP 20; TEMP 36.8; O2SAT 99; BMI 18.4
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
--- NOTE | 2024-12-06 14:47 | XR_ITS ---
FINAL REPORT CLINICAL HISTORY: Fell up stairs hitting anterior left knee COMPARISON: None FINDINGS: LEFT KNEE Three views of the left knee were obtained. There is no acute fracture or dislocation. Visualized joint spaces are normally aligned. Soft tissues are unremarkable. IMPRESSION: No acute bony abnormality. Reviewed, Interpreted and Dictated by Felipe Dumont MD Transcribed by Hanane Palumbo Authenticated and [facility]
[2024-12-06 15:51] VITALS: BP 100/62; PULSE 85; RESP 20; TEMP 36.8; O2SAT 98
== END 2024-12-06 15:55 | disposition home or self-care (01) ==
PROVIDERS: Emergency Provider Emergency Medicine; PCP Family Medicine
DX: S80.02XA Contusion of left knee, initial encounter (principal); W01.10XA Fall on same level from slipping, tripping and stumbling with subsequent striking against unspecified object, initial encounter
CPT/HCPCS: 73562; 99283

== ENCOUNTER 2024-12-26 13:26 | Emergency (ER) | payer OTHER, SELFPAY ==
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
[2024-12-26 13:44] VITALS: BP 100/63; PULSE 90; RESP 20; TEMP 36.8; O2SAT 98; BMI 18.3
[2024-12-26 13:45] VITALS: BP 100/63; PULSE 78; O2SAT 98
--- NOTE | 2024-12-26 13:50 | CT_ITS ---
FINAL REPORT TECHNIQUE: After the administration of oral and intravenous contrast, axial images were obtained through the abdomen and pelvis by computed tomography. The study was performed with techniques to keep radiation dose as low as reasonably achievable, (ALARA). Individual dose reduction techniques using automated exposure control or adjustment of mA and/or kV according to the patient's size were employed. CLINICAL HISTORY: RLQ abdominal pain COMPARISON: 11/01/2024 FINDINGS: Abdomen: The lung bases are clear. The liver parenchyma is homogeneous. The gallbladder is absent. The spleen, pancreas, adrenals and kidneys appear unremarkable. The aorta is normal in caliber. There is no free fluid or adenopathy. Pelvis: The appendix is normal. The previously identified fluid-filled small bowel is no longer seen. There is moderate stool throughout the colon consistent with constipation. The uterus is present and lies eccentric to the right. The urinary bladder is unremarkable. There is no free fluid or adenopathy. IMPRESSION: Moderate stool burden consistent with constipation. Reviewed, Interpreted and Dictated by Henrik Doty MD Transcribed by Chelita Squires Authenticated and [facility]
--- OUTSIDE RECORDS SUMMARY | 2024-12-26 13:56 | XMS_ITS | Clinical Summary ---
Author Organization [facility] Address [facility] [address] [place] [address] Phone Care Team Providers Care Marine Technician Name Role Phone Pcp, Pending Only MD Primary Care Provider [phone] Social History Tobacco Use Types Packs/Day Years [...] Td or Tdap) 11/08/2022 11/08/2012 Influenza Vaccine (#1) 2025 8, 03/22/2008 RSV Vaccine (60+ or ) (1 - 1-dose 75+ series) 10/27/2075 Pneumococcal 0-49 Aged Out 04/13/2001, 02/07/2001 No longer eligible based on patient's age to complete this topic Meningococcal conjugate plaak nt 4 (MCV4) Aged Out 08/04/2017, 11/08/2012 No longer eligible based on patient's age to complete this topic Meningococcal B (MenB) Aged Out No lo nger eligible based on patient's age to complete this topic RSV Immunization (<20 months) Aged Out No longer eligible based on patient's age to complete this topic Care Teams Marine Technician Relationship Specialty Start Date End Date Pcp, Pending Only, [place] [address] PCP - General Internal Medicine 04/02/23
--- OUTSIDE RECORDS SUMMARY | 2024-12-26 13:56 | XMS_ITS | Referral Summary ---
Author Organization [facility] Address [address] [place] [address] Phone Care Team Providers Care Small Animal Veterinarian Name Role Phone Pcp, Pending Only Primary Care Provider [phone] Social History Tobacco Use Types Packs/Day Years [...] of Treatment Not on file Care Teams Small Animal Veterinarian Relationship Specialty Start Date End Date Pcp, Pending Only, [facility] [place] [id number] PCP - General Internal Medicine 04/02/23
--- OUTSIDE RECORDS SUMMARY | 2024-12-26 13:57 | XMS_ITS | Clinical Summary ---
Author Organization [facility] Address [address] [place] [address] Care Team Providers Care Decorator Hand Name Role Phone Provider, No Known Primary Care Provider Unavail able Allergies No known active allergies Medications Vit-Fe Fumarate-FA ( vitamin 27-0.8) 27-0.8 MG tablet tablet Take by mouth Daily. Active Active Problems Problem Noted Date Diagnosed Date History of delivery, currently 02/24/2023 Assessment & Plan (03/23/2023 2:01 PM EDT): Transabdominal cervical length appears normal without funneling nor debris. Assessment & Plan (02/24/2023 12:23 PM EDT): Patient gives a history consistent with likely PPROM for a couple weeks prior to presenting for an appointment with her primary OB. She was then admitted and transferred and delivered a week later. I explained that patient is definitely at risk for PPROM and PTD this as well. Her cervical length is currently excellent at almost 4cms in length with no funnel and no debris. We discussed that vaginal progesterone is a reasonable option in patients with a history like hers. She was going to discuss this further with you. We will see her back in 4 weeks for a anatomic survey. Cystic fibrosis carrier, antepartum 02/24/2023 Assessment & Plan (02/24/2023 12:24 PM EDT): I explained autosomal recessive inheritance of diseases to the patient and recommended that she get the FOB tested to see if he is a carrier for CF. I offered her an amniocentesis for diagnosis if he was positive for CF causing mutations, but she declined, saying that if needed they could test the baby after delivery. Abnormal chromosomal and gen etic finding on screening mother 02/24/2023 Assessment & Plan (03/23/2023 2:01 PM EDT): Normal-appearing anatomy today are ultrasound. Patient plans to move to [place] tomorrow. We discussed transfer of care with referral placed by primary SEMICONDUCTOR PACKAGE SYMBOL STAMPER. Patient desires tubal with delivery. We discussed potential for referral to the [facility]. Assessment & Plan (02/24/2023 12:41 PM EDT): Patient had multiple abnormal findings between the NIPT result and her carrier testing. First, her NIPT resulted with an abnormal representation of the X chromosome that they felt was likely of maternal origin. Since the fetus is a male, I tend to agree with this. Patient reports that she had similar results with her prior . 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 If at any point she would like to get a maternal karyotype and genetic counseling appointment, we are happy to organize that for her. Then, her carrier screening had two additional abnormal findings including an inconclusive finding for Duchenne/Galvan muscular dystrophy and an intermediate allele size for Fragile X. I explained to her that Duchenne and Galvan MD are X-linked recessive. Her mother reported that her father and his brother both had some sort of MD. If that is true, patient's mother could potentially be a carrier and patient could potentially be a carrier with the possibility of passing an abnormal x-chromosome to a male fetus. I again offered patient diagnostic testing for the fetus and she declined. Finally, we talked about Fragile X inheritance and I explained that she does not have it, and her child will not have the disease, but that the gene does sometimes expand as it is passed on and that her children's children could be at risk for Fragile X. Social History Tobacco Use Types Packs/Day Years Used Date Smoking Tobacco: Never Smokeless Tobacco: Never Alcohol Use Standard Drinks/Week Comments Never 0 (1 standard drink = 0.6 oz pur e alcohol) Abuse Screen Answer Date Recorded Unsafe at Home or Work/School Not on file Feels Threatened by Someone? Not on file Does Anyone Keep You from Co ntacting Others or Doint Things Outside the Home? Not on file 03/05/2023 Physical Sign of Abuse Present Not on file 1 Housing Stability Answer Date Recorded Current Living Arrangements Not on file 02/21 Potentially Unsafe Housing Conditions Not on sylvia e 03/05/2023 Family and Community Support Answer Jj e Recorded Help with Day-to-Day Activities Not on file 03/05/2023 Lonely or Isolated Not on file 03/05/2023 Employment Answer Date Recorded Do you want help finding or keeping work or a wilbert b? Not on file 03/05/2023 Disabilities Answer Date Recorded Concentrating, Remembering, or Making Decisions Difficulty Not on file 03/05/2023 Doing Errands Independently Difficulty Not on fi le 03/05/2023 Education Answer Date Recorded Help with school or training? Not on file Preferred Language Not on file 03/05/2023 Comments No Sex and Gender Information Value Date Recorded Sex Assigned at Not on file Legal Sex Female 9:59 AM EST Gender Identity Not on file Sexual Orientation Not on file Last Filed Vital Signs Vital Sign Reading Time Taken Comments Blood Pressure 99/61 03/23/2023 1:09 PM EDT Pulse - - Temperature - - Respiratory Rate - - Oxygen Saturation - - Inhaled Oxygen Concentration - - Weight 50.8 kg (112 lb) 03/23/2023 1:09 PM EDT Height 160 cm (5' 3 ) 02/23/2023 10:44 AM EDT Body Mass Index 19.84 02/23/2023 10:44 AM EDT Plan of Treatment Health Maintenance Due Date Last Done Comments Annual Gynecologic Pelvic an d Breast Exam 2000 HPV VACCINES (3 - 3-dose series) 03/23/2018 12/29/2017, 08/04/2017 ANNUAL PHYSICAL 05/26/2021 HEPATITIS C SCREENING 05/26/2021 TDAP/TD VACCINES (2 - Td or Tdap) 11/08/2022 11/08/2012 COVID-19 Vaccine (2 - 2023-2 5 season) 2024 03/18/2021 CHLAMYDIA SCREENING 06/29/2024 06/29/2023, 05/19/2023 INFLUENZA VACCINE 02/21/2025 04/23/2008, 03/22/2008 Pneumococcal Vaccine 0-49 Aged Out 2000, 02/07/2001 No longer eligible based on patient's age to complete this topic MENINGOCOCCAL B VACCINE Aged Out No l onger eligible based on patient's age to complete this topic Insurance [facility] Care Teams Decorator Hand Relationship Specialty Start Date End Date Provider, [place] [address] PCP - General 05/26/21
--- OUTSIDE RECORDS SUMMARY | 2024-12-26 13:57 | XMS_ITS | Encounter Summary ---
Author Organization Healthcare Address [address] [id number] Care Team Providers Care Sand Miller Name Role Phone Pcp, No Primary Care Provider Unavailabl e Encounter Details Date Type Department Care Team (Late st Contact Info) Description 11/29/2020 Community Orders Community Practice [address] [place] [address] Kalyan Marquez, CUSTOMER RESOURCE SPECIALIST [address] [place] [address] Abnormal TSH (Primary Dx) Social [...] Primary documented in this encounter Care Teams Sand Miller Relationship Specialty Start Date End Date Pcp, No [address] [place] [address] PCP - General Family Medicine 10/12/20 documented as of this encounter
--- OUTSIDE RECORDS SUMMARY | 2024-12-26 13:57 | XMS_ITS | Clinical Summary ---
Author Organization Healthcare Address [address] [place] [address] Care Team Providers Care Bakery Technician Name Role Phone Pcp, No Primary [...] to sleep or slept in a senior care (including now)? No 07/01/2023 CAGE ASSESSMENT Answer [...] drink first t jayjay in the morning (EYE-DEMONSTRATOR SEWING TECHNIQUES) to steady your nerves or to get [...] Date Last Done Comments [facility]-Depression Screening 2000 [facility]-/Child/Adol SDOH Screenings 2000 HPV Vaccines (3 - 3-dose series) 03/23/2018 12/29/2017, 08/04/2017 [facility]- SDOH Screenings 2018 [facility]-Adult SDOH Screenings 2018 [facility]-Pap Smear 2021 [facility]-DTaP,Tdap,and Td Vaccines (7 - Td or Tdap) 11/08/2022 11/08/2012, 12/26/2004, 10/16/2003, Additional history exists [id number] Vaccine (2 - season) 2024 03/18/2021 [facility]-Influenza [...] Recently Relevant to Health Maintenance Insurance AETNA [facility] MEDICAID Advance Directives * Full [...] Patient has decision-making capacity? Yes Care Teams Bakery Technician Relationship Specialty Start Date End Date Pcp, Dafne [address] [place] [address] PCP - General Family Medicine 10/12/20
--- OUTSIDE RECORDS SUMMARY | 2024-12-26 13:57 | XMS_ITS | Clinical Summary ---
Author Organization [facility] Address [address] [place] [address] Care Team Providers Care Legal Associate Name Role Phone Unknown, Attending Provider Primary [...] therelease of HIV test results or diagnoses. [id number] Allergies No known active allergies Active [...] Date Last Done Comments Hepatitis C Screening ([email or web address]) 2000 Immunization: HPV (3 - 3-dose series) [...] Completed 08/04/2017, 11/08/2012 Insurance AETNA MDCD BETTER [facility] Care Teams Legal Associate Relationship Specialty Start Date End Date Unknown, Attending Provider PCP - General 03/26/23
[2024-12-26 14:10] LABS: Microscopic, Urine URINE MICROSCOPIC (MICROSCOPIC)
[2024-12-26 14:21] LABS: Bilirubin,Urine Negative (Negative); Color,Urine YELLOW (Yellow); Glucose,Urine (UA) Negative (Negative); Ketones,Urine Negative (Negative); Leukocyte Esterase,Urine 1+ (Negative); PH,Urine 6.0 (5.0-8.5); Protein,Urine Negative (Negative); Specific Gravity, Urine 1.010 (1.005-1.030); Urobilinogen,Urine 0.2 EU/dl (0.2)
[2024-12-26] MEDS: ONDANSETRON 4MG/2ML VIAL 4 MG IV (14:22)
[2024-12-26] MEDS: KETOROLAC 30MG/ML VIAL 15 MG IV (14:22)
[2024-12-26 14:23] LABS: Urine Pregnancy, HCG Qual. Negative (Negative)
[2024-12-26 14:25] VITALS: BP 105/71; PULSE 65; O2SAT 99
[2024-12-26 14:30] VITALS: BP 111/71; PULSE 68; O2SAT 100
[2024-12-26 14:36] LABS: Albumin Level 3.6 g/dl (3.5-5.0); Chloride 103 mmol/L (98-107); Potassium 3.6 mmoL/L (3.5-5.1); Sodium 137 mmol/L (136-145)
[2024-12-26 14:38] LABS: Alanine Aminotransferase 7 U/L (12-78); Albumin/Globulin Ratio 1.0 (1.1-1.8); Alkaline Phosphatase 79 U/L (38-126); Anion Gap 9.6 mEq/L (5-15); Aspartate Amino Transferase 22 U/L (14-36); Bilirubin,Total 0.2 mg/dl (0.2-1.3); Blood Urea Nitrogen 15 mg/dl (7-17); Carbon Dioxide 28 mmol/L (22.0-30.0); Creatinine Clearance Estimated 76 mL/min (50-200); Creatinine,Serum 0.90 mg/dl (0.52-1.04); Estimated Glomerular Filt Rate 77 ml/min (>60); GFR (African American) 93 ML/MIN (>60); Globulin 3.6 g/dL (1.3-3.2); Total Protein,Serum 7.2 g/dl (6.3-8.2)
[2024-12-26 14:39] LABS: Bacteria,Urine 2+ /lpf
[2024-12-26 14:39] LABS: Calcium 9.7 mg/dl (8.4-10.2); Glucose 79 mg/dl (74-100); Lipase 181 U/L (23-300)
[2024-12-26 14:42] LABS: Hematocrit 33.9 % (37.0-47.0); Hemoglobin 11.4 g/dL (12.2-16.2); Immature Granulocytes % 0.2 %; Mean Corpuscular HGB Conc 33.6 g/dL (31.8-35.4); Mean Corpuscular Hemoglobin 28.9 pg (27.0-31.2); Mean Corpuscular Volume 86.0 fl (81-99); Nucleated Red Blood Cells % 0 %; Platelet Count 257 K/mm3 (142-424); Red Blood Count 3.94 M/mm3 (4.20-5.40); Red Cell Distribution Width-SD 39.9 fL; White Blood Count 4.3 K/mm3 (4.8-10.8)
[2024-12-26] MEDS: IOPAMIDOL-370 (76%);100ML BOTTLE 75 ML IV (14:50)
[2024-12-26] MEDS: SODIUM CHLORIDE 0.9% 10ML SYR (RAD ONLY) 10 ML IV (14:50)
[2024-12-26 15:00] VITALS: BP 106/70; PULSE 67; O2SAT 100
[2024-12-26 16:22] VITALS: BP 114/82; PULSE 80; RESP 20; TEMP 36.8; O2SAT 98
== END 2024-12-26 16:22 | disposition home or self-care (01) ==
PROVIDERS: Physician Assistant; Emergency Provider Student in an Organized Health Care Education/Training Program
DX: R10.31 Right lower quadrant pain (principal); K59.00 Constipation, unspecified; I10 Essential (primary) hypertension; F17.200 Nicotine dependence, unspecified, uncomplicated
CPT/HCPCS: 74177; 80053; 81001; 81025; 83605; 83690; 85025; 87086; 96374; 96375; 99285; J1885; J2405; Q9967

== ENCOUNTER 2025-01-03 09:47 | Outpatient (CLI) | payer OTHER, SELFPAY ==
--- OUTSIDE RECORDS SUMMARY | 2025-01-03 09:49 | XMS_ITS | Encounter Summary ---
Author Organization Healthcare Address [address] [id number] Care Team Providers Care Roofing Plant Supervisor Name Role Phone Pcp, No Primary Care Provider Unavailabl e Encounter Details Date Type Department Care Team (Late st Contact Info) Description 11/29/2020 Community Orders Community Practice [address] [place] [address] Kalyan Marquez, VIDEO CONTROL ENGINEER [address] [place] [address] Abnormal TSH (Primary Dx) Social [...] Primary documented in this encounter Care Teams Roofing Plant Supervisor Relationship Specialty Start Date End Date Pcp, No [address] [place] [address] PCP - General Family Medicine 10/12/20 documented as of this encounter
--- OUTSIDE RECORDS SUMMARY | 2025-01-03 09:49 | XMS_ITS | Clinical Summary ---
Author Organization [facility] Address [address] [place] [address] Care Team Providers Care Tankerman Name Role Phone Provider, No Known Primary [...] are ultrasound. Patient plans to move to [place] tomorrow. We discussed transfer of care with referral placed by primary ROUTE SALESMAN. Patient desires tubal with delivery. We discussed potential for referral to the [facility]. Assessment & Plan (02/24/2023 12:41 PM [...] patient's age to complete this topic Insurance [facility] Care Teams Tankerman Relationship Specialty Start Date End Date Provider, [place] [address] PCP - General 05/26/21
--- OUTSIDE RECORDS SUMMARY | 2025-01-03 09:49 | XMS_ITS | Clinical Summary ---
Author Organization Healthcare Address [address] [place] [address] Care Team Providers Care Biology Department Chair Name Role Phone Pcp, No Primary Care [...] place to sleep or slept in a correction (including now)? No 07/01/2023 CAGE ASSESSMENT Answer [...] drink first t jayjay in the morning (EYE-HEALTH MANAGER) to steady your nerves or to get [...] 11/08/2022 11/08/2012, 12/26/2004, 10/16/2003, Additional history exists [id number] Vaccine (2 - season) 2024 03/18/2021 [facility]-Influenza [...] Recently Relevant to Health Maintenance Insurance AETNA [facility] MEDICAID Advance Directives * Full Code [...] Patient has decision-making capacity? Yes Care Teams Biology Department Chair Relationship Specialty Start Date End Date Pcp, Dafne [address] [place] [address] PCP - General Family Medicine 10/12/20
--- OUTSIDE RECORDS SUMMARY | 2025-01-03 09:49 | XMS_ITS | Clinical Summary ---
Author Organization [facility] Address [address] [place] [address] Care Team Providers Care Filler Shaker Name Role Phone Unknown, Attending Provider Primary [...] therelease of HIV test results or diagnoses. [id number] Allergies No known active allergies Active [...] Date Last Done Comments Hepatitis C Screening (GigDropperhart) 2000 Immunization: HPV (3 - 3-dose series) [...] Completed 08/04/2017, 11/08/2012 Insurance AETNA MDCD BETTER [facility] Care Teams Filler Shaker Relationship Specialty Start Date End Date Unknown, Attending Provider PCP - General 03/26/23
== END 2025-01-03 23:59 | disposition home or self-care (01) ==
PROVIDERS: PCP Family Medicine; Visit Provider Nurse Practitioner
DX: I49.1 Atrial premature depolarization (principal); I49.3 Ventricular premature depolarization; R55 Syncope and collapse
CPT/HCPCS: 93270

== ENCOUNTER 2025-01-03 20:08 | Emergency (ER) | payer OTHER, SELFPAY ==
--- OUTSIDE RECORDS SUMMARY | 2025-01-03 20:17 | XMS_ITS | Clinical Summary ---
Author Organization [facility] Address [address] [place] [address] Care Team Providers Care Senior Physician Name Role Phone Unknown, Attending Provider Primary [...] therelease of HIV test results or diagnoses. [id number] Allergies No known active allergies Active [...] Date Last Done Comments Hepatitis C Screening ([employer]) 2000 Immunization: HPV (3 - 3-dose series) [...] Completed 08/04/2017, 11/08/2012 Insurance AETNA MDCD BETTER [facility] Care Teams Senior Physician Relationship Specialty Start Date End Date Unknown, Attending Provider PCP - General 03/26/23
--- OUTSIDE RECORDS SUMMARY | 2025-01-03 20:17 | XMS_ITS | Encounter Summary ---
Author Organization Healthcare Address [address] [id number] Care Team Providers Care Furniture Finisher Name Role Phone Pcp, No Primary Care Provider Unavailabl e Encounter Details Date Type Department Care Team (Late st Contact Info) Description 11/29/2020 Community Orders Community Practice [address] [place] [address] Kalyan Marquez, PROCESS STEWARD [address] [place] [address] Abnormal TSH (Primary Dx) Social [...] Primary documented in this encounter Care Teams Furniture Finisher Relationship Specialty Start Date End Date Pcp, No [address] [place] [address] PCP - General Family Medicine 10/12/20 documented as of this encounter
--- OUTSIDE RECORDS SUMMARY | 2025-01-03 20:17 | XMS_ITS | Clinical Summary ---
Author Organization [facility] Address [address] [place] [address] Care Team Providers Care Vocational Trainer Name Role Phone Provider, No Known Primary [...] are ultrasound. Patient plans to move to [place] tomorrow. We discussed transfer of care with referral placed by primary CHIEF DESIGN ENGINEER. Patient desires tubal with delivery. We discussed potential for referral to the [facility]. Assessment & Plan (02/24/2023 12:41 PM EDT): [...] patient's age to complete this topic Insurance [facility] Care Teams Vocational Trainer Relationship Specialty Start Date End Date Provider, [place] [address] PCP - General 05/26/21
--- OUTSIDE RECORDS SUMMARY | 2025-01-03 20:17 | XMS_ITS | Encounter Summary ---
Author Organization Healthcare Address [address] [place] [address] Care Team Providers Care Metal Solderer Name Role Phone Pcp, No Primary Care Provider Unavailabl e Reason for Referral * Consultation (Routine) - Authorized Specialty Diagnoses / Procedures Referred By Kena t Referred To Contact Cardiology Diagnoses Family history of arrhythmogenic right ventricular cardiomyopathy Mindy Thomson APRN [address] [facility] [address] [place] [address] Phone: tel: fax: Referral ID Status Reason Start Date Expiration Date Visits Requested Visits Authorized [id number] Authorized Specialty Services Required 01/03/2025 07/05/2026 1 1 Encounter Details Date Type Department Care Team (Late st Contact Info) Description 01/03/2025 Orders Only [facility] [place] [facility] [address] [place] [address] Leona Wayne, RN HOSP. SPECIAL DIAGNOSTIC FACILITIES ADMI Family history of arrhythmogenic right ventricular cardiomyopathy (Primary Dx) Social History Tobacco Use Types Packs/Day Years Used Date Smoking Tobacco: Former Smokeless Tobacco: Current Comments:Vape Alcohol Use Standard Drinks/Week Comments Never [...] place to sleep or slept in a assisted (including now)? No 07/01/2023 CAGE ASSESSMENT Answer [...] drink first t jayjay in the morning (EYE-HOGSHEAD OPENER) to steady your nerves or to get [...] on file documented as of this encounter Miscellaneous Notes * Progress Notes - Leona Wayne RN - 01/03/2025 3:23 PM EDT 24 y/o female whose aunt & brother have ARVC. She has palps, SOA & syncope. Referring has ordered 2wk event monitor & cMRI. Referring to [facility] for genetic testing. documented in this encounter Plan of Treatment Scheduled Referrals Name Type Priority Associated Diagnoses Orde r Schedule Ambulatory referral to Cardiology Outpatient Referral Routine Family history of arrhythmogenic right ventricular cardiomyopathy 1 Occurrences starting 01/03/2025 until 07/07/2026 documented as of this encounter Visit Diagnoses Diagnosis Family history of arrhythmogenic right ventricular cardiomyopathy- Primary documented in this encounter Additional Health Concerns Assessment Noted Time A Body Mass Index follow-up plan has been documented for the patient 07/03/2023 11:53 AM EST documented as of this encounter Care Teams Metal Solderer Relationship Specialty Start Date End Date Pcp, No [address] [place] [address] PCP - General Family Medicine 10/12/20 documented as of this encounter
--- OUTSIDE RECORDS SUMMARY | 2025-01-03 20:17 | XMS_ITS | Clinical Summary ---
Author Organization Healthcare Address [address] [place] [address] Care Team Providers Care Fios Line Installer Name Role Phone Pcp, No Primary Care [...] membranes (PPROM) with unknown onset of labor 10/10/2021 05/2 08/2021 Encounters Date Type Department Care Team Description 01/03/2025 Orders Only [facility] [place] [facility] [address] [place] [address] Leona Wayne, sulfonator operator history of arrhythmogenic right ventricular cardiomyopathy (Primary Dx) from Last 3 Months Immunizations Immunization Administration Dates Next Due Rho [...] place to sleep or slept in a residential (including now)? No 07/01/2023 CAGE ASSESSMENT Answer [...] drink first t jayjay in the morning (EYE-HISTORY TUTOR) to steady your nerves or to get rid of a hangover? 0 06/29/2023 CAGE Questionnaire Score 0 024 Utilities Answer Date Recorded In the past 12 months has [employer], gas, oil, or water [employer]ics [employer] threatened to shut off services in your [...] 11/08/2022 11/08/2012, 12/26/2004, 10/16/2003, Additional history exists [id number] Vaccine (2 season) 2024 03/18/2021 [facility]-Influenza Vaccine (#1) 2025 [...] Most Recently Relevant to Health Maintenance [facility] Advance Directives * [...] Patient has decision-making capacity? Yes Care Teams Fios Line Installer Relationship Specialty Start Date End Date Pcp, Dafne [address] [place] [address] PCP - General Family Medicine 10/12/20
--- NOTE | 2025-01-03 20:18 | ECG_ITS ---
APPROVED REPORT Exam: Resting ECG HR:85 bpm ECG Measurements Heart Rate 85 AXES IL 146 P 37 QRSd 89 QRS 93 QT 353 T 39 QTc 395 Conclusion SINUS RHYTHM BORDERLINE RIGHT AXIS DEVIATION [QRS AXIS > 90] POSSIBLE RIGHT VENTRICULAR CONDUCTION DELAY [RSR (QR) IN V1/V2] BORDERLINE ECG UNCONFIRMED REPORT Electronically signed by : GABRIELLE LAMBERT, 01/05/2025 00:38:30
[2025-01-03 20:20] VITALS: BP 107/70; PULSE 97; RESP 18; TEMP 36.8; O2SAT 99; BMI 19.3
--- NOTE | 2025-01-03 20:42 | XR_ITS ---
PROCEDURE INFORMATION: Exam: XR Chest Exam date and time: 01/03/2025 8:50 PM Age: 24 years old Clinical indication: Shortness of breath; Additional info: Short of breath TECHNIQUE: Imaging protocol: Radiologic exam of the chest. Views: 1 view. COMPARISON: CR Chest 12/02/2024 10:01 AM FINDINGS: Lungs: Unremarkable. No consolidation. Pleural spaces: Unremarkable. No pleural effusion. No pneumothorax. Heart/Mediastinum: Unremarkable. No cardiomegaly. Bones/joints: Unremarkable. Soft tissues: Faint nipple shadow overlying the lower right lung. Intraperitoneal space: Surgical clips right upper quadrant. IMPRESSION: No acute findings. No significant change from December 02, 2024.
[2025-01-03 20:52] LABS: Albumin Level 4.6 g/dl (3.5-5.0); Chloride 104 mmol/L (98-107); Potassium 3.5 mmoL/L (3.5-5.1); Sodium 139 mmol/L (136-145)
[2025-01-03 20:54] LABS: Hematocrit 38.3 % (37.0-47.0); Hemoglobin 12.9 g/dL (12.2-16.2); Immature Granulocytes % 0.2 %; Mean Corpuscular HGB Conc 33.7 g/dL (31.8-35.4); Mean Corpuscular Hemoglobin 28.8 pg (27.0-31.2); Mean Corpuscular Volume 85.5 fl (81-99); Nucleated Red Blood Cells % 0 %; Platelet Count 278 K/mm3 (142-424); Red Blood Count 4.48 M/mm3 (4.20-5.40); Red Cell Distribution Width-SD 39.6 fL; White Blood Count 5.5 K/mm3 (4.8-10.8)
[2025-01-03] MEDS: 0.9 % SODIUM CHLORIDE 1000ML 1,000 ML 999 ML IV (20:54)
[2025-01-03 20:55] LABS: Alanine Aminotransferase 8 U/L (12-78); Albumin/Globulin Ratio 1.4 (1.1-1.8); Alkaline Phosphatase 71 U/L (38-126); Aspartate Amino Transferase 24 U/L (14-36); Bilirubin,Total 0.5 mg/dl (0.2-1.3); Blood Urea Nitrogen 14 mg/dl (7-17); Calcium 9.2 mg/dl (8.4-10.2); Creatinine Clearance Estimated 90 mL/min (50-200); Creatinine,Serum 0.80 mg/dl (0.52-1.04); Estimated Glomerular Filt Rate 88 ml/min (>60); GFR (African American) 107 ML/MIN (>60); Globulin 3.3 g/dL (1.3-3.2); Glucose 112 mg/dl (74-100); Lipase 167 U/L (23-300); Total Protein,Serum 7.9 g/dl (6.3-8.2)
[2025-01-03 20:56] LABS: Anion Gap 13.5 mEq/L (5-15); Carbon Dioxide 25 mmol/L (22.0-30.0); Magnesium 2.1 mg/dl (1.6-2.3)
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
[2025-01-03 21:17] LABS: Troponin I < 0.01 ng/ml (0.00-0.034)
[2025-01-03 21:26] LABS: Thyroid Stimulating Hormone 1.45 uIU/mL (0.465-4.68)
[2025-01-03 22:42] VITALS: BP 103/63; PULSE 77; RESP 18; TEMP 36.8; O2SAT 99
== END 2025-01-03 22:44 | disposition home or self-care (01) ==
PROVIDERS: Nurse Practitioner; Emergency Provider Student in an Organized Health Care Education/Training Program
DX: I95.9 Hypotension, unspecified (principal); R42 Dizziness and giddiness; F17.290 Nicotine dependence, other tobacco product, uncomplicated
CPT/HCPCS: 71045; 80053; 83690; 83735; 84443; 84484; 85025; 93005; 96360; 99284; J7030

== ENCOUNTER 2025-01-04 09:10 | Emergency (ER) | payer OTHER, SELFPAY ==
[2025-01-04 09:12] VITALS: BP 117/74; PULSE 80; RESP 16; TEMP 37; O2SAT 100; BMI 18.6
--- OUTSIDE RECORDS SUMMARY | 2025-01-04 09:24 | XMS_ITS | Clinical Summary ---
Author Organization [facility] Address [address] [place] [id number] Care Team Providers Care Cloth Weaver Name Role Phone Unknown, Attending Provider Primary [...] therelease of HIV test results or diagnoses. [id number] Allergies No known active allergies Active [...] Date Last Done Comments Hepatitis C Screening ([facility]) 2000 Immunization: HPV (3 - 3-dose series) [...] Completed 08/04/2017, 11/08/2012 Insurance [employer] BETTER [facility] Care Teams Cloth Weaver Relationship Specialty Start Date End Date Unknown, Attending Provider PCP - General 03/26/23
--- OUTSIDE RECORDS SUMMARY | 2025-01-04 09:24 | XMS_ITS | Encounter Summary ---
Author Organization Healthcare Address [address] [id number] Care Team Providers Care Garment Liner Name Role Phone Pcp, No Primary Care Provider Unavailabl e Encounter Details Date Type Department Care Team (Late st Contact Info) Description 11/29/2020 Community Orders Community Practice [address] [place] [address] Kalyan Marquez, TELECOMMUNICATIONS MANAGER [address] [place] [address] Abnormal TSH (Primary Dx) Social [...] Primary documented in this encounter Care Teams Garment Liner Relationship Specialty Start Date End Date Pcp, No [address] [place] [address] PCP - General Family Medicine 10/12/20 documented as of this encounter
--- OUTSIDE RECORDS SUMMARY | 2025-01-04 09:24 | XMS_ITS | Clinical Summary ---
Author Organization Healthcare Address [address] [place] [address] Care Team Providers Care Golf Cart Attendant Name Role Phone Pcp, No Primary Care [...] Department Care Team Description 01/03/2025 Orders Only [facility] [place] [facility] [address] [place] [address] Leona Wayne, gang supervisor history of arrhythmogenic right ventricular cardiomyopathy (Primary [...] place to sleep or slept in a group home (including now)? No 07/01/2023 CAGE ASSESSMENT [...] drink first t jayjay in the morning (EYE-DEAF TEACHER) to steady your nerves or to get rid of a hangover? 0 06/29/2023 CAGE Questionnaire Score 0 024 Utilities Answer Date Recorded In the past 12 months has [employer], gas, oil, or water [employer] threatened to shut off services in your [...] 11/08/2022 11/08/2012, 12/26/2004, 10/16/2003, Additional history exists [id number] Vaccine (2 season) 2024 03/18/2021 UKY-Influenza Vaccine [...] Most Recently Relevant to Health Maintenance Insurance [facility] Advance Directives * Full Code (Latest [...] Patient has decision-making capacity? Yes Care Teams Golf Cart Attendant Relationship Specialty Start Date End Date Pcp, [place] [address] [place] [address] PCP - General Family Medicine 10/12/20
--- OUTSIDE RECORDS SUMMARY | 2025-01-04 09:24 | XMS_ITS | Clinical Summary ---
Author Organization [facility] Address [address] [place] [address] Care Team Providers Care Industrial Tech Instructor Name Role Phone Provider, No Known Primary [...] are ultrasound. Patient plans to move to [place] tomorrow. We discussed transfer of care with referral placed by primary MECHANIC'S ASSISTANT. Patient desires tubal with delivery. We discussed potential for referral to the [facility]. Assessment & Plan (02/24/2023 12:41 PM EDT): [...] patient's age to complete this topic Insurance [facility] Care Teams Industrial Tech Instructor Relationship Specialty Start Date End Date Provider, [place] [address] PCP - General 05/26/21
--- OUTSIDE RECORDS SUMMARY | 2025-01-04 09:24 | XMS_ITS | Encounter Summary ---
Author Organization Healthcare Address [address] [place] [address] Care Team Providers Care Press Cutter Name Role Phone Pcp, No Primary Care Provider Unavailabl e Reason for Referral * Consultation (Routine) - Authorized Specialty Diagnoses / Procedures Referred By Kena t Referred To Contact Cardiology Diagnoses Family history of arrhythmogenic right ventricular cardiomyopathy Mindy Thomson APRN [address] [facility] [address] [place] [address] Phone: tel: fax: Referral ID Status Reason Start Date Expiration Date Visits Requested Visits Authorized [id number] Authorized Specialty Services Required 01/03/2025 07/05/2026 1 1 Encounter Details Date Type Department Care Team (Late st Contact Info) Description 01/03/2025 Orders Only [facility] [place] [facility] [address] [place] [address] Leona Wayne, RN HOSP. SPECIAL DIAGNOSTIC FACILITIES [...] drink first t jayjay in the morning (EYE-DROP WIRE ALIGNER) to steady your nerves or to get [...] documented as of this encounter Care Teams Press Cutter Relationship Specialty Start Date End Date Pcp, No [address] [place] [address] PCP - General Family Medicine 10/12/20 documented as of this encounter
[2025-01-04 09:26] VITALS: BP 106/66; PULSE 84; O2SAT 99
[2025-01-04 09:31] VITALS: BP 109/72; PULSE 76; O2SAT 100
--- NOTE | 2025-01-04 09:33 | ECG_ITS ---
APPROVED REPORT Exam: Resting ECG HR:70 bpm ECG Measurements Heart Rate 70 AXES AZ 156 P 42 QRSd 89 QRS 98 QT 372 T 40 QTc 393 Conclusion SINUS RHYTHM WITH SINUS ARRHYTHMIA BORDERLINE RIGHT AXIS DEVIATION [QRS AXIS > 90] POSSIBLE RIGHT VENTRICULAR CONDUCTION DELAY [RSR (QR) IN V1/V2] BORDERLINE ECG UNCONFIRMED REPORT Electronically signed by : GABRIELLE LAMBERT, 01/05/2025 00:37:15
--- NOTE | 2025-01-04 09:57 | PC.NURSE ---
DR VERA AT BEDSIDE TO UPDATE PT
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
[2025-01-04 10:04] VITALS: BP 114/73; PULSE 85; RESP 16; TEMP 37; O2SAT 98
== END 2025-01-04 10:09 | disposition home or self-care (01) ==
PROVIDERS: Emergency Provider Student in an Organized Health Care Education/Training Program; PCP Family Medicine
DX: R42 Dizziness and giddiness (principal); R53.1 Weakness; F17.290 Nicotine dependence, other tobacco product, uncomplicated
CPT/HCPCS: 93005; 99283

== ENCOUNTER 2025-01-11 21:29 | Emergency (ER) | payer OTHER, SELFPAY ==
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
[2025-01-11 21:42] VITALS: BP 92/67; PULSE 112; RESP 16; TEMP 37.3; O2SAT 97; BMI 18.9
--- OUTSIDE RECORDS SUMMARY | 2025-01-11 21:44 | XMS_ITS | Encounter Summary ---
Author Organization Healthcare Address [address] [id number] Care Team Providers Care Clock And Watch Hands Mounter Name Role Phone Pcp, No Primary Care Provider Unavailabl e Encounter Details Date Type Department Care Team (Late st Contact Info) Description 11/29/2020 Community Orders Community Practice [address] [place] [address] Kalyan Marquez, EXHIBIT DESIGNER [address] [place] [address] Abnormal TSH (Primary Dx) Social [...] Primary documented in this encounter Care Teams Clock And Watch Hands Mounter Relationship Specialty Start Date End Date Pcp, No [address] [place] [address] PCP - General Family Medicine 10/12/20 documented as of this encounter
--- OUTSIDE RECORDS SUMMARY | 2025-01-11 21:44 | XMS_ITS | Clinical Summary ---
Author Organization Healthcare Address [address] [place] [address] Care Team Providers Care Shank Stapler Name Role Phone Pcp, No Primary Care [...] Department Care Team Description 01/03/2025 Orders Only [facility] [address] [place] [address] Leona Wayne, docent coordinator history of arrhythmogenic right ventricular cardiomyopathy (Primary [...] place to sleep or slept in a fpc (including now)? No 07/01/2023 CAGE ASSESSMENT Answer [...] drink first t jayjay in the morning (EYE-JEWELRY SORTER) to steady your nerves or to get rid of a hangover? 0 06/29/2023 CAGE Questionnaire Score 0 024 Utilities Answer Date Recorded In the past 12 months has [employer], gas, oil, or water [employer] threatened to shut off services in your [...] 11/08/2022 11/08/2012, 12/26/2004, 10/16/2003, Additional history exists [id number] Vaccine (2 season) 2024 03/18/2021 UKY-Influenza Vaccine [...] / Unknown Historical Provider LAB BLOOD ORDERABLES Final R esult * Hepatitis C Antibody (05/06/2021) External Hepatitis C Antibody (HCV Ab) Negative Blood Venous blood specimen / Unknown Historical Provider LAB BLOOD ORDERABLES Final R esult from Last 3 Months or Most Recently Relevant to Health Maintenance Insurance [employer] MEDICAID Advance Directives * Full Code (Latest [...] Patient has decision-making capacity? Yes Care Teams Shank Stapler Relationship Specialty Start Date End Date Pcp, No [address] [place] [facility] [place] [place] [address] PCP - General Family Medicine 10/12/20
--- OUTSIDE RECORDS SUMMARY | 2025-01-11 21:44 | XMS_ITS | Clinical Summary ---
Author Organization [facility] Address [address] [place] [address] Care Team Providers Care Freight Hustler Name Role Phone Provider, No Known Primary [...] are ultrasound. Patient plans to move to [place] tomorrow. We discussed transfer of care with referral placed by primary AERIAL PHOTOGRAPH INTERPRETER. Patient desires tubal with delivery. We discussed potential for referral to the [facility]. Assessment & Plan (02/24/2023 12:41 PM EDT): [...] patient's age to complete this topic Insurance [facility] Care Teams Freight Hustler Relationship Specialty Start Date End Date Provider, [place] [address] PCP - General 05/26/21
--- OUTSIDE RECORDS SUMMARY | 2025-01-11 21:44 | XMS_ITS | Clinical Summary ---
Author Organization [facility] Address [address] [place] [address] Care Team Providers Care Fresh Foods Clerk Name Role Phone Unknown, Attending Provider [...] therelease of HIV test results or diagnoses. [id number] Allergies No known active allergies Active [...] Date Last Done Comments Hepatitis C Screening (Xenithhart) 2000 Immunization: HPV (3 - 3-dose series) [...] Completed 08/04/2017, 11/08/2012 Insurance [employer] MDCD BETTER [facility] Care Teams Fresh Foods Clerk Relationship Specialty Start Date End Date Unknown, Attending Provider PCP - General 03/26/23
--- OUTSIDE RECORDS SUMMARY | 2025-01-11 21:44 | XMS_ITS | Encounter Summary ---
Author Organization Healthcare Address [address] [place] [address] Care Team Providers Care Director Of Marketing And Promotions Name Role Phone Pcp, No Primary Care Provider Unavailabl e Reason for Referral * Consultation (Routine) - Authorized Specialty Diagnoses / Procedures Referred By Kena t Referred To Contact Cardiology Diagnoses Family history of arrhythmogenic right ventricular cardiomyopathy Mindy Thomson APRN [address] [facility] [email or web address] [address] [place] [address] Phone: tel: fax: Referral ID Status Reason Start Date Expiration Date Visits Requested Visits Authorized [id number] Authorized Specialty Services Required 01/03/2025 07/05/2026 1 1 Encounter Details Date Type Department Care Team (Late st Contact Info) Description 01/03/2025 Orders Only [facility] [address] [place] [address] Leona Wayne, RN HOSP. SPECIAL DIAGNOSTIC FACILITIES [...] drink first t jayjay in the morning (EYE-BOOKING SUPERVISOR) to steady your nerves or to get [...] documented as of this encounter Care Teams Director Of Marketing And Promotions Relationship Specialty Start Date End Date Pcp, No [address] [place] [address] PCP - General Family Medicine 10/12/20 documented as of this encounter
--- NOTE | 2025-01-11 21:45 | XR_ITS ---
PROCEDURE INFORMATION: Exam: XR Chest Exam date and time: 01/11/2025 9:53 PM Age: 24 years old Clinical indication: Other: R crackles middle lobe TECHNIQUE: Imaging protocol: Radiologic exam of the chest. Views: 2 views. COMPARISON: CR XR CHEST PORTABLE 01/03/2025 8:50 PM FINDINGS: Lungs: No consolidation. Pleural spaces: No significant pleural effusion. No pneumothorax. Heart/Mediastinum: No cardiomegaly. Bones/joints: No displaced fracture. Soft tissues: Unremarkable. Intraperitoneal space: Surgical clips within RIGHT upper quadrant. IMPRESSION: No definite acute cardiopulmonary disease.
[2025-01-11] MEDS: IBUPROFEN 800 MG TABLET PO (21:59)
[2025-01-11] MEDS: ACETAMINOPHEN 500MG TAB 500 MG PO (21:59)
[2025-01-11] MEDS: ONDANSETRON 4MG ODT 4 MG SL (22:00)
[2025-01-11] MEDS: BUTALB/ACETAMINOPHEN/CAFFEINE 50MG/325MG/40MG TAB 1 EACH PO (22:03)
[2025-01-11 22:38] VITALS: BP 132/84; PULSE 75; RESP 16; TEMP 36.9; O2SAT 100
[2025-01-11 22:45] LABS: Coronavirus 19, PCR Not Detected (NotDetected); Influenza A, PCR Not Detected (NotDetected); Influenza B, PCR Not Detected (NotDetected)
== END 2025-01-11 22:39 | disposition home or self-care (01) ==
PROVIDERS: Emergency Provider Student in an Organized Health Care Education/Training Program; PCP Family Medicine
DX: R51.9 Headache, unspecified (principal); R07.0 Pain in throat; B34.8 Other viral infections of unspecified site
CPT/HCPCS: 71046; 87631; 99282; 99283; Q0162

== ENCOUNTER 2025-01-18 10:25 | Outpatient (CLI) | payer OTHER, SELFPAY ==
--- OUTSIDE RECORDS SUMMARY | 2025-01-18 10:28 | XMS_ITS | Clinical Summary ---
Author Organization [facility] Address [address] [place] [address] Care Team Providers Care Telemarketer Name Role Phone Unknown, Attending Provider Primary [...] therelease of HIV test results or diagnoses. [id number] Allergies No known active allergies Active [...] Date Last Done Comments Hepatitis C Screening ([employer]) 2000 Immunization: HPV (3 - 3-dose series) [...] 11/08/2012 Insurance [employer] MDCD BETTER [facility] Care Teams Telemarketer Relationship Specialty Start Date End Date Unknown, Attending Provider PCP - General 03/26/23
--- OUTSIDE RECORDS SUMMARY | 2025-01-18 10:28 | XMS_ITS | Clinical Summary ---
Author Organization [facility] Address [address] [place] [address] Care Team Providers Care Wardrobe Specialty Worker Name Role Phone Provider, No Known Primary [...] are ultrasound. Patient plans to move to [place] tomorrow. We discussed transfer of care with referral placed by primary SEISMIC PROSPECTING OBSERVER HELPER. Patient desires tubal with delivery. We discussed potential for referral to the [facility]. Assessment & Plan (02/24/2023 12:41 PM [...] patient's age to complete this topic Insurance [facility] Care Teams Wardrobe Specialty Worker Relationship Specialty Start Date End Date Provider, [place] [address] PCP - General 05/26/21
--- OUTSIDE RECORDS SUMMARY | 2025-01-18 10:28 | XMS_ITS | Encounter Summary ---
Author Organization Healthcare Address [address] [place] [address] Care Team Providers Care Validation Consultant Name Role Phone Pcp, No Primary Care Provider Unavailabl e Reason for Referral * Consultation (Routine) - Authorized Specialty Diagnoses / Procedures Referred By Kena t Referred To Contact Cardiology Diagnoses Family history of arrhythmogenic right ventricular cardiomyopathy Mindy Thomson APRN [address] [facility] [employer] [address] [place] [address] Phone: tel: fax: Referral ID Status Reason Start Date Expiration Date Visits Requested Visits Authorized [id number] Authorized Specialty Services Required 01/03/2025 07/05/2026 1 1 Encounter Details Date Type Department Care Team (Late st Contact Info) Description 01/03/2025 Orders Only [facility] [address] [place] [address] Leona Wayne, RN HOSP. SPECIAL DIAGNOSTIC FACILITIES [...] place to sleep or slept in a retirement (including now)? No 07/01/2023 CAGE ASSESSMENT Answer [...] drink first t jayjay in the morning (EYE-ELDERLY COMPANION) to steady your nerves or to get [...] documented as of this encounter Care Teams Validation Consultant Relationship Specialty Start Date End Date Pcp, No [address] [place] [address] PCP - General Family Medicine 10/12/20 documented as of this encounter
--- OUTSIDE RECORDS SUMMARY | 2025-01-18 10:28 | XMS_ITS | Encounter Summary ---
Author Organization Healthcare Address [address] [id number] Care Team Providers Care Guest Experience Captain Name Role Phone Pcp, No Primary Care Provider Unavailabl e Encounter Details Date Type Department Care Team (Late st Contact Info) Description 11/29/2020 Community Orders Community Practice [address] [place] [address] Kalyan Marquez, DIRECTOR NEWS [address] [place] [address] Abnormal TSH (Primary Dx) Social [...] Primary documented in this encounter Care Teams Guest Experience Captain Relationship Specialty Start Date End Date Pcp, No [address] [place] [address] PCP - General Family Medicine 10/12/20 documented as of this encounter
--- OUTSIDE RECORDS SUMMARY | 2025-01-18 10:28 | XMS_ITS | Clinical Summary ---
Author Organization Healthcare Address [address] [place] [address] Care Team Providers Care Customer Operations Associate Name Role Phone Pcp, No Primary Care [...] Department Care Team Description 01/03/2025 Orders Only [facility] [address] [place] [address] Leona Wayne, dealer card room history of arrhythmogenic right ventricular cardiomyopathy (Primary [...] place to sleep or slept in a skilled nursing (including now)? No 07/01/2023 CAGE ASSESSMENT Answer [...] drink first t jayjay in the morning (EYE-ORCHARD MANAGER) to steady your nerves or to get rid of a hangover? 0 06/29/2023 CAGE Questionnaire Score 0 024 Utilities Answer Date Recorded In the past 12 months has [employer], gas, oil, or water [employer] threatened to shut off services in your [...] 11/08/2022 11/08/2012, 12/26/2004, 10/16/2003, Additional history exists [id number] Vaccine (2 season) 2024 03/18/2021 UKY-Influenza Vaccine [...] Patient has decision-making capacity? Yes Care Teams Customer Operations Associate Relationship Specialty Start Date End Date Pcp, No [address] [facility] [address] PCP - General Family Medicine 10/12/20
== END 2025-01-18 23:59 | disposition home or self-care (01) ==
LOC: RAD 10:25
PROVIDERS: PCP Family Medicine; Visit Provider Nurse Practitioner
DX: R69 Illness, unspecified (principal)

== ENCOUNTER 2025-02-12 12:03 | Day surgery (SDC) | payer OTHER, SELFPAY ==
[2025-02-06 12:49] VITALS: BMI 19.3
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
--- NOTE | 2025-02-12 07:25 | P.PCN_ITS ---
[facility] Procedure Note Date: 02/12/25 Time: 13:04 Procedure Note:: Colonoscopy Procedure Report: Colonoscopy with cold snare polypectomy Endoscopist: Quincy Bland II, MD Referring physician: RONALD Herzog Date of Procedure: February 12, 2025 Equipment: Olympus [id number] adult colonoscope Sedation: MAC sedation Indication: Mrs. Peterson is a 24-year-old female who is here for diagnostic colonoscopy. She has struggled on and off with constipation since childhood and this has worsened. After giving 18 months ago, things were better but then after her tubal ligation this past fall she became constipated again. She reports going up to 3 weeks without a bowel movement. She also has struggled with hemorrhoids and recently has had some rectal pain and rectal bleeding. She did go to the ED a couple months ago and her CT scan showed fluid-filled loops of small intestine and abdomen moderate to large fecal burden within the colon. The patient does get some abdominal discomfort when she is constipated. The patient does not know of any family history of colitis or colon cancer. This is her first colonoscopy. The examination is deemed medically necessary for diagnostic colonoscopy. Procedure: Prior to the procedure, a history and physical exam was performed, and patient's medications and allergies were reviewed. The risks, benefits and alternatives of the sedation and procedure were discussed with the patient. All questions were answered and informed consent was obtained. The patient was brought to the procedure room. Patient identification and proposed procedure were verified by the physician and the nurse. The patient was placed in a left lateral decubitus position and the scope was passed under direct vision. Throughout the procedure, the patient's blood pressure, pulse, and oxygen saturations were monitored continuously. The colonoscopy was accomplished without difficulty. The patient tolerated the procedure well. Findings: On digital rectal examination there was normal rectal tone. There were no external hemorrhoids. There was a healing posterior midline anal fissure. There was a small anterior rectocele. The colonoscope was introduced through the anal canal to the rectum and advanced to the cecum. The ileocecal valve and appendiceal orifice were identified. The scope was advanced a short distance into the ileum which appeared grossly normal. The scope was then withdrawn into the colon. There was a single 4 mm polyp in the ascending colon removed via cold snare polypectomy. The remaining cecum, ascending, transverse, descending, sigmoid and rectum were grossly normal. There were no other mucosal abnormalities identified. Upon retroflexion within the rectum there were grade 1-2 internal hemorrhoids. The preparation was fair throughout with [place] Preparation Score of 7 out of 9. The cecal time was 11 minutes. Impression: 1. Diminutive 4 mm ascending colon polyp 2. Healing posterior midline anal fissure 3. Grade 1-2 internal hemorrhoids 4. Anterior small rectocele Plan: The patient's rectal pain and bleeding is from the anal fissure. I will follow-up the polyp histology and recommend repeat screening/surveillance colonoscopy in 5 years if the polyp is adenomatous. The patient does have outlet dysfunction constipation and has failed various laxatives. I would agree with pelvic floor physical therapy and Perdiem in the evenings.
[2025-02-12 12:14] VITALS: BP 114/57; PULSE 61; RESP 18; TEMP 36.4; O2SAT 100
[2025-02-12] MEDS: LACTATED RINGERS 1000ML 1,000 ML 50 ML IV (12:31)
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
[2025-02-12 12:38] LABS: Urine Pregnancy, HCG Qual. Negative (Negative)
[2025-02-12 13:06] VITALS: BP 79/40; PULSE 61; RESP 14; TEMP 36.6; O2SAT 99
[2025-02-12 13:16] VITALS: BP 87/41; PULSE 53; RESP 14; O2SAT 99
[2025-02-12 13:26] VITALS: BP 97/49; PULSE 58; RESP 16; O2SAT 99
[2025-02-12 13:36] VITALS: BP 101/58; PULSE 60; RESP 16; TEMP 36.8; O2SAT 99
== END 2025-02-12 13:45 | disposition home or self-care (01) ==
PROVIDERS: PCP Family Medicine; Visit Provider Internal Medicine Gastroenterology
PROC: 0DJD8ZZ Inspection of Lower Intestinal Tract, Via Natural or Artificial Opening Endoscopic (ICD-10-PCS; CPT 45378; principal; 2025-02-12 13:30)
DX: D12.2 Benign neoplasm of ascending colon (principal); K64.0 First degree hemorrhoids; K64.1 Second degree hemorrhoids; N81.6 Rectocele; K60.2 Anal fissure, unspecified; K62.5 Hemorrhage of anus and rectum; K59.02 Outlet dysfunction constipation; K62.89 Other specified diseases of anus and rectum; F17.290 Nicotine dependence, other tobacco product, uncomplicated; I10 Essential (primary) hypertension; Z90.49 Acquired absence of other specified parts of digestive tract
CPT/HCPCS: 45385; 81025; J2003; J2704; J7120

== ENCOUNTER 2025-02-19 10:36 | Outpatient (CLI) | payer OTHER, SELFPAY ==
--- NOTE | 2025-02-19 10:30 | MR_ITS ---
APPROVED REPORT Artist Woodblock: CLINICAL INDICATION Evaluation of dyspnea and chest pain TECHNIQUE Image Acquisition: Cardiac magnetic resonance (CMR) was performed on Siemens Espree MRI 1.5T scanner. Software platform sequences were performed using the Siemens [employer] MR B19 platform. A set of three-plane, low-resolution, large aqomo-vq-wiys localizers were initially acquired. Then axial, coronal, sagittal TrueFISP, as well as axial HASTE images, were obtained. These were followed by gated TrueFISP breathold cinematic sequences obtained in the short axis with 8 mm slices and 2 mm gaps, 2-chamber (vertical long axis), 3-chamber, 4-chamber (horizontal long axis). A bolus of contrast was injected intravenously with first-pass sequences obtained in the short axis and four-chamber planes. After approximately 10 minutes, a TI roving or yarn color checker sequence was performed to determine the optimal TI time. Using the optimized TI time, delayed contrast enhancement segmented inversion???recovery TurboFLASH sequences were obtained in the short axis, 2-chamber, 3-chamber, and 4-chamber projections. 2D-velocity phase mapping was performed. Functional parameters were calculated by offline analysis on an independent workstation ([employer] Platform, [employer]). Contrast: ProHance??? (Gadoteridol) FINDINGS MORPHOLOGY AND FUNCTION Left ventricle: The left ventricle is normal in size. The indexed left ventricular end-diastolic volume (LVEDVi) is 67 ml/m2 (reference range 57-105 ml/m2 in males, 56-96 ml/m2 in females). Normal left ventricular systolic function is present. There is normal left ventricular wall thickness. There are no regional wall motion abnormalities noted. LVEF is calculated at 53.5% (reference range 52-77%). Right ventricle: The right ventricle is normal in size. The indexed right ventricular end-diastolic volume (RVEDVi) is 66 ml/m2 (reference range 61-121 ml/m2 in males, 48-112 ml/m2 in females). Normal right ventricular systolic function is present. RVEF is calculated at 52.4% (reference range 52-72% in males, 51-71% in females). Atria: The left atrium is normal in size. The maximum indexed left atrial volume is 21 ml/m2 (reference range 26-52 ml/m2 in males, 27-53 ml/m2 in females). The right atrium is normal in size. The maximum indexed right atrial volume is 20 ml/m2 (reference range 18-90 ml/m2). Aorta: The diameter of the aortic annulus is normal, measuring 19 mm (coronal view reference range 21-30 mm in males, 19-27 mm in females). The diameter of the aortic sinus is normal, measuring 24 mm (coronal view reference range 25-42 mm in males, 24-36 mm in females). The diameter of the sinotubular junction is normal, measuring 18 mm (coronal view reference range 18-32 mm in males, 18-28 mm in females). The diameters of the ascending and descending thoracic aorta are normal. Main pulmonary artery: The main pulmonary artery diameter is normal. Pericardium: The pericardial thickness is normal. The pericardial thickness measures 2.0 mm (normal < 4.0 mm). There is no pericardial effusion. VALVES The valvular morphologies in the visualized sequences appear normal. There is no significant valvular stenosis or regurgitation of the mitral, aortic, tricuspid, or pulmonic valve noted visually. Systolic anterior motion of the mitral valve is not visualized. Ratio of pulmonary to systemic flow, Qp:Qs ratio = 1.22 (normal < or = 1.2, hemodynamically significant shunt > 1.5), demonstrating no evidence of hemodynamically significant shunt. TISSUE CHARACTERIZATION Resting Perfusion: Normal myocardial blood flow at rest. No evidence of resting hypoperfusion. Myocardial Fibrosis and/or edema: Normal gadolinium kinetics are present. No evidence of late gadolinium enhancement is noted, consistent with absence of myocardial scarring, infarction, or necrosis. T2-weighted imaging demonstrates no evidence of myocardial edema or inflammation. OTHER No other significant findings are noted. However, this exam is focused on the cardiac structure and function. IMPRESSION Normal LV size with normal LV systolic function. LVEDVi= 67 ml/m2 and LVEF= 53.5%. Normal RV size with normal RV systolic function. RVEDVi= 66 ml/m2 and RVEF= 52.4%. No atrial enlargement. No CMR evidence of myocardial scarring, infarction, or necrosis. No evidence of myocardial edema or inflammation. Perfusion analysis demonstrates normal blood flow at rest with no evidence of resting hypoperfusion. Ratio of pulmonary to systemic flow, Qp:Qs ratio = 1.22 (normal < or = 1.2, hemodynamically significant shunt > 1.5), demonstrating no evidence of hemodynamically significant shunt. COMPARISON None CRITICAL RESULT None COMMUNICATION As above The findings of this cardiac MR were reviewed, reported, and signed by Junior Jordan MD (Child Care Lead Teacher). Conclusion Electronically signed by : Nicki Jordan MD 03/07/2025 23:59:35
--- OUTSIDE RECORDS SUMMARY | 2025-02-19 10:48 | XMS_ITS | Encounter Summary ---
Author Organization Healthcare Address [address] [id number] Care Team Providers Care Strategic Partner Development Manager Name Role Phone Pcp, No Primary Care Provider Unavailabl e Reason for Referral * Consultation (Routine) - Authorized Specialty Diagnoses / Procedures Referred By Kena t Referred To Contact Cardiology Diagnoses Family history of arrhythmogenic right ventricular cardiomyopathy Mindy Thomson APRN [address] [place] [address] Phone: tel: fax: Referral ID Status Reason Start Date Expiration Date Visits Requested Visits Authorized [id number] Authorized Specialty Services Required 01/03/2025 07/05/2026 1 1 Encounter Details Date Type Department Care Team (Late st Contact Info) Description 01/03/2025 Orders Only [facility] [place] [facility] [address] [place] [address] Leona Wayne, RN HOSP. SPECIAL DIAGNOSTIC FACILITIES [...] place to sleep or slept in a penitentiary (including now)? No 07/01/2023 CAGE ASSESSMENT Answer [...] drink first t jayjay in the morning (EYE-REDUCING SALON ATTENDANT) to steady your nerves or to get [...] Miscellaneous Notes * Progress Notes - Leona Wayne, RN - 01/03/2025 3:23 PM EDT 24 y/o female whose aunt & brother have ARVC. She has palps, SOA & syncope. Referring has ordered 2wk event monitor & cMRI. Referring to for genetic testing. documented in this encounter Plan of Treatment Upcoming Encounters Date Type Department Care Team ([facility] st Contact Info) Description 03/14/2025 9:30 AM EDT Office Visit [facility] [place] [address] [facility], [address] [place] [address] Jayson Gomez MD [address] [place], [place] [id number] Scheduled Referrals Name Type Priority Associated Diagnoses [...] documented as of this encounter Care Teams Strategic Partner Development Manager Relationship Specialty Start Date End Date Pcp, No [address] [place] [address] PCP - General Family Medicine 10/12/20 documented as of this encounter
--- OUTSIDE RECORDS SUMMARY | 2025-02-19 10:48 | XMS_ITS | Clinical Summary ---
Author Organization [facility] Address [facility] [place] [address] Phone Care Team Providers Care Sales Agent Trading Stamps Name Role Phone Pcp, Pending Only MD Primary Care Provider [phone] Social History Tobacco Use Types Packs/Day Years [...] age to complete this topic Care Teams Sales Agent Trading Stamps Relationship Specialty Start Date End Date Pcp, Pending Only, [place] [address] PCP - General Internal Medicine 04/02/23
--- OUTSIDE RECORDS SUMMARY | 2025-02-19 10:48 | XMS_ITS | Clinical Summary ---
Author Organization [facility] Address [address] [place] [address] Care Team Providers Care [place] Marshal Name Role Phone Provider, No Known Primary [...] are ultrasound. Patient plans to move to [place] tomorrow. We discussed transfer of care with referral placed by primary CERTIFIED NURSES AIDE. Patient desires tubal with delivery. We discussed potential for referral to the [facility]. Assessment & Plan (02/24/2023 12:41 PM [...] (2 - Td or Tdap) 11/08/2022 11/08/2012 CHLAMYDIA SCREENING 06/29/2024 06/29/2023, 05/19/2023 INFLUENZA VACCINE 12/22/2024 04/23/2008, 03/22/2008 Pneumococcal Vaccine 0-49 Aged Out 2000, 02/07/2001 No longer eligible based on patient's age to complete this topic MENINGOCOCCAL B VACCINE Aged Out No l onger eligible based on patient's age to complete this topic Insurance [facility] Care Teams [place] Marshal Relationship Specialty Start Date End Date Provider, No Known [facility] [place] [address] PCP - General 05/26/21
--- OUTSIDE RECORDS SUMMARY | 2025-02-19 10:48 | XMS_ITS | Clinical Summary ---
Author Organization Healthcare Address [address] [place] [address] Care Team Providers Care Steel Crane Operator Name Role Phone Pcp, No Primary Care [...] Department Care Team Description 01/03/2025 Orders Only [facility] [place] [address] [place] [address] Leona Wayne, finance lecturer history of arrhythmogenic right ventricular cardiomyopathy (Primary [...] drink first t jayjay in the morning (EYE-BURLAP ROLL COVERER) to steady your nerves or to get rid of a hangover? 0 06/29/2023 CAGE Questionnaire Score 0 024 Utilities Answer Date Recorded In the past 12 months has e [employer], gas, oil, or water blinkbox music threatened to shut off services in your [...] 10/10/2021 6:53 PM EDT Plan of Treatment Upcoming Encounters Date Type Department Care Team (Late st Contact Info) Description 03/14/2025 9:30 AM EDT Office Visit [facility] [place] [address] [facility] [address], [address] [place] [address] Jayson Gomez MD [address] [place] [address] Health Maintenance Due Date Last Done Comments [facility]-Depression Screening 2000 [facility]-Infant/Child/Adol SDOH Screenings 2000 HPV Vaccines (3 - 3-dose series) 03/23/2018 12/29/2017, 08/04/2017 [facility]- SDOH Screenings 2018 [facility]-Adult SDOH Screenings 2018 [facility]-Pap Smear 2021 [facility]-DTaP,Tdap,and Td Vaccines (7 - Td or Tdap) 11/08/2022 11/08/2012, 12/26/2004, 10/16/2003, Additional history exists [id number] Vaccine (2 - season) 2025 03/18/2021 [facility]-Influenza Vaccine (#1) 2025 04/23/2008, [facility]-Zoster [...] 11/08/2012, 2002 [facility]-Hepatitis A Vaccines Completed 07/13/2018, 0812/2017 [facility]-HIV Screening Completed 05/06/2021 [facility]-Hepatitis C Screening [...] Negative Blood Venous blood specimen / Unknown [facility] Provider LAB BLOOD ORDERABLES Final R esult * Hepatitis C Antibody (05/06/2021) External Hepatitis C Antibody (HCV Ab) Negative Blood Venous blood specimen / Unknown [facility] Provider LAB BLOOD ORDERABLES Final R esult from Last 3 Months or Most Recently Relevant to Health [place] [address] [employer]ICA[employer] Advance Directives * [...] Patient has decision-making capacity? Yes Care Teams Steel Crane Operator Relationship Specialty Start Date End Date Pcp, No [address] [place] [address] PCP - General Family Medicine 10/12/20
--- OUTSIDE RECORDS SUMMARY | 2025-02-19 10:48 | XMS_ITS | Clinical Summary ---
Author Organization [facility] Address [address] [place] [address] Care Team Providers Care Intelligence Research Specialist Name Role Phone Unknown, Attending Provider Primary [...] therelease of HIV test results or diagnoses. [id number] Allergies No known active allergies Active [...] Date Last Done Comments Hepatitis C Screening ([employer]) 2000 Immunization: HPV (3 - 3-dose series) 03/23/2018 12/29/2017, 08/04/2017 Alcohol Misuse Screening 2018 Depression Screening 2018 HIV Screening 2018 Cervical Cancer Screening/Pap Smear (MyChart) 2021 Immunization: DTaP/Tdap/Td (7 - Td or Tdap) 11/08/2022 11/08/2012, 12/26/2004, 10/16/2003, Additional history exists Immunization: COVID-19 (2024- season) 2025 03/18/2021 Immunization: Influenza (MyChart) (#1) 2025 04/23/2008, 03/22/2008 Immunization: Pneumococcal Aged Out 04/13/2001, No longer eligible based on patient's age to complete this topic Immunization: Hepatitis B Completed 2002, 02/07/2001, 2000 Immunization: Meningococcal ACWY Completed 08/04/2017, 11/08/2012 Insurance [employer] MDCD BETTER [facility] Care Teams Intelligence Research Specialist Relationship Specialty Start Date End Date Unknown, Attending Provider PCP - General 03/26/23
--- OUTSIDE RECORDS SUMMARY | 2025-02-19 10:48 | XMS_ITS | Encounter Summary ---
Author Organization Healthcare Address [address] [id number] Care Team Providers Care Starter Mechanic Name Role Phone Pcp, No Primary Care Provider Unavailabl e Encounter Details Date Type Department Care Team (Late st Contact Info) Description 11/29/2020 Community [facility] Community Practice [address] [place] [address] Kalyan Marquez, WEB CONTENT EXECUTIVE [address] [place] [address] Abnormal TSH (Primary Dx) Social History Tobacco Use Types Packs/Day Years Used Date Smoking Tobacco: Never Assessed Comments Unknown Sex and Gender Information Value Date Recorded Sex Assigned at Not on file Legal Sex Female 7:44 PM EDT Gender Identity Not on file Sexual Orientation Not on file documented as of this encounter Plan of Treatment Upcoming Encounters Date Type Department Care Team (Late st Contact Info) Description 03/14/2025 9:30 AM EDT Office Visit [facility] [place] [address] [facility], [address] [place] [address] Jayson Gomez MD [address] [place] [address] documented as of this encounter Visit Diagnoses Diagnosis Abnormal TSH- Primary documented in this encounter Care Teams Starter Mechanic Relationship Specialty Start Date End Date Pcp, No [address] [place] [address] PCP - General Family Medicine 10/12/20 documented as of this encounter
[2025-02-19] MEDS: GADOTERIDOL INJ 20ML SYRINGE 11 ML IV (12:27)
[2025-02-19] MEDS: 0.9 % SODIUM CHLORIDE 50 ML VIAL 10 ML IV (12:28)
[2025-02-21 16:13] LABS: Antinuclear Antibodies, IFA Negative (.)
== END 2025-02-19 23:59 | disposition home or self-care (01) ==
LOC: RAD 10:38
PROVIDERS: PCP Family Medicine; Visit Provider Internal Medicine
DX: R07.9 Chest pain, unspecified (principal); R42 Dizziness and giddiness; Z82.49 Family history of ischemic heart disease and other diseases of the circulatory system; I10 Essential (primary) hypertension; R00.2 Palpitations; R06.02 Shortness of breath; R55 Syncope and collapse
CPT/HCPCS: 36415; 75561; 82384; 82533; 83520; 86038; A9576

== ENCOUNTER 2025-02-21 13:07 | Outpatient (CLI) | payer OTHER, SELFPAY ==
--- OUTSIDE RECORDS SUMMARY | 2025-02-21 13:09 | XMS_ITS | Encounter Summary ---
Author Organization Healthcare Address [address] [id number] Care Team Providers Care Church Worker Name Role Phone Pcp, No Primary Care Provider Unavailabl e Reason for Referral * Consultation (Routine) - Authorized Specialty Diagnoses / Procedures Referred By Kena t Referred To Contact Cardiology Diagnoses Family history of arrhythmogenic right ventricular cardiomyopathy Mindy Thomson APRN [address] [facility] [address] Jaime [address] [place] [address] Phone: tel: fax: Referral ID Status Reason Start Date Expiration Date Visits Requested Visits Authorized [id number] Authorized Specialty Services Required 01/03/2025 07/05/2026 1 1 Encounter Details Date Type Department Care Team (Late st Contact Info) Description 01/03/2025 Orders Only [facility] [place] [address] [place] [address] Leona Wayne, RN HOSP. SPECIAL DIAGNOSTIC FACILITIES [...] drink first t jayjay in the morning (EYE-SOLAR DESIGN ENGINEER) to steady your nerves or to get [...] Upcoming Encounters Date Type Department Care Team ([facility] st Contact Info) Description 03/14/2025 9:30 AM EDT Office Visit [facility] [place] [address] [facility], [address] [place] [address] Jayson Gomez MD [address] [place], [place] [id number] Scheduled Referrals Name Type Priority Associated Diagnoses [...] documented as of this encounter Care Teams Church Worker Relationship Specialty Start Date End Date Pcp, No [address] [place] [address] PCP - General Family Medicine 10/12/20 documented as of this encounter
--- OUTSIDE RECORDS SUMMARY | 2025-02-21 13:09 | XMS_ITS | Encounter Summary ---
Author Organization Healthcare Address [address] [id number] Care Team Providers Care Double Bottom Driver Name Role Phone Pcp, No Primary Care Provider Unavailabl e Encounter Details Date Type Department Care Team (Late st Contact Info) Description 11/29/2020 Community [facility] Community Practice [address] [place] [address] Kalyan Marquez, TOOL AND PRODUCTION PLANNER [address] [place] [address] Abnormal TSH (Primary Dx) Social [...] Description 03/14/2025 9:30 AM EDT Office Visit [facility] [place] [address] [facility], [address] [place] [phone] Jayson Gomez MD [address] [place] [address] documented as of this encounter Visit Diagnoses Diagnosis Abnormal TSH- Primary documented in this encounter Care Teams Double Bottom Driver Relationship Specialty Start Date End Date Pcp, No [address] [place] [address] PCP - General Family Medicine 10/12/20 documented as of this encounter
--- OUTSIDE RECORDS SUMMARY | 2025-02-21 13:09 | XMS_ITS | Clinical Summary ---
Author Organization Healthcare Address [address] [place] [address] Care Team Providers Care Service Coordinator Elderly Facility Name Role Phone Pcp, No Primary Care [...] Department Care Team Description 01/03/2025 Orders Only [facility] [place] [address] [place] [address] Leona Wayne, automobile wrecker history of arrhythmogenic right ventricular cardiomyopathy (Primary [...] place to sleep or slept in a mcc (including now)? No 07/01/2023 CAGE ASSESSMENT Answer [...] drink first t jayjay in the morning (EYE-AEROSPACE PROJECT ENGINEER) to steady your nerves or to get rid of a hangover? 0 06/29/2023 CAGE Questionnaire Score 0 024 Utilities Answer Date Recorded In the past 12 months has e [employer], gas, oil, or water [employer] threatened to shut off services in your [...] Description 03/14/2025 9:30 AM EDT Office Visit [facility] [place] [address] [facility], [address] [place] [address] Jayson Gomez MD [address] [place] [address] Health Maintenance Due Date Last Done Comments [facility]-Depression Screening 2000 [facility]-/Child/Adol SDOH Screenings 2000 HPV Vaccines (3 - 3-dose series) 03/23/2018 12/29/2017, 08/04/2017 [facility]- SDOH Screenings 2018 [facility]-Adult SDOH Screenings 2018 [facility]-Pap Smear 2021 [facility]-DTaP,Tdap,and Td Vaccines (7 - Td or Tdap) 11/08/2022 11/08/2012, 12/26/2004, 10/16/2003, Additional history exists [id number] Vaccine (2 - season) 2025 03/18/2021 [facility]-Influenza [...] Negative Blood Venous blood specimen / Unknown [facility] Provider LAB BLOOD ORDERABLES Final R esult * Hepatitis C Antibody (05/06/2021) External Hepatitis C Antibody (HCV Ab) Negative Blood Venous blood specimen / Unknown [facility] Provider LAB BLOOD ORDERABLES Final R esult from Last 3 Months or Most Recently Relevant to [place] [address] [employer] BETTER HEALTH MEDICAID Advance Directives * [...] Patient has decision-making capacity? Yes Care Teams Service Coordinator Elderly Facility Relationship Specialty Start Date End Date Pcp, No [address] [place] [address] PCP - General Family Medicine 10/12/20
--- OUTSIDE RECORDS SUMMARY | 2025-02-21 13:09 | XMS_ITS | Clinical Summary ---
Author Organization [facility] [address] [place] [address] Phone Care Team Providers Care Magnet Placer Name Role Phone Pcp, Pending Only MD Primary Care Provider [phone] Social History Tobacco Use Types Packs/Day Years [...] age to complete this topic Care Teams Magnet Placer Relationship Specialty Start Date End Date Pcp, Pending Only, [place] [address] PCP - General Internal Medicine 04/02/23
--- OUTSIDE RECORDS SUMMARY | 2025-02-21 13:09 | XMS_ITS | Clinical Summary ---
Author Organization [facility] Address [address] [place] [address] Care Team Providers Care Carbon Paper Machine Operator Name Role Phone Provider, No Known Primary [...] are ultrasound. Patient plans to move to [place] tomorrow. We discussed transfer of care with referral placed by primary HEALTH PROMOTION MANAGER. Patient desires tubal with delivery. We discussed potential for referral to the [facility]. Assessment & Plan (02/24/2023 12:41 PM EDT): [...] age to complete this topic Insurance AENA [facility] Care Teams Carbon Paper Machine Operator Relationship Specialty Start Date End Date Provider, No Known [facility] [place] [address] PCP - General 05/26/21
--- OUTSIDE RECORDS SUMMARY | 2025-02-21 13:09 | XMS_ITS | Clinical Summary ---
Author Organization [facility] Address [address] [place] [address] Care Team Providers Care Rv Detailer Name Role Phone Unknown, Attending Provider Primary [...] therelease of HIV test results or diagnoses. [id number] Allergies No known active allergies Active [...] Date Last Done Comments Hepatitis C Screening ([employer]) 2000 Immunization: HPV (3 - 3-dose series) [...] Insurance AETNA MDCD BETTER [facility] Care Teams Rv Detailer Relationship Specialty Start Date End Date Unknown, Attending Provider PCP - General 03/26/23
[2025-02-22 12:23] LABS: Sodium, Urine 129 mmol/L (Not Estab.); Sodium, Urine 94 mmol/24 hr (39-258)
== END 2025-02-21 23:59 | disposition home or self-care (01) ==
LOC: LAB 13:07
PROVIDERS: PCP Family Medicine; Visit Provider Internal Medicine
DX: R42 Dizziness and giddiness (principal); R07.9 Chest pain, unspecified; R00.2 Palpitations; R06.02 Shortness of breath; R55 Syncope and collapse; I10 Essential (primary) hypertension; Z82.49 Family history of ischemic heart disease and other diseases of the circulatory system
CPT/HCPCS: 84300

== ENCOUNTER 2025-03-09 07:46 | Outpatient (CLI) | payer OTHER, SELFPAY ==
--- OUTSIDE RECORDS SUMMARY | 2025-03-09 07:48 | XMS_ITS | Clinical Summary ---
Author Organization [facility] Address [address] [place] [address] Care Team Providers Care Golf Sales Associate Name Role Phone Unknown, Attending Provider [...] therelease of HIV test results or diagnoses. [id number] Allergies No known active allergies Active [...] Date Last Done Comments Hepatitis C Screening ([employer]) 2000 Immunization: HPV (3 - 3-dose series) [...] Completed 08/04/2017, 11/08/2012 Insurance AETNA MDCD BETTER [facility] Care Teams Golf Sales Associate Relationship Specialty Start Date End Date Unknown, Attending Provider PCP - General 03/26/23
--- OUTSIDE RECORDS SUMMARY | 2025-03-09 07:48 | XMS_ITS | Encounter Summary ---
Author Organization Healthcare Address [address] [id number] Care Team Providers Care Computer Applications Instructor Name Role Phone Pcp, No Primary Care Provider Unavailabl e Encounter Details Date Type Department Care Team (Late st Contact Info) Description 11/29/2020 Community [facility] Community Practice [address] [place] [address] Kalyan Marquez, REFRIGERATION PLANT CORK INSULATOR [address] [place] [address] Abnormal TSH (Primary Dx) Social [...] Description 03/14/2025 9:30 AM EDT Office Visit [facility] [place] [address] [facility], [address] [place] [address] Jayson Gomez MD [address] [place] [address] documented as of this encounter Visit Diagnoses Diagnosis Abnormal TSH- Primary documented in this encounter Care Teams Computer Applications Instructor Relationship Specialty Start Date End Date Pcp, No [address] [place] [address] PCP - General Family Medicine 10/12/20 documented as of this encounter
--- OUTSIDE RECORDS SUMMARY | 2025-03-09 07:48 | XMS_ITS | Clinical Summary ---
Author Organization [facility] Address [address] [place] [address] Care Team Providers Care Batterboard Setter Name Role Phone Provider, No Known Primary [...] are ultrasound. Patient plans to move to [place] tomorrow. We discussed transfer of care with referral placed by primary PROPERTY CLERK. Patient desires tubal with delivery. We discussed potential for referral to the [facility]. 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 Her mother reported [...] age to complete this topic Insurance AENA [facility] Care Teams Batterboard Setter Relationship Specialty Start Date End Date Provider, No Known [facility] [place] [address] PCP - General 05/26/21
--- OUTSIDE RECORDS SUMMARY | 2025-03-09 07:48 | XMS_ITS | Clinical Summary ---
Author Organization [facility] Address [facility] [address] [place] [address] Phone Care Team Providers Care Customer Engineer Name Role Phone Pcp, Pending Only MD Primary Care Provider [phone] Social History Tobacco Use Types Packs/Day Years [...] age to complete this topic Care Teams Customer Engineer Relationship Specialty Start Date End Date Pcp, Pending Only, [place] [address] PCP - General Internal Medicine 04/02/23
--- OUTSIDE RECORDS SUMMARY | 2025-03-09 07:48 | XMS_ITS | Clinical Summary ---
Author Organization Healthcare Address [address] [place] [address] Care Team Providers Care Ticket Marker Name Role Phone Pcp, No Primary Care [...] Department Care Team Description 01/03/2025 Orders Only [facility] [place] [address] [place] [address] Leona Wayne, chief clinical officer history of arrhythmogenic right ventricular cardiomyopathy (Primary [...] drink first t jayjay in the morning (EYE-MEDIA SERVICES DIRECTOR) to steady your nerves or to get rid of a hangover? 0 06/29/2023 CAGE Questionnaire Score 0 024 Utilities Answer Date Recorded In the past 12 months has e [employer], gas, oil, or water [employer] threatened to shut off services in your [...] Description 03/14/2025 9:30 AM EDT Office Visit [facility] [place] [address] [facility], [address] [place] [address] Jayson Gomez MD [address] [place] [address] Health Maintenance Due Date Last Done Comments [facility]-Depression Screening 2000 [facility]-/Child/Adol SDOH Screenings 2000 HPV Vaccines (3 - 3-dose series) 03/23/2018 12/29/2017, 08/04/2017 [facility]- SDOH Screenings 2018 [facility]Y-Adult SDOH Screenings 2018 [facility]-Pap Smear 2021 [facility]-DTaP,Tdap,and Td Vaccines (7 - Td or Tdap) 11/08/2022 11/08/2012, 12/26/2004, 10/16/2003, Additional history exists [id number] Vaccine (2 - season) 2025 03/18/2021 [facility]-Influenza [...] Negative Blood Venous blood specimen / Unknown [facility] Provider LAB BLOOD ORDERABLES Final R esult * Hepatitis C Antibody (05/06/2021) External Hepatitis C Antibody (HCV Ab) Negative Blood Venous blood specimen / Unknown [facility] Provider LAB BLOOD ORDERABLES Final R esult from Last 3 Months or Most Recently Relevant to [place] [address] A[employer] BETTER HE[employer] MEDICAID Advance Directives * [...] Patient has decision-making capacity? Yes Care Teams Ticket Marker Relationship Specialty Start Date End Date Pcp, No [address] [place] [address] PCP - General Family Medicine 10/12/20
[2025-03-09 08:00] LABS: Hematocrit 37.2 % (37.0-47.0); Hemoglobin 12.7 g/dL (12.2-16.2); Mean Corpuscular HGB Conc 34.1 g/dL (31.8-35.4); Mean Corpuscular Hemoglobin 28.9 pg (27.0-31.2); Mean Corpuscular Volume 84.7 fl (81-99); Nucleated Red Blood Cells % 0 %; Platelet Count 246 K/mm3 (142-424); Red Blood Count 4.39 M/mm3 (4.20-5.40); Red Cell Distribution Width-SD 39.0 fL; White Blood Count 4.7 K/mm3 (4.8-10.8)
[2025-03-09 08:24] LABS: Chloride 103 mmol/L (98-107); Potassium 3.7 mmoL/L (3.5-5.1); Sodium 139 mmol/L (136-145)
[2025-03-09 08:27] LABS: Anion Gap 12.7 mEq/L (5-15); Blood Urea Nitrogen 14 mg/dl (7-17); Calcium 8.9 mg/dl (8.4-10.2); Carbon Dioxide 27 mmol/L (22.0-30.0); Creatinine,Serum 0.90 mg/dl (0.52-1.04); Estimated Glomerular Filt Rate 77 ml/min (>60); GFR (African American) 93 ML/MIN (>60); Glucose 98 mg/dl (74-100)
[2025-03-09 08:43] LABS: Free T4 (Free Thyroxine) 1.23 ng/dl (0.78-2.19)
[2025-03-09 08:58] LABS: Thyroid Stimulating Hormone 0.71 uIU/mL (0.465-4.68)
== END 2025-03-09 23:59 | disposition home or self-care (01) ==
LOC: LAB 07:47
PROVIDERS: PCP Family Medicine; Visit Provider Student in an Organized Health Care Education/Training Program
DX: R79.89 Other specified abnormal findings of blood chemistry (principal)
CPT/HCPCS: 36415; 80048; 82024; 82533; 84439; 84443; 85027

== ENCOUNTER 2025-05-07 03:59 | Emergency (ER) | payer OTHER, SELFPAY ==
--- OUTSIDE RECORDS SUMMARY | 2025-03-14 08:30 | XMS_ITS | Encounter Summary ---
Author Organization Healthcare Address [address] [place] [address] Care Team Providers Care Travel Assistant Name Role Phone Pcp, No Primary Care Provider Unavailabl e Reason for Visit * Consultation (Routine) - Closed Specialty Diagnoses / Procedures Referred By Kena t Referred To Contact Cardiology Diagnoses Family history of arrhythmogenic right ventricular cardiomyopathy Mindy Thomson, AIRCRAFT MAINTENANCE DIRECTOR [address] [place] [address] Phone: tel: fax: Referral ID Status Reason Start Date Expiration Date V isits Requested Visits Authorized [id number] Closed Specialty Services Required 01/03/2025 07/05/2026 1 1 Encounter Details Date Type Department Care Team (Latest Contact Info) Description 03/14/2025 9:30 AM EDT Office Visit [facility] [address], [address] [place] [address] Jayson Gomez MD [address] [place], [place] [id number] Family history of arrhythmogenic right ventricular cardiomyopathy [...] in a assisted (including now)? 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 0 06/29/2023 CAGE Questionnaire Score 0 024 Utilities Answer Date Recorded In the past 12 months has e [employer], gas, oil, or water [employer] threatened to shut off services in your [...] documented in this encounter Functional Status * Over the past 2 weeks, how often have you been bothered by any of the following problems? Question Answer Date of Assessment Author Little interest or pleasure in doing things Not at all 03/14/2025 9:31 AM Esther Garcia Feeling down, depressed, or hopeless Not at all 02/22 9:31 AM Esther Garcia Patient Health Questionnaire-2 Score 0 02/22 9:31 AM Esther Garcia * Question Answer Date of Assessment Author Trouble [...] down Not at all 03/14/2025 9:31 AM EVENS Solorio August Trouble concentrating on thi ngs, such as reading the newspaper or watching television Not at all 03/14/2025 9:31 AM EVENS Solorio August Moving or speaking so slowly that other people could have noticed. Or the opposite - being so fidgety or restless that you have been moving around a lot more than usual Not at all 03/14/2025 9:31 AM Aida Garcia Thoughts that you would be b colton off or hurting yourself in some way Not at all 03/14/2025 9:31 AM EVENS Solorio August Patient Health Questionnaire-9 Score 0 02/22 9:31 AM EVENS Solorio August * How difficult have these problems made it for you to do your work, take care of things at home, or get along with other people? Answer Date of Assessment Author Not difficult at all 03/14/2025 9:31 AM EVENS hernandez August documented as of this encounter Miscellaneous Notes [...] reported confirmed ACM and is seen at [facility]. - However, she does not have the [...] brother and the results of her testing. [place]ff[place] screening can be completed through or [facility] given their large AC registry leadership. SUBJECTIVE History Of Present Illness Kelin Peterson is a 24 y.o. female, who presents as a woman with complaints of a family history of ARVC in her brother. History of Present Illness The patient is a 24-year-old female who presents for genetic testing for arrhythmogenic right ventricular cardiomyopathy (ARVC). She is accompanied by her mother. She has been referred by her forest pathology associate professor for genetic testing due to her brother's [...] has a follow-up appointment scheduled with her forest pathology associate professor tomorrow. The patient reports experiencing palpitations, described [...] has been under the care of a forest pathology associate professor for the past six months. Her past [...] Review None as of yet. Refer to [facility] for most recent cardiac imaging findings. [...] patient and family/caregiver, communicating with other health child day care center worker, care coordination, and entering clinical information in [...] ECG Atrial Rate 60 BPM MUSE ECG [place] Interval 126 ms MUSE ECG QRSD Interval 82 ms MUSE ECG QT Interval 396 ms MUSE ECG QTC Interval 396 ms MUSE ECG P [place] 0 degrees MUSE ECG R [place] 80 degrees MUSE ECG T Wave [place] 22 degrees MUSE ECG Diagnosis Normal sinus rhythm with sinus arrhythmia MUSE ECG Diagnosis Normal ECG MUSE ECG Diagnosis MUSE ECG Diagnosis Confirmed by Narayan Bruce ([id number]) on 03/15/2025 11:49:10 AM MUSE ECG 03/14/2025 [...] documented as of this encounter Care Teams Travel Assistant Relationship Specialty Start Date End Date Pcp, [place] [address] PCP - General Family Medicine 10/12/20 documented as of this encounter
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
[2025-05-07 04:10] VITALS: BP 119/81; PULSE 109; RESP 16; TEMP 36.8; O2SAT 98; BMI 19.6
--- OUTSIDE RECORDS SUMMARY | 2025-05-07 04:16 | XMS_ITS | Encounter Summary ---
Author Organization Healthcare Address [address] [place] [address] Care Team Providers Care Hand Candy Cutter Name Role Phone Pcp, No Primary Care Provider Unavailabl e Encounter Details Date Type Department Care Team (Late st Contact Info) Description 03/16/2025 Telephone [facility] [place] [address] [place] [address] Palma Guadalupe RN [facility] - [facility] None Social History Tobacco Use Types Packs/Day Years [...] a group home (including now)? 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 Gomez Future scheduling/testing needs: follow-up This [facility] Nurse Liaison contacted Kelin Peterson following their appointment on 03/14/2025 Explained Liaison services offered through the [facility]. Inquired about appointment details and if patient had any questions or concerns. Patient requested and email or fax number to send testresults to. I provided her with the [facility] nurse liaison contact information and informed her I will add it directly to her chart and let Dr. Gomez when it is received. Informed patient that liaisons are always available should a need/concern arise. Will follow up in to ensure continuum of care. Palma Guadalupe, GRETCHEN [facility] Nurse Liaison [phone] documented in this encounter Plan of Treatment Not on file documented as of this encounter Visit Diagnoses Not on filedocumented in this encounter Additional Health Concerns Assessment Noted Time PHQ-9 Depression Total Score: 0 03/14/20 25 9:31 AM EDT A fall risk assessment has been complete d for the patient 03/14/2025 9:31 AM EDT A Body Mass Index follow-up plan has been documented for the patient 03/14/2025 11:57 AM EDT documented as of this encounter Care Teams Hand Candy Cutter Relationship Specialty Start Date End Date Pcp, [place] [address] PCP - General Family Medicine 10/12/20 documented as of this encounter
--- OUTSIDE RECORDS SUMMARY | 2025-05-07 04:16 | XMS_ITS | Encounter Summary ---
Author Organization Healthcare Address [address] [place] [address] Care Team Providers Care Label Press Operator Name Role Phone Pcp, No Primary Care Provider Unavailabl e Encounter Details Date Type Department Care Team ([facility] st Contact Info) Description 11/29/2020 [facility] [address] [place] [address] Kalyan Marquez, CAMPUS EXECUTIVE DIRECTOR [address] [place] [address] Abnormal TSH (Primary Dx) Social History Tobacco [...] Primary documented in this encounter Care Teams Label Press Operator Relationship Specialty Start Date End Date Pcp, Dafne [address] [place] [address] PCP - General Family Medicine 10/12/20 documented as of this encounter
--- OUTSIDE RECORDS SUMMARY | 2025-05-07 04:17 | XMS_ITS | Encounter Summary ---
Author Organization Healthcare Address [address] [place] [address] Care Team Providers Care Complaints Coordinator Name Role Phone Pcp, No Primary Care Provider Unavailabl e Encounter Details Date Type Department Care Team (Latest Contact Info) Description 03/14/2025 Travel Social History Tobacco Use Types Packs/Day Years [...] a senior living (including now)? 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/DRIVER) to steady your nerves or to get [...] on file documented as of this encounter Functional Status * Over the [...] 02/22 9:31 AM EVENS Solorio Esther * Question Answer Date of Assessment Author Trouble falling or staying a sleep, or sleeping too much Not at all 03/14/2025 9:31 AM EVENS Solorio Esther Feeling tired or having little energy Not at all 9:31 AM EVENS Solorio August Poor appetite or overeating Not at all 03/14/2025 9: 31 AM EVENS Solorio August Feeling bad about yourself - or that [...] at all 03/14/2025 9:31 AM EVENS Solorio Esther Patient Health Questionnaire-9 Score 0 02/22 9:31 AM EVENS Solorio Esther * How difficult have these problems made it for you to do your work, take care of things at home, or get along with other people? Answer Date of Assessment Author Not difficult at all 03/14/2025 9:31 AM EVENS hernandez August documented as of this encounter Plan of Treatment Not on file documented as of this encounter Visit Diagnoses Not on filedocumented in this encounter Additional Health Concerns Assessment Noted Time PHQ-9 Depression Total Score: 0 03/14/20 9:31 AM EDT A fall risk assessment has been complete d for the patient 03/14/2025 9:31 AM EDT A Body Mass Index follow-up plan has been documented for the patient 03/14/2025 11:57 AM EDT documented as of this encounter Care Teams Complaints Coordinator Relationship Specialty Start Date End Date Pcp, [place] [address] PCP - General Family Medicine 10/12/20 documented as of this encounter
--- OUTSIDE RECORDS SUMMARY | 2025-05-07 04:17 | XMS_ITS | Clinical Summary ---
Author Organization Healthcare Address [address] [place] [address] Care Team Providers Care Animal Skinner Name Role Phone Pcp, No Primary Care Provider Unavailabl e Allergies No known active allergies Medications famotidine (Pepcid) 20 MG tablet Take 1 tablet (20 mg) by mouth 2 (two) times a day. 90 tablet 3 4 Active Additional Information Patient not taking.Reported on 03/14/2025 acetaminophen (Tylenol) 500 MG tablet Take 2 tablets (1,000 mg) by mouth every 8 (eight) hours if needed for pain. Active MV-Min-Fe Fum-FA-DHA ( 1 PO) Take 1 tablet by mouth 1 (one) time each day. Active propranolol (Inderal) 10 MG tablet Take 0.5 tablets by mouth 2 times a day. 5 Active Active Problems Problem Noted Date Diagnosed Date labor without delivery, third trimester 06/30/2023 History of delivery, currently 06/30/2023 Third trimester 06/29/2023 premature rupture of membranes (PPROM) with unknown onset of labor 05/27/2023 28 weeks gestation of 05/19/2023 Chest pain, unspecified 12/24/2022 Resolved Problems Problem Noted Date Diagnosed Date Resolved Date premature rupture of membranes (PPROM) with unknown onset of labor 10/10/2021 0508/2021 Encounters Date Type Department Care Team Description 04/17/2025 Community Orders Community Practice [address] [place] [address] Josy Valencia DMD Extraction of tooth needed (Primary Dx) 03/16/2025 Telephone [facility] [place] [facility] [address] [facility] [place] [phone] Palma Guadalupe, RN 03/14/2025 9:30 AM EDT Office Visit [facility] [address] [facility], [address] [place] [address] Jayson Gomez MD Family history of arrhythmogenic right ventricular cardiomyopathy (Primary Dx) 03/14/2025 Travel 03/09/2025 Telephone [facility] [address] [place] [phone] Palma Guadalupe, RN from Last 3 Months Immunizations Immunization Administration Dates Next Due Rho (D) Immune Globulin 05/20/2023(Defer red: - reviewed pt records with dr hill, patient receieved dose at 26.4 weeks gestation, md to discontinue order) Social History Tobacco Use [...] drink first t jayjay in the morning (EYE-POURER) to steady your nerves or to get [...] Pulse 77 03/14/2025 9:29 AM EDT Temperature 36.7 C (98 F) 07/03/2023 7:55 AM EST Respiratory Rate 17 07/03/2023 7:55 AM EST Oxygen Saturation 98% 03/14/2025 9:29 AM EDT Inhaled Oxygen Concentration - - Weight 59.8 kg (131 lb 13.4 oz) 03/14/2025 9:29 AM EDT Height 165.1 cm (5' 5 ) 03/14/2025 9:29 AM EDT Body Mass Index 21.94 03/14/2025 9:29 AM EDT Plan of Treatment Health Maintenance Due Date Last Done Comments [facility]-/Child/Adol SDOH Screenings 2000 HPV Vaccines (3 - 3-dose series) 03/23/2018 12/29/2017, 08/04/2017 [facility]- SDOH Screenings 2018 [facility]-Adult SDOH Screenings 2018 [facility]-Pap Smear 2021 [facility]-DTaP,Tdap,and Td Vaccines (7 - Td or Tdap) 11/08/2022 11/08/2012, 12/26/2004, 10/16/2003, Additional history exists [id number] Vaccine (2 - 2024- season) 2025 03/18/2021 [facility]-Influenza Vaccine (#1) 2025 04/23/2008, [facility]-Depression Screening 03/14/2026 03/14/2025, 02/22 [facility]-Zoster Vaccines (1 of 2) 2050 11/08/2012, [...] 11/08/2012, 2002 [facility]-Hepatitis A Vaccines Completed 07/13/2018, 080 12/2017 [facility]-HIV Screening Completed 05/06/2021 [facility]-Hepatitis C Screening Completed 05/06/2021 [facility]-Rotavirus Vaccines Aged Out No lo nger eligible based on patient's age to complete this topic Procedures Procedure Name Priority Date/Time Associated Diagnosis Comments ECG ADULT Routine 03/14/2025 9:32 AM EDT Family history of arrhythmogenic right ventricular cardiomyopathy HEPATITIS C ANTIBODY W/REFLEX TO HCV QUANT PCR Routine 05/06/2021 HIV 1/2 ANTIBODY/ANTIGEN SCREEN WITH REFLEX TO HIV I/II DIFFERENTIATION Routine 05/06/2021 from Last 3 Months or Most Recently Relevant to Health Maintenance Results * ECG Adult (Now - Performed in your clinic) (03/14/2025 9:32 AM EDT) EKG DIAGNOSIS CLASS Normal MUSE ECG Ventricular Rate 60 BPM MUSE ECG Atrial Rate 60 BPM MUSE ECG MS Interval 126 ms MUSE ECG QRSD Interval 82 ms MUSE ECG QT Interval 396 ms MUSE ECG QTC Interval 396 ms MUSE ECG P Stokes 0 degrees MUSE ECG R Stokes 80 degrees MUSE ECG T Wave Stokes 22 degrees MUSE ECG Diagnosis Normal sinus rhythm with sinus arrhythmia MUSE ECG Diagnosis Normal ECG MUSE ECG Diagnosis MUSE ECG Diagnosis Confirmed by Narayan Bruce ([id number]) on 03/15/2025 11:49:10 AM MUSE ECG 03/14/2025 9:32 AM EDT 03/15/2025 11:49 AM EDT Manish Navarro MD ECG ORDERABLES Final Result MUSE ECG * HIV 1 & 2 Antibody/Antigen Screen [...] Patient has decision-making capacity? Yes Care Teams Animal Skinner Relationship Specialty Start Date End Date Pcp, [place] [address] [place] [address] PCP - General Family Medicine 10/12/20
--- OUTSIDE RECORDS SUMMARY | 2025-05-07 04:17 | XMS_ITS | Clinical Summary ---
Author Organization [facility] Address [address] [place] [address] Care Team Providers Care Network Systems Integrator Name Role Phone Provider, No Known Primary [...] are ultrasound. Patient plans to move to [place] tomorrow. We discussed transfer of care with referral placed by primary BIOLOGICAL INSPECTOR. Patient desires tubal with delivery. We discussed potential for referral to the [facility]. Assessment & Plan (02/24/2023 12:41 PM [...] age to complete this topic Insurance [facility]ENA [facility] Care Teams Network Systems Integrator Relationship Specialty Start Date End Date Provider, No Known [facility] [place] [address] PCP - General 05/26/21
--- OUTSIDE RECORDS SUMMARY | 2025-05-07 04:17 | XMS_ITS | Encounter Summary ---
Author Organization [facility] Address [address] [place] [address] Care Team Providers Care Fixture Builder Name Role Phone Pcp, No Primary Care Provider Unavailabl e Reason for Referral * Consultation (Routine) - Authorized Specialty Diagnoses / Procedures Referred By Contjin t Referred To Contact Oral Surgery Diagnoses Extraction of tooth needed Josy Valencia DMD [address] [place] [address] Phone: tel: fax: [facility] manager of allied health services [facility] [address] [place] [address] [address] [place] [address] Phone: tel: Referral ID Status Reason Start Date Expiration Date Visits Requested Visits Authorized [id number] Authorized Specialty Services Required 10/17/2026 1 1 Encounter Details Date Type Department Care Team (Late st Contact Info) Description 04/17/2025 Community Orders Community Practice [address] [place] [address] Josy Valencia DMD [address] [place], [place] [id number] Extraction of tooth needed (Primary Dx) Social History Tobacco Use Types [...] drink first t jayjay in the morning (EYE-FIXED INCOME MANAGER) to steady your nerves or to [...] as of this encounter Plan of Treatment Scheduled Referrals Name Type Priority Associated Diagnoses Order Schedule Ambulatory referral to Oral Maxillofacial Surgery Outpatient Referral Routine Extraction of tooth needed 1 Occurrences starting 04/17/2025 until 10/19/2026 documented as of this encounter Visit Diagnoses Diagnosis Extraction of tooth needed- Primary documented in this encounter Additional Health Concerns Assessment Noted Time PHQ-9 Depression Total Score: 0 03/14/20 9:31 AM EDT A fall risk assessment has been complete d for the patient 03/14/2025 9:31 AM EDT A Body Mass Index follow-up plan has been documented for the patient 03/14/2025 11:57 AM EDT documented as of this encounter Care Teams Fixture Builder Relationship Specialty Start Date End Date Pcp, Daf[place] [address] [place] [address] PCP - General Family Medicine 10/12/20 documented as of this encounter
--- OUTSIDE RECORDS SUMMARY | 2025-05-07 04:17 | XMS_ITS | Clinical Summary ---
Author Organization [facility] Address [address] [place] [address] Care Team Providers Care Snowmobile Mechanic Name Role Phone Unknown, Attending Provider Primary [...] therelease of HIV test results or diagnoses. [id number] Allergies No known active allergies Active [...] Date Last Done Comments Hepatitis C Screening ([employer]) 2000 Immunization: HPV (3 - 3-dose series) [...] MDCD BETTER [facility] Care Teams Snowmobile Mechanic Relationship Specialty Start Date End Date Unknown, Attending Provider PCP - General 03/26/23
--- OUTSIDE RECORDS SUMMARY | 2025-05-07 04:17 | XMS_ITS | Encounter Summary ---
Author Organization Healthcare Address [address] [place] [address] Care Team Providers Care Edi Specialist Name Role Phone Pcp, No Primary Care Provider Unavailabl e Encounter Details Date Type Department Care Team (Late st Contact Info) Description 03/09/2025 Telephone [facility] [place] [address] [place] [address] Palma Guadalupe RN CH - [facility] [employer] None Social History Tobacco Use Types Packs/Day [...] place to sleep or slept in a jail (including now)? No 07/01/2023 CAGE ASSESSMENT Answer [...] drink first t jayjay in the morning (EYE-MANIFEST CLERK) to steady your nerves or to get [...] Telephone Encounter - Palma Guadalupe RN - 03/09/2025 3:52 PM EDT Patient Name: Kelin Peterson :2000 Date:03/09/2025 Affiliate site: [facility] Referring Physician: Mindy Thomson Education/ Information provided: Appointment Location This Nurse Liaison spoke with Kelin Peterson prior to an appointment on 03/14. Explained nurse liaison services offered through [facility]. Discussed appointment necessity, and subspecialty clinic the pt will be seeing. Patient verbalizes understanding. Patient denied any barriers toarriving to clinic visit. Patient did request a text or email with address. I will send email with details. Provided patient with liaison contact information and encouraged patient to call with any questions, concerns or assistance needs. Will follow up with patient after appointment. Palma Guadalupe, RN [facility] Nurse Liaison [phone] documented in this encounter Plan of Treatment Not on file documented as of this encounter Visit Diagnoses Not on filedocumented in this encounter Additional Health Concerns Assessment Noted Time A Body Mass Index follow-up plan has been documented for the patient 07/03/2023 11:53 AM EST documented as of this encounter Care Teams Edi Specialist Relationship Specialty Start Date End Date Pcp, [place] [address] PCP - General Family Medicine 10/12/20 documented as of this encounter
[2025-05-07] MEDS: CIPRO 0.3%-DEX 0.1% OTIC SUSP 7.5ML 1 ML OT (04:23)
[2025-05-07] MEDS: IBUPROFEN 600 MG TABLET PO (04:23)
[2025-05-07] MEDS: ACETAMINOPHEN 500MG TAB 1000 MG PO (04:23)
[2025-05-07] MEDS: AMOXICILLIN/CLAVULANATE POTASSIUM 875/125MG TABLET 1 EACH PO (04:23)
[2025-05-07 04:36] VITALS: BP 117/79; PULSE 102; RESP 14; TEMP 36.7; O2SAT 99
== END 2025-05-07 04:41 | disposition home or self-care (01) ==
LOC: ER 04:15
PROVIDERS: Emergency Provider Emergency Medicine; PCP Family Medicine
DX: H66.91 Otitis media, unspecified, right ear (principal); R68.84 Jaw pain
CPT/HCPCS: 99283

== ENCOUNTER 2025-05-16 10:46 | Outpatient (CLI) | payer OTHER, SELFPAY ==
--- OUTSIDE RECORDS SUMMARY | 2025-03-14 08:30 | XMS_ITS | Encounter Summary ---
Author Organization Healthcare Address [address] [place] [address] Care Team Providers Care Nurse Anesthesia Program Director Name Role Phone Pcp, No Primary Care Provider Unavailabl e Reason for Visit * Consultation (Routine) - Closed Specialty Diagnoses / Procedures Referred By Kena t Referred To Contact Cardiology Diagnoses Family history of arrhythmogenic right ventricular cardiomyopathy Mindy Thomson, KEYBOARD TEACHER [address] [facility] [address] [place] [address] Phone: tel: fax: Referral ID Status Reason Start Date Expiration Date V isits Requested Visits Authorized [id number] Closed Specialty Services Required 01/03/2025 07/05/2026 1 1 Encounter Details Date Type Department Care Team (Latest Contact Info) Description 03/14/2025 9:30 AM EDT Office Visit [facility] [place] [address], [address] [id number] Jayson Gomez MD [address] [place], [place] [id number] Family history of arrhythmogenic right ventricular cardiomyopathy [...] your partner or ex-partner? Patient declined 07/01/2023 PHQ-2 Answer Date Recorded Patient Health Questionnaire-2 Score 0 03/14/2025 Hunger Vital Sign Answer Date Recorded Within [...] in a correction (including now)? No 07/01/2023 PHQ-9 Answer Date Recorded Patient Health Questionnaire-9 Score 0 03/14/2025 CAGE ASSESSMENT Answer Date Recorded Cage unable [...] drink first t jayjay in the morning (E[employer] NEUTRALIZER) to steady your nerves or to get rid of a hangover? 0 06/29/2023 CAGE Questionnaire Score 0 024 Utilities Answer Date Recorded In the past 12 months has e electric, gas, oil, or water company threatened to shut off services in your home? No 07/01/2023 Comments Unknown Sex and Gender Information Value Date Recorded Sex Assigned at Not on file Legal Sex Female 7:44 PM EDT Gender Identity Not on file Sexual Orientation Not on file documented as of this encounter Last Filed Vital Signs Vital Sign Reading Time Taken Comments Blood Pressure 105/72 03/14/2025 9:29 AM EDT Pulse 77 03/14/2025 9:29 AM EDT Temperature - - Respiratory Rate - - Oxygen Saturation 98% 03/14/2025 9:29 AM EDT Inhaled Oxygen Concentration - - Weight 59.8 kg (131 lb 13.4 oz) 03/14/2025 9:29 AM EDT Height 165.1 cm (5' 5 ) 03/14/2025 9:29 AM EDT Body Mass Index 21.94 03/14/2025 9:29 AM EDT documented in this encounter Functional Status * BP Answer Date of Assessment Author 105/72 03/14/2025 9:29 AM Juanjo Garcia * Pulse Answer Date of Assessment Author 77 03/14/2025 9:29 AM Juanjo Garcia * SpO2 Answer Date of Assessment Author 98 03/14/2025 9:29 AM Juanjo Garcia * Height Answer Date of Assessment Author 65 03/14/2025 9:29 AM Juanjo Garcia * Weight Answer Date of Assessment Author 2108.36 03/14/2025 9:29 AM Juanjo Garcia * BMI (Calculated) Answer Date of Assessment Author 22 03/14/2025 9:29 AM Juanjo Garcia * Percent Excess Weight Loss Answer Date of Assessment Author 0 03/14/2025 9:29 AM Juanjo Garcia * Total Weight Change Percent Answer Date of Assessment Author 222103/14/2025 9:29 AM Juanjo Garcia * Weight Change Since Preop Answer Date of Assessment Author 59.79 03/14/2025 9:29 AM Juanjo Garcia * Initial Excess Weight Answer Date of Assessment Author -56.7 03/14/2025 9:29 AM Juanjo Garcia * IBW in lbs (Bariatric) Answer Date of Assessment Author 125 03/14/2025 9:29 AM Juanjo Garcia ril * Weight Change Since Last Visit Answer Date of Assessment Author 59.79 03/14/2025 9:29 AM Juanjo Garcia * IBW in kg (Bariatric) Answer Date of Assessment Author 56.7 03/14/2025 9:29 AM Juanjo Garcia ril * Percent of IBW Answer Date of Assessment Author 3,720.21 03/14/2025 9:29 AM Juanjo Garcia * EBW (kg) Answer Date of Assessment Author 2,107.75 03/14/2025 9:29 AM Juanjo Garcia * EBW (lbs) Answer Date of Assessment Author 2,101.55 03/14/2025 9:29 AM Juanjo Garcia * Weight Change 24 hrs Answer Date of Assessment Author -5.518 03/14/2025 9:29 AM Juanjo Garcia * Depression Screening Question Answer Date of Assessment Author Will the patient answer the depression risk questions? Yes 03/14/2025 9:31 AM EVENS Solorio Esther * BSA (Calculated - sq m) Answer Date of Assessment Author 1.66 03/14/2025 9:29 AM Juanjo Garcia * BMI (Calculated) Answer Date of Assessment Author 21.94 03/14/2025 9:29 AM Juanjo Garcia * BP Location Answer Date of Assessment Author Right arm 03/14/2025 9:29 AM Juanjo Garcia * IBW/kg (Calculated) Male Answer Date of Assessment Author 61.5 03/14/2025 9:29 AM Juanjo Garcia ril * IBW/kg (Calculated) Female Answer Date of Assessment Author 57 03/14/2025 9:29 AM Juanjo Garcia ril * IBW/kg (Calculated) Answer Date of Assessment Author 57 03/14/2025 9:29 AM Juanjo Garcia * Over the past 2 weeks, how often have you been bothered by any of the following problems? Question Answer Date of Assessment Author Little interest or pleasure in doing things Not at all 03/14/2025 9:31 AM Esther Garcia Feeling down, depressed, or hopeless Not at all 02/22 9:31 AM Esther Garcia Patient Health Questionnaire-2 Score 0 02/22 9:31 AM EVENS Solorio August * Over the past 2 weeks, how often have you been bothered by any of the following problems? Question Answer Date of Assessment Author Trouble falling or staying a sleep, or sleeping too much Not at all 03/14/2025 9:31 AM Esther Garcia Feeling tired or having little energy Not at all 9:31 AM Esther Garcia Poor appetite or overeating Not at all 03/14/2025 9: 31 AM Esther Garcia Feeling bad about yourself - or that you are a failure or have let yourself or your family down Not at all 03/14/2025 9:31 AM Esther Garcia Trouble concentrating on thi ngs, such as reading the newspaper or watching television Not at all 03/14/2025 9:31 AM Esther Garcia Moving or speaking so slowly that other people could have noticed. Or the opposite - being so fidgety or restless that you have been moving around a lot more than usual Not at all 03/14/2025 9:31 AM Aida Garcia Thoughts that you would be b colton off or hurting yourself in some way Not at all 03/14/2025 9:31 AM Esther Garcia Patient Health Questionnaire-9 Score 0 02/22 9:31 AM EVENS Solorio Esther * How difficult have these problems made it for you to do your work, take care of things at home, or get along with other people? Answer Date of Assessment Author Not difficult at all 03/14/2025 9:31 AM EVENS hernandez August * Weight in (lb) to have BMI = 25 Answer Date of Assessment Author 149.9 03/14/2025 9:29 AM Juanjo Garcia ril * BMI (Calculated) Answer Date of Assessment Author 22 03/14/2025 9:29 AM Juanjo Garcia ril * Percent Excess Weight Loss Answer Date of Assessment Author 0 03/14/2025 9:29 AM Juanjo Garcia ril * Weight Change Since Preop Answer Date of Assessment Author 59.8 03/14/2025 9:29 AM Juanjo Garcia ril * Initial Excess Weight Answer Date of Assessment Author -56.7 03/14/2025 9:29 AM Juanjo Garcia ril * IBW in kg (Bariatric) Answer Date of Assessment Author 56.7 03/14/2025 9:29 AM Juanjo Garcia ril * IBW in lb (Bariatric) Answer Date of Assessment Author 125 03/14/2025 9:29 AM Juanjo Garcia ril * Weight Change Since Last Visit Answer Date of Assessment Author 59.8 03/14/2025 9:29 AM Juanjo Garcia ril * Percent of IBW Answer Date of Assessment Author 105.47 03/14/2025 9:29 AM Juanjo Garcia ril * EBW (kg) Answer Date of Assessment Author 3.09 03/14/2025 9:29 AM Juanjo Garcia ril * EBW (lb) Answer Date of Assessment Author 6.84 03/14/2025 9:29 AM Juanjo Garcia ril * Difference in Weight Since Last Visit Answer Date of Assessment Author -5.52 03/14/2025 9:29 AM Juanjo Garcia ril * IBW/kg (Calculated) Answer Date of Assessment Author 57 03/14/2025 9:29 AM Juanjo Garcia ril * Adult Low Range Vt 6mL/kg Answer Date of Assessment Author 342 03/14/2025 9:29 AM Juanjo Garcia ril * Adult Moderate Range Vt 8mL/kg Answer Date of Assessment Author 456 03/14/2025 9:29 AM Juanjo Garcia ril * Adult High Range Vt 10mL/kg Answer Date of Assessment Author 570 03/14/2025 9:29 AM Juanjo Garcia ril * Pain Score Answer Date of Assessment Author 0 03/14/2025 9:38 AM Juanjo Garcia ril * Patient Position Answer Date of Assessment Author Sitting 03/14/2025 9:29 AM Juanjo Garcia ril * Pain Screening/Additional Assessments Question Answer Date of Assessment Author Pain Screening/Assessments Pain Screening 03/14/2025 9 :30 AM Esther Garcia * Pain Screening Answer Date of Assessment Author 0-10 03/14/2025 9:30 AM Juanjo Garcia * BP Answer Date of Assessment Author 105/72 03/14/2025 9:29 AM Juanjo Garcia * Pulse Answer Date of Assessment Author 77 03/14/2025 9:29 AM Juanjo Garcia * SpO2 Answer Date of Assessment Author 98 03/14/2025 9:29 AM Juanjo Garcia * Height Answer Date of Assessment Author 65 03/14/2025 9:29 AM Juanjo Garcia * Weight Answer Date of Assessment Author 2109.36 03/14/2025 9:29 AM Juanjo Garcia * BSA (Calculated - sq m) Answer Date of Assessment Author 1.66 03/14/2025 9:29 AM Juanjo Garcia * BMI (Calculated) Answer Date of Assessment Author 21.94 03/14/2025 9:29 AM Juanjo Garcia * BP Location Answer Date of Assessment Author Right arm 03/14/2025 9:29 AM Juanjo Garcia * Over the past 2 weeks, how often have you been bothered by any of the following problems? Question Answer Date of Assessment Author Little interest or pleasure in doing things Not at all 03/14/2025 9:31 AM Esther Garcia Feeling down, depressed, or hopeless Not at all 02/22 9:31 AM Esther Garcia Patient Health Questionnaire-2 Score 0 02/22 9:31 AM Esther Garcia * Over the past 2 weeks, how often have you been bothered by any of the following problems? Question Answer Date of Assessment Author Trouble falling or staying a sleep, or sleeping too much Not at all 03/14/2025 9:31 AM Esther Garcia Feeling tired or having little energy Not at all 9:31 AM Esther Garcia Poor appetite or overeating Not at all 03/14/2025 9: 31 AM Esther Garcia Feeling bad about yourself - or that you are a failure or have let yourself or your family down Not at all 03/14/2025 9:31 AM Esther Garcia Trouble concentrating on thi ngs, such as reading the newspaper or watching television Not at all 03/14/2025 9:31 AM Esther Garcia Moving or speaking so slowly that other people could have noticed. Or the opposite - being so fidgety or restless that you have been moving around a lot more than usual Not at all 03/14/2025 9:31 AM Aida Garcia Thoughts that you would be b colton off or hurting yourself in some way Not at all 03/14/2025 9:31 AM Esther Garcia Patient Health Questionnaire-9 Score 0 02/22 9:31 AM EVENS Solorio Esther * How difficult have these problems made it for you to do your work, take care of things at home, or get along with other people? Answer Date of Assessment Author Not difficult at all 03/14/2025 9:31 AM EVENS hernandez Esther * Weight in (lb) to have BMI = 25 Answer Date of Assessment Author 149.9 03/14/2025 9:29 AM Juanjo Garcia * Pain Score Answer Date of Assessment Author 0 03/14/2025 9:38 AM Juanjo Garcia * Patient Position Answer Date of Assessment Author Sitting 03/14/2025 9:29 AM Juanjo Garcia * Learning Needs Screening Question Answer Date of Assessment Author Are there things (barriers) that make it harder for this patient to learn? No Barriers 03/14/2025 9:36 AM EVENS Solorio Esther What is the best language to use for teaching this patient about his/her health? Salvadorean 03/14/2025 9:36 AM Esther Garcia What format does this patien t think is most helpful for learning? Reading 03/14/2025 9:36 AM Esther Garcia * Readiness to Learn Question Answer Date of Assessment Author Readiness Acceptance 03/14/2025 9:36 AM Esther Garcia documented as of this encounter Mental Status * BP Answer Entry Date Author 105/72 03/14/2025 9:29 AM Juanjo Garcia * Pulse Answer Entry Date Author 77 03/14/2025 9:29 AM Juanjo Garcia * SpO2 Answer Entry Date Author 98 03/14/2025 9:29 AM Juanjo Garcia * Height Answer Entry Date Author 65 03/14/2025 9:29 AM Juanjo Garcia ril * Weight Answer Entry Date Author 2108.36 03/14/2025 9:29 AM Juanjo Garcia * BMI (Calculated) Answer Entry Date Author 22 03/14/2025 9:29 AM Juanjo Garcia * Percent Excess Weight Loss Answer Entry Date Author 0 03/14/2025 9:29 AM Juanjo Garcia * Total Weight Change Percent Answer Entry Date Author 222103/14/2025 9:29 AM Juanjo Garcia ril * Weight Change Since Preop Answer Entry Date Author 59.79 03/14/2025 9:29 AM Juanjo Garcia * Initial Excess Weight Answer Entry Date Author -56.7 03/14/2025 9:29 AM Juanjo Garcia * IBW in lbs (Bariatric) Answer Entry Date Author 125 03/14/2025 9:29 AM Juanjo Garcia * Weight Change Since Last Visit Answer Entry Date Author 59.79 03/14/2025 9:29 AM Juanjo Garcia * IBW in kg (Bariatric) Answer Entry Date Author 56.7 03/14/2025 9:29 AM Juanjo Garcia * Percent of IBW Answer Entry Date Author 3,720.21 03/14/2025 9:29 AM Juanjo Garcia * EBW (kg) Answer Entry Date Author 2,107.75 03/14/2025 9:29 AM Juanjo Garcia * EBW (lbs) Answer Entry Date Author 2,101.55 03/14/2025 9:29 AM Juanjo Garcia * Weight Change 24 hrs Answer Entry Date Author -5.518 03/14/2025 9:29 AM Juanjo Garcia * Depression Screening Question Answer Entry Date Author Will the patient answer the depression risk questions? Yes 03/14/2025 9:31 AM Esther Garcia * BSA (Calculated - sq m) Answer Entry Date Author 1.66 03/14/2025 9:29 AM Juanjo Garcia * BMI (Calculated) Answer Entry Date Author 21.94 03/14/2025 9:29 AM Juanjo Garcia * BP Location Answer Entry Date Author Right arm 03/14/2025 9:29 AM Juanjo Garcia ril * IBW/kg (Calculated) Male Answer Entry Date Author 61.5 03/14/2025 9:29 AM Juanjo Garcia ril * IBW/kg (Calculated) Female Answer Entry Date Author 57 03/14/2025 9:29 AM Juanjo Garcia ril * IBW/kg (Calculated) Answer Entry Date Author 57 03/14/2025 9:29 AM Juanjo Garcia ril * Over the past 2 weeks, how often have you been bothered by any of the following problems? Question Answer Entry Date Author Little interest or pleasure in doing things Not at all 03/14/2025 9:31 AM Esther Garcia Feeling down, depressed, or hopeless Not at all 02/22 9:31 AM Esther Garcia Patient Health Questionnaire-2 Score 0 02/22 9:31 AM Esther Garcia * Over the past 2 weeks, how often have you been bothered by any of the following problems? Question Answer Entry Date Author Trouble falling or staying a sleep, or sleeping too much Not at all 03/14/2025 9:31 AM Esther Garcia Feeling tired or having little energy Not at all 9:31 AM Esther Garcia Poor appetite or overeating Not at all 03/14/2025 9: 31 AM Esther Garcia Feeling bad about yourself - or that you are a failure or have let yourself or your family down Not at all 03/14/2025 9:31 AM Esther Garcia Trouble concentrating on thi ngs, such as reading the newspaper or watching television Not at all 03/14/2025 9:31 AM Esther Garcia Moving or speaking so slowly that other people could have noticed. Or the opposite - being so fidgety or restless that you have been moving around a lot more than usual Not at all 03/14/2025 9:31 AM Aida Garcia Thoughts that you would be b colton off or hurting yourself in some way Not at all 03/14/2025 9:31 AM Esther Garcia Patient Health Questionnaire-9 Score 0 02/22 9:31 AM EVENS Solorio August * [facility] Mental Health Concern Calculation Answer Entry Date Author 3 03/14/2025 9:31 AM Juanjo Garcia * How difficult have these problems made it for you to do your work, take care of things at home, or get along with other people? Answer Entry Date Author Not difficult at all 03/14/2025 9:31 AM EVENS hernandez August * Restart Pain Assessment Timer Answer Entry Date Author Yes 03/14/2025 9:38 AM Juanjo Garcia * Weight in (lb) to have BMI = 25 Answer Entry Date Author 149.9 03/14/2025 9:29 AM Juanjo Garcia * BMI (Calculated) Answer Entry Date Author 22 03/14/2025 9:29 AM Juanjo Garcia * Percent Excess Weight Loss Answer Entry Date Author 0 03/14/2025 9:29 AM Juanjo Garcia * Weight Change Since Preop Answer Entry Date Author 59.8 03/14/2025 9:29 AM Juanjo Garcia ril * Initial Excess Weight Answer Entry Date Author -56.7 03/14/2025 9:29 AM Juanjo Garcia * IBW in kg (Bariatric) Answer Entry Date Author 56.7 03/14/2025 9:29 AM Juanjo Garcia ril * IBW in lb (Bariatric) Answer Entry Date Author 125 03/14/2025 9:29 AM Juanjo Garcia * Weight Change Since Last Visit Answer Entry Date Author 59.8 03/14/2025 9:29 AM Juanjo Garcia ril * Percent of IBW Answer Entry Date Author 105.47 03/14/2025 9:29 AM Juanjo Garcia ril * EBW (kg) Answer Entry Date Author 3.09 03/14/2025 9:29 AM Juanjo Garcia * EBW (lb) Answer Entry Date Author 6.84 03/14/2025 9:29 AM Juanjo Garcia ril * Difference in Weight Since Last Visit Answer Entry Date Author -5.52 03/14/2025 9:29 AM Juanjo Garcia ril * IBW/kg (Calculated) Answer Entry Date Author 57 03/14/2025 9:29 AM EDT Solorio, Ap ril * Adult Low Range Vt 6mL/kg Answer Entry Date Author 342 03/14/2025 9:29 AM EDJuanjo Garcia ril * Adult Moderate Range Vt 8mL/kg Answer Entry Date Author 456 03/14/2025 9:29 AM EDJuanjo Garcia * Adult High Range Vt 10mL/kg Answer Entry Date Author 570 03/14/2025 9:29 AM EDJuanjo Garcia ril * Pain Score Answer Entry Date Author 0 03/14/2025 9:38 AM EDJuanjo Garcia * BP Cuff Size Answer Entry Date Author Adult 03/14/2025 9:29 AM EDJuanjo Garcia * Patient Position Answer Entry Date Author Sitting 03/14/2025 9:29 AM EDJuanjo Garcia * Pain Screening Answer Entry Date Author 0-10 03/14/2025 9:30 AM Juanjo Garcia documented in this encounter Miscellaneous Notes * Progress Notes - Jayson Gomez MD - 03/14/2025 9:30 AM EDT Images from the original note were not included. CARDIOLOGY NEW CONSULT NOTE Reason For Consult: History of ARVC. ASSESSMENT / PLAN Kelin Peterson is a 24 y.o. female, who presents with a primary family history of ACM confirmed in her brother by report without personal signs of cardiomyopathic changes: #?ACM or #Genetic predisposition: - The patinet presents with a family history of her brother having reported confirmed ACM and is seen at [facility]. - However, she does not have the details of his morphology or genetic testing. - She reports interrmitent palpitations but otherwise is asymptomatic. - Review of her CMR report suggests normal morphology without LGE on my review through her phone portal today, but we need to personally review these results. - Requested that the patient get her brother's variant to complete variant screening in hopes of excluding her from future surveillance. - Will hold further testing at this time until patient provides the variant information. RTC with Dr. Gomez depending on the provided genetic details from her brother and the results of her testing. [place] screening can be completed through or [facility] given their large ACM registry leadership. SUBJECTIVE History Of Present Illness Kelin Peterson is a 24 y.o. female, who presents as a woman with complaints of a family history of ARVC in her brother. History of Present Illness The patient is a 24-year-old female who presents for genetic testing for arrhythmogenic right ventricular cardiomyopathy (ARVC). She is accompanied by her mother. She has been referred by her airline attendant for genetic testing due to her brother's diagnosis of ARVC. Her brother, aged 26, was diagnosed after experiencing an episode of chest pain and difficulty breathing on 's [place]. He underwent blood tests and was found to have an abnormal heart rhythm. T he patient has undergone an MRI and echocardiogram, with results currently unknown to her. She has a follow-up appointment scheduled with her airline attendant tomorrow. The patient reports experiencing palpitations, described as her heart skipping a beat and fluttering, occurring approximately three times per week. These symptoms have been progressively worsening over the past six months, predating her brother's diagnosis. She has no history of high blood pressureor diabetes. She was diagnosed with hypoglycemia in the ER, but it is not under control. Her blood pressure usually stays low, although it has been high in the past, with the highest recorded systolic pressure being 160. This was before her pregnancies when she had a higher body weight. After her daughter was born, she lost weight, then gained more weight during her subsequent . She checks her blood pressure at home sometimes, and it is typically under 120 or 130. The systolic pressureis usually a little higher, while the diastolic pressure is low. She has been under the care of a airline attendant for the past six months. Her past medical history includes viral meningitis as an . Both of her children were born prematurely; her daughter at 33 weeks and her son at 34 weeks and 6 days. They were just and are currently doing well. Her daughter has a blood disease, which is still being investigated, and shebruises very easily. She has no heart issues. FAMILY HISTORY - Brother: ARVC, diagnosed after an episode of abnormal heart rhythm on '[place]. - Maternal grandmother: Pacemaker, placed 4 years ago in her 70s. - Paternal aunt: in her 40s from unspecified heart problems. - Paternal grandfather: Alcoholic, of heart failure in his 80s. - Paternal grandmother: Diabetes, of normal causes. - Parents: Both alive with COPD; mother has a pacemaker, father does not. Father has skin cancer. Review of Systems Review of Systems Constitutional: Negative for chills, diaphoresis, fever and malaise/fatigue. HENT: Negative for hoarse voice. Eyes: Negative for blurred vision, visual disturbance and visual halos. Cardiovascular: Positive for palpitations. Negative for chest pain, claudication, dyspnea on exertion and leg swelling. Respiratory: Negative for cough, shortness of breath and wheezing. Endocrine: Negative for polyuria. Hematologic/Lymphatic: Does not bruise/bleed easily. Skin: Negative for flushing and rash. Musculoskeletal: Negative for muscle cramps, muscle weakness and myalgias. Gastrointestinal: Negative for abdominal pain, constipation, diarrhea, nausea and vomiting. Genitourinary: Negative for dysuria, frequency and urgency. Neurological: Negative for headaches, light-headedness and numbness. Psychiatric/Behavioral: Negative for altered mental status. Past Medical, Surgical, Social and Family Histories reviewed along with Medications and Allergies; pertinent positives discussed in the A&P. OBJECTIVE Physical Exam Blood pressure 105/72, pulse 77, height 1.651 m (5' 5 ), weight 59.8 kg (131 lb 13.4 oz), SpO2 98%,currently . Physical Exam Constitutional: Appearance: Normal appearance. HENT: Head: Normocephalic and atraumatic. Right Ear: External ear normal. Left Ear: External ear normal. Nose: Nose normal. Mouth/Throat: Mouth: Mucous membranes are moist. Pharynx: Oropharynx is clear. Eyes: Extraocular Movements: Extraocular movements intact. Conjunctiva/sclera: Conjunctivae normal. Pupils: Pupils are equal, round, and reactive to light. Cardiovascular: Rate and Rhythm: Normal rate and regular rhythm. Pulses: Normal pulses. Heart sounds: No murmur heard. No gallop. Pulmonary: Effort: Pulmonary effort is normal. No respiratory distress. Breath sounds: No wheezing or rales. Abdominal: General: Abdomen is flat. There is no distension. Palpations: Abdomen is soft. Tenderness: There is no abdominal tenderness. There is no guarding. Musculoskeletal: General: No swelling. Cervical back: Normal range of motion and neck supple. Right lower leg: No edema. Left lower leg: No edema. Skin: General: Skin is warm and dry. Capillary Refill: Capillary refill takes less than 2 seconds. Coloration: Skin is not jaundiced. Neurological: General: No focal deficit present. Mental Status: She is alert and oriented to person, place, and time. Cranial Nerves: No cranial nerve deficit. Psychiatric: Mood and Affect: Mood normal. Behavior: Behavior normal. Thought Content: Thought content normal. Judgment: Judgment normal. Lab Review I personally reviewed the pertinent labs; specific findings will be discussed in the A&P. Primary Study Review None as of yet. Refer to [facility] for most recent cardiac imaging findings. Specific findings will be discussed in the A&P. ECG/Telemetry Reviewed. Specifics will be discussed in the A&P. I spent 50 minutes performing the following components of the encounter (on the day of the encounter): reviewing History, examining the patient, reviewing imaging and/or labs, Independently interpreting echocardiogram, ECG and/or other imaging results, ordering tests or procedures, counseling the patient and family/caregiver, communicating with other health home health care respiratory therapist, care coordination, and entering clinical information in the EHR. Greater than 50% of the time spent on the encounter was face to face providing direct patient care, counseling for the patient/caregiver, and care coordination. Jayson Gomez III, MD FACP Fellow in Cardiovascular Diseases Cosigned by Manish Navarro MD at 03/19/2025 4:46 AM EDT Associated attestation - Manish Navarro MD - 03/19/2025 4:46 AM EDT I evaluated the patient with the resident/fellow. I discussed the case with the resident/fellow andagree with the findings and plan as documented. documented in this encounter Plan of Treatment Not on file documented as of this encounter Procedures Procedure Name Priority Date/Time Associated Diagnosis Comments ECG ADULT Routine 03/14/2025 9:32 AM EDT Family history of arrhythmogenic right ventricular cardiomyopathy documented in this encounter Results * ECG Adult (Now - Performed in your clinic) (03/14/2025 9:32 AM EDT) EKG DIAGNOSIS CLASS Normal MUSE ECG Ventricular Rate 60 BPM MUSE ECG Atrial Rate 60 BPM MUSE ECG ME Interval 126 ms MUSE ECG QRSD Interval 82 ms MUSE ECG QT Interval 396 ms MUSE ECG QTC Interval 396 ms MUSE ECG P [place] 0 degrees MUSE ECG R [place] 80 degrees MUSE ECG T Wave [place] 22 degrees MUSE ECG Diagnosis Normal sinus rhythm with sinus arrhythmia MUSE ECG Diagnosis Normal ECG MUSE ECG Diagnosis MUSE ECG Diagnosis Confirmed by Narayan Bruce ([id number]) on 03/15/2025 11:49:10 AM MUSE ECG 03/14/2025 9:32 AM EDT 03/15/2025 11:49 AM EDT us Manish Navarro MD ECG ORDERABLES Final Result MUSE ECG documented in this encounter Visit Diagnoses Diagnosis Family history of arrhythmogenic right ventricular cardiomyopathy- Primary documented in this encounter Additional Health Concerns Assessment Noted Time PHQ-9 Depression Total Score: 0 03/14/20 25 9:31 AM EDT A fall risk assessment has been complete d for the patient 03/14/2025 9:31 AM EDT A Body Mass Index follow-up plan has been documented for the patient 03/14/2025 11:57 AM EDT documented as of this encounter Care Teams Nurse Anesthesia Program Director Relationship Specialty Start Date End Date Pcp, [place] [address] PCP - General Family Medicine 10/12/20 documented as of this encounter
--- OUTSIDE RECORDS SUMMARY | 2025-05-16 10:48 | XMS_ITS | Encounter Summary ---
Author Organization [facility] Address [address] [place] [address] Care Team Providers Care Millinery Department Manager Name Role Phone Pcp, No Primary Care Provider Unavailabl e Reason for Referral * Consultation (Routine) - Authorized Specialty Diagnoses / Procedures Referred By Contjin t Referred To Contact Oral Surgery Diagnoses Extraction of tooth needed Josy Valencia DMD [address] [place] [address] Phone: tel: fax: [facility] precision instrument maker [facility] [address] [place] [address] [address] [place] [address] Phone: tel: Referral ID Status Reason Start Date Expiration Date Visits Requested Visits Authorized [id number] Authorized Specialty Services Required 10/17/2026 1 1 Encounter Details Date Type Department Care Team (Late st Contact Info) Description 04/17/2025 Community Orders Community Practice [address] [place] [address] Josy Valencia DMD [address] [place], [place] [id number] Extraction of tooth needed (Primary Dx) Social [...] place to sleep or slept in a [place] [facility] [place] facility (including now)? 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-SEMICONDUCTOR WAFERS SAW OPERATOR) to steady your nerves or to [...] documented as of this encounter Care Teams Millinery Department Manager Relationship Specialty Start Date End Date Pcp, D[place] [address] [place] [address] PCP - General Family Medicine 10/12/20 documented as of this encounter
--- OUTSIDE RECORDS SUMMARY | 2025-05-16 10:48 | XMS_ITS | Clinical Summary ---
Author Organization [facility] Address [address] [place] [address] Care Team Providers Care Casting Machine Adjuster Name Role Phone Unknown, Attending Provider Primary [...] therelease of HIV test results or diagnoses. [id number] Allergies No known active allergies Active [...] Date Last Done Comments Hepatitis C Screening ([employer]) 2000 Immunization: HPV (3 - 3-dose series) [...] Completed 08/04/2017, 11/08/2012 Insurance [employer] MDCD [facility] Care Teams Casting Machine Adjuster Relationship Specialty Start Date End Date Unknown, Attending Provider PCP - General 03/26/23
--- OUTSIDE RECORDS SUMMARY | 2025-05-16 10:48 | XMS_ITS | Clinical Summary ---
Author Organization [facility] Address [facility] [facility] [place] [address] Phone Care Team Providers Care Credit Cashier Name Role Phone Pcp, Pending Only MD Primary Care Provider Social History Tobacco Use Types Packs/Day Years [...] to get utilities Not on file 09/27/19 Comments Unknown Sex and Gender Information Value [...] age to complete this topic Care Teams Credit Cashier Relationship Specialty Start Date End Date Pcp, Pending Only, [place], [place] [phone] PCP - General Internal Medicine 04/02/23
--- OUTSIDE RECORDS SUMMARY | 2025-05-16 10:48 | XMS_ITS | Clinical Summary ---
Author Organization Healthcare Address [address] [place] [address] Care Team Providers Care Crime Prevention Police Officer Name Role Phone Pcp, No Primary Care [...] Description 04/17/2025 Community Orders Community Practice [address] [place] [address] Josy Valencia DMD Extraction of tooth needed (Primary Dx) 03/16/2025 Telephone [facility] [place] [address] [facility] [place] [address] Palam Guadalupe, RN 03/14/2025 9:30 AM EDT Office Visit [facility] [address] [facility] [place] [address] Jayson Gomez MD Family history of arrhythmogenic right ventricular cardiomyopathy (Primary Dx) 03/14/2025 Travel 03/09/2025 Telephone [facility] [address] [place] [address] Palma Guadalupe, RN from Last 3 Months [...] place to sleep or slept in a chcf (including now)? 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-CORRAL BOSS) to steady your nerves or to get [...] 11/08/2022 11/08/2012, 12/26/2004, 10/16/2003, Additional history exists [id number] Vaccine (2 - 2024- season) 2025 03/18/2021 [...] ECG Atrial Rate 60 BPM MUSE ECG RI Interval 126 ms MUSE ECG QRSD Interval 82 ms MUSE ECG QT Interval 396 ms MUSE ECG QTC Interval 396 ms MUSE ECG P Mobile 0 degrees MUSE ECG R Mobile 80 degrees MUSE ECG T Wave Mobile 22 degrees MUSE ECG Diagnosis Normal sinus rhythm with sinus arrhythmia MUSE ECG Diagnosis Normal ECG MUSE ECG Diagnosis MUSE ECG Diagnosis Confirmed by Narayan Bruce ([id number]) on 03/15/2025 11:49:10 AM MUSE ECG 03/14/2025 [...] Patient has decision-making capacity? Yes Care Teams Crime Prevention Police Officer Relationship Specialty Start Date End Date Pcp, D[place] [address] [place] [address] PCP - General Family Medicine 10/12/20
--- OUTSIDE RECORDS SUMMARY | 2025-05-16 10:48 | XMS_ITS | Encounter Summary ---
Author Organization Healthcare Address [address] [place] [address] Care Team Providers Care Hire Car Driver Name Role Phone Pcp, No Primary Care Provider Unavailabl e Encounter Details Date Type Department Care Team ([facility] st Contact Info) Description 11/29/2020 Community [facility] Community Practice [address] [place] [address] Kalyan Marquez, ADVERTISING DISPLAY ROTATOR [address] [place] [address] Abnormal TSH (Primary Dx) Social History Tobacco [...] Primary documented in this encounter Care Teams Hire Car Driver Relationship Specialty Start Date End Date Pcp, [place] [address] [place] [address] PCP - General Family Medicine 10/12/20 documented as of this encounter
--- OUTSIDE RECORDS SUMMARY | 2025-05-16 10:48 | XMS_ITS | Clinical Summary ---
Author Organization [facility] Address [address] [place] [address] Care Team Providers Care Chargeback Specialist Name Role Phone Provider, No Known Primary [...] are ultrasound. Patient plans to move to [place] tomorrow. We discussed transfer of care with referral placed by primary LUMBER TYING MACHINE OPERATOR. Patient desires tubal with delivery. We discussed potential for referral to the [facility]. Assessment & Plan (02/24/2023 12:41 PM EDT): [...] age to complete this topic Insurance [facility]ENA [facility] Care Teams Chargeback Specialist Relationship Specialty Start Date End Date Provider, No Known [facility] [place] [address] PCP - General 05/26/21
[2025-05-16 11:09] LABS: Hematocrit 36.4 % (37.0-47.0); Hemoglobin 12.3 g/dL (12.2-16.2); Immature Granulocytes % 0.4 %; Mean Corpuscular HGB Conc 33.8 g/dL (31.8-35.4); Mean Corpuscular Hemoglobin 28.8 pg (27.0-31.2); Mean Corpuscular Volume 85.2 fl (81-99); Nucleated Red Blood Cells % 0 %; Platelet Count 303 K/mm3 (142-424); Red Blood Count 4.27 M/mm3 (4.20-5.40); Red Cell Distribution Width-SD 38.9 fL; White Blood Count 4.7 K/mm3 (4.8-10.8)
[2025-05-16 11:24] LABS: Activated Partial Thrombo Time 26.5 seconds (22.8-30.6); INR 1.06 (0.9-1.1); Prothrombin Time 11.7 seconds (10.1-12.5)
== END 2025-05-16 23:59 | disposition home or self-care (01) ==
LOC: LAB 10:46
PROVIDERS: PCP Family Medicine; Visit Provider Nurse Practitioner
DX: R04.0 Epistaxis (principal)
CPT/HCPCS: 36415; 85025; 85246; 85610; 85730